=== PATIENT | male | born 1940 | race Caucasian/White ===

== ENCOUNTER 2016-08-19 10:17 | Emergency (ER) | payer MEDICARE, OTHER ==
[2016-08-19 12:06] LABS: Hematocrit 35 % (42-52); Hemoglobin 11.5 g/dl (14.0-18.0); Mean Corpuscular HGB Conc 33 g/dl (31-36); Mean Corpuscular Hemoglobin 29 pg (27-31); Mean Corpuscular Volume 88 fL (80-94); Mean Platelet Volume 8 um3 (7.4-10.4); Red Blood Count 3.92 10^6/ul (4.0-5.4); Red Cell Distribution Width 15 % (10.5-15); White Blood Count 6.6 10^3/ul (3.5-10.8)
[2016-08-19 12:07] LABS: Urine Bilirubin Negative (Negative); Urine Glucose 1+(50 mg/dL) (Negative); Urine Nitrite Negative (Negative)
--- NOTE | 2016-08-19 12:18 | RAD ---
HISTORY: Bilateral lower extremity erythema and swelling COMPARISONS: September 26, 2015 TECHNIQUE: Multiple transverse and longitudinal ultrasound images were obtained of the bilateral lower extremities from the level of the common femoral vein inferiorly through to the infrapopliteal veins using grayscale, color Doppler, and spectral Doppler imaging with and without compression and with augmentation. FINDINGS: VEINS: The venous system of the bilateral lower extremities is compressible throughout its course, with normal flow on color Doppler imaging and normal response to augmentation on spectral Doppler imaging. SOFT TISSUES: Unremarkable. OTHER FINDINGS: None. IMPRESSION: NO RIGHT LOWER EXTREMITY DEEP VEIN THROMBOSIS. NO LEFT LOWER EXTREMITY DEEP VEIN THROMBOSIS
[2016-08-19 12:21] LABS: Albumin 4.1 g/dL (3.2-5.2); BUN/Creatinine Ratio 33.5 (8-20); C Reactive Protein 3.54 mg/L (< 5.00); Calcium 9.4 mg/dL (8.6-10.3); EGFR Non-African American 43.6 (>60); Globulin 3.9 g/dL (2-4); Potassium 5.4 mmol/L (3.5-5.0); Total Bilirubin 0.4 mg/dL (0.2-1.0)
[2016-08-19] MEDS ORDERED: Sodium Polystyrene ORAL.SOL* 15 GM/60 ML BTL PO ONE (12:32)
[2016-08-19] MEDS ORDERED: cefTRIAXone(*) 1 GM in NS 0.9% 50 ML* 50 ML IVPB ONE (13:43)
--- NOTE | 2016-08-19 13:45 | RAD ---
Indication: Shortness of breath. Single frontal view of the chest performed at 1320 hours was reviewed. Comparison is made with previous exam dated May 18, 2016. No mediastinal shift is noted. Heart is of normal size and configuration. Lung lema appear clear. IMPRESSION: NO ACTIVE CARDIOPULMONARY DISEASE IS NOTED.
--- NOTE | 2016-08-19 13:45 | ED ---
Sal Morales Alok, scribed for Tony Rosen MD on 08/19/16 at 1110 . Upper Extremity Pain - HPI Summary HPI Summary: 76 y/o male presents to the ED with c/o LUE pain described as a stinging in his elbow. Pt also notes pain in his right side hip/groin area for the last few days as well as extremity weakness in his lower extremities. 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 Pt states he normally does not ambulate often and instead uses a wheelchair. Pt states no other pertinent PMHx at this time. - History of Current Complaint Chief Complaint: EDExtremityLower Stated Complaint: SWELLING IN BOTH LEGS AND GROIN PAIN Time Seen by Provider: 08/19/16 11:00 Hx Obtained From: Patient Onset/Duration: Started Days Ago, Atraumatic, Still Present Timing: Constant Severity Initially: Moderate Severity Currently: Moderate Pain Location: Arm - Left elbow pain Character: Sharp - Stinging Aggravating Factor(s): Movement Alleviating Factor(s): Nothing Associated Signs & Symptoms: Positive: Weakness - Allergies/Home Medications Allergies/Adverse Reactions: Allergies Allergy/AdvReac Type Severity Reaction Status Date / Time No Known Allergies Allergy Verified 12/12/15 12:43 Home Medications: Home Medications Atenolol TAB* [Tenormin TAB* 50 MG] 50 mg PO DAILY 08/19/16 [History Confirmed 08/19/16] Enalapril TAB* [Vasotec TAB*] 20 mg PO DAILY 08/19/16 [History Confirmed ] Furosemide TAB* [Lasix TAB*] 20 mg PO DAILY 08/19/16 [History Confirmed 08/19/16 ] Magnesium Oxide (mg Supplement [Magnesium Oxide] 250 mg PO BID 08/19/16 [ History Confirmed 08/19/16] PMH/Surg Hx/FS Hx/Imm Hx Endocrine/Hematology History: Reports: Hx Thyroid Disease - hypo Denies: Hx Diabetes Cardiovascular History: Reports: Hx Hypercholesterolemia, Hx Hypotension - LOW BLOOD PRESSURE TODAY, Hx Hypertension, Other Cardiovascular Problems/Disorders - 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 Respiratory History: Reports: Hx Chronic Bronchitis Denies: Hx Chronic Obstructive Pulmonary Disease (COPD) GI History: Reports: Hx Diverticulosis, Hx Gastroesophageal Reflux Disease, Other GI Disorders - liver abscess History: Denies: Hx Dialysis Musculoskeletal History: Reports: Hx Arthritis, Hx Back Problems Sensory History: Reports: Hx Contacts or Glasses, Hx Hearing Aid, Hx Hearing Problem Opthamlomology History: Reports: Hx Contacts or Glasses Neurological History: Reports: 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, 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 Denies: Hx Dementia, Hx Seizures - Surgical History Surgery Procedure, Year, and Place: CERVICAL SURGERY C4-C6, right ear,LIVER ABSCESS, LEFT TESTICLE - Immunization History Date of Tetanus Vaccine: Unk Date of Influenza Vaccine: Unk Infectious Disease History: No Infectious Disease History: Denies: Traveled Outside the [place] in Last 30 Days - Family History Known Family History: Positive: Hypertension, Diabetes Negative: Cardiac Disease - Social History Alcohol Use: Occasionally Hx Substance Use: No Substance Use Type: Reports: None Hx Tobacco Use: Yes - QUIT 60 YRS AGO Smoking Status (MU): Current Some Day Smoker Type: Cigars Amount Used/How Often: OCCASIONAL Review of Systems Negative: Fever Positive: Other - LUE pain All Other Systems Reviewed And Are Negative: Yes Physical Exam - Summary Physical Exam Summary: VITAL SIGNS: Reviewed. GENERAL: Patient is a well developed and nourished male who is lying comfortable in the stretcher. Patient is not in any acute respiratory distress. HEAD AND FACE: No signs of trauma. No ecchymosis, hematomas or skull depressions. No sinus tenderness. EYES: PERRLA, EOMI x 2, No injected conjunctiva, no nystagmus. EARS: Hearing grossly intact. Ear canals and tympanic membranes are within normal limits. MOUTH: Oropharynx within normal limits. NECK: Supple, trachea is midline, no adenopathy, no JVD, no carotid bruit, no c- spine tenderness, neck with full ROM. CHEST: Symmetric, no tenderness at palpation LUNGS: Clear to auscultation bilaterally. No wheezing or crackles. CVS: Regular rate and rhythm, S1 and S2 present, no murmurs or gallops appreciated. ABDOMEN: Soft, non-tender. No signs of distention. No rebound no guarding, and no masses palpated. Bowel sounds are normal. EXTREMITIES: LUE with decrease ROM, B/L LE with positive erythema and mild swelling. NEURO: Alert and oriented x 3. No acute neurological deficits. Speech is normal and follows commands. SKIN: Dry and warm Triage Information Reviewed: Yes Vital Signs On Initial Exam: Initial Vitals Temp Pulse Resp BP Pulse Ox 97.4 F 51 16 127/58 98 08/19/16 10:29 08/19/16 10:29 08/19/16 10:29 08/19/16 10:29 08/19/16 10:29 Vital Signs Reviewed: Yes Diagnostics - Vital Signs Vital Signs Temp Pulse Resp BP Pulse Ox 08/19/16 10:29 97.4 F 51 16 127/58 98 - Laboratory Result Diagrams: 08/19/16 11:40 08/19/16 11:40 Lab Statement: Any lab studies that have been ordered have been reviewed, and results considered in the medical decision making process. - Additional Comments Diagnostic Additional Comments: Venous Doppler Study: IMPRESSION: NO RIGHT LOWER EXTREMITY DEEP VEIN THROMBOSIS. NO LEFT LOWER EXTREMITY DEEP VEIN THROMBOSIS Course/Dx - Course Course Of Treatment: 76 y/o male presents to the ED with c/o LUE pain described as a stinging in his elbow. Pt also notes pain in his right side hip/groin area for the last few days as well as extremity weakness in his lower extremities. 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 Pt states he normally does not ambulate often and instead uses a wheelchair. Pt states no other pertinent PMHx at this time. Assessment/Plan: Blood work showed anemia. Potassium level 5.4 H. BUN 52 H. Creatinine 1.55 H. Creatinine levels show acute on chronic renal failure. Urinalysis shows no UTI. US shows no DVT. Given Kayexalate for high potassium level. Will admit pt with acute on chronic renal failure and anemia. - Diagnoses Differential Diagnosis/HQI/PQRI: Positive: Other - Cellulitis, DVT, B/L LE chroninc edema Provider Diagnoses: GAIT DISORDER, Leg swelling, Unable to ambulate, unable to care forhimself, Hyperkalemia, [id number] renal failure - Physician Notifications Discussed Care Of Patient With: Dr Arroyo (Hospitalist) - agreed to admit pt Discharge - Discharge Plan Condition: Stable Disposition: ADMITTED TO [facility] documentation as recorded by the Sal nugent Alok accurately reflects the service I personally performed and the decisions made by me, Tony Rosen MD.
[2016-08-19 14:09] LABS: Erythrocyte Sed Rate 38 mm/Hr (0-40)
[2016-08-19] MEDS ORDERED: Acetaminophen TAB* 325 MG PO PRN (14:19)
--- NOTE | 2016-08-19 14:23 | CONSULT ---
Subjective Date of Service: 08/19/16 Interval History: The patient has a home health respiratory care practitioner come every Tuesday and . Today a new one came and was concerned about the appearance of his lower legs. The patient sates they have been red like this for over a month. He is a somewhat rambling historian but definitely understands my questions. He has a hx of L arm weakness following anterior cerical spind fusion at [facility] a few years ago. He is treated for hypothyroidism, HTN, HL, lumbar stenosis. FH: mother had CHF, father had DM. SH: Smoke a pipe in the past. No alcohol abuse. He lives alone. SDM is his brother Wilbert Stevenson. ROS: 12-point ROS unremarkable other than above. On examination he is a well-developed, well-nourished man 5 ft 5 in 125 lb, BMI 20.8. He is in good spirits. and looks comfortable. BP 107/51, O2 sat 100%, HR 44, T 97.4. At present the monitor shows NSR at 56/ min. HEENT: normocephalic, nosigns of trauma Neck: No JVD, adenopathy. Heart: regular, no murmur or ub LungsL clear to A&P Skin: warm and dry. Irregular red areas both lower legs, rather symmetric. Not warm Extremities: No calf tenderness. 1+ edema both legs. Neruo: L hand weak, contracted. Legs equal strength. He can raise each leg off the bed. Oriented. Speech clear and fluent. Oriented. No tremor. Objective Active Medications: Ceftriaxone Sodium 1 gm/ (Sodium Chloride) 50 mls @ 100 mls/hr IVPB ED ONCE ONE Stop: 08/19/16 14:12 Result Diagrams: 08/19/16 11:40 08/19/16 11:40 Assessment/Plan - Billing Plan By Medical Problem: 1. Celllulitis and/or dermatitis. Rx ceftriaxone 1 gm IV in ED, then cephalexin 500 mg tid x 10 days. If no benefit would try HC 1% cream bid to both legs. 2. Chronic L arm wekaness due to spinal stenosis, s/p surgery 3. HTN, HL, hypothyroidism, all stable. Fup RPA Session.
[2016-08-19 14:35] VITALS: BP 97/58
[2016-08-19] MEDS ORDERED: Acetaminophen TAB* 325 MG ONE (14:58)
[2016-08-19] MEDS ORDERED: Sodium Polystyrene ORAL.SOL* 15 GM/60 ML BTL ONE (14:58)
[2016-08-19] MEDS ORDERED: cefTRIAXone(*) 1 GM ADVAN/BAG ONE (14:59)
== END 2016-08-19 17:25 | disposition home or self-care (01) ==
LOC: ED 10:17 → MED 12:48 → UNDOADMOB 12:48 → ED 17:25
DX: N17.9 Acute kidney failure, unspecified (principal); N18.9 Chronic kidney disease, unspecified; R26.9 Unspecified abnormalities of gait and mobility; M79.89 Other specified soft tissue disorders; E87.5 Hyperkalemia
CPT/HCPCS: 36415; 71010; 80053; 81003; 83605; 85025; 85610; 85652; 86140; 93970; 99284; A9270-GY; J0696

== ENCOUNTER 2016-12-09 13:30 | Inpatient (IN) | payer MEDICARE, OTHER ==
[2016-12-09] MEDS ORDERED: NS 0.9% 1000 ML* 1,000 ML IV ONE ×2 (14:13→15:36)
[2016-12-09 14:45] LABS: Hematocrit 31 % (42-52); Hemoglobin 9.7 g/dl (14.0-18.0); Mean Corpuscular HGB Conc 32 g/dl (31-36); Mean Corpuscular Hemoglobin 28 pg (27-31); Mean Corpuscular Volume 88 fL (80-94); Mean Platelet Volume 8 um3 (7.4-10.4); Red Cell Distribution Width 15 % (10.5-15); White Blood Count 9.8 10^3/ul (3.5-10.8)
--- NOTE | 2016-12-09 14:51 | RAD ---
INDICATION: Weakness COMPARISON: Chest x-ray August 19, 2016 TECHNIQUE: An AP portable view obtained at 1435 hours is submitted. FINDINGS: Bones/Soft Tissues: There are no acute bony findings. Cardiomediastinal: The cardiomediastinal silhouette is normal. Lungs: Dilation of the apices is mildly limited due to the patient's head. There is apparent increased soft tissue density over the left upper lobe which may be related to the overlying first rib. However, this is asymmetric with respect to the right and initially an apical lordotic view of the chest is recommended to exclude an underlying abnormality. The remaining lung lema are clear.. Pleura: There are no pleural effusions. Other: None IMPRESSION: ASYMMETRY LEFT UPPER LOBE MAY BE RELATED TO THE FIRST RIB BUT AN ADDITIONAL APICAL LORDOTIC VIEW IS RECOMMENDED.
[2016-12-09 14:59] LABS: Ammonia 28 mol/L (16-53)
[2016-12-09 15:00] LABS: Albumin 3.4 g/dL (3.2-5.2); BUN/Creatinine Ratio 17.3 (8-20); C Reactive Protein 77.95 mg/L (< 5.00); EGFR African American 17.9 (>60); EGFR Non-African American 13.9 (>60); Globulin 4.5 g/dL (2-4); Magnesium 3.5 mg/dL (1.9-2.7); Total Bilirubin 0.4 mg/dL (0.2-1.0); Total Protein 7.9 g/dL (6.4-8.9)
[2016-12-09 15:03] LABS: Troponin I 0.01 ng/mL (<0.04)
[2016-12-09 15:04] LABS: B Type Natriuretic Peptide 365 pg/mL
[2016-12-09 15:36] LABS: TSH (Thyroid Stimulating Horm) 1.67 mcIU/mL (0.34-5.60)
[2016-12-09] MEDS ORDERED: Insulin REGULAR(*) 1 UNITS UNIT IV PUSH ONE (15:36)
[2016-12-09] MEDS ORDERED: Sodium Polystyrene ORAL.SOL* 15 GM/60 ML BTL PO ONE (15:36)
[2016-12-09] MEDS ORDERED: Dextrose 50% Syringe 50 ML* 25 GM/50 ML SYRINGE IV PUSH PRN (15:36)
[2016-12-09] MEDS ORDERED: Gabapentin CAP(*) 300 MG PO PRN (15:40)
[2016-12-09] MEDS ORDERED: NS 0.9% 1000 ML* 1,000 ML IV SCH (15:45)
[2016-12-09 16:07] LABS: Urine Bilirubin Negative (Negative); Urine Glucose Negative (Negative); Urine Nitrite Negative (Negative)
--- NOTE | 2016-12-09 17:29 | RAD ---
INDICATION: Acute renal failure. Back pain. Sores on buttocks. COMPARISON: September 26, 2015 CT TECHNIQUE: Multidetector CT images were obtained from the lung bases to the ischial tuberosities. Evaluation of the viscera is limited without IV contrast. Multiplanar reformation. REPORT: Mild bibasilar dependent atelectasis. Negative for pleural effusion. Mild cardiomegaly. Negative for CT abnormality of the unenhanced liver or gallbladder. Negative for biliary dilatation. Moderately atrophic pancreas is without suspicious finding. Atherosclerotic calcification of the splenic artery noted. Unremarkable spleen. Largely decompressed stomach is remarkable for a small volume of hyperdense material most likely related to food stuff or pharmaceuticals. There is also hyperdense material within the colon admixed with the stool. No suspicious CT finding of the upper GI or small bowel. Normal diameter of retrocecal appendix with linear hyperdense material in the lumen which may represent appendicoliths. Negative for periappendiceal inflammatory change. Severe colonic diverticulosis without findings of acute diverticulitis. Negative for ascites or free air. Small fat-containing umbilical hernia without inflammatory change. Small small bowel loop containing direct RIGHT inguinal hernia without inflammatory change or resulting bowel obstruction. Normal adrenal glands. Few small bilateral renal calyceal stones with largest measuring 5 mm at the midpole of the LEFT kidney. Negative for hydronephrosis. Unremarkable nondilated ureters. Partially decompressed catheterized urinary bladder. Enlarged prostate. Unchanged asymmetry of the seminal vesicles with the LEFT larger than the RIGHT. Negative for lymphadenopathy. Atherosclerotic calcification of normal diameter abdominal aorta and iliac arteries. Physiologic distention of the IVC. No retroperitoneal or superficial soft tissue hematoma evident. Lumbar sacral spine degenerative spondylosis and facet joint osteoarthritis. Associated bilateral foraminal stenosis most prominent at L4-L5 and L5-S1 moderate in severity. Dorsal spondylitic ridging results in mild impression on the ventral margin of the thecal sac at L2-L3. No suspicious focal osseous lesions or fractures evident. IMPRESSION: 1. Small small bowel loop containing direct RIGHT inguinal hernia without inflammatory change or resulting bowel obstruction. 2. Severe colonic diverticulosis without findings of acute diverticulitis. 3. Nephrolithiasis without obstructive uropathy. 4. Negative for lymphadenopathy. 5. Atherosclerotic disease without aortoiliac aneurysm. 6. Lumbar sacral spine degenerative spondylosis and facet joint osteoarthritis. Associated bilateral foraminal stenosis most prominent at L4-L5 and L5-S1 moderate in severity. Dorsal spondylitic ridging results in mild impression on the ventral margin of the thecal sac at L2-L3. No suspicious focal osseous lesions or fractures evident.
[2016-12-09 18:22] LABS: BUN/Creatinine Ratio 18.5 (8-20); Calcium 8.2 mg/dL (8.6-10.3); EGFR African American 21.5 (>60); EGFR Non-African American 16.7 (>60); Potassium 5.3 mmol/L (3.5-5.0)
[2016-12-09] MEDS: Atorvastatin* 10 MG TAB PO SCH (20:41)
[2016-12-09] MEDS: Tamsulosin CAP* 0.4 MG PO SCH (20:42)
[2016-12-09] MEDS: Heparin VIAL(*) 5000 UNITS/ML VIAL (FIVE THOUSAND) SUBCUT SCH (20:42)
[2016-12-09] MEDS: Acetaminophen TAB* 325 MG PO PRN (20:42)
--- NOTE | 2016-12-10 01:49 | HP ---
CC: DIONI Prajapati HISTORY AND PHYSICAL: DATE OF ADMISSION: 12/09/16 PRIMARY CARE PROVIDER: DIONI Prajapati ATTENDING PHYSICIAN WHILE IN THE HOSPITAL: Dr. Daria Espinal * (report dictated by David Guidry NP). CHIEF COMPLAINT: 1. Weakness. 2. Not feeling well. 3. Dizziness. HISTORY OF PRESENT ILLNESS: Mr. Stevenson is a 76-year-old male patient who does take ibuprofen twice a day on a daily basis and he also in addition to this is on several blood pressure meds. He has noticed over the last couple days he has had decreased appetite, not eating or drinking. He has just been feeling dizzy, particularly with position change. Says he has been feeling short of breath off and on as well. He denied having any chest pain or any fevers. He says he was very weak. He was not doing his activities of daily living and then it was noted by his family, particularly his brother, Wilbert, that he just was not acting himself. His brother was concerned that he just does not look himself and was not acting himself, so they came in to the ER today. When he came in, was found to have several electrolyte abnormalities, in addition to this found to be in acute renal failure. So, the hospitalist service was asked to evaluate for admission. PAST MEDICAL HISTORY: Significant for: 1. Hypertension. 2. Hyperlipidemia. 3. Hypothyroidism. 4. GERD. 5. Lumbar stenosis. 6. Degenerative disk disease. 7. Liver abscess. 8. Atrial fibrillation. PAST SURGICAL HISTORY: He has had a cervical spine surgery. HOME MEDICATIONS: Include: 1. Tramadol 50 mg p.o. b.i.d. as needed. 2. Vitamin B 1 capsule p.o. daily. 3. Triamcinolone cream 1 application topically b.i.d. 4. Flomax 0.4 mg p.o. at bedtime. 5. Prilosec 20 mg p.o. daily. 6. Fish oil 1000 mg p.o. daily. 7. Zyprexa 5 mg p.o. daily. 8. Naproxen 220 mg p.o. every 12 hours as needed. 9. Magnesium 250 mg p.o. b.i.d. 10. Mevacor 20 mg daily. 11. Loratadine 10 mg p.o. daily. 12. Synthroid 25 mcg daily. 13. Gabapentin 300 mg p.o. b.i.d. as needed. 14. Lasix 20 mg p.o. daily. 15. Folic acid 1 mg p.o. daily. 16. Ferrous sulfate 325 mg p.o. daily. 17. TriCor 145 mg daily. 18. Vasotec 20 mg p.o. daily. 19. Calcium 500 mg p.o. daily. 20. Atenolol 50 mg p.o. daily. 21. Aspirin 81 mg daily. 22. Tylenol 325 mg every 6 hours as needed. ALLERGIES TO MEDICATIONS: Include no known drug allergies. FAMILY HISTORY: His mother had a history of CHF. Father was diabetic. SOCIAL HISTORY: He is a former smoker. Rarely drinks alcohol. Surrogate decision maker is his brother, Wilbert. REVIEW OF SYSTEMS: There is no documented fever. He denied any significant weight change to me. There is no double vision. No ear discharge. He denied having any no rhinorrhea. No sore throat. No thyroid enlargement. Denied having any chest pain. There was no orthopnea. No nocturnal dyspnea. There is no abdominal pain. No nausea. No vomiting. No dysuria. No frequency. No seizure. No loss of consciousness. No pruritus and no skin ulcerations. Review of 14 systems completed, all others negative. PHYSICAL EXAMINATION GENERAL: At this time, Mr. Stevenson is a 76-year-old male patient. He is sitting in the ER stretcher. He does not appear to be in any acute distress. VITAL SIGNS: Blood pressure 91/45 with a pulse of 53, respirations 12, O2 sat 100%, and temperature 98.7. HEENT: Head is atraumatic and normocephalic. Eyes: EOMs are intact. Sclerae were anicteric and not pale. Throat: Oral mucosa did appear to be dry. No oropharyngeal erythema. NECK: Supple. LUNGS: Clear to auscultation bilaterally. No wheezes, rales, or rhonchi. HEART: Sounds S1, S2. Regular rate and rhythm. No murmurs, rubs, or gallops. ABDOMEN: Soft, flat, and nontender. Bowel sounds present. EXTREMITIES: Pulses were 2+ throughout. He is able to move all 4 extremities with 5/5 strength. NEUROLOGIC: He is awake, he is alert, and he is oriented x3. Tongue midline. Microfilm Duplicating Unit Supervisor are equal. No gross focal deficits. SKIN: Intact. LABORATORY DATA AND DIAGNOSTIC STUDIES: Today revealed WBC 9.8, RBC of 3.50, hemoglobin 9.7, hematocrit 31, platelet count of 56. INR 1.23. PTT of 42.7. Sodium 136, potassium 6.0, chloride of 103, bicarb 27, BUN 72, creatinine of 4.16; his baseline appears to be about 1.5. His glucose is 181, lactate 1, calcium 9, magnesium 3.5. Total bili 0.4, AST 23, ALT 15, alk phos 53, ammonia 28. CK-MB 3.4. CK 59. Troponin 0.01. CRP of 77. Albumin of 3.4. TSH pending. He did have a chest x-ray obtained today which was read as asymmetric left upper lobe, may be related to first rib but additional apical lordotic view is recommended. He did have an EKG obtained today which showed a sinus bradycardia rate of 57. No ST elevations. He did have inverted T waves in V1 which he has had in the past and also V3 which has been noted in the past as well. Old medical records were reviewed. ASSESSMENT AND PLAN: Mr. Stevenson is a 76-year-old male patient coming in to the ER today with complaints of weakness, not feeling well, on evaluation found to be in acute renal failure. He will be admitted under inpatient status for: 1. Acute renal failure with associated hyperkalemia: At this point, I will go ahead and place the patient on telemetry. We will give him dextrose with 5 units of IV insulin. I will give him calcium gluconate and in addition to this , I will give him some Kayexalate. Suspect he is in acute renal failure probably from dehydration and the fact that he has been taking NSAIDs. He has also been on ZARIA inhibitor. I stopped these nephrotoxic agents. We will hydrate the patient and place the Dao. Because he has been having back pain, I will get a CT of the abdomen and pelvis to make sure he does not have any obstructive uropathy and evaluate for any hydronephrosis. I will send urine and we will get a FENa and will continue to follow. The weakness may be coming from the magnesium and it has been 3.5, he has been taking a supplement. He just may not be clearing the magnesium in the setting of acute renal failure. Again, we will hydrate and repeat these labs and follow up closely. 2. Hyperlipidemia: Continue medications as prescribed. 3. Hypertension: He is actually hypotensive now, it is probably from dehydration. We will hold his antihypertensives. 4. Hypothyroidism: Continue his Synthroid. 5. Gastroesophageal reflux disease: Continue medications as prescribed. 6. Lumbar stenosis and degenerative disk disease: Continue his current medical regimen; p.r.n. Tylenol has been ordered. 7. Atrial fibrillation: He appears to be in sinus rhythm. We will continue with his aspirin and follow with his primary. 8. History of liver abscess: Not an active issue. 9. DVT prophylaxis: He will be placed on heparin subcu. 10. Code status: He wished to be full code. 11. Fluids, electrolytes, and nutrition: He can have a renal diet. TIME SPENT: Time spent on the admission was approximately 60 minutes; greater than half the time was spent [id number] with the patient obtaining my history and physical, other half the time spent going over the plan of care with the patient and implementing plan of care. I did discuss the plan of care with my attending, Dr. Espinal; she is in agreement. DAVID GUIDRY, ROXANNE [id number]/[facility] #: [id number] [place]
[2016-12-10] MEDS: Levothyroxine TAB* 25 MCG TAB PO SCH (05:31)
[2016-12-10] MEDS: Heparin VIAL(*) 5000 UNITS/ML VIAL (FIVE THOUSAND) SUBCUT SCH ×3 (05:32→21:06)
[2016-12-10] MEDS: traMADol TAB* 50 MG PO PRN (07:30)
[2016-12-10] MEDS: Omeprazole CAP* 20 MG PO SCH (07:31)
[2016-12-10 07:38] LABS: Hematocrit 26 % (42-52); Hemoglobin 8.4 g/dl (14.0-18.0); Mean Corpuscular HGB Conc 32 g/dl (31-36); Mean Corpuscular Hemoglobin 28 pg (27-31); Mean Corpuscular Volume 87 fL (80-94); Mean Platelet Volume 8 um3 (7.4-10.4); Red Blood Count 3.01 10^6/ul (4.0-5.4); Red Cell Distribution Width 14 % (10.5-15); White Blood Count 8.1 10^3/ul (3.5-10.8)
[2016-12-10 07:49] LABS: Calcium 8.2 mg/dL (8.6-10.3); EGFR African American 33.5 (>60); EGFR Non-African American 26.1 (>60); Magnesium 2.5 mg/dL (1.9-2.7); Potassium 5.2 mmol/L (3.5-5.0)
[2016-12-10] MEDS: Folic Acid TAB* 1 MG PO SCH (08:25)
[2016-12-10] MEDS: Ferrous Sulfate TAB* 325 MG PO SCH (08:25)
[2016-12-10] MEDS: OLANzapine TAB* 5 MG PO SCH (08:25)
[2016-12-10] MEDS: CMCS: Fenofibrate(NF) 145 MG TAB PO SCH (08:25)
[2016-12-10] MEDS: Aspirin EC Low Dose* 81 MG TAB.EC PO SCH (08:26)
[2016-12-10] MEDS ORDERED: Sodium Polystyrene ORAL.SOL* 15 GM/60 ML BTL PO ONE (09:28)
--- NOTE | 2016-12-10 09:56 | PN ---
Subjective Date of Service: 12/10/16 Interval History: Pt had not been eating well x 2 days due to nausea. Has chronic RUE contraction and b/l LE's weakness. Usually uses a wheelchair. His back has been bothering and pt had been using Aleeve frequently Objective Active Medications: Acetaminophen (Tylenol Tab*) 650 mg PO Q4H PRN PRN Reason: FEVER/PAIN Aspirin (Aspirin Ec Low Dose*) 81 mg PO DAILY [facility] Last Admin: 12/10/16 08:26 Dose: 81 mg Atorvastatin Calcium (Lipitor*) 5 mg PO BEDTIME [facility] Last Admin: 12/09/16 20:41 Dose: 5 mg Dextrose (D50w Syringe 50 Ml*) 25 gm IV PUSH ONCE PRN PRN Reason: FS < 60 Last Admin: 12/09/16 16:06 Dose: 25 gm Fenofibrate (Tricor(Nf)) 145 mg PO DAILY [facility] PRN Reason: Protocol Last Admin: 12/10/16 08:25 Dose: 145 mg Ferrous Sulfate (Ferrous Sulfate Tab*) 325 mg PO DAILY [facility] Last Admin: 12/10/16 08:25 Dose: 325 mg Folic Acid (Folvite Tab*) 1 mg PO DAILY [facility] Last Admin: 12/10/16 08:25 Dose: 1 mg Gabapentin (Neurontin Cap(*)) 300 mg PO BEDTIME PRN PRN Reason: PAIN Heparin Sodium (Porcine) (Heparin Vial(*)) 5,000 units SUBCUT Q8HR [facility] Last Admin: 12/10/16 05:32 Dose: 5,000 units Sodium Chloride (Ns 0.9% 1000 Ml*) 1,000 mls @ 100 mls/hr IV PER RATE [facility] Levothyroxine Sodium (Synthroid Tab*) 25 mcg PO DAILY@0600 [facility] Last Admin: 12/10/16 05:31 Dose: 25 mcg Olanzapine (Zyprexa Tab*) 5 mg PO DAILY [facility] Last Admin: 12/10/16 08:25 Dose: 5 mg Omeprazole (Prilosec Cap*) 20 mg PO DAILY@0730 [facility] Last Admin: 12/10/16 07:31 Dose: 20 mg Ondansetron HCl (Zofran Inj*) 4 mg IV Q6H PRN PRN Reason: NAUSEA Oxycodone/Acetaminophen (Percocet 5/325 Tab*) 1 tab PO Q4H PRN PRN Reason: PAIN Tamsulosin HCl (Flomax Cap*) 0.4 mg PO BEDTIME [facility] Last Admin: 12/09/16 20:42 Dose: 0.4 mg Tramadol HCl (Ultram*) 50 mg PO BID PRN PRN Reason: PAIN Last Admin: 12/10/16 07:30 Dose: 50 mg Vital Signs 12/09/16 12/09/16 12/09/16 15:45 16:25 19:38 Temperature 97.3 F 96.5 F Pulse Rate 58 59 49 Respiratory 17 16 16 Rate Blood Pressure 99/54 113/51 91/44 (mmHg) O2 Sat by Pulse 100 100 98 Oximetry 12/09/16 12/09/16 12/09/16 20:00 20:34 20:53 Temperature Pulse Rate Respiratory 16 Rate Blood Pressure 95/40 (mmHg) O2 Sat by Pulse 97 Oximetry 12/09/16 12/10/16 12/10/16 23:46 04:01 07:30 Temperature 98.2 F 98.3 F Pulse Rate 64 61 Respiratory 16 16 16 Rate Blood Pressure 102/58 104/57 (mmHg) O2 Sat by Pulse 98 98 Oximetry 12/10/16 12/10/16 12/10/16 07:42 07:51 09:30 Temperature 98.8 F Pulse Rate 53 Respiratory 16 16 Rate Blood Pressure 99/49 (mmHg) O2 Sat by Pulse 95 98 Oximetry Oxygen Devices in Use Now: None Appearance: 76 yo M in nAD, aAOx3 Eyes: No Scleral Icterus, PERRLA Ears/Nose/Mouth/Throat: NL Teeth, Lips, Gums, Mucous Membranes Moist Neck: NL Appearance and Movements; NL JVP, Trachea Midline Respiratory: Symmetrical Chest Expansion and Respiratory Effort, Clear to Auscultation Cardiovascular: NL Sounds; No Murmurs; No JVD, RRR Abdominal: NL Sounds; No Tenderness; No Distention, No Hepatosplenomegaly Lymphatic: No Cervical Adenopathy Extremities: No Edema, No Clubbing, Cyanosis Skin: No Nodules or Sclerosis, - - stage 3 sacral decub at 2 cm in diam Neurological: Alert and Oriented x 3, - - left arm contracted, b/l LE''s at 4+/% Result Diagrams: 12/10/16 07:09 12/10/16 07:09 Assess/Plan/Problems-Billing Assessment: Mr. Stevenson is a 76 yo gentleman who is mostly limited to a wheelchair due to BLE and LUE weakness after cervical spine surgery as well as HTN, HLD, hypothyroidism , GERD and a documented h/o of a fib, but is not anticoagulated (due to h/o falls) who presented with generalized weakness and nausea and was noted to be in acute renal failure, h/o using NSAID's for pain. - Patient Problems (1) LAST (acute kidney injury) Comment: FeNa at 2.5 suggestive of ATN due to NSAIDS. Improving with IVF Dao in place. Pt has h/o problems with U retention in the past Pt has h/o CKD stage 3, creat baseline 1.5 (2) Sacral decubitus ulcer Comment: not infected. Air matress and dressing changes daily ordered (3) Atrial fibrillation Comment: NSR on admission. In regular rate today Anticoagulation was held in the past due to h/o of frequent falls. (4) Hyperkalemia Comment: due to LAST Will tx with another dose of Kayexalate today ACEI held (5) Back pain Comment: chronic, h/o c spine surgery in past will start Percocet, cont Ultram (6) Arm dysfunction Comment: Pt describes 2 separate injuries to L arm. contracted at baseline (7) Weakness of both lower extremities Comment: Patient spends most of his time in a wheelchair at home. He has BLE and LUE weakness which is reportedly a result of prior cervical spine surgery. (8) Hypothyroidism Comment: Continue levothyroxine.TSH 1.6 (9) DVT prophylaxis Comment: Continue SQ Heparin (10) ECG abnormal Comment: neg T waves in V1-V3 appear to be new c/w EKG in 2016. Pt has no h/o CP. Troponin neg. Recommended outpatient stress test once pt's renal failure is resolved Status and Disposition: inpatient, d/c to STR when medically stable
[2016-12-10] MEDS: oxyCODONE/Acetamin 5/325 MG* TAB PO PRN ×3 (10:31→21:57)
[2016-12-10] MEDS: NS 0.9% 1000 ML* 1,000 ML IV SCH (11:23)
[2016-12-10] MEDS: Tamsulosin CAP* 0.4 MG PO SCH (21:04)
[2016-12-10] MEDS: Atorvastatin* 10 MG TAB PO SCH (21:04)
[2016-12-11] MEDS: Heparin VIAL(*) 5000 UNITS/ML VIAL (FIVE THOUSAND) SUBCUT SCH (05:47)
[2016-12-11] MEDS: Levothyroxine TAB* 25 MCG TAB PO SCH (05:47)
[2016-12-11] MEDS: Ondansetron INJ* 2 MG/ML VIAL IV PRN ×3 (07:53→23:46)
[2016-12-11] MEDS: NS 0.9% 1000 ML* 1,000 ML IV SCH ×2 (07:53→18:14)
[2016-12-11] MEDS: Omeprazole CAP* 20 MG PO SCH (07:54)
[2016-12-11] MEDS: Folic Acid TAB* 1 MG PO SCH (08:50)
[2016-12-11] MEDS: OLANzapine TAB* 5 MG PO SCH (08:50)
[2016-12-11] MEDS: Aspirin EC Low Dose* 81 MG TAB.EC PO SCH (08:50)
[2016-12-11] MEDS: Ferrous Sulfate TAB* 325 MG PO SCH (08:50)
[2016-12-11] MEDS: CMCS: Fenofibrate(NF) 145 MG TAB PO SCH (08:50)
--- NOTE | 2016-12-11 09:31 | PN ---
Subjective Date of Service: 12/11/16 Interval History: Pt had one loose green BM yesterday. C/o abd distension and "burping". Later on RN notified of tarry black stool today Objective Active Medications: Acetaminophen (Tylenol Tab*) 650 mg PO Q4H PRN PRN Reason: FEVER/PAIN Aspirin (Aspirin Ec Low Dose*) 81 mg PO DAILY [facility] Last Admin: 12/11/16 08:50 Dose: 81 mg Atorvastatin Calcium (Lipitor*) 5 mg PO BEDTIME [facility] Last Admin: 12/10/16 21:04 Dose: 5 mg Dextrose (D50w Syringe 50 Ml*) 25 gm IV PUSH ONCE PRN PRN Reason: FS < 60 Last Admin: 12/09/16 16:06 Dose: 25 gm Fenofibrate (Tricor(Nf)) 145 mg PO DAILY [facility] PRN Reason: Protocol Last Admin: 12/11/16 08:50 Dose: 145 mg Ferrous Sulfate (Ferrous Sulfate Tab*) 325 mg PO DAILY [facility] Last Admin: 12/11/16 08:50 Dose: 325 mg Folic Acid (Folvite Tab*) 1 mg PO DAILY [facility] Last Admin: 12/11/16 08:50 Dose: 1 mg Gabapentin (Neurontin Cap(*)) 300 mg PO BEDTIME PRN PRN Reason: PAIN Sodium Chloride (Ns 0.9% 1000 Ml*) 1,000 mls @ 100 mls/hr IV PER RATE [facility] Last Admin: 12/11/16 07:53 Dose: 100 mls/hr Levothyroxine Sodium (Synthroid Tab*) 25 mcg PO DAILY@0600 [facility] Last Admin: 12/11/16 05:47 Dose: 25 mcg Olanzapine (Zyprexa Tab*) 5 mg PO DAILY [facility] Last Admin: 12/11/16 08:50 Dose: 5 mg Omeprazole (Prilosec Cap*) 20 mg PO DAILY@0730 [facility] Last Admin: 12/11/16 07:54 Dose: 20 mg Ondansetron HCl (Zofran Inj*) 4 mg IV Q6H PRN PRN Reason: NAUSEA Last Admin: 12/11/16 07:53 Dose: 4 mg Oxycodone/Acetaminophen (Percocet 5/325 Tab*) 1 tab PO Q4H PRN PRN Reason: PAIN Last Admin: 12/10/16 21:57 Dose: 1 tab Tamsulosin HCl (Flomax Cap*) 0.4 mg PO BEDTIME [facility] Last Admin: 12/10/16 21:04 Dose: 0.4 mg Tramadol HCl (Ultram*) 50 mg PO BID PRN PRN Reason: PAIN Last Admin: 12/10/16 07:30 Dose: 50 mg Vital Signs 12/10/16 12/10/16 12/10/16 09:30 10:31 11:09 Temperature 98.7 F Pulse Rate 49 Respiratory 16 16 16 Rate Blood Pressure 90/47 (mmHg) O2 Sat by Pulse 99 Oximetry 12/10/16 12/10/16 12/10/16 12:31 15:18 18:21 Temperature 97.3 F Pulse Rate 57 Respiratory 20 16 16 Rate Blood Pressure 105/54 (mmHg) O2 Sat by Pulse 100 Oximetry 12/10/16 12/10/16 12/10/16 19:43 20:00 21:57 Temperature 98.4 F Pulse Rate 61 Respiratory 16 16 16 Rate Blood Pressure 112/56 (mmHg) O2 Sat by Pulse 98 Oximetry 12/10/16 12/10/16 12/11/16 22:36 23:57 00:06 Temperature 98.5 F Pulse Rate 55 Respiratory 16 16 Rate Blood Pressure 119/59 (mmHg) O2 Sat by Pulse 93 97 Oximetry 12/11/16 12/11/16 03:57 07:35 Temperature 98.5 F 98.6 F Pulse Rate 58 54 Respiratory 16 16 Rate Blood Pressure 132/51 111/56 (mmHg) O2 Sat by Pulse 100 99 Oximetry Oxygen Devices in Use Now: None Appearance: 76 yo M in nAD, AAOx2, poor historian, [place] Eyes: No Scleral Icterus, PERRLA Ears/Nose/Mouth/Throat: NL Teeth, Lips, Gums, Mucous Membranes Moist Neck: NL Appearance and Movements; NL JVP, Trachea Midline Respiratory: Symmetrical Chest Expansion and Respiratory Effort, Clear to Auscultation Cardiovascular: NL Sounds; No Murmurs; No JVD, RRR Abdominal: - - mild LLQ tenderness, no rebound, no guarding, BS+ Lymphatic: No Cervical Adenopathy Extremities: No Edema, No Clubbing, Cyanosis Skin: No Nodules or Sclerosis, - - sacral decub stage 3 at 2-3 cm in diam Neurological: Alert and Oriented x 3, - - contracted left arm and b/l LE's weakness unchanged Result Diagrams: 12/10/16 07:09 12/11/16 09:09 Microbiology and Other Data: Microbiology 12/09/16 15:45 Urine Culture - Final Urine No Growth (<1,000 CFU/mL) Assess/Plan/Problems-Billing Assessment: Mr. Stevenson is a 76 yo gentleman who is mostly limited to a wheelchair due to BLE and LUE weakness after cervical spine surgery as well as HTN, HLD, hypothyroidism , GERD and a documented h/o of a fib, but is not anticoagulated (due to h/o falls) who presented with generalized weakness and nausea and was noted to be in acute renal failure, h/o using NSAID's for pain. - Patient Problems (1) LAST (acute kidney injury) Comment: FeNa at 2.5 suggestive of ATN due to NSAIDS. Improving with IVF. Today's labs pending. Dao in place. Pt has h/o problems with U retention in the past. consider to d/c Dao this PM Pt has h/o CKD stage 3, creat baseline 1.5 (2) Sacral decubitus ulcer Comment: not infected. Air matress and dressing changes daily ordered (3) Atrial fibrillation Comment: NSR on admission. In regular rate today Anticoagulation was held in the past due to h/o of frequent falls. (4) Hyperkalemia Comment: due to LAST labs pending today ACEI held (5) Back pain Comment: chronic, h/o c spine surgery in past will start Percocet, cont Ultram (6) Arm dysfunction Comment: Pt describes 2 separate injuries to L arm. contracted at baseline (7) Weakness of both lower extremities Comment: Patient spends most of his time in a wheelchair at home. He has BLE and LUE weakness which is reportedly a result of prior cervical spine surgery. (8) Hypothyroidism Comment: Continue levothyroxine.TSH 1.6 (9) ECG abnormal Comment: neg T waves in V1-V3 appear to be new c/w EKG in 2016. Pt has no h/o CP. Troponin neg. Recommended outpatient stress test once pt's renal failure is resolved (10) GI bleed Comment: maroon stool just reported by RN. Pt has h/o NSAID use, although by appearance of stool is most likley lower GI bleed will start H&H Q8 Protonix IV Q12H change diet to clears stop DVT prophylaxis (11) DVT prophylaxis Comment: SQ Heparin held on 12/11/16 due to possible GI bleed Status and Disposition: inpatient, d/c to STR when medically stable
[2016-12-11 09:41] LABS: BUN/Creatinine Ratio 16.1 (8-20); Calcium 8.1 mg/dL (8.6-10.3); EGFR African American 53.6 (>60); EGFR Non-African American 41.7 (>60); Potassium 4.4 mmol/L (3.5-5.0)
[2016-12-11] MEDS: Pantoprazole IV* 40 MG IV SCH ×2 (10:30→20:59)
[2016-12-11 15:12] LABS: Hematocrit 25 % (42-52)
[2016-12-11] MEDS: Tamsulosin CAP* 0.4 MG PO SCH (19:54)
[2016-12-11] MEDS: Atorvastatin* 10 MG TAB PO SCH (19:54)
[2016-12-11] MEDS: oxyCODONE/Acetamin 5/325 MG* TAB PO PRN (20:12)
[2016-12-11 23:42] LABS: Hematocrit 26 % (42-52); Hemoglobin 8.4 g/dl (14.0-18.0)
[2016-12-12] MEDS: oxyCODONE/Acetamin 5/325 MG* TAB PO PRN (04:36)
[2016-12-12] MEDS: NS 0.9% 1000 ML* 1,000 ML IV SCH ×2 (05:24→21:58)
[2016-12-12] MEDS: Ondansetron INJ* 2 MG/ML VIAL IV PRN ×2 (05:26→22:07)
[2016-12-12] MEDS: Levothyroxine TAB* 25 MCG TAB PO SCH (05:28)
[2016-12-12 05:35] LABS: Hematocrit 28 % (42-52); Hemoglobin 8.8 g/dl (14.0-18.0); Mean Corpuscular HGB Conc 32 g/dl (31-36); Mean Corpuscular Hemoglobin 28 pg (27-31); Mean Corpuscular Volume 88 fL (80-94); Mean Platelet Volume 8 um3 (7.4-10.4); Red Blood Count 3.14 10^6/ul (4.0-5.4); Red Cell Distribution Width 15 % (10.5-15); White Blood Count 7.7 10^3/ul (3.5-10.8)
[2016-12-12 05:55] LABS: Calcium 8.2 mg/dL (8.6-10.3); EGFR African American 56.9 (>60); EGFR Non-African American 44.2 (>60)
[2016-12-12 08:31] LABS: Hematocrit 27 % (42-52); Hemoglobin 8.6 g/dl (14.0-18.0)
[2016-12-12] MEDS: Folic Acid TAB* 1 MG PO SCH (09:45)
[2016-12-12] MEDS: OLANzapine TAB* 5 MG PO SCH (09:45)
[2016-12-12] MEDS: Ferrous Sulfate TAB* 325 MG PO SCH (09:45)
[2016-12-12] MEDS: CMCS: Fenofibrate(NF) 145 MG TAB PO SCH (09:45)
[2016-12-12] MEDS: Pantoprazole IV* 40 MG IV SCH (09:47)
--- NOTE | 2016-12-12 10:28 | PN ---
Subjective Date of Service: 12/12/16 Interval History: pt c/o lower abd pain. lot's of "gas" but no BM since the maroon stool yesterday. appetite is "picking up" after N/V yesterday Objective Active Medications: Acetaminophen (Tylenol Tab*) 650 mg PO Q4H PRN PRN Reason: FEVER/PAIN Atorvastatin Calcium (Lipitor*) 5 mg PO BEDTIME [facility] Last Admin: 12/11/16 19:54 Dose: 5 mg Dextrose (D50w Syringe 50 Ml*) 25 gm IV PUSH ONCE PRN PRN Reason: FS < 60 Last Admin: 12/09/16 16:06 Dose: 25 gm Famotidine (Pepcid Tab*) 20 mg PO BID [facility] Fenofibrate (Tricor(Nf)) 145 mg PO DAILY [facility] PRN Reason: Protocol Last Admin: 12/12/16 09:45 Dose: 145 mg Ferrous Sulfate (Ferrous Sulfate Tab*) 325 mg PO DAILY [facility] Last Admin: 12/12/16 09:45 Dose: 325 mg Folic Acid (Folvite Tab*) 1 mg PO DAILY [facility] Last Admin: 12/12/16 09:45 Dose: 1 mg Gabapentin (Neurontin Cap(*)) 300 mg PO BEDTIME PRN PRN Reason: PAIN Lactated Ringer's (Lactated Ringers 1000 Ml Bag*) 1,000 mls @ 75 mls/hr IV PER RATE [facility] Levothyroxine Sodium (Synthroid Tab*) 25 mcg PO DAILY@0600 [facility] Last Admin: 12/12/16 05:28 Dose: 25 mcg Olanzapine (Zyprexa Tab*) 5 mg PO DAILY [facility] Last Admin: 12/12/16 09:45 Dose: 5 mg Ondansetron HCl (Zofran Inj*) 4 mg IV Q6H PRN PRN Reason: NAUSEA Last Admin: 12/12/16 05:26 Dose: 4 mg Oxycodone/Acetaminophen (Percocet 5/325 Tab*) 1 tab PO Q4H PRN PRN Reason: PAIN Last Admin: 12/12/16 04:36 Dose: 1 tab Sodium Bicarbonate (Sodium Bicarbonate (Antacid)*) 650 mg PO AC [facility] Tamsulosin HCl (Flomax Cap*) 0.4 mg PO BEDTIME [facility] Last Admin: 12/11/16 19:54 Dose: 0.4 mg Tramadol HCl (Ultram*) 50 mg PO BID PRN PRN Reason: PAIN Last Admin: 12/10/16 07:30 Dose: 50 mg Vital Signs 12/11/16 12/11/16 12/11/16 11:49 15:43 19:18 Temperature 98.5 F 98.3 F 98.3 F Pulse Rate 55 56 61 Respiratory 20 16 18 Rate Blood Pressure 107/56 117/60 108/61 (mmHg) O2 Sat by Pulse 98 98 98 Oximetry 12/11/16 12/11/16 12/11/16 20:00 20:12 22:01 Temperature Pulse Rate Respiratory 18 24 Rate Blood Pressure (mmHg) O2 Sat by Pulse 93 Oximetry 12/11/16 12/11/16 12/12/16 22:12 23:50 03:21 Temperature 98.5 F 98.7 F Pulse Rate 60 67 Respiratory 18 20 20 Rate Blood Pressure 106/55 103/45 (mmHg) O2 Sat by Pulse 97 95 Oximetry 12/12/16 12/12/16 12/12/16 04:36 06:36 07:48 Temperature 98.3 F Pulse Rate 69 Respiratory 18 17 20 Rate Blood Pressure 124/82 (mmHg) O2 Sat by Pulse 96 Oximetry 12/12/16 08:26 Temperature Pulse Rate Respiratory Rate Blood Pressure (mmHg) O2 Sat by Pulse 96 Oximetry Oxygen Devices in Use Now: None Appearance: 76 yo in NAD, aAOx3 Eyes: No Scleral Icterus, PERRLA Ears/Nose/Mouth/Throat: NL Teeth, Lips, Gums, Mucous Membranes Moist Neck: NL Appearance and Movements; NL JVP, Trachea Midline Respiratory: Symmetrical Chest Expansion and Respiratory Effort, Clear to Auscultation Cardiovascular: NL Sounds; No Murmurs; No JVD, RRR Abdominal: - - mild tenderness in b/l LQ's, no rwbound, no guarding, BS+ Lymphatic: No Cervical Adenopathy Extremities: No Edema, No Clubbing, Cyanosis Skin: No Nodules or Sclerosis, - - sacral decub not evaluated today Neurological: Alert and Oriented x 3, - - L UE contracted, b/l LE's weakness unchanged Result Diagrams: 12/12/16 08:21 12/12/16 05:12 Microbiology and Other Data: Microbiology 12/09/16 15:45 Urine Culture - Final Urine No Growth (<1,000 CFU/mL) Assess/Plan/Problems-Billing Assessment: Mr. Stevenson is a 76 yo gentleman who is mostly limited to a wheelchair due to BLE and LUE weakness after cervical spine surgery as well as HTN, HLD, hypothyroidism , GERD and a documented h/o of a fib, but is not anticoagulated (due to h/o falls) who presented with generalized weakness and nausea and was noted to be in acute renal failure, h/o using NSAID's for pain. - Patient Problems (1) Diverticulitis Comment: Clinically pt has diverticulitis: abd pain , lower GI bleed, elevated CRP, severe diverticulosis noted on CT at admission. Will start Zosyn (2) GI bleed Comment: maroon stool on 12/11/16. Pt has h/o NSAID use, although by appearance of stool is most likley lower GI bleed. Hb stable. no recurrence. suspect due to diverticulitis. Due to LAST will stop PPI and start Pepcid. (3) LAST (acute kidney injury) Comment: FeNa at 2.5 suggestive of ATN due to NSAIDS. Improving with IVF. Today's labs indicated metabolic non ion gap acidosis.Will start Na bicarrb with each meal Dao d/c'd on 12/11/16 with post void resiudual approx 100 ml-acceptable. Pt has h/o CKD stage 3, creat baseline 1.5 (4) Sacral decubitus ulcer Comment: not infected. Air matress and dressing changes daily ordered (5) Atrial fibrillation Comment: NSR on admission. In regular rate today Anticoagulation was held in the past due to h/o of frequent falls. (6) Hyperkalemia Comment: due to LAST resolved ACEI held (7) Back pain Comment: chronic, h/o c spine surgery in past cont Percocet,Ultram (8) Arm dysfunction Comment: Pt describes 2 separate injuries to L arm. contracted at baseline (9) Weakness of both lower extremities Comment: Patient spends most of his time in a wheelchair at home. He has BLE and LUE weakness which is reportedly a result of prior cervical spine surgery. (10) Hypothyroidism Comment: Continue levothyroxine.TSH 1.6 (11) ECG abnormal Comment: neg T waves in V1-V3 appear to be new c/w EKG in 2016. Pt has no h/o CP. Troponin neg. Recommended outpatient stress test once pt's renal failure is resolved (12) DVT prophylaxis Comment: SQ Heparin held on 12/11/16 due to possible GI bleed SCD's Status and Disposition: inpatient, d/c to STR when medically stable
[2016-12-12] MEDS: Sodium Bicarbonate (ANTACID)* 650 MG TAB PO SCH ×2 (12:19→16:55)
[2016-12-12] MEDS ORDERED: Zosyn per Pharmacy* NOTE FOLLOW UP SCH (14:00)
[2016-12-12] MEDS: ZOSYN 3.375 GM Q8H per EXTENDED INFUSION IVPB SCH ×2 (17:16)
[2016-12-12] MEDS: Atorvastatin* 10 MG TAB PO SCH (19:56)
[2016-12-12] MEDS: Tamsulosin CAP* 0.4 MG PO SCH (19:56)
[2016-12-12] MEDS ORDERED: Famotidine TAB* 20 MG PO SCH (21:00)
[2016-12-13] MEDS: ZOSYN 3.375 GM Q8H per EXTENDED INFUSION IVPB SCH ×6 (01:29→16:42)
[2016-12-13] MEDS: Acetaminophen TAB* 325 MG PO PRN (02:50)
[2016-12-13] MEDS: Levothyroxine TAB* 25 MCG TAB PO SCH (05:42)
[2016-12-13] MEDS: Ondansetron INJ* 2 MG/ML VIAL IV PRN (05:49)
[2016-12-13] MEDS: traMADol TAB* 50 MG PO PRN (05:49)
[2016-12-13 06:37] LABS: Hematocrit 26 % (42-52); Hemoglobin 8.5 g/dl (14.0-18.0); Mean Corpuscular HGB Conc 32 g/dl (31-36); Mean Corpuscular Hemoglobin 28 pg (27-31); Mean Corpuscular Volume 88 fL (80-94); Mean Platelet Volume 8 um3 (7.4-10.4); Red Blood Count 3.02 10^6/ul (4.0-5.4); Red Cell Distribution Width 15 % (10.5-15); White Blood Count 7.7 10^3/ul (3.5-10.8)
[2016-12-13 06:49] LABS: Calcium 8.1 mg/dL (8.6-10.3); EGFR African American 64.1 (>60); EGFR Non-African American 49.8 (>60)
[2016-12-13 07:05] LABS: Potassium 4.2 mmol/L (3.5-5.0)
--- NOTE | 2016-12-13 07:30 | ED ---
Christian Morales Salem, scribed for Denis Broussard MD on 12/09/16 at 1427 . Complex/Multi-Sys Presentation - HPI Summary HPI Summary: Patient is a 76 y/o M who presents to the ED with general weakness since yesterday. He reports a cough productive for yellow sputum, SOB, general myalgia , lightheadedness, staggering with ambulation, burning of eyes, and sores on buttocks. However, he denies changes in BM or urination, or blood in stool. Pt recently had neck surgery in [place], [place]. He also reports decreased PO intake because of choking (since surgery). Pt states that his nursing home aide did not come yesterday and that he did not have anything to eat secondary to this. PMHx of arthritis, which pt states flares up occasionally. - History Of Current Complaint Chief Complaint: EDGeneral Time Seen by Provider: 12/09/16 14:17 Hx Obtained From: Patient, Family/Driller Multiple Spindle Onset/Duration: Gradual Onset, Lasting Days, Still Present Timing: Constant Severity Currently: Moderate Severity Initially: Moderate Location: Negative Aggravating Factor(s): Nothing. Alleviating Factor(s): Nothing. Associated Signs And Symptoms: Positive: Weakness. Negative: Abdominal Pain - Allergies/Home Medications Allergies/Adverse Reactions: Allergies Allergy/AdvReac Type Severity Reaction Status Date / Time No Known Allergies Allergy Verified 12/12/15 12:43 Home Medications: Home Medications Levothyroxine TAB* [Synthroid TAB*] 25 mcg PO DAILY 12/09/16 [History Confirmed 12/09/16] LoraTADine TAB(NF) [Claritin 10 MG TAB(NF)] 10 mg PO DAILY 12/09/16 [History Confirmed 12/09/16] Naproxen Sodium [Naproxen Sodium 220 mg] 220 mg PO Q12HR PRN 12/09/16 [History Confirmed 12/09/16] Triamcinolone 0.1% CREAM (NF) [Kenalog 0.1% Cream (NF)] 1 applic TOPICAL BID [History Confirmed 12/09/16] Vitamin B Complex CAP* [B Complex CAP*] 1 cap PO DAILY 12/09/16 [History Confirmed 12/09/16] traMADol TAB* [Ultram*] 50 mg PO BID PRN 12/09/16 [History Confirmed 12/09/16] PMH/Surg Hx/FS Hx/Imm Hx Endocrine/Hematology History: Reports: Hx Thyroid Disease - hypo Denies: Hx Diabetes Cardiovascular History: Reports: Hx Hypercholesterolemia, Hx Hypotension - LOW BLOOD PRESSURE TODAY, Hx Hypertension, Other Cardiovascular Problems/Disorders - 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 Respiratory History: Reports: Hx Chronic Bronchitis Denies: Hx Chronic Obstructive Pulmonary Disease (COPD) GI History: Reports: Hx Diverticulosis, Hx Gastroesophageal Reflux Disease, Other GI Disorders - liver abscess History: Denies: Hx Dialysis Musculoskeletal History: Reports: Hx Arthritis, Hx Back Problems Sensory History: Reports: Hx Contacts or Glasses, Hx Hearing Aid, Hx Hearing Problem Opthamlomology History: Reports: Hx Contacts or Glasses Neurological History: Reports: 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, 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 Denies: Hx Dementia, Hx Seizures - Surgical History Surgery Procedure, Year, and Place: CERVICAL SURGERY C4-C6, right ear,LIVER ABSCESS, LEFT TESTICLE - Immunization History Date of Tetanus Vaccine: Unk Date of Influenza Vaccine: Unk Infectious Disease History: No Infectious Disease History: Denies: Traveled Outside the [place] in Last 30 Days - Family History Known Family History: Positive: Hypertension, Diabetes Negative: Cardiac Disease - Social History Alcohol Use: Occasionally Hx Substance Use: No Substance Use Type: Reports: None Hx Tobacco Use: Yes - QUIT 60 YRS AGO Smoking Status (MU): Current Some Day Smoker Type: Cigars Amount Used/How Often: OCCASIONAL Review of Systems Positive: Other - "Burning of eyes" Positive: Shortness Of Breath, Cough Genitourinary: Other - No changes in BM or urination. No blood in stool. Positive: Myalgia, Other - Paralyzed LUE. Staggering with ambulation. Neurological: Other - Lightheadedness. Positive: Weakness All Other Systems Reviewed And Are Negative: Yes Physical Exam Triage Information Reviewed: Yes Vital Signs On Initial Exam: Initial Vitals Temp Pulse Resp BP Pulse Ox 98.3 F 62 20 96/72 96 12/09/16 13:31 12/09/16 13:31 12/09/16 13:31 12/09/16 13:31 12/09/16 13:31 Vital Signs Reviewed: Yes Appearance: Positive: Well-Appearing, No Pain Distress Skin: Positive: Warm, Skin Color Reflects Adequate Perfusion, Dry Head/Face: Positive: Normal Head/Face Inspection Eyes: Positive: EOMI, FRANSISCA ENT: Positive: Other - DMM. Hard of hearing. Neck: Positive: Supple, Nontender Respiratory/Lung Sounds: Positive: Clear to Auscultation, Breath Sounds Present Cardiovascular: Positive: RRR Abdomen Description: Positive: Nontender, Soft Bowel Sounds: Positive: Hypoactive Musculoskeletal: Positive: Other - Generalized weakness. Left arm - decreased strength. Weakness in both legs but able to lift. Neurological: Positive: Normal, Sensory/Motor Intact, Alert, Oriented to Person Place, Time Psychiatric: Positive: Affect/Mood Appropriate Diagnostics - Vital Signs Vital Signs Temp Pulse Resp BP Pulse Ox 12/09/16 13:35 98.7 F 62 20 96/72 96 12/09/16 13:31 98.3 F 62 20 96/ 96 - Laboratory Lab Results: Lab Results 12/09/16 12/09/16 12/09/16 Range/Units 14:25 14:25 14:25 WBC 9.8 (3.5-10.8) 10^3/ul RBC 3.50 L (4.0-5.4) 10^6/ul Hgb 9.7 L (14.0-18.0) g/dl Hct 31 L (42-52) % MCV 88 (80-94) fL MCH 28 (27-31) pg MCHC 32 (31-36) g/dl RDW 15 (10.5-15) % Plt Count 356 (150-450) 10^3/ul MPV 8 (7.4-10.4) um3 Neut % (Auto) 84.0 H (38-83) % Lymph % (Auto) 5.1 L (25-47) % [place] % (Auto) 8.2 (1-9) % Eos % (Auto) 2.1 (0-6) % Baso % (Auto) 0.6 (0-2) % Absolute Neuts (auto) 8.2 H (1.5-7.7) 10^3/ul Absolute Lymphs (auto) 0.5 L (1.0-4.8) 10^3/ul Absolute Monos (auto) 0.8 (0-0.8) 10^3/ul Absolute Eos (auto) 0.2 (0-0.6) 10^3/ul Absolute Basos (auto) 0.1 (0-0.2) 10^3/ul Absolute Nucleated RBC 0 10^3/ul Nucleated RBC % 0 INR (Anticoag Therapy) 1.23 H (0.89-1.11) APTT 42.7 H (26.0-36.3) seconds Sodium (133-145) mmol/L Potassium (3.5-5.0) mmol/L Chloride (101-111) mmol/L Carbon Dioxide (22-32) mmol/L Anion Gap (2-11) mmol/L BUN (6-24) mg/dL Creatinine (0.67-1.17) mg/dL Est GFR ( Amer) (>60) Est GFR (Non-Af Amer) (>60) BUN/Creatinine Ratio (8-20) Glucose (70-100) mg/dL Lactic Acid (0.5-2.0) mmol/L Calcium (8.6-10.3) mg/dL Magnesium (1.9-2.7) mg/dL Total Bilirubin (0.2-1.0) mg/dL AST (13-39) U/L ALT (7-52) U/L Alkaline Phosphatase (34-104) U/L Ammonia 28 (16-53) mol/L Total Creatine Kinase (10-223) U/L CK-MB (CK-2) (0.6-6.3) ng/mL Troponin I (<0.04) ng/mL C-Reactive Protein (< 5.00) mg/L B-Natriuretic Peptide 365 H ( - 100) pg/mL Total Protein (6.4-8.9) g/dL Albumin (3.2-5.2) g/dL Globulin (2-4) g/dL Albumin/Globulin Ratio (1-3) Lipase (11.0-82.0) U/L TSH (0.34-5.60) mcIU/mL 12/09/16 12/09/16 Range/Units 14:25 14:25 WBC (3.5-10.8) 10^3/ul RBC (4.0-5.4) 10^6/ul Hgb (14.0-18.0) g/dl Hct (42-52) % MCV (80-94) fL MCH (27-31) pg MCHC (31-36) g/dl RDW (10.5-15) % Plt Count (150-450) 10^3/ul MPV (7.4-10.4) um3 Neut % (Auto) (38-83) % Lymph % (Auto) (25-47) % [place] % (Auto) (1-9) % Eos % (Auto) (0-6) % Baso % (Auto) (0-2) % Absolute Neuts (auto) (1.5-7.7) 10^3/ul Absolute Lymphs (auto) (1.0-4.8) 10^3/ul Absolute Monos (auto) (0-0.8) 10^3/ul Absolute Eos (auto) (0-0.6) 10^3/ul Absolute Basos (auto) (0-0.2) 10^3/ul Absolute Nucleated RBC 10^3/ul Nucleated RBC % INR (Anticoag Therapy) (0.89-1.11) APTT (26.0-36.3) seconds Sodium 136 (133-145) mmol/L Potassium 6.0 H (3.5-5.0) mmol/L Chloride 103 (101-111) mmol/L Carbon Dioxide 27 (22-32) mmol/L Anion Gap 6 (2-11) mmol/L BUN 72 H (6-24) mg/dL Creatinine 4.16 H (0.67-1.17) mg/dL Est GFR ( Amer) 17.9 (>60) Est GFR (Non-Af Amer) 13.9 (>60) BUN/Creatinine Ratio 17.3 (8-20) Glucose 181 H (70-100) mg/dL Lactic Acid 1.0 (0.5-2.0) mmol/L Calcium 9.0 (8.6-10.3) mg/dL Magnesium 3.5 H (1.9-2.7) mg/dL Total Bilirubin 0.40 (0.2-1.0) mg/dL AST 23 (13-39) U/L ALT 15 (7-52) U/L Alkaline Phosphatase 63 (34-104) U/L Ammonia (16-53) mol/L Total Creatine Kinase 59 (10-223) U/L CK-MB (CK-2) 3.4 (0.6-6.3) ng/mL Troponin I 0.01 (<0.04) ng/mL C-Reactive Protein 77.95 H (< 5.00) mg/L B-Natriuretic Peptide ( - 100) pg/mL Total Protein 7.9 (6.4-8.9) g/dL Albumin 3.4 (3.2-5.2) g/dL Globulin 4.5 H (2-4) g/dL Albumin/Globulin Ratio 0.8 L (1-3) Lipase 26 (11.0-82.0) U/L TSH 1.67 (0.34-5.60) mcIU/mL Result Diagrams: 12/13/16 06:12 12/13/16 06:12 Lab Statement: Any lab studies that have been ordered have been reviewed, and results considered in the medical decision making process. - Radiology CXR Radiology Interpretation Completed By: Radiologist - IMPRESSION: ASYMMETRY LEFT UPPER LOBE MAY BE RELATED TO THE FIRST RIB BUT AN ADDITIONAL APICAL LORDOTIC VIEW IS RECOMMENDED. Re-Evaluation - Re-Evaluation First Eval Re-Evaluation Time: 15:46 Comment: Reviewed labs and imaging results. Complex Multi-Symp Course/Dx Course Of Treatment: NO CRITICAL CARE TIME. ADMIT HOSPITALIST STABLE. - Diagnoses Provider Diagnoses: Renal failure, acute, Hyperkalemia - Physician Notifications Discussed Care Of Patient With: Daria Espinal Time Discussed With Above Provider: 15:00 Instructed by Provider To: Admit As Inpatient Admit/Transition Orders Completed By ED Provider: Yes Discharge - Discharge Plan Condition: Stable Disposition: ADMITTED TO [facility] documentation as recorded by the Christian nugent Salem accurately reflects the service I personally performed and the decisions made by me, Denis Broussard MD.
[2016-12-13] MEDS: Sodium Bicarbonate (ANTACID)* 650 MG TAB PO SCH ×3 (08:01→16:42)
[2016-12-13] MEDS: Famotidine TAB* 20 MG PO SCH (08:05)
[2016-12-13] MEDS: Ferrous Sulfate TAB* 325 MG PO SCH (08:05)
[2016-12-13] MEDS: OLANzapine TAB* 5 MG PO SCH (08:05)
[2016-12-13] MEDS: Folic Acid TAB* 1 MG PO SCH (08:06)
[2016-12-13] MEDS: CMCS: Fenofibrate(NF) 145 MG TAB PO SCH (09:16)
--- NOTE | 2016-12-13 13:16 | PN ---
Subjective Date of Service: 12/13/16 Interval History: C/o abdominal distention, no diarrhea, no bloody stool recurrence. 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 Objective Active Medications: Acetaminophen (Tylenol Tab*) 650 mg PO Q4H PRN PRN Reason: FEVER/PAIN Atorvastatin Calcium (Lipitor*) 5 mg PO BEDTIME [facility] Last Admin: 12/12/16 19:56 Dose: 5 mg Dextrose (D50w Syringe 50 Ml*) 25 gm IV PUSH ONCE PRN PRN Reason: FS < 60 Last Admin: 12/09/16 16:06 Dose: 25 gm Famotidine (Pepcid Tab*) 20 mg PO DAILY [facility] Last Admin: 12/13/16 08:05 Dose: 20 mg Fenofibrate (Tricor(Nf)) 145 mg PO DAILY [facility] PRN Reason: Protocol Last Admin: 12/13/16 09:16 Dose: 145 mg Ferrous Sulfate (Ferrous Sulfate Tab*) 325 mg PO DAILY [facility] Last Admin: 12/13/16 08:05 Dose: 325 mg Folic Acid (Folvite Tab*) 1 mg PO DAILY [facility] Last Admin: 12/13/16 08:06 Dose: 1 mg Gabapentin (Neurontin Cap(*)) 300 mg PO BEDTIME PRN PRN Reason: PAIN Sodium Chloride (Ns 0.9% 1000 Ml*) 1,000 mls @ 75 mls/hr IV PER RATE [facility] Last Admin: 12/12/16 21:58 Dose: 75 mls/hr Piperacillin Sod/Tazobactam (Sod 3.375 gm/ Sodium Chloride) 100 mls @ 25 mls/ hr IVPB Q8H [facility] Last Admin: 12/13/16 09:17 Dose: 25 mls/hr Levothyroxine Sodium (Synthroid Tab*) 25 mcg PO DAILY@0600 [facility] Last Admin: 12/13/16 05:42 Dose: 25 mcg Olanzapine (Zyprexa Tab*) 5 mg PO DAILY [facility] Last Admin: 12/13/16 08:05 Dose: 5 mg Ondansetron HCl (Zofran Inj*) 4 mg IV Q6H PRN PRN Reason: NAUSEA Last Admin: 12/13/16 05:49 Dose: 4 mg Oxycodone/Acetaminophen (Percocet 5/325 Tab*) 1 tab PO Q4H PRN PRN Reason: PAIN Last Admin: 12/12/16 04:36 Dose: 1 tab Pharmacy Consult (Zosyn Per Pharmacy*) 1 note FOLLOW UP .ZOSYN PER PHARMACY [facility] Sodium Bicarbonate (Sodium Bicarbonate (Antacid)*) 650 mg PO AC [facility] Last Admin: 12/13/16 11:30 Dose: 650 mg Tamsulosin HCl (Flomax Cap*) 0.4 mg PO BEDTIME [facility] Last Admin: 12/12/16 19:56 Dose: 0.4 mg Tramadol HCl (Ultram*) 50 mg PO BID PRN PRN Reason: PAIN Last Admin: 12/13/16 05:49 Dose: 50 mg Vital Signs 12/12/16 12/12/16 12/12/16 15:56 19:46 20:10 Temperature 98.7 F 98.4 F Pulse Rate 58 60 Respiratory 18 18 Rate Blood Pressure 108/50 130/67 (mmHg) O2 Sat by Pulse 96 96 96 Oximetry 12/12/16 12/12/16 12/12/16 21:52 22:21 22:32 Temperature 98.5 F 98.5 F Pulse Rate 62 62 Respiratory 16 16 16 Rate Blood Pressure 126/56 126/56 (mmHg) O2 Sat by Pulse 98 98 Oximetry 12/12/16 12/13/16 12/13/16 23:54 03:33 05:49 Temperature 98.3 F 98.3 F Pulse Rate 58 52 Respiratory 18 16 18 Rate Blood Pressure 137/74 146/62 (mmHg) O2 Sat by Pulse 99 100 Oximetry 12/13/16 12/13/16 12/13/16 07:29 07:49 08:00 Temperature 97.5 F Pulse Rate 56 Respiratory 16 16 16 Rate Blood Pressure 150/60 (mmHg) O2 Sat by Pulse 99 Oximetry Oxygen Devices in Use Now: None Appearance: 76 yo M in [place], [place], [place] Eyes: No Scleral Icterus, PERRLA Ears/Nose/Mouth/Throat: NL Teeth, Lips, Gums, Mucous Membranes Moist Neck: NL Appearance and Movements; NL JVP, Trachea Midline Respiratory: Symmetrical Chest Expansion and Respiratory Effort, Clear to Auscultation Cardiovascular: NL Sounds; No Murmurs; No JVD, RRR Abdominal: - - distended, tympanic, mild periumbilical tenderness, no rebound, no guarding, BS+ Lymphatic: No Cervical Adenopathy Extremities: No Edema, No Clubbing, Cyanosis Skin: No Nodules or Sclerosis, - - sacral decub not inspected today Neurological: Alert and Oriented x 3, - - left arm contracted, b/l LE's weakness unchanged Result Diagrams: 12/13/16 06:12 12/13/16 06:12 Additional Lab and Data: Lab Results 12/09/16 12/09/16 12/09/16 Range/Units 14:25 14:25 14:25 WBC 9.8 (3.5-10.8) 10^3/ul RBC 3.50 L (4.0-5.4) 10^6/ul Hgb 9.7 L (14.0-18.0) g/dl Hct 31 L (42-52) % MCV 88 (80-94) fL MCH 28 (27-31) pg MCHC 32 (31-36) g/dl RDW 15 (10.5-15) % Plt Count 356 (150-450) 10^3/ul MPV 8 (7.4-10.4) um3 Neut % (Auto) 84.0 H (38-83) % Lymph % (Auto) 5.1 L (25-47) % [place] % (Auto) 8.2 (1-9) % Eos % (Auto) 2.1 (0-6) % Baso % (Auto) 0.6 (0-2) % Absolute Neuts (auto) 8.2 H (1.5-7.7) 10^3/ul Absolute Lymphs (auto) 0.5 L (1.0-4.8) 10^3/ul Absolute Monos (auto) 0.8 (0-0.8) 10^3/ul Absolute Eos (auto) 0.2 (0-0.6) 10^3/ul Absolute Basos (auto) 0.1 (0-0.2) 10^3/ul Absolute Nucleated RBC 0 10^3/ul Nucleated RBC % 0 INR (Anticoag Therapy) 1.23 H (0.89-1.11) APTT 42.7 H (26.0-36.3) seconds Sodium (133-145) mmol/L Potassium (3.5-5.0) mmol/L Chloride (101-111) mmol/L Carbon Dioxide (22-32) mmol/L Anion Gap (2-11) mmol/L BUN (6-24) mg/dL Creatinine (0.67-1.17) mg/dL Est GFR ( Amer) (>60) Est GFR (Non-Af Amer) (>60) BUN/Creatinine Ratio (8-20) Glucose (70-100) mg/dL Lactic Acid (0.5-2.0) mmol/L Calcium (8.6-10.3) mg/dL Magnesium (1.9-2.7) mg/dL Total Bilirubin (0.2-1.0) mg/dL AST (13-39) U/L ALT (7-52) U/L Alkaline Phosphatase (34-104) U/L Ammonia 28 (16-53) mol/L Total Creatine Kinase (10-223) U/L CK-MB (CK-2) (0.6-6.3) ng/mL Troponin I (<0.04) ng/mL C-Reactive Protein (< 5.00) mg/L B-Natriuretic Peptide 365 H ( - 100) pg/mL Total Protein (6.4-8.9) g/dL Albumin (3.2-5.2) g/dL Globulin (2-4) g/dL Albumin/Globulin Ratio (1-3) Lipase (11.0-82.0) U/L TSH (0.34-5.60) mcIU/mL 12/09/16 12/09/16 Range/Units 14:25 14:25 WBC (3.5-10.8) 10^3/ul RBC (4.0-5.4) 10^6/ul Hgb (14.0-18.0) g/dl Hct (42-52) % MCV (80-94) fL MCH (27-31) pg MCHC (31-36) g/dl RDW (10.5-15) % Plt Count (150-450) 10^3/ul MPV (7.4-10.4) um3 Neut % (Auto) (38-83) % Lymph % (Auto) (25-47) % [place] % (Auto) (1-9) % Eos % (Auto) (0-6) % Baso % (Auto) (0-2) % Absolute Neuts (auto) (1.5-7.7) 10^3/ul Absolute Lymphs (auto) (1.0-4.8) 10^3/ul Absolute Monos (auto) (0-0.8) 10^3/ul Absolute Eos (auto) (0-0.6) 10^3/ul Absolute Basos (auto) (0-0.2) 10^3/ul Absolute Nucleated RBC 10^3/ul Nucleated RBC % INR (Anticoag Therapy) (0.89-1.11) APTT (26.0-36.3) seconds Sodium 136 (133-145) mmol/L Potassium 6.0 H (3.5-5.0) mmol/L Chloride 103 (101-111) mmol/L Carbon Dioxide 27 (22-32) mmol/L Anion Gap 6 (2-11) mmol/L BUN 72 H (6-24) mg/dL Creatinine 4.16 H (0.67-1.17) mg/dL Est GFR ( Amer) 17.9 (>60) Est GFR (Non-Af Amer) 13.9 (>60) BUN/Creatinine Ratio 17.3 (8-20) Glucose 181 H (70-100) mg/dL Lactic Acid 1.0 (0.5-2.0) mmol/L Calcium 9.0 (8.6-10.3) mg/dL Magnesium 3.5 H (1.9-2.7) mg/dL Total Bilirubin 0.40 (0.2-1.0) mg/dL AST 23 (13-39) U/L ALT 15 (7-52) U/L Alkaline Phosphatase 63 (34-104) U/L Ammonia (16-53) mol/L Total Creatine Kinase 59 (10-223) U/L CK-MB (CK-2) 3.4 (0.6-6.3) ng/mL Troponin I 0.01 (<0.04) ng/mL C-Reactive Protein 77.95 H (< 5.00) mg/L B-Natriuretic Peptide ( - 100) pg/mL Total Protein 7.9 (6.4-8.9) g/dL Albumin 3.4 (3.2-5.2) g/dL Globulin 4.5 H (2-4) g/dL Albumin/Globulin Ratio 0.8 L (1-3) Lipase 26 (11.0-82.0) U/L TSH 1.67 (0.34-5.60) mcIU/mL Microbiology and Other Data: Microbiology 12/09/16 15:45 Urine Culture - Final Urine No Growth (<1,000 CFU/mL) Assess/Plan/Problems-Billing Assessment: Mr. Stevenson is a 76 yo gentleman who is mostly limited to a wheelchair due to BLE and LUE weakness after cervical spine surgery as well as HTN, HLD, hypothyroidism , GERD and a documented h/o of a fib, but is not anticoagulated (due to h/o falls) who presented with generalized weakness and nausea and was noted to be in acute renal failure, h/o using NSAID's for pain. - Patient Problems (1) Diverticulitis Comment: Clinically pt has diverticulitis: abd pain , lower GI bleed, elevated CRP, severe diverticulosis noted on CT at admission. cont Zosyn. abd pain improving, no recurrence of blood in stool so far. (2) GI bleed Comment: maroon stool on 12/11/16. Pt has h/o NSAID use, although by appearance of stool is most likely lower GI bleed. Hb stable. no recurrence. suspect due to diverticulitis. cont Pepcid (3) LAST (acute kidney injury) Comment: FeNa at 2.5 suggestive of ATN due to NSAIDS. Improving with IVF. Today's labs indicated metabolic non ion gap acidosis.Will start Na bicarrb with each meal Dao d/c'd on 12/11/16 with post void resiudual approx 100 ml-acceptable. Pt has h/o CKD stage 3, creat baseline 1.5 (4) Sacral decubitus ulcer Comment: not infected. Air matress and dressing changes daily ordered (5) Atrial fibrillation Comment: NSR on admission. In regular rate today Anticoagulation was held in the past due to h/o of frequent falls. (6) Hyperkalemia Comment: due to LAST resolved ACEI held (7) Back pain Comment: chronic, h/o c spine surgery in past cont Percocet,Ultram (8) Arm dysfunction Comment: Pt describes 2 separate injuries to L arm. contracted at baseline (9) Weakness of both lower extremities Comment: Patient spends most of his time in a wheelchair at home. He has BLE and LUE weakness which is reportedly a result of prior cervical spine surgery. (10) Hypothyroidism Comment: Continue levothyroxine.TSH 1.6 (11) ECG abnormal Comment: neg T waves in V1-V3 appear to be new c/w EKG in 2016. Pt has no h/o CP. Troponin neg. Recommended outpatient stress test once pt's renal failure is resolved (12) DVT prophylaxis Comment: SQ Heparin held on 12/11/16 due to possible GI bleed SCD's Status and Disposition: inpatient
[2016-12-13] MEDS: NS 0.9% 1000 ML* 1,000 ML IV SCH (16:04)
[2016-12-13] MEDS: Atorvastatin* 10 MG TAB PO SCH (20:46)
[2016-12-13] MEDS: Tamsulosin CAP* 0.4 MG PO SCH (20:47)
[2016-12-14] MEDS: ZOSYN 3.375 GM Q8H per EXTENDED INFUSION IVPB SCH ×6 (02:33→18:09)
[2016-12-14] MEDS: Levothyroxine TAB* 25 MCG TAB PO SCH (05:19)
[2016-12-14 06:36] LABS: BUN/Creatinine Ratio 12.2 (8-20); Calcium 8.1 mg/dL (8.6-10.3); EGFR African American 79.1 (>60); EGFR Non-African American 61.5 (>60); Potassium 4.2 mmol/L (3.5-5.0)
[2016-12-14 08:32] LABS: Hematocrit 26 % (42-52); Hemoglobin 8.3 g/dl (14.0-18.0); Mean Corpuscular HGB Conc 32 g/dl (31-36); Mean Corpuscular Hemoglobin 28 pg (27-31); Mean Corpuscular Volume 86 fL (80-94); Mean Platelet Volume 8 um3 (7.4-10.4); Red Blood Count 2.99 10^6/ul (4.0-5.4); Red Cell Distribution Width 15 % (10.5-15); White Blood Count 7.9 10^3/ul (3.5-10.8)
[2016-12-14] MEDS: Famotidine TAB* 20 MG PO SCH (10:14)
[2016-12-14] MEDS: CMCS: Fenofibrate(NF) 145 MG TAB PO SCH (10:14)
[2016-12-14] MEDS: OLANzapine TAB* 5 MG PO SCH (10:14)
[2016-12-14] MEDS: Folic Acid TAB* 1 MG PO SCH (10:14)
[2016-12-14] MEDS: Ferrous Sulfate TAB* 325 MG PO SCH (10:15)
[2016-12-14] MEDS: Lactobacillus Acidophilu (GG)* 1 CAP CAP PO SCH (10:15)
[2016-12-14] MEDS: NS 0.9% 1000 ML* 1,000 ML IV SCH (10:22)
[2016-12-14] MEDS: Sodium Bicarbonate (ANTACID)* 650 MG TAB PO SCH ×2 (10:24→12:03)
--- NOTE | 2016-12-14 13:27 | PN ---
Subjective Date of Service: 12/14/16 Interval History: pt feels better. appetite improved, diarrhea resolved, no abd pain Objective Active Medications: Acetaminophen (Tylenol Tab*) 650 mg PO Q4H PRN PRN Reason: FEVER/PAIN Atorvastatin Calcium (Lipitor*) 5 mg PO BEDTIME [facility] Last Admin: 12/13/16 20:46 Dose: 5 mg Dextrose (D50w Syringe 50 Ml*) 25 gm IV PUSH ONCE PRN PRN Reason: FS < 60 Last Admin: 12/09/16 16:06 Dose: 25 gm Famotidine (Pepcid Tab*) 20 mg PO DAILY [facility] Last Admin: 12/14/16 10:14 Dose: 20 mg Fenofibrate (Tricor(Nf)) 145 mg PO DAILY [facility] PRN Reason: Protocol Last Admin: 12/14/16 10:14 Dose: 145 mg Ferrous Sulfate (Ferrous Sulfate Tab*) 325 mg PO DAILY [facility] Last Admin: 12/14/16 10:15 Dose: 325 mg Folic Acid (Folvite Tab*) 1 mg PO DAILY [facility] Last Admin: 12/14/16 10:14 Dose: 1 mg Gabapentin (Neurontin Cap(*)) 300 mg PO BEDTIME PRN PRN Reason: PAIN Sodium Chloride (Ns 0.9% 1000 Ml*) 1,000 mls @ 75 mls/hr IV PER RATE [facility] Last Admin: 12/14/16 10:22 Dose: 75 mls/hr Piperacillin Sod/Tazobactam (Sod 3.375 gm/ Sodium Chloride) 100 mls @ 25 mls/ hr IVPB Q8H [facility] Last Admin: 12/14/16 10:13 Dose: 25 mls/hr Lactobacillus Rhamnosus (Culturelle*) 1 cap PO DAILY [facility] Last Admin: 12/14/16 10:15 Dose: 1 cap Levothyroxine Sodium (Synthroid Tab*) 25 mcg PO DAILY@0600 [facility] Last Admin: 12/14/16 05:19 Dose: 25 mcg Olanzapine (Zyprexa Tab*) 5 mg PO DAILY [facility] Last Admin: 12/14/16 10:14 Dose: 5 mg Ondansetron HCl (Zofran Inj*) 4 mg IV Q6H PRN PRN Reason: NAUSEA Last Admin: 12/13/16 05:49 Dose: 4 mg Oxycodone/Acetaminophen (Percocet 5/325 Tab*) 1 tab PO Q4H PRN PRN Reason: PAIN Last Admin: 12/12/16 04:36 Dose: 1 tab Pharmacy Consult (Zosyn Per Pharmacy*) 1 note FOLLOW UP .ZOSYN PER PHARMACY [facility] Sodium Bicarbonate (Sodium Bicarbonate (Antacid)*) 650 mg PO AC [facility] Last Admin: 12/14/16 12:03 Dose: 650 mg Tamsulosin HCl (Flomax Cap*) 0.4 mg PO BEDTIME [facility] Last Admin: 12/13/16 20:47 Dose: 0.4 mg Tramadol HCl (Ultram*) 50 mg PO BID PRN PRN Reason: PAIN Last Admin: 12/13/16 05:49 Dose: 50 mg Vital Signs 12/13/16 12/13/16 12/13/16 15:47 15:51 20:00 Temperature 99.3 F Pulse Rate 58 Respiratory 16 20 Rate Blood Pressure 107/53 (mmHg) O2 Sat by Pulse 98 Oximetry 12/13/16 12/13/16 12/14/16 20:10 23:56 01:18 Temperature 98.1 F 98.1 F Pulse Rate 59 51 Respiratory 20 16 Rate Blood Pressure 117/53 138/64 (mmHg) O2 Sat by Pulse 99 99 94 Oximetry 12/14/16 07:45 Temperature 98.9 F Pulse Rate 56 Respiratory 16 Rate Blood Pressure 137/57 (mmHg) O2 Sat by Pulse 98 Oximetry Oxygen Devices in Use Now: None Appearance: 76 yo M in nAd, aAOx3, poor historian, [place] Eyes: No Scleral Icterus, PERRLA Ears/Nose/Mouth/Throat: NL Teeth, Lips, Gums, Mucous Membranes Moist Neck: NL Appearance and Movements; NL JVP, Trachea Midline Respiratory: Symmetrical Chest Expansion and Respiratory Effort, Clear to Auscultation Cardiovascular: NL Sounds; No Murmurs; No JVD, RRR Abdominal: NL Sounds; No Tenderness; No Distention Lymphatic: No Cervical Adenopathy Extremities: No Edema, No Clubbing, Cyanosis Skin: No Nodules or Sclerosis, - - stage 3 sacral decub at 2 cm , not infected Neurological: Alert and Oriented x 3, - - left UE contracted, b/l LE's weakness unchanged Result Diagrams: 12/14/16 07:59 12/14/16 05:39 Additional Lab and Data: Lab Results 12/09/16 12/09/16 12/09/16 Range/Units 14:25 14:25 14:25 WBC 9.8 (3.5-10.8) 10^3/ul RBC 3.50 L (4.0-5.4) 10^6/ul Hgb 9.7 L (14.0-18.0) g/dl Hct 31 L (42-52) % MCV 88 (80-94) fL MCH 28 (27-31) pg MCHC 32 (31-36) g/dl RDW 15 (10.5-15) % Plt Count 356 (150-450) 10^3/ul MPV 8 (7.4-10.4) um3 Neut % (Auto) 84.0 H (38-83) % Lymph % (Auto) 5.1 L (25-47) % [place] % (Auto) 8.2 (1-9) % Eos % (Auto) 2.1 (0-6) % Baso % (Auto) 0.6 (0-2) % Absolute Neuts (auto) 8.2 H (1.5-7.7) 10^3/ul Absolute Lymphs (auto) 0.5 L (1.0-4.8) 10^3/ul Absolute Monos (auto) 0.8 (0-0.8) 10^3/ul Absolute Eos (auto) 0.2 (0-0.6) 10^3/ul Absolute Basos (auto) 0.1 (0-0.2) 10^3/ul Absolute Nucleated RBC 0 10^3/ul Nucleated RBC % 0 INR (Anticoag Therapy) 1.23 H (0.89-1.11) APTT 42.7 H (26.0-36.3) seconds Sodium (133-145) mmol/L Potassium (3.5-5.0) mmol/L Chloride (101-111) mmol/L Carbon Dioxide (22-32) mmol/L Anion Gap (2-11) mmol/L BUN (6-24) mg/dL Creatinine (0.67-1.17) mg/dL Est GFR ( Amer) (>60) Est GFR (Non-Af Amer) (>60) BUN/Creatinine Ratio (8-20) Glucose (70-100) mg/dL Lactic Acid (0.5-2.0) mmol/L Calcium (8.6-10.3) mg/dL Magnesium (1.9-2.7) mg/dL Total Bilirubin (0.2-1.0) mg/dL AST (13-39) U/L ALT (7-52) U/L Alkaline Phosphatase (34-104) U/L Ammonia 28 (16-53) mol/L Total Creatine Kinase (10-223) U/L CK-MB (CK-2) (0.6-6.3) ng/mL Troponin I (<0.04) ng/mL C-Reactive Protein (< 5.00) mg/L B-Natriuretic Peptide 365 H ( - 100) pg/mL Total Protein (6.4-8.9) g/dL Albumin (3.2-5.2) g/dL Globulin (2-4) g/dL Albumin/Globulin Ratio (1-3) Lipase (11.0-82.0) U/L TSH (0.34-5.60) mcIU/mL 12/09/16 12/09/16 Range/Units 14:25 14:25 WBC (3.5-10.8) 10^3/ul RBC (4.0-5.4) 10^6/ul Hgb (14.0-18.0) g/dl Hct (42-52) % MCV (80-94) fL MCH (27-31) pg MCHC (31-36) g/dl RDW (10.5-15) % Plt Count (150-450) 10^3/ul MPV (7.4-10.4) um3 Neut % (Auto) (38-83) % Lymph % (Auto) (25-47) % [place] % (Auto) (1-9) % Eos % (Auto) (0-6) % Baso % (Auto) (0-2) % Absolute Neuts (auto) (1.5-7.7) 10^3/ul Absolute Lymphs (auto) (1.0-4.8) 10^3/ul Absolute Monos (auto) (0-0.8) 10^3/ul Absolute Eos (auto) (0-0.6) 10^3/ul Absolute Basos (auto) (0-0.2) 10^3/ul Absolute Nucleated RBC 10^3/ul Nucleated RBC % INR (Anticoag Therapy) (0.89-1.11) APTT (26.0-36.3) seconds Sodium 136 (133-145) mmol/L Potassium 6.0 H (3.5-5.0) mmol/L Chloride 103 (101-111) mmol/L Carbon Dioxide 27 (22-32) mmol/L Anion Gap 6 (2-11) mmol/L BUN 72 H (6-24) mg/dL Creatinine 4.16 H (0.67-1.17) mg/dL Est GFR ( Amer) 17.9 (>60) Est GFR (Non-Af Amer) 13.9 (>60) BUN/Creatinine Ratio 17.3 (8-20) Glucose 181 H (70-100) mg/dL Lactic Acid 1.0 (0.5-2.0) mmol/L Calcium 9.0 (8.6-10.3) mg/dL Magnesium 3.5 H (1.9-2.7) mg/dL Total Bilirubin 0.40 (0.2-1.0) mg/dL AST 23 (13-39) U/L ALT 15 (7-52) U/L Alkaline Phosphatase 63 (34-104) U/L Ammonia (16-53) mol/L Total Creatine Kinase 59 (10-223) U/L CK-MB (CK-2) 3.4 (0.6-6.3) ng/mL Troponin I 0.01 (<0.04) ng/mL C-Reactive Protein 77.95 H (< 5.00) mg/L B-Natriuretic Peptide ( - 100) pg/mL Total Protein 7.9 (6.4-8.9) g/dL Albumin 3.4 (3.2-5.2) g/dL Globulin 4.5 H (2-4) g/dL Albumin/Globulin Ratio 0.8 L (1-3) Lipase 26 (11.0-82.0) U/L TSH 1.67 (0.34-5.60) mcIU/mL Microbiology and Other Data: Microbiology 12/09/16 15:45 Urine Culture - Final Urine No Growth (<1,000 CFU/mL) Assess/Plan/Problems-Billing Assessment: Mr. Stevenson is a 76 yo gentleman who is mostly limited to a wheelchair due to BLE and LUE weakness after cervical spine surgery as well as HTN, HLD, hypothyroidism , GERD and a documented h/o of a fib, but is not anticoagulated (due to h/o falls) who presented with generalized weakness and nausea and was noted to be in acute renal failure, h/o using NSAID's for pain. - Patient Problems (1) Diverticulitis Comment: Clinically pt had diverticulitis noted on 12/12/16: abd pain , lower GI bleed, elevated CRP, severe diverticulosis noted on CT at admission. cont Zosyn. No recurrence of blood in stool so far. (2) GI bleed Comment: maroon stool on 12/11/16. Pt has h/o NSAID use, although by appearance of stool is most likely lower GI bleed. Hb stable. no recurrence. suspect due to diverticulitis. cont Pepcid (3) LAST (acute kidney injury) Comment: FeNa at 2.5 suggestive of ATN due to NSAIDS. resolved. Pt has h/o CKD stage 3, creat baseline 1.5 (4) Sacral decubitus ulcer Comment: not infected. Air matress and dressing changes daily ordered (5) Atrial fibrillation Comment: NSR on admission. In regular rate today Anticoagulation was held in the past due to h/o of frequent falls. (6) Hyperkalemia Comment: due to LAST resolved ACEI held (7) Back pain Comment: chronic, h/o c spine surgery in past cont Percocet,Ultram (8) Arm dysfunction Comment: Pt describes 2 separate injuries to L arm. contracted at baseline (9) Weakness of both lower extremities Comment: Patient spends most of his time in a wheelchair at home. He has BLE and LUE weakness which is reportedly a result of prior cervical spine surgery. (10) Hypothyroidism Comment: Continue levothyroxine.TSH 1.6 (11) ECG abnormal Comment: neg T waves in V1-V3 appear to be new c/w EKG in 2016. Pt has no h/o CP. Troponin neg. Recommended outpatient stress test once pt's renal failure is resolved (12) DVT prophylaxis Comment: SQ Heparin held on 12/11/16 due to possible GI bleed SCD's Status and Disposition: inpatient, ready to d/c home or STR on 12/15/16
[2016-12-14] MEDS: Tamsulosin CAP* 0.4 MG PO SCH (21:26)
[2016-12-14] MEDS: Atorvastatin* 10 MG TAB PO SCH (21:26)
[2016-12-15] MEDS: ZOSYN 3.375 GM Q8H per EXTENDED INFUSION IVPB SCH ×4 (02:18→09:54)
[2016-12-15] MEDS: Levothyroxine TAB* 25 MCG TAB PO SCH (05:30)
[2016-12-15] MEDS: Ferrous Sulfate TAB* 325 MG PO SCH (08:15)
[2016-12-15] MEDS: Famotidine TAB* 20 MG PO SCH (08:15)
[2016-12-15] MEDS: OLANzapine TAB* 5 MG PO SCH (08:15)
[2016-12-15] MEDS: Lactobacillus Acidophilu (GG)* 1 CAP CAP PO SCH (08:15)
[2016-12-15] MEDS: CMCS: Fenofibrate(NF) 145 MG TAB PO SCH (08:15)
[2016-12-15] MEDS: Folic Acid TAB* 1 MG PO SCH (08:15)
--- NOTE | 2016-12-15 12:32 | PN ---
Subjective Date of Service: 12/15/16 Interval History: Pt stated that his appetite has "picked up". denies and pain, or diarrhea. Objective Active Medications: Acetaminophen (Tylenol Tab*) 650 mg PO Q4H PRN PRN Reason: FEVER/PAIN Atorvastatin Calcium (Lipitor*) 5 mg PO BEDTIME [facility] Last Admin: 12/14/16 21:26 Dose: 5 mg Dextrose (D50w Syringe 50 Ml*) 25 gm IV PUSH ONCE PRN PRN Reason: FS < 60 Last Admin: 12/09/16 16:06 Dose: 25 gm Famotidine (Pepcid Tab*) 20 mg PO DAILY [facility] Last Admin: 12/15/16 08:15 Dose: 20 mg Fenofibrate (Tricor(Nf)) 145 mg PO DAILY [facility] PRN Reason: Protocol Last Admin: 12/15/16 08:15 Dose: 145 mg Ferrous Sulfate (Ferrous Sulfate Tab*) 325 mg PO DAILY [facility] Last Admin: 12/15/16 08:15 Dose: 325 mg Folic Acid (Folvite Tab*) 1 mg PO DAILY [facility] Last Admin: 12/15/16 08:15 Dose: 1 mg Gabapentin (Neurontin Cap(*)) 300 mg PO BEDTIME PRN PRN Reason: PAIN Piperacillin Sod/Tazobactam (Sod 3.375 gm/ Sodium Chloride) 100 mls @ 25 mls/ hr IVPB Q8H [facility] Last Admin: 12/15/16 09:54 Dose: 25 mls/hr Lactobacillus Rhamnosus (Culturelle*) 1 cap PO DAILY [facility] Last Admin: 12/15/16 08:15 Dose: 1 cap Levothyroxine Sodium (Synthroid Tab*) 25 mcg PO DAILY@0600 [facility] Last Admin: 12/15/16 05:30 Dose: 25 mcg Olanzapine (Zyprexa Tab*) 5 mg PO DAILY [facility] Last Admin: 12/15/16 08:15 Dose: 5 mg Ondansetron HCl (Zofran Inj*) 4 mg IV Q6H PRN PRN Reason: NAUSEA Last Admin: 12/13/16 05:49 Dose: 4 mg Oxycodone/Acetaminophen (Percocet 5/325 Tab*) 1 tab PO Q4H PRN PRN Reason: PAIN Last Admin: 12/12/16 04:36 Dose: 1 tab Pharmacy Consult (Zosyn Per Pharmacy*) 1 note FOLLOW UP .ZOSYN PER PHARMACY [facility] Tamsulosin HCl (Flomax Cap*) 0.4 mg PO BEDTIME [facility] Last Admin: 12/14/16 21:26 Dose: 0.4 mg Tramadol HCl (Ultram*) 50 mg PO BID PRN PRN Reason: PAIN Last Admin: 12/13/16 05:49 Dose: 50 mg Vital Signs 12/14/16 12/14/16 12/14/16 15:45 20:00 23:39 Temperature 97.7 F 98.2 F Pulse Rate 64 51 Respiratory 20 20 16 Rate Blood Pressure 119/58 145/56 (mmHg) O2 Sat by Pulse 100 98 Oximetry 12/15/16 12/15/16 12/15/16 03:29 07:35 07:36 Temperature 98.5 F 98.1 F Pulse Rate 55 59 Respiratory 16 16 16 Rate Blood Pressure 150/65 146/72 (mmHg) O2 Sat by Pulse 99 97 Oximetry Oxygen Devices in Use Now: None Appearance: 76 yo M in nAD, aAOx3 Eyes: No Scleral Icterus, PERRLA Ears/Nose/Mouth/Throat: NL Teeth, Lips, Gums, Mucous Membranes Moist Neck: NL Appearance and Movements; NL JVP, Trachea Midline Respiratory: Symmetrical Chest Expansion and Respiratory Effort, Clear to Auscultation Cardiovascular: NL Sounds; No Murmurs; No JVD, RRR Abdominal: NL Sounds; No Tenderness; No Distention, No Hepatosplenomegaly Lymphatic: No Cervical Adenopathy Extremities: No Edema, No Clubbing, Cyanosis Skin: No Nodules or Sclerosis, - - sacral decub not evaluated today Neurological: Alert and Oriented x 3, - - left arm contracted, b/l LE's weakness at 4+/5 Result Diagrams: 12/14/16 07:59 12/14/16 05:39 Additional Lab and Data: Lab Results 12/09/16 12/09/16 12/09/16 Range/Units 14:25 14:25 14:25 WBC 9.8 (3.5-10.8) 10^3/ul RBC 3.50 L (4.0-5.4) 10^6/ul Hgb 9.7 L (14.0-18.0) g/dl Hct 31 L (42-52) % MCV 88 (80-94) fL MCH 28 (27-31) pg MCHC 32 (31-36) g/dl RDW 15 (10.5-15) % Plt Count 356 (150-450) 10^3/ul MPV 8 (7.4-10.4) um3 Neut % (Auto) 84.0 H (38-83) % Lymph % (Auto) 5.1 L (25-47) % [place] % (Auto) 8.2 (1-9) % Eos % (Auto) 2.1 (0-6) % Baso % (Auto) 0.6 (0-2) % Absolute Neuts (auto) 8.2 H (1.5-7.7) 10^3/ul Absolute Lymphs (auto) 0.5 L (1.0-4.8) 10^3/ul Absolute Monos (auto) 0.8 (0-0.8) 10^3/ul Absolute Eos (auto) 0.2 (0-0.6) 10^3/ul Absolute Basos (auto) 0.1 (0-0.2) 10^3/ul Absolute Nucleated RBC 0 10^3/ul Nucleated RBC % 0 INR (Anticoag Therapy) 1.23 H (0.89-1.11) APTT 42.7 H (26.0-36.3) seconds Sodium (133-145) mmol/L Potassium (3.5-5.0) mmol/L Chloride (101-111) mmol/L Carbon Dioxide (22-32) mmol/L Anion Gap (2-11) mmol/L BUN (6-24) mg/dL Creatinine (0.67-1.17) mg/dL Est GFR ( Amer) (>60) Est GFR (Non-Af Amer) (>60) BUN/Creatinine Ratio (8-20) Glucose (70-100) mg/dL Lactic Acid (0.5-2.0) mmol/L Calcium (8.6-10.3) mg/dL Magnesium (1.9-2.7) mg/dL Total Bilirubin (0.2-1.0) mg/dL AST (13-39) U/L ALT (7-52) U/L Alkaline Phosphatase (34-104) U/L Ammonia 28 (16-53) mol/L Total Creatine Kinase (10-223) U/L CK-MB (CK-2) (0.6-6.3) ng/mL Troponin I (<0.04) ng/mL C-Reactive Protein (< 5.00) mg/L B-Natriuretic Peptide 365 H ( - 100) pg/mL Total Protein (6.4-8.9) g/dL Albumin (3.2-5.2) g/dL Globulin (2-4) g/dL Albumin/Globulin Ratio (1-3) Lipase (11.0-82.0) U/L TSH (0.34-5.60) mcIU/mL 12/09/16 12/09/16 Range/Units 14:25 14:25 WBC (3.5-10.8) 10^3/ul RBC (4.0-5.4) 10^6/ul Hgb (14.0-18.0) g/dl Hct (42-52) % MCV (80-94) fL MCH (27-31) pg MCHC (31-36) g/dl RDW (10.5-15) % Plt Count (150-450) 10^3/ul MPV (7.4-10.4) um3 Neut % (Auto) (38-83) % Lymph % (Auto) (25-47) % [place] % (Auto) (1-9) % Eos % (Auto) (0-6) % Baso % (Auto) (0-2) % Absolute Neuts (auto) (1.5-7.7) 10^3/ul Absolute Lymphs (auto) (1.0-4.8) 10^3/ul Absolute Monos (auto) (0-0.8) 10^3/ul Absolute Eos (auto) (0-0.6) 10^3/ul Absolute Basos (auto) (0-0.2) 10^3/ul Absolute Nucleated RBC 10^3/ul Nucleated RBC % INR (Anticoag Therapy) (0.89-1.11) APTT (26.0-36.3) seconds Sodium 136 (133-145) mmol/L Potassium 6.0 H (3.5-5.0) mmol/L Chloride 103 (101-111) mmol/L Carbon Dioxide 27 (22-32) mmol/L Anion Gap 6 (2-11) mmol/L BUN 72 H (6-24) mg/dL Creatinine 4.16 H (0.67-1.17) mg/dL Est GFR ( Amer) 17.9 (>60) Est GFR (Non-Af Amer) 13.9 (>60) BUN/Creatinine Ratio 17.3 (8-20) Glucose 181 H (70-100) mg/dL Lactic Acid 1.0 (0.5-2.0) mmol/L Calcium 9.0 (8.6-10.3) mg/dL Magnesium 3.5 H (1.9-2.7) mg/dL Total Bilirubin 0.40 (0.2-1.0) mg/dL AST 23 (13-39) U/L ALT 15 (7-52) U/L Alkaline Phosphatase 63 (34-104) U/L Ammonia (16-53) mol/L Total Creatine Kinase 59 (10-223) U/L CK-MB (CK-2) 3.4 (0.6-6.3) ng/mL Troponin I 0.01 (<0.04) ng/mL C-Reactive Protein 77.95 H (< 5.00) mg/L B-Natriuretic Peptide ( - 100) pg/mL Total Protein 7.9 (6.4-8.9) g/dL Albumin 3.4 (3.2-5.2) g/dL Globulin 4.5 H (2-4) g/dL Albumin/Globulin Ratio 0.8 L (1-3) Lipase 26 (11.0-82.0) U/L TSH 1.67 (0.34-5.60) mcIU/mL Microbiology and Other Data: Microbiology 12/09/16 15:45 Urine Culture - Final Urine No Growth (<1,000 CFU/mL) Assess/Plan/Problems-Billing Assessment: Mr. Stevenson is a 76 yo gentleman who is mostly limited to a wheelchair due to BLE and LUE weakness after cervical spine surgery as well as HTN, HLD, hypothyroidism , GERD and a documented h/o of a fib, but is not anticoagulated (due to h/o falls) who presented with generalized weakness and nausea and was noted to be in acute renal failure, h/o using NSAID's for pain. - Patient Problems (1) Diverticulitis Comment: Clinically pt had diverticulitis noted on 12/12/16: abd pain , lower GI bleed, elevated CRP, severe diverticulosis noted on CT at admission. trated with zosyn , today is day #4. No recurrence of blood in stool . Plan to discharge on Cipro/Flagyl (2) GI bleed Comment: maroon stool on 12/11/16. Pt has h/o NSAID use, although by appearance of stool is most likely lower GI bleed. Hb stable. no recurrence. suspect due to diverticulitis. cont Pepcid (3) LAST (acute kidney injury) Comment: FeNa at 2.5 suggestive of ATN due to NSAIDS. resolved. Pt has h/o CKD stage 3, creat baseline 1.5 (4) Sacral decubitus ulcer Comment: not infected. Air matress and dressing changes daily ordered (5) Atrial fibrillation Comment: NSR on admission. In regular rate today Anticoagulation was held in the past due to h/o of frequent falls. (6) Hyperkalemia Comment: due to LAST resolved ACEI held (7) Back pain Comment: chronic, h/o c spine surgery in past cont Percocet,Ultram (8) Arm dysfunction Comment: Pt describes 2 separate injuries to L arm. contracted at baseline (9) Weakness of both lower extremities Comment: Patient spends most of his time in a wheelchair at home. He has BLE and LUE weakness which is reportedly a result of prior cervical spine surgery. (10) Hypothyroidism Comment: Continue levothyroxine.TSH 1.6 (11) ECG abnormal Comment: neg T waves in V1-V3 appear to be new c/w EKG in 2016. Pt has no h/o CP. Troponin neg. Recommended outpatient stress test once pt's renal failure is resolved (12) DVT prophylaxis Comment: SQ Heparin held on 12/11/16 due to possible GI bleed SCD's Status and Disposition: inpatient, ready to d/c home or STR today. Pt refuses to be placed in STR, has carton forming machine helper for home, but not 03/01. Asked PT/OT to re-eval. If he is able to transfer with no need of help he could probably go home with hired aide and VNS.
[2016-12-15 15:34] VITALS: BP 98/56
--- NOTE | 2016-12-15 17:45 | DS ---
CC: DIONI Prajapati * DISCHARGE SUMMARY: DATE OF ADMISSION: 12/09/16 DATE OF DISCHARGE: 12/15/16 PRIMARY CARE PROVIDER: Delfino Heller. DISCHARGE DIAGNOSES: 1. Generalized weakness due to acute renal failure due to acute tubular necrosis, most likely secondary to nonsteroidal antiinflammatory medications use. 2. Exacerbation of chronic pain. 3. Acute diverticulitis that occurred during the hospital stay. SECONDARY DIAGNOSES: 1. Hypertension. 2. Hyperlipidemia. 3. Hypothyroidism. 4. Gastroesophageal reflux disease. 5. History of lumbar stenosis with subsequent left upper extremity contracted and bilateral lower extremity weakness. Patient is basically wheelchair bound. 6. History of liver abscess in the past. 7. History of chronic atrial fibrillation, not on anticoagulation due to history of falls in the past. 8. Sacral decubitus ulcer that was noted during the hospital stay, stage 2 to 3 , it is 2 cm, not infected. MEDICATIONS AT DISCHARGE: Include: 1. Tylenol 325 mg on a p.r.n. basis. 2. Aspirin 81 mg daily. 3. Calcium 500 mg daily. 4. Cefdinir 300 mg b.i.d. for 4 days total. 5. Tricor 145 mg daily. 6. Ferrous sulfate 325 mg daily. 7. Folic acid 1 mg daily. 8. Gabapentin 300 mg at bedtime. 9. Levothyroxine 25 mcg daily. 10. Claritin 10 mg daily. 11. Mevacor 20 mg at bedtime. 12. Magnesium oxide 250 mg b.i.d. 13. Flagyl 500 mg b.i.d. for 4 days total. 14. Zyprexa 5 mg daily. 15. [place]-3 fatty acid 1000 mg daily. 16. Omeprazole 20 mg daily. 17. Flomax 0.4 mg daily. 18. Triamcinolone 0.1% cream, apply to affected areas of the skin daily. 19. Vitamin B complex 1 capsule daily. 20. Oxycodone/acetaminophen which is Percocet 5/325 mg 1 tablet every 4 hours p.r.n. Patient was prescribed a total of 30 tablets. I-STOP was checked. The last time patient was prescribed a controlled medication was Ultram prescription on 11/12/16, filled for a total of 30 days. 21. Ultram 50 mg p.o. b.i.d. LABORATORY DATA AND STUDIES PERFORMED DURING THE HOSPITAL STAY: Included: On , white blood cell count of 7.9, hemoglobin is 8.3, hematocrit is 26 and platelets of 284. Sodium 133, potassium 4.2, chloride 109, carbon dioxide was 19, BUN 14, creatinine 1.15. Patient's creatinine at admission was 4.16. Urinalysis was grossly unremarkable obtained at admission. Urine cultures were negative. Stool Hemoccult obtained on 12/11/[address] was positive for blood. CT of abdomen and pelvis obtained on 12/09/16, impression "small bowel loop containing direct right inguinal hernia without inflammatory change or resulting bowel obstruction. Severe colonic diverticulosis without findings of acute diverticulitis. Nephrolithiasis without obstructive uropathy. Negative for lymphadenopathy. Atherosclerotic disease without aortoiliac aneurysm. Lumbosacral spine degenerative spondylosis and facet osteoarthritis. Associated bilateral foraminal stenosis most prominent at L4-L5, L5 and S1 in moderate severity. Dorsal spondylotic ridging results in marked suppression of the ventral margin of the thecal sac at L2, L3. No suspicious focal ulcers, lesions or fractures evident." Patient's EKG obtained at admission showed new negative T-waves in V1 through V3. Patient's troponin obtained at admission was 0.01. HOSPITALIZATION COURSE: Jarrod Stevenson is a 76-year-old male who was basically wheelchair bound, but he is able to function at home, who presents to the hospital complaining of generalized weakness. Patient stated that he has been having worsening of his pain, chronic pain of the left upper extremity, it is [place] and bilateral lower extremities as well as back. Due to that he had been taking naproxen at more than prescribed frequency. He developed nausea , occasional vomiting and generalized weakness. When he presented to the emergency room, he was noted to have acute renal failure with creatinine of over 4. His fractional excretion of sodium was above 2, making acute tubular necrosis due to nonsteroidal antiinflammatory medications most likely. Patient was placed on intravenous hydration and his creatinine gradually improved to his baseline by the time of discharge. On day 3 of his hospital stay, patient developed bloody diarrhea with abdominal pain. He also had elevation of C-reactive protein at 77. Clinically, he was diagnosed with acute diverticulitis that occurred on 12/11/16. He was placed on Zosyn. His bloody diarrhea never recurred. His hemoglobin and hematocrit continue to be unchanged. His abdominal pain resolved and gradually patient started eating more. By the time of discharge, his appetite has increased and he was back to his baseline functionally. He is able to transfer from wheelchair to the chair and back without help, which he normally does at home. Patient was encouraged to go to short-term rehabilitation at discharge. He refused to be considered for short-term rehabilitation and refused to be placed there. He stated that he has a nurse that he hired who comes in several times during the daytime to check on him and help him with activities of daily living. He also has meals on wheels. plaque maker arranged for the patient to have visiting nurse association at discharge with physical therapy as well as aids. At discharge, patient is to continue his antibiotics for diverticulitis for another 4 days. He also was given a prescription for 30 tablets of Percocet to use instead of nonsteroidal antiinflammatory medication; it was strongly recommended not to use any nonsteroidals. PHYSICAL EXAMINATION: For physical exam at discharge, please see daily progress notes. Patient is recommended to follow up with his primary care provider in approximately 4 to 7 days. Please note that this is a short summary of patient' s hospitalization. Please refer to further medical records for details. TIME SPENT: Approximately 45 minutes were spent on the patient's discharge. [id number]/[facility] #: [id number] CITLALI
== END 2016-12-15 16:30 | disposition home health service (06) | DRG 682 ==
LOC: ED 13:30 → MEDTELE 15:32 → MED 12-12 21:39
PROVIDERS: ADMIT Hospitalist; ATTEND Internal Medicine
PROC: 0T9B70Z Drainage of Bladder with Drainage Device, Via Natural or Artificial Opening (ICD-10-PCS; principal; 2016-12-09)
PROC: 0TPBX0Z Removal of Drainage Device from Bladder, External Approach (ICD-10-PCS; 2016-12-11)
DX: N17.0 Acute kidney failure with tubular necrosis (principal); K57.33 Diverticulitis of large intestine without perforation or abscess with bleeding; L89.153 Pressure ulcer of sacral region, stage 3; E87.2 Acidosis; L89.152 Pressure ulcer of sacral region, stage 2; E87.5 Hyperkalemia; I48.2 Chronic atrial fibrillation; E03.9 Hypothyroidism, unspecified; E78.00 Pure hypercholesterolemia, unspecified; J42 Unspecified chronic bronchitis; K21.9 Gastro-esophageal reflux disease without esophagitis; H91.90 Unspecified hearing loss, unspecified ear; E78.5 Hyperlipidemia, unspecified; M48.06 Spinal stenosis, lumbar region; T39.395A Adverse effect of other nonsteroidal anti-inflammatory drugs [NSAID], initial encounter; G89.29 Other chronic pain; N20.0 Calculus of kidney; K40.90 Unilateral inguinal hernia, without obstruction or gangrene, not specified as recurrent; I70.8 Atherosclerosis of other arteries; M47.897 Other spondylosis, lumbosacral region; I12.9 Hypertensive chronic kidney disease with stage 1 through stage 4 chronic kidney disease, or unspecified chronic kidney disease; R94.31 Abnormal electrocardiogram [ECG] [EKG]; N18.3 Chronic kidney disease, stage 3 (moderate); M54.9 Dorsalgia, unspecified; R53.1 Weakness; M24.542 Contracture, left hand; Z97.4 Presence of external hearing-aid; Z98.1 Arthrodesis status; Z82.49 Family history of ischemic heart disease and other diseases of the circulatory system; Z86.73 Personal history of transient ischemic attack (TIA), and cerebral infarction without residual deficits; Z99.3 Dependence on wheelchair; Z91.81 History of falling; Z83.3 Family history of diabetes mellitus; Z72.89 Other problems related to lifestyle; Z87.891 Personal history of nicotine dependence; Z79.82 Long term (current) use of aspirin
CPT/HCPCS: 36415; 71010; 74176; 80048; 80053; 81003; 82140; 82272; 82550; 82553; 82570; 83605; 83690; 83735; 83880; 84300; 84443; 84484; 85014; 85018; 85025; 85027; 85610; 85730; 86140; 87086; 93005; 94760; 99406; A9270-GY; J0610; J1644; J2405; J2543

== ENCOUNTER 2017-01-31 13:32 | Emergency (ER) | payer MEDICARE, OTHER ==
[2017-01-31] MEDS ORDERED: NS 0.9% 1000 ML* 1,000 ML IV ONE (17:58)
[2017-01-31 18:23] LABS: Urine Bilirubin Negative (Negative); Urine Glucose Negative (Negative); Urine Nitrite Negative (Negative)
--- NOTE | 2017-01-31 18:39 | ED ---
Sylvie Morales Edward, scribed for Tony Mota MD on 01/31/17 at 1748 . Abdominal Pain/Male - HPI Summary HPI Summary: 76 y/o male presents to ED c/o ABD hernia and pain @ lower mid ABD for the past month that has been getting progressively worse in the past couple of days. Pt reports ABD pain @ the hernia currently rated 7-8/10 that has been going on for the past few weeks. Associated sx: intermittent constipation, sore throat. Denies N/V. PMHx HTN. - History of Current Complaint Chief Complaint: EDAbdPain Stated Complaint: RT SIDE LARGE MASS/GROIN Time Seen by Provider: 01/31/17 17:36 Hx Obtained From: Patient Onset/Duration: Gradual Onset, Lasting Weeks, Still Present Severity Currently: Moderate Pain Intensity: 7 Pain Scale Used: 0-10 Numeric Location: Suprapubic Associated Signs And Symptoms: Positive: Constipation, Other - Lower ABD hernia , sore throat. 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 Respiratory History: Reports: Hx Chronic Bronchitis Denies: Hx Chronic Obstructive Pulmonary Disease (COPD) GI History: Reports: Hx Diverticulosis, Hx Gastroesophageal Reflux Disease, Other GI Disorders - liver abscess History: Denies: Hx Dialysis Musculoskeletal History: Reports: Hx Arthritis, Hx Rheumatoid Arthritis, Hx Back Problems Sensory History: Reports: Hx Contacts or Glasses, Hx Hearing Aid, Hx Hearing Problem Opthamlomology History: Reports: Hx Contacts or Glasses Neurological History: Reports: 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, 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 Denies: Hx Dementia, Hx Seizures - Surgical History Surgery Procedure, Year, and Place: CERVICAL SURGERY C4-C6, right ear,LIVER ABSCESS, LEFT TESTICLE - Immunization History Date of Tetanus Vaccine: Unk Date of Influenza Vaccine: Unk Infectious Disease History: Denies: Traveled Outside the [place] in Last 30 Days - Family History Known Family History: Positive: Hypertension, Diabetes Negative: Cardiac Disease - Social History Alcohol Use: Occasionally Hx Substance Use: No Substance Use Type: Reports: None Hx Tobacco Use: Yes - QUIT 60 YRS AGO Smoking Status (MU): Former Smoker Type: Cigars Amount Used/How Often: OCCASIONAL Review of Systems Constitutional: Negative Eyes: Negative Positive: Sore Throat Cardiovascular: Negative Negative: Chest Pain Respiratory: Negative Positive: Abdominal Pain, Other - Constipation. ABD hernia. Negative: Vomiting , Nausea Genitourinary: Negative Musculoskeletal: Negative Skin: Negative Neurological: Negative Psychological: Normal All Other Systems Reviewed And Are Negative: Yes Physical Exam Triage Information Reviewed: Yes Vital Signs On Initial Exam: Initial Vitals Temp Pulse Resp BP Pulse Ox 99.0 F 96 20 112/82 99 01/31/17 13:35 01/31/17 13:35 01/31/17 13:35 01/31/17 13:35 01/31/17 13:35 Vital Signs Reviewed: Yes Appearance: Positive: Well-Appearing, No Pain Distress Skin: Positive: Skin Color Reflects Adequate Perfusion Head/Face: Positive: Normal Head/Face Inspection Eyes: Positive: EOMI, FRANSISCA ENT: Positive: Pharynx normal. Negative: Trismus, Muffled/hoarse voice Dental: Negative: Cervical Lymphadenopathy Neck: Positive: Supple Respiratory/Lung Sounds: Positive: Clear to Auscultation, Breath Sounds Present Cardiovascular: Positive: RRR. Negative: Murmur Abdomen Description: Positive: Nontender. Negative: Guarding Male Genital Exam: Positive: hernia mass - right inguinal area that is clearly reducible, but right after hand taken away the hernia pops right back out. It is not red, tender. Musculoskeletal: Positive: Strength/ROM Intact Neurological: Positive: Sensory/Motor Intact, Alert, Oriented to Person Place, Time, CN Intact II-III Psychiatric: Positive: Normal Diagnostics - Vital Signs Vital Signs Temp Pulse Resp BP Pulse Ox 01/31/17 15:34 98.5 F 79 20 141/65 100 01/31/17 13:35 99.0 F 96 20 112/82 99 - Laboratory Lab Results: Lab Results 01/31/17 Range/Units 18:09 Urine Color Yellow Urine Appearance Clear Urine pH 8.0 (5-9) Ur Specific [place] 1.008 L (1.010-1.030) Urine Protein Negative (Negative) Urine Ketones Negative (Negative) Urine Blood Negative (Negative) Urine Nitrate Negative (Negative) Urine Bilirubin Negative (Negative) Urine Urobilinogen Negative (Negative) Ur Leukocyte Esterase Negative (Negative) Urine Glucose Negative (Negative) Lab Statement: Any lab studies that have been ordered have been reviewed, and results considered in the medical decision making process. Abdominal Pain Fem Course/Dx - Course Course Of Treatment: 76 yr old male with right inguinal hernia that is not incarcerated by examination. It is reducible but comes back again. CT and labs pending. - Diagnoses Provider Diagnoses: Inguinal hernia - Provider Notifications Discussed Care Of Patient With: Reji Mariscal Time Discussed With Above Provider: 17:56 - He feels patient can likely go home , and that a CT scan would be helpful for them in planning surgery and making sure no obstruction exists. Discharge - Discharge Plan Condition: Good Disposition: OTHER Discharge Disposition Comment: sign out Dr Marr at 1835 with labs, scan dispo pending. The documentation as recorded by the Sylvie nugent Edward accurately reflects the service I personally performed and the decisions made by , Tony Mota MD.
[2017-01-31 19:18] LABS: Hematocrit 33 % (42-52); Hemoglobin 10.5 g/dl (14.0-18.0); Mean Corpuscular HGB Conc 32 g/dl (31-36); Mean Corpuscular Hemoglobin 27 pg (27-31); Mean Corpuscular Volume 83 fL (80-94); Mean Platelet Volume 8 um3 (7.4-10.4); Red Blood Count 3.93 10^6/ul (4.0-5.4); Red Cell Distribution Width 16 % (10.5-15); White Blood Count 6.7 10^3/ul (3.5-10.8)
[2017-01-31 19:34] LABS: ALT 11 U/L (7-52); AST 21 U/L (13-39); Albumin 3.8 g/dL (3.2-5.2); Alkaline Phosphatase 68 U/L (34-104); Anion Gap 6 mmol/L (2-11); BUN/Creatinine Ratio 15.5 (8-20); Blood Urea Nitrogen 13 mg/dL (6-24); C Reactive Protein 15.39 mg/L (< 5.00); CO2 Carbon Dioxide 28 mmol/L (22-32); Calcium 9.4 mg/dL (8.6-10.3); Chloride 98 mmol/L (101-111); EGFR African American 113.7 (>60); EGFR Non-African American 88.4 (>60); Globulin 3.4 g/dL (2-4); Glucose 103 mg/dL (70-100); Lipase < 10 U/L (11.0-82.0); Potassium 3.6 mmol/L (3.5-5.0); Sodium 132 mmol/L (133-145); Total Protein 7.2 g/dL (6.4-8.9)
[2017-01-31] MEDS ORDERED: Iohexol 300* (CONTRAST) 10 ML SDV IV ONE (19:58)
--- NOTE | 2017-01-31 20:59 | RAD ---
INDICATION: Right lower quadrant abdominal pain, hernia. COMPARISON: Comparison is made with a prior CT of the abdomen and pelvis from September 26, 2015 and a prior study from December 09, 2016. TECHNIQUE: A CT scan of the abdomen and pelvis was performed with intravenous and oral contrast following intravenous injection of 69 ml of Omnipaque 300 nonionic contrast. Contiguous axial sections were obtained from the lung bases through the symphysis pubis. Images were reconstructed in the coronal and sagittal planes. FINDINGS: There is mild dependent bilateral lower lobe subsegmental atelectasis. No pleural effusion is present. The liver and spleen are normal in size. There is a small area of decreased attenuation in the anterior portion of the left hepatic lobe most consistent with focal fatty infiltration. No other focal abnormalities are seen. No calcified gallstones are noted. The pancreas appears to be within normal limits. The kidneys and adrenal glands are normal in size. No hydronephrosis is present. There are calculi in the lower pole of the left kidney which were better defined on the prior noncontrast study. The aorta is normal in caliber with moderate calcific plaque present. No significant enlarged retroperitoneal lymph nodes are seen. The stomach, small and large bowel appear nondistended. The appendix is within normal limits. There is a moderate to large amount retained stool present within the colon. There is mild descending and sigmoid diverticulosis without evidence for diverticulitis. There is no evidence for colitis. There is a small right inguinal hernia containing nondistended small bowel which appears unchanged from the prior study. No free intraperitoneal air or fluid is seen. No significant focal osseous abnormality is seen. IMPRESSION: 1. NO EVIDENCE FOR ACUTE FINDING OR CAUSE FOR THE PATIENT'S ABDOMINAL PAIN IS SEEN. 2. RIGHT INGUINAL HERNIA CONTAINING NONDISTENDED SMALL BOWEL, UNCHANGED. 3. MODERATE TO LARGE AMOUNT RETAINED STOOL. 4. NONOBSTRUCTING LEFT RENAL CALCULI.
[2017-01-31 21:20] VITALS: BP 130/74
--- NOTE | 2017-02-01 07:01 | ED ---
Kevin Morales Soohyun, scribed for Esequiel Marr MD on 01/31/17 at 2112 . Progress - Progress Note Progress Note: Signed out at shift change from Dr. Mota. Pt is diagnosed with right inguinal hernia. Pt remains stable throughout ED course, and is discharged with outpatient f/u with Dr. Mariscal (Surgery cosmetic consultant). - Results/Orders Results/Orders: CT Ab/P -- 1. NO EVIDENCE FOR ACUTE FINDING OR CAUSE FOR THE PATIENT'S ABDOMINAL PAIN IS SEEN. 2. RIGHT INGUINAL HERNIA CONTAINING NONDISTENDED SMALL BOWEL, UNCHANGED. 3. MODERATE TO LARGE AMOUNT RETAINED STOOL. 4. NONOBSTRUCTING LEFT RENAL CALCULI. Re-Evaluation - Re-Evaluation First Eval Re-Evaluation Time: 21:09 Comment: MD in room to update pt and family members present at bedside on CT Ab/ P imaging results. Course/Dx - Diagnoses Provider Diagnoses: Right inguinal hernia - Provider Notifications Time Discussed With Above Provider: 17:56 - He feels patient can likely go home , and that a CT scan would be helpful for them in planning surgery and making sure no obstruction exists. The documentation as recorded by the anshuibKevin estrada Soohyun accurately reflects the service I personally performed and the decisions made by me, Esequiel Marr MD.
== END 2017-01-31 21:30 ==
LOC: ED 13:32
DX: K40.90 Unilateral inguinal hernia, without obstruction or gangrene, not specified as recurrent (principal); R10.9 Unspecified abdominal pain; K59.00 Constipation, unspecified; Z87.891 Personal history of nicotine dependence
CPT/HCPCS: 36415; 74177; 80053; 81003; 83605; 83690; 85025; 85610; 86140; 99283; Q9967

== ENCOUNTER 2017-03-19 14:28 | Emergency (ER) | payer MEDICARE, OTHER ==
[2017-03-19] MEDS ORDERED: NS 0.9% 1000 ML* 1,000 ML IV SCH (15:00)
[2017-03-19 15:20] LABS: Hematocrit 30 % (42-52); Hemoglobin 9.6 g/dl (14.0-18.0); Mean Corpuscular HGB Conc 32 g/dl (31-36); Mean Corpuscular Hemoglobin 25 pg (27-31); Mean Corpuscular Volume 80 fL (80-94); Mean Platelet Volume 8 um3 (7.4-10.4); Red Blood Count 3.82 10^6/ul (4.0-5.4); Red Cell Distribution Width 17 % (10.5-15); White Blood Count 12.4 10^3/ul (3.5-10.8)
[2017-03-19] MEDS ORDERED: Albuterol/Ipratropium NEB.SOL* Albuterol 2.5 MG/Ipratropium 0.5 MG 3 ML INH ONE (15:34)
[2017-03-19] MEDS ORDERED: methylPREDNISolone 125 MG* 2 ML VIAL IV ONE (15:34)
[2017-03-19 15:35] LABS: ALT 11 U/L (7-52); AST 17 U/L (13-39); Albumin 3.4 g/dL (3.2-5.2); Alkaline Phosphatase 69 U/L (34-104); Anion Gap 6 mmol/L (2-11); BUN/Creatinine Ratio 20.8 (8-20); Blood Urea Nitrogen 16 mg/dL (6-24); C Reactive Protein 117.04 mg/L (< 5.00); CO2 Carbon Dioxide 32 mmol/L (22-32); Chloride 98 mmol/L (101-111); Creatine Kinase 39 U/L (10-223); EGFR African American 125.3 (>60); EGFR Non-African American 97.5 (>60); Globulin 3.6 g/dL (2-4); Glucose 120 mg/dL (70-100); Lipase < 10 U/L (11.0-82.0); Magnesium 2.6 mg/dL (1.9-2.7); Potassium 4.1 mmol/L (3.5-5.0); Sodium 136 mmol/L (133-145)
[2017-03-19 15:37] LABS: Troponin I 0.02 ng/mL (<0.04)
--- NOTE | 2017-03-19 15:58 | RAD ---
HISTORY: Chest pain, shortness of breath COMPARISONS: December 31, 2016 VIEWS: 2: frontal portable view of the chest at 3:36 PM. Evaluation is somewhat limited by head positioning. FINDINGS: LINES AND TUBES: None. CARDIOMEDIASTINAL SILHOUETTE: The cardiomediastinal silhouette is normal for portable technique. PLEURA: The costophrenic angles are sharp. No pleural abnormalities are noted. LUNG PARENCHYMA: There is hyperinflation. ABDOMEN: The upper abdomen is clear. There is no subphrenic gas. BONES AND SOFT TISSUES: No bone or soft tissue abnormalities are noted. IMPRESSION: COPD. NO ACTIVE CARDIOPULMONARY DISEASE.
[2017-03-19 16:08] LABS: TSH (Thyroid Stimulating Horm) 0.98 mcIU/mL (0.34-5.60)
[2017-03-19] MEDS ORDERED: Iohexol 350* (CONTRAST) 500 ML MDV IV ONE (16:59)
[2017-03-19 17:02] VITALS: BP 132/92
--- NOTE | 2017-03-19 17:33 | RAD ---
HISTORY: Shortness of breath, elevated d-dimer COMPARISONS: None TECHNIQUE: Multiple contiguous axial CT scans of the chest were obtained after the administration of nonionic intravenous contrast, timed to the pulmonary arterial phase of contrast enhancement.. Coronal and sagittal multiplanar reformations are also submitted for review. FINDINGS: NECK AND THYROID: The lower neck and thyroid are unremarkable. CHEST WALL: There is no lower cervical, axillary, or supraclavicular lymphadenopathy by size criteria. HEART AND PERICARDIUM: The heart is unremarkable. AORTA AND PULMONARY VASCULATURE: There is no pulmonary arterial filling defect to suggest pulmonary embolism. There is no linear filling defect within the aorta to suggest aortic dissection. MEDIASTINUM: There is no mediastinal lymphadenopathy by size criteria. SACHA: There is no hilar lymphadenopathy by size criteria. AIRWAY AND ESOPHAGUS: The airway is unremarkable, without endobronchial filling defect. The esophagus is grossly normal. LUNG PARENCHYMA: There is minimal patchy atelectasis of the left lung base. There is calcific granuloma of the left upper lobe. PLEURA: No pleural abnormalities are noted. UPPER ABDOMEN: The upper abdomen is unremarkable. BONES AND SOFT TISSUES: The patient is status post anterior cervical fusion. There is accentuation of the normal thoracic kyphosis. OTHER: None. IMPRESSION: 1. NO PULMONARY ARTERIAL FILLING DEFECT TO SUGGEST PULMONARY EMBOLISM. 2. MINIMAL PATCHY ATELECTASIS OF THE LEFT LUNG BASE.
[2017-03-19 18:24] LABS: Urine Bacteria Absent (Absent); Urine Bilirubin Negative (Negative); Urine Glucose Negative (Negative); Urine Nitrite Negative (Negative)
[2017-03-19] MEDS ORDERED: Azithromycin TAB* 250 MG PO ONE (18:29)
[2017-03-19] MEDS ORDERED: Albuterol HFA INHALER* 8 gm MDI INH ONE (18:31)
--- NOTE | 2017-03-25 12:35 | ED ---
Kerri Morales SooYoung, scribed for Juan Ruth MD on 03/19/17 at 1517 . Respiratory - HPI Summary HPI Summary: A 77 y/o M presents to ED with chest and sinus congestion onset one week. Associated sx: cough, rhinorrhea, subjective fever and mild pedal edema, mild weakness, sore throat. Denies CP, dizziness. He lives alone but has nursing come in all week long. Not eating or drinking much. Denies PMHx: COPD, CHF. Former smoker. Pt had neck surgery three years ago, and his brother states pt has been going downhill since. - History of Current Complaint Chief Complaint: EDChestPainROMI Stated Complaint: SHORT OF BREATH Time Seen by Provider: 03/19/17 14:59 Hx Obtained From: Patient, Family/Insulator Cutter And Former - younger brother Onset/Duration: Gradual Onset, Lasting Weeks - approx 1 week, Still Present Timing: Constant Initial Severity: Mild Current Severity: Mild Pain Intensity: 2 Character: Cough (Productive), Dyspnea at Rest Associated Signs and Symptoms: Fever, SOB, Nasal Congestion - Allergy/Home Medications Allergies/Adverse Reactions: Allergies Allergy/AdvReac Type Severity Reaction Status Date / Time No Known Allergies Allergy Verified 03/19/17 14:38 PMH/Surg Hx/FS Hx/Imm Hx Previously Healthy: No Endocrine/Hematology History: Reports: Hx Thyroid Disease - hypo Denies: Hx Diabetes Cardiovascular History: Reports: Hx Hypercholesterolemia, Hx Hypotension - LOW BLOOD PRESSURE TODAY, Hx Hypertension, Other Cardiovascular Problems/Disorders - 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 Respiratory History: Reports: Hx Chronic Bronchitis Denies: Hx Chronic Obstructive Pulmonary Disease (COPD) GI History: Reports: Hx Diverticulosis, Hx Gastroesophageal Reflux Disease, Other GI Disorders - liver abscess History: Denies: Hx Dialysis Musculoskeletal History: Reports: Hx Arthritis, Hx Rheumatoid Arthritis, Hx Back Problems Denies: Hx Osteoporosis Sensory History: Reports: Hx Contacts or Glasses, Hx Hearing Aid, Hx Hearing Problem Opthamlomology History: Reports: Hx Contacts or Glasses Neurological History: Reports: 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, 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 Denies: Hx Dementia, Hx Seizures - Surgical History Surgery Procedure, Year, and Place: CERVICAL SURGERY C4-C6, right ear,LIVER ABSCESS, LEFT TESTICLE - Immunization History Date of Tetanus Vaccine: Unk Date of Influenza Vaccine: Unk Infectious Disease History: No Infectious Disease History: Denies: Traveled Outside the [place] in Last 30 Days - Family History Known Family History: Positive: Hypertension, Diabetes Negative: Cardiac Disease - Social History Occupation: Retired Lives: Alone Alcohol Use: Occasionally Hx Substance Use: No Substance Use Type: Reports: None Hx Tobacco Use: Yes - QUIT 60 YRS AGO Smoking Status (MU): Former Smoker Type: Cigars Amount Used/How Often: OCCASIONAL Review of Systems Positive: Fever. Negative: Chills Negative: Erythema Positive: Sore Throat, Nasal Discharge, Other - nasal congestion Positive: Other - chest congestion. Negative: Chest Pain Negative: Shortness Of Breath, Cough Negative: Abdominal Pain, Vomiting, Nausea Negative: dysuria, hematuria Positive: Edema. Negative: Myalgia Negative: Rash Neurological: Other - neg: dizziness Positive: Weakness All Other Systems Reviewed And Are Negative: Yes Physical Exam - Summary Physical Exam Summary: Constitutional: Well-developed, Well-nourished, Alert. (-) Distressed Skin: Warm, Dry HENT: Normocephalic; Atraumatic. No tonsilar abscess. Eyes: Conjunctiva normal Neck: Musculoskeletal ROM normal neck. (-) JVD, (-) Stridor, (-) Tracheal deviation Cardio: Rhythm regular, rate normal, Heart sounds normal; Intact distal pulses; The pedal pulses are 2+ and symmetric. Radial pulses are 2+ and symmetric. (-) Murmur Pulmonary/Chest wall: Diminished breath sounds. (-) Wheezes, (-) Rales Abd: Soft, (-) Tenderness, (-) Distension, (-) Guarding, (-) Rebound Musculoskeletal: (-) Edema Lymph: (-) Cervical adenopathy Neuro: Alert, Oriented x3 Psych: Mood and affect Normal Triage Information Reviewed: Yes Vital Signs On Initial Exam: Initial Vitals Temp Pulse Resp BP Pulse Ox 97.8 F 115 20 111/67 96 03/19/17 14:32 03/19/17 14:32 03/19/17 14:32 03/19/17 14:32 03/19/17 14:32 Vital Signs Reviewed: Yes Diagnostics - Vital Signs Vital Signs Temp Pulse Resp BP Pulse Ox 03/19/17 14:32 97.8 F 115 20 111/67 96 - Laboratory Result Diagrams: 03/19/17 15:07 03/19/17 15:07 Lab Statement: Any lab studies that have been ordered have been reviewed, and results considered in the medical decision making process. - Radiology CXR Xray Interpretation: No Acute Changes - IMPRESSION: No active cardiopulmonary dz. ED physician has reviewed this radiology report and agrees Radiology Interpretation Completed By: Radiologist - CT Chest/Thorax CTA CT Interpretation: Positive (See Comments) - Patient Name: DINESH RODRIGUEZ Medical Record#: [id number] Ordering Physician: Juan Ruth MD Acct.#: [id number] : 1940 Age: 77 Sex: M Location: EMERGENCY DEPARTMENT Exam Date: 03/19/17 165 ADM Status: REG ER Order Information: CTA CHEST Accession Number: [id number] CPT: 16442 HISTORY: Shortness of breath, elevated d-dimer COMPARISONS: None TECHNIQUE: Multiple contiguous axial CT scans of the chest were obtained after the administration of nonionic intravenous contrast, timed to the pulmonary arterial phase of contrast enhancement.. Coronal and sagittal multiplanar reformations are also submitted for review. FINDINGS: NECK AND THYROID: The lower neck and thyroid are unremarkable. CHEST WALL: There is no lower cervical, axillary, or supraclavicular lymphadenopathy by size criteria. HEART AND PERICARDIUM: The heart is unremarkable. AORTA AND PULMONARY VASCULATURE: There is no pulmonary arterial filling defect to suggest pulmonary embolism. There is no linear filling defect within the aorta to suggest aortic dissection. MEDIASTINUM: There is no mediastinal lymphadenopathy by size criteria. SACHA: There is no hilar lymphadenopathy by size criteria. AIRWAY AND ESOPHAGUS: The airway is unremarkable, without endobronchial filling defect. The esophagus is grossly normal. LUNG PARENCHYMA: There is minimal patchy atelectasis of the left lung base. There is calcific granuloma of the left upper lobe. PLEURA: No pleural abnormalities are noted. UPPER ABDOMEN: The upper abdomen is unremarkable. BONES AND SOFT TISSUES: The patient is status post anterior cervical fusion. There is accentuation of the normal thoracic kyphosis. OTHER: None. IMPRESSION : 1. NO PULMONARY ARTERIAL FILLING DEFECT TO SUGGEST PULMONARY EMBOLISM. 2. MINIMAL PATCHY ATELECTASIS OF THE LEFT LUNG BASE. ED physician has reviewed this radiology report and agrees. CT Interpretation Completed By: Radiologist - EKG 1519 Cardiac Rate: NL - 89 bpm EKG Rhythm: Sinus Rhythm ST Segment: Normal - no STEMI Re-Evaluation - Re-Evaluation 1 Re-Evaluation Time: 18:20 Change: Improved Comment: Discussing results with pt. Pt states feeling much better. Disposition - Course Course Of Treatment: A 77 y/o M presents to ED with chest and sinus congestion onset one week. Associated sx: cough, rhinorrhea, subjective fever and mild pedal edema, mild weakness, sore throat. Denies CP, dizziness. He lives alone but has nursing come in all week long. Not eating or drinking much. Denies PMHx : COPD, CHF. Former smoker. Pt had neck surgery three years ago, and his brother states pt has been going downhill since. Bloodwork taken. UA results show 2+ blood, 3+ RBCs and amorphous crystals present. EKG is NSR, no STEMI. CXR shows no active cardiopulmonary dz. Pt given fluids, duoneb and solumedrol in ED. Strep test is negative. CTA shows "1. NO PULMONARY ARTERIAL FILLING DEFECT TO SUGGEST PULMONARY EMBOLISM. 2. MINIMAL PATCHY ATELECTASIS OF THE LEFT LUNG BASE.". Pt ambulated with good O2 sats. Will dispo home to f/u with PCP. - Diagnoses Provider Diagnoses: COPD exacerbation Discharge - Discharge Plan Condition: Stable Disposition: HOME Prescriptions: Albuterol/Ipratropium NEB.BILLY* [Duoneb (Albuterol 2.5 MG/Ipratropium 0.5 MG)] 1 neb INH Q4H PRN #60 neb.billy PRN Reason: Cough Azithromycin TAB* [Zithromax TAB (Z-LINDEN) 250 mg #6 tabs] 2 tab PO .TODAY, THEN 1 DAILY #1 linden predniSONE TAB* [Deltasone TAB*] 50 mg PO DAILY #5 tab Patient Education Materials: COPD (Chronic Obstructive Pulmonary Disease) (ED) , Azithromycin (By mouth), Prednisone (By mouth), Ipratropium/Albuterol (By breathing) Referrals: Delfino Duque [Primary Care Provider] - Additional Instructions: Follow up with your primary care provider in 2-3 days. Please return to the ED if you experience new or worsening symptoms. The documentation as recorded by the Kerri nugent SooYoung accurately reflects the service I personally performed and the decisions made by me, Juan Ruth MD.
== END 2017-03-19 19:19 | disposition home or self-care (01) ==
LOC: ED 14:28
DX: J44.1 Chronic obstructive pulmonary disease with (acute) exacerbation (principal); K21.9 Gastro-esophageal reflux disease without esophagitis; K57.90 Diverticulosis of intestine, part unspecified, without perforation or abscess without bleeding; Z87.891 Personal history of nicotine dependence; I50.9 Heart failure, unspecified; E03.9 Hypothyroidism, unspecified; E78.00 Pure hypercholesterolemia, unspecified; I10 Essential (primary) hypertension; Z86.73 Personal history of transient ischemic attack (TIA), and cerebral infarction without residual deficits; M06.9 Rheumatoid arthritis, unspecified
CPT/HCPCS: 36415; 71010; 71275; 80053; 81003; 81015; 82550; 82553; 83605; 83690; 83735; 83880; 84443; 84484; 85025; 85379; 85610; 85730; 86140; 87651; 93005; 94640; 96360; 96374; 96375; 99283; A9270-GY; J2930; Q9967

== ENCOUNTER 2017-04-10 12:28 | Inpatient (IN) | payer MEDICARE, OTHER ==
[2017-04-10] MEDS ORDERED: NS 0.9% 500 ML* 500 ML IV ONE (13:37)
--- NOTE | 2017-04-10 14:18 | RAD ---
HISTORY: Abdominal pain COMPARISONS: CT dated January 31, 2017 VIEWS: Frontal supine and right lateral decubitus views of the abdomen FINDINGS: BOWEL: There is a nonspecific bowel gas pattern, with nondilated small bowel gas noted. There is a large amount of stool within the colon. CALCULI: There are no abnormal calculi. BONES AND SOFT TISSUES: Degenerative changes are noted of the spine OTHER FINDINGS: The lung bases are clear. There is no subphrenic gas. IMPRESSION: NONSPECIFIC BOWEL GAS PATTERN.
[2017-04-10 14:50] LABS: Hematocrit 18 % (42-52); Mean Corpuscular HGB Conc 33 g/dl (31-36); Mean Corpuscular Hemoglobin 27 pg (27-31); Mean Corpuscular Volume 80 fL (80-94); Mean Platelet Volume 8 um3 (7.4-10.4); Red Blood Count 2.27 10^6/ul (4.0-5.4); Red Cell Distribution Width 17 % (10.5-15); White Blood Count 10.8 10^3/ul (3.5-10.8)
[2017-04-10 14:51] LABS: Add Diff/Slide Review? Slide Review Added; Comments Flag Yes
[2017-04-10 15:05] LABS: Albumin 2.5 g/dL (3.2-5.2); BUN/Creatinine Ratio 53.3 (8-20); C Reactive Protein 14.53 mg/L (< 5.00); Calcium 7.5 mg/dL (8.6-10.3); EGFR African American 167.1 (>60); Globulin 2.1 g/dL (2-4); Potassium 3.9 mmol/L (3.5-5.0); Total Bilirubin 0.2 mg/dL (0.2-1.0); Total Protein 4.6 g/dL (6.4-8.9)
[2017-04-10 15:19] LABS: Hypochromasia 2+
[2017-04-10 15:47] LABS: Urine Bilirubin Negative (Negative); Urine Glucose Negative (Negative); Urine Nitrite Negative (Negative)
[2017-04-10] MEDS ORDERED: NS 0.9% 1000 ML* 1,000 ML IV SCH (16:45)
--- NOTE | 2017-04-10 17:51 | RAD ---
HISTORY: Shortness of breath COMPARISONS: March 19, 2017 VIEWS: 1: frontal portable view of the chest at 5:36 PM FINDINGS: LINES AND TUBES: None. CARDIOMEDIASTINAL SILHOUETTE: The cardiomediastinal silhouette is normal for portable technique. PLEURA: The costophrenic angles are sharp. No pleural abnormalities are noted. LUNG PARENCHYMA: There is hyperinflation. ABDOMEN: The upper abdomen is clear. There is no subphrenic gas. BONES AND SOFT TISSUES: There is diffuse osteopenia. IMPRESSION: COPD. NO ACTIVE CARDIOPULMONARY DISEASE.
[2017-04-10] MEDS: Benzocaine/Menthol LOZ* 1 LOZENGE PO PRN (19:53)
[2017-04-10] MEDS: NS 0.9% 1000 ML* 1,000 ML IV SCH (19:53)
[2017-04-10] MEDS: Pantoprazole IV* 40 MG IV SCH (23:22)
[2017-04-10] MEDS: Tamsulosin CAP* 0.4 MG PO SCH (23:22)
[2017-04-10 23:47] LABS: Hematocrit 24 % (42-52); Hemoglobin 8.1 g/dl (14.0-18.0)
--- NOTE | 2017-04-11 00:45 | HP ---
CC: DIONI Prajapati * HISTORY AND PHYSICAL: DATE OF ADMISSION: 04/10/17 AGE: 77 PRIMARY CARE PROVIDER: DIONI Prajapati ATTENDING PHYSICIAN: Daria Espinal DO * (report dictated by Dwayne Coon NP) CHIEF COMPLAINT: Abdominal pain, constipation, and bloody stools after attempting to disimpact himself at home. HISTORY OF PRESENT ILLNESS: Mr. Stevenson is a 77-year-old male with a past medical history significant for hypothyroidism, hyperlipidemia, hypertension, history of a CVA, GERD, liver abscess, diverticulosis, arthritis, and left- sided weakness after a spinal cord injury in addition to chronic AFib and rheumatoid arthritis who presented to the emergency room today with complaints of abdominal cramps, constipation, shortness of breath and feeling faint after trying to digitally disimpact himself and bloody runny stools after the attempted disimpaction. The patient states other than having constipation for approximately a week, he has been feeling pretty well. He denied any fever, chills, chest pain, nausea, or vomiting. He reports some postnasal drip and a poor appetite. He denies any black, dark, or bloody stools prior to this morning. The patient also reported shortness of breath during his episode of feeling faint this morning. The patient denies any difficulty with urination. He has a baseline left-sided weakness from his spinal cord injury. The patient reports postnasal drip, poor appetite, feeling faint earlier today and approximately 1 to 2 weeks of bilateral lower extremity edema. The patient was brought to the emergency room by EMS. While in the emergency room, the patient had labs and was found to have a hemoglobin of 6 and a hematocrit of 18. He was found to have a stool for occult blood that was positive and bright red blood per rectum. While in the emergency room, the patient received normal saline in addition to he had 2 units of packed red blood cells started. Dr. Cano was consulted by the emergency room and said he would see the patient in the morning. The hospitalists were asked to evaluate the patient for admission. PAST MEDICAL HISTORY: 1. Hypothyroidism. 2. Hyperlipidemia. 3. Hypertension. 4. Cerebrovascular accident. 5. GERD. 6. Liver abscess. 7. Diverticulosis. 8. Arthritis. 9. Chronic atrial fibrillation. 10. Rheumatoid arthritis. 11. Left-sided weakness, status post spinal injury. PAST SURGICAL HISTORY: Status post a C4 to C6 plating. MEDICATIONS: Home medications include: 1. Tramadol 50 mg oral 3 times daily as needed for pain. 2. Prednisone 10 mg oral daily. 3. Vitamin B complex 1 capsule oral daily. 4. Triamcinolone 0.1% cream, apply topical twice daily as needed. 5. Flomax 0.4 mg oral daily at bedtime. 6. Omeprazole 20 mg oral daily. 7. Mode-3 1000 mg oral daily. 8. Zyprexa 5 mg oral daily. 9. Magnesium oxide 250 mg oral twice daily. 10. Lovastatin 20 mg oral daily at bedtime. 11. Levothyroxine 25 mcg oral daily. 12. Gabapentin 300 mg oral daily at bedtime. 13. Folic acid 1 mg oral daily. 14. Ferrous sulfate 325 mg oral daily. 15. Fenofibrate 145 mg oral daily. 16. Calcium 500 mg oral daily. 17. Aspirin 81 mg oral daily. 18. Acetaminophen 325 mg oral every 6 hours as needed for fever or pain. 19. Bactroban 2% topical 3 times daily as needed to the affected area. 20. Colace 100 mg 3 times daily as needed. ALLERGIES: No known drug allergies. FAMILY HISTORY: The patient reports that his mother had a history of congestive heart failure and his brother had a history of heart disease. The patient's mother had a history of diabetes mellitus. He denies any family history of cancer. SOCIAL HISTORY: The patient is a former smoker,he reports quitting in 1955, and prior to that has smoked lightly for a few years. The patient occasionally drinks alcohol. He denies recreational drug use. He lives alone, but has an aide that comes in and assists him. The patient's brother, Wilbert, will be his surrogate decision maker in the event that he is unable to make decisions for himself. REVIEW OF SYSTEMS: I performed a 14-point review of systems. All the pertinent positives and negatives are mentioned in the history of present illness. The remaining review of systems are negative. PHYSICAL EXAMINATION GENERAL APPEARANCE: The patient is alert, pleasant, appears to be in no acute distress. VITAL SIGNS: Temperature 98.5, heart rate 97, respiratory rate 23, O2 sat 98% on room air, blood pressure 108/62. HEENT: Normocephalic, atraumatic. Pupils are equal and reactive to light. Extraocular movements are intact. RESPIRATORY: There is no accessory muscle use and the lungs are clear to auscultation bilateral with decreased breath sounds. CARDIAC: Regular rate and rhythm. S1 and S2 present. There are no murmurs, rubs, or gallops heard. ABDOMEN: Soft, nontender, and nondistended. Bowel sounds are present x4. EXTREMITIES: There is 2+ bilateral lower extremity edema. DP and PT pulses are 2+ and symmetric. MUSCULOSKELETAL: There is no clubbing or cyanosis noted. The patient exhibits some weakness in his left side that is his baseline. NEUROLOGICAL: The patient is alert and oriented x4. Cranial nerves II through XII are grossly intact. PSYCHOLOGICAL: The patient is calm and cooperative. SKIN: There are no rashes or abnormalities seen, although the patient was not rolled over in bed to evaluate his bottom. DIAGNOSTIC STUDIES/LABORATORY DATA: Sodium 141, potassium 3.9, chloride 108, CO2 29, BUN 32, creatinine 0.60. CRP 14.53. Stool for occult blood is positive. White blood cell count 10.8, hemoglobin 6.0, hematocrit 18, and platelet count 150. Urinalysis negative. Abdominal x-ray from today. Radiologist's impression: Nonspecific bowel gas pattern. IMPRESSION: Mr. Stevenson is a 77-year-old male with past medical history significant for hypothyroidism, hyperlipidemia, hypertension, cerebrovascular accident, gastroesophageal reflux disease, arthritis, and chronic AFib and left - sided weakness due to a spinal injury, who presented to the emergency room with complaints of abdominal cramping, constipation, shortness of breath, and bloody stools after attempting to digitally disimpact himself today. He will be admitted as an inpatient for GI bleed. ASSESSMENT/PLAN: 1. Gastrointestinal bleed. The patient currently has bright red blood per rectum. I suspect this is a lower GI bleed, possibly a diverticular bleed although injury from the patient's attempt to self-disimpaction is also in the differential. The patient had an elevated BUN and is on aspirin and prednisone therapy. He could also potentially have an upper GI bleed. I will place him on Protonix IV twice daily. He is going to receive 2 units of packed red blood cells tonight. We will trend his H and H every 6 hours. He will have [address] large [address] IVs in place at all times. We will monitor him on telemetry in addition to getting orthostatic vital signs. Dr. Cano with GI will see the patient in consultation. 2. Hypotension. I suspect in this is in the setting of acute blood loss and hypovolemia and will improve after IVFs and blood. 3. Shortness of breath. The patient reports shortness of breath. I suspect this could be secondary to his anemia. He also reports postnasal drip and occasional intermittent cough. We will check a chest x-ray. This will also assist with evaluating if the patient is fluid overloaded vs an infectious process. 4. Hypothyroidism. The patient's last TSH was on 03/19/17 and was 0.98. We will continue him on his home dose of levothyroxine. 5. Hypertension. The patient is not currently on any antihypertensive agents. 6. Rheumatoid arthritis. In the setting of the patient's GI bleed, we are going to hold the patient's prednisone. 7. Benign prostatic hypertrophy. We will continue the patient's home Fosamax. 8. Gastroesophageal reflux disease. We will hold the patient's home omeprazole and keep him on Protonix twice daily. 9. Anemia. The patient appears to have iron deficiency anemia at baseline. Currently, his anemia is the worst it has been, I suspect secondary to acute blood loss anemia in addition to his chronic iron deficiency anemia. For now, we are going to hold the patient's iron. 10. History of cerebrovascular accident. We are going to hold the patient's aspirin in the setting of an acute GI bleed. In addition, for now, I am going to hold the patient's lovastatin, see how he does and restart accordingly once he is taking more p.o. 11. Fluids, electrolytes, and nutrition: The patient will be on a clear liquid diet. He will have normal saline at 75 mL an hour. 12. Code status: Full code. 13. DVT prophylaxis. The patient is a high risk. He will have SCDs as chemical DVT prophylaxis is contraindicated in the setting of a GI bleed. 14. Disposition: Inpatient. TIME SPENT: Time for this admission was approximately 60 minutes, greater than half of that was spent with the patient discussing medications, past medical history, and events leading up to his arrival today, and performing physical examination. Case has been reviewed with the attending, Dr. Espinal, who agrees with the plan of care. Reviewed by DWAYNE COON, [place]-Junaid 04/13/17 1439 [id number]/[facility] #: [id number] CITLALI
[2017-04-11] MEDS ORDERED: Acetaminophen TAB* 325 MG PO PRN (03:41)
[2017-04-11] MEDS: Benzocaine/Menthol LOZ* 1 LOZENGE PO PRN (06:14)
[2017-04-11] MEDS: Levothyroxine TAB* 25 MCG TAB PO SCH (06:14)
[2017-04-11 06:43] LABS: Hematocrit 25 % (42-52); Hemoglobin 8.3 g/dl (14.0-18.0); Mean Corpuscular HGB Conc 34 g/dl (31-36); Mean Corpuscular Hemoglobin 27 pg (27-31); Mean Corpuscular Volume 81 fL (80-94); Mean Platelet Volume 8 um3 (7.4-10.4); Red Blood Count 3.02 10^6/ul (4.0-5.4); Red Cell Distribution Width 17 % (10.5-15); White Blood Count 9.3 10^3/ul (3.5-10.8)
[2017-04-11 06:58] LABS: BUN/Creatinine Ratio 38.3 (8-20); Calcium 7.8 mg/dL (8.6-10.3); EGFR African American 167.1 (>60); Potassium 3.6 mmol/L (3.5-5.0)
[2017-04-11] MEDS: Pantoprazole IV* 40 MG IV SCH ×2 (07:54→21:44)
[2017-04-11] MEDS: OLANzapine TAB* 5 MG PO SCH (07:55)
[2017-04-11] MEDS ORDERED: Influenza VAC *QUAD* 2017-18* 0.5 ML SYRINGE IM ONE (09:00)
[2017-04-11] MEDS ORDERED: guaiFENesin LIQ* 100 MG/5 ML UDC PO PRN (10:21)
--- NOTE | 2017-04-11 10:27 | PN ---
Subjective Date of Service: 04/11/17 Interval History: Pt feels well. At home had aides to help him. Baseline basically wheelchair bound. Noted to be clearing his throat frequently when given meds by RN Objective Active Medications: Acetaminophen (Tylenol Tab*) 650 mg PO Q6H PRN PRN Reason: FEVER/PAIN Last Admin: 04/11/17 06:13 Dose: 650 mg Guaifenesin (Robitussin*) 5 ml PO Q6H PRN PRN Reason: COUGH Sodium Chloride (Ns 0.9% 1000 Ml*) 1,000 mls @ 75 mls/hr IV PER RATE [facility] Last Admin: 04/10/17 19:53 Dose: 75 mls/hr Levothyroxine Sodium (Synthroid Tab*) 25 mcg PO DAILY@0600 [facility] Last Admin: 04/11/17 06:14 Dose: 25 mcg Olanzapine (Zyprexa Tab*) 5 mg PO DAILY [facility] Last Admin: 04/11/17 07:55 Dose: 5 mg Pantoprazole Sodium (Protonix Iv*) 40 mg IV BID [facility] Last Admin: 04/11/17 07:54 Dose: 40 mg Polyethylene Glycol/Electrolytes (Miralax*) 17 gm PO DAILY [facility] Tamsulosin HCl (Flomax Cap*) 0.4 mg PO BEDTIME [facility] Last Admin: 04/10/17 23:22 Dose: 0.4 mg Throat Lozenges (Chloraseptic Angelo*) 1 angelo PO Q6H PRN PRN Reason: SORE THROAT Last Admin: 04/11/17 06:14 Dose: 1 angelo Vital Signs 04/10/17 04/10/17 04/10/17 16:45 16:55 16:58 Temperature Pulse Rate 89 89 97 Respiratory 24 18 24 Rate Blood Pressure 79/53 83/56 70/51 (mmHg) O2 Sat by Pulse 98 79 100 Oximetry 04/10/17 04/10/17 04/10/17 17:00 17:15 17:30 Temperature Pulse Rate 97 84 79 Respiratory 20 15 15 Rate Blood Pressure 81/53 76/51 80/47 (mmHg) O2 Sat by Pulse 98 98 99 Oximetry 04/10/17 04/10/17 04/10/17 17:45 18:00 18:15 Temperature Pulse Rate 79 79 71 Respiratory 18 14 18 Rate Blood Pressure 83/50 73/49 78/43 (mmHg) O2 Sat by Pulse 99 99 98 Oximetry 04/10/17 04/10/17 04/10/17 18:26 18:30 18:41 Temperature 98.7 F Pulse Rate 82 81 78 Respiratory 24 21 16 Rate Blood Pressure 90/47 85/58 80/50 (mmHg) O2 Sat by Pulse 98 90 99 Oximetry 04/10/17 04/10/17 04/10/17 19:05 19:45 21:02 Temperature 97.6 F 97.8 F Pulse Rate 83 97 Respiratory 20 9 18 Rate Blood Pressure 93/53 96/57 (mmHg) O2 Sat by Pulse 100 100 Oximetry 04/10/17 04/10/17 04/11/17 23:04 23:50 01:38 Temperature 98.5 F Pulse Rate 79 Respiratory 18 16 16 Rate Blood Pressure 88/56 (mmHg) O2 Sat by Pulse 100 Oximetry 04/11/17 04/11/17 04/11/17 02:31 03:25 06:24 Temperature Pulse Rate 78 76 Respiratory 18 16 Rate Blood Pressure 107/61 102/55 (mmHg) O2 Sat by Pulse 99 Oximetry 04/11/17 04/11/17 06:29 06:30 Temperature Pulse Rate 91 98 Respiratory Rate Blood Pressure 105/65 100/59 (mmHg) O2 Sat by Pulse Oximetry Oxygen Devices in Use Now: None Appearance: 77 yo M in nAD, aAOx3, very [place] Eyes: No Scleral Icterus, PERRLA Ears/Nose/Mouth/Throat: NL Teeth, Lips, Gums, Mucous Membranes Moist Neck: NL Appearance and Movements; NL JVP, Trachea Midline Respiratory: Symmetrical Chest Expansion and Respiratory Effort, Clear to Auscultation Cardiovascular: NL Sounds; No Murmurs; No JVD, RRR Abdominal: NL Sounds; No Tenderness; No Distention, No Hepatosplenomegaly Lymphatic: No Cervical Adenopathy Extremities: No Edema, No Clubbing, Cyanosis, - - +1 pitting ankle edema b/l Skin: - - erythema ab igne from a heating pack on b/l buttocks and upper thighs posteriorly Neurological: Alert and Oriented x 3, - - left arm contracted.B/l symmetrical leg weakness at 4+/5 Result Diagrams: 04/11/17 12:21 04/11/17 06:35 Assess/Plan/Problems-Billing Assessment: Mr. Stevenson is a 76 yo gentleman who is mostly limited to a wheelchair due to BLE and LUE weakness after cervical spine surgery as well as HTN, HLD, hypothyroidism , GERD and a documented h/o of a fib, but is not anticoagulated (due to h/o falls) , PMR (recently placed on prednisone by Dr. Olivo)who presented with lower GI bleed after he attempted to disimpact himself - Patient Problems (1) GI bleed Comment: maroon stool still present on evaluation today cont flull liquid diet Protoninx IV GI consult reqested (2) Anemia Comment: Hb stabilized after 2 U PRBC transfusion on day of admission due to acute hemorrhage due to GI bleed (3) Arm dysfunction Comment: Pt describes 2 separate injuries to L arm. contracted at baseline (4) Edema Comment: suspect due to venous stasis. Resolved after pt had been in bed since admission. (5) Weakness of both lower extremities Comment: Patient spends most of his time in a wheelchair at home. He has BLE weakness which is reportedly a result of prior cervical spine surgery. (6) Atrial fibrillation Comment: NSR on admission. In regular rate today Anticoagulation was held in the past due to h/o of frequent falls. (7) PMR (polymyalgia rheumatica) Comment: recently placed on Prednisone by Dr. Olivo Stopped at admission due to GI bleed. cont on holding steroids (8) Dysphagia Comment: possible will ask for a swallow eval from speech therapy (9) Hypothyroidism Comment: Continue levothyroxine.TSH 0.9 03/19/17 (10) Hypotension Comment: h/o low normal BP in the past, cont IVF (11) DVT prophylaxis Comment: no anticoagulants due to GI bleed SCD's Status and Disposition: inpatient
[2017-04-11] MEDS ORDERED: traMADol TAB* 50 MG PO PRN (10:28)
[2017-04-11] MEDS: Polyethylene Glycol 3350* 17 GM PACKET PO SCH ×2 (10:30→10:43)
--- NOTE | 2017-04-11 10:45 | CONS ---
CC: DIONI Prajapati* CONSULTATION REPORT: DATE OF CONSULT: 04/11/17. REQUESTING PHYSICIAN: Dr. Espinal. INDICATION: Rectal bleeding. NARRATIVE: Mr. Stevenson is a pleasant 77-year-old gentleman with a history of atrial fibrillation, CVA, partial paralysis secondary to a spinal cord injury, hypothyroidism, hyperlipidemia, hypertension, severe diverticulosis, who was admitted yesterday afternoon after an episode of rectal bleeding. The patient states that he has been feeling fine. He has been constipated over the past few weeks and yesterday tried to digitally disimpact himself. He noted bright red blood after the attempted disimpaction. The patient states that he was having to "dig hard" in order to try and get the stool out. He denies any current rectal pain or abdominal pain. He has not had any bright red blood or black stools prior to the digital disimpaction attempt yesterday. He did have a colonoscopy approximately 10 years ago which revealed severe diverticulosis. No family history of colorectal cancer. PAST MEDICAL HISTORY: Please see the HPI. PAST SURGICAL HISTORY: Spinal cord surgery. MEDICATIONS: Include: 1. Colace. 2. Aspirin. 3. Gabapentin. 4. Levothyroxine. 5. Lovastatin. 6. Zyprexa. 7. Tramadol. 8. Prednisone. 9. Flomax. 10. Omeprazole. ALLERGIES: He has no known drug allergies. FAMILY HISTORY: No GI malignancies in the family. SOCIAL HISTORY: He quit smoking many years ago. Rarely drinks alcohol. REVIEW OF SYSTEMS: Twelve systems were reviewed, other than that mentioned in the HPI were unremarkable. PHYSICAL EXAM: Vital Signs: Temperature is 98.5, blood pressure is 100/59, pulse is 98. General: Debilitated appearing male, lying flat in bed, very hard of hearing. Alert and oriented. HEENT: Mucous membranes are moist without lesions, ulcers, or exudate. Neck: Supple. Trachea is midline. Head is normocephalic and atraumatic. Heart: Irregular rate and rhythm. No murmurs , rubs, or gallops. Lungs: Clear to auscultation. Abdomen: Softly distended. Positive bowel sounds, soft, nontender. Skin: Warm and dry. DIAGNOSTIC STUDIES/LAB DATA: Of note, his hemoglobin initially upon presentation was 6.0. After two units of blood, it is now up to 8.3. His baseline since November of this year appears to be in the mid 8 range. BUN of 23. He has an abdominal x- rays which shows a large amount of stool within the colon. ASSESSMENT AND PLAN: This is a 77-year-old debilitated male with bright red blood per rectum, who attempted a self digital disimpaction and developed bleeding afterwards. I wonder if he could have injured himself during this disimpaction versus another cause of rectal bleeding. He does have severe diverticulosis. This could be an explanation. We had a long discussion regarding what to do next. He states that he feels pretty fine right now. He would like to address his constipation more. We can use MiraLAX for that. We discussed performing a colonoscopy; however, he does have severe diverticulosis. The patient is concerned about being able to tolerate the prep and does not think that he wants one right now. He is going to think about it more. I will come back later on today and discuss things further with him. [id number]/[facility] #: [id number] CITLALI
[2017-04-11] MEDS: NS 0.9% 1000 ML* 1,000 ML IV SCH ×2 (12:13→21:27)
[2017-04-11 12:40] LABS: Hematocrit 23 % (42-52); Hemoglobin 7.8 g/dl (14.0-18.0)
--- NOTE | 2017-04-11 13:06 | ED ---
Sylvie Morales Edward, scribed for Tony Rosen MD on 04/10/17 at 1329 . GI/ HPI - HPI Summary HPI Summary: 77 y/o male BIBA c/o constipation for 2-3 days. It is not alleviated with anything. The pt had a near syncopal episode with SOB when he tried to have a bowel movement earlier today. Denies N/V. Pt also c/o of a pressure pain across the ABD. - History of Current Complaint Chief Complaint: EDGeneral Time Seen by Provider: 04/10/17 13:17 Stated Complaint: ABD PAIN Hx Obtained From: Patient Onset/Duration: Started Days Ago Timing: Constant Pain Intensity: 0 Location of Pain: Diffuse Pain Characteristics: Pressure Associated Signs and Symptoms: Positive: Syncope - Near syncope with SOB, Constipation - Additional Pertinent History Primary Care Physician: LETA - Allergy/Home Medications Allergies/Adverse Reactions: Allergies Allergy/AdvReac Type Severity Reaction Status Date / Time No Known Allergies Allergy Verified 04/10/17 13:20 Home Medications: Home Medications Prednisone [Prednisone] 10 mg PO DAILY 04/10/17 [History Confirmed 04/10/17] PMH/Surg Hx/FS Hx/Imm Hx Previously Healthy: No Endocrine/Hematology History: Reports: Hx Thyroid Disease - hypo Denies: Hx Diabetes Cardiovascular History: Reports: Hx Hypercholesterolemia, Hx Hypotension - LOW BLOOD PRESSURE TODAY, Hx Hypertension, Other Cardiovascular Problems/Disorders - 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 Respiratory History: Reports: Hx Chronic Bronchitis Denies: Hx Chronic Obstructive Pulmonary Disease (COPD) GI History: Reports: Hx Diverticulosis, Hx Gastroesophageal Reflux Disease, Other GI Disorders - liver abscess History: Denies: Hx Dialysis, Hx Renal Disease Musculoskeletal History: Reports: Hx Arthritis, Hx Rheumatoid Arthritis, Hx Back Problems Denies: Hx Osteoporosis Sensory History: Reports: Hx Contacts or Glasses, Hx Hearing Aid, Hx Hearing Problem Opthamlomology History: Reports: Hx Contacts or Glasses Neurological History: Reports: 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, 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 Denies: Hx Dementia, Hx Seizures - Surgical History Surgery Procedure, Year, and Place: CERVICAL SURGERY C4-C6, right ear,LIVER ABSCESS, LEFT TESTICLE - Immunization History Date of Tetanus Vaccine: Unk Date of Influenza Vaccine: Unk Infectious Disease History: No Infectious Disease History: Denies: Traveled Outside the [place] in Last 30 Days - Family History Known Family History: Positive: Hypertension, Diabetes Negative: Cardiac Disease - Social History Alcohol Use: Occasionally Alcohol Amount: socially Hx Substance Use: No Substance Use Type: Reports: None Hx Tobacco Use: Yes - QUIT 60 YRS AGO Smoking Status (MU): Former Smoker Type: Cigars Amount Used/How Often: OCCASIONAL Review of Systems Constitutional: Negative Eyes: Negative ENT: Negative Cardiovascular: Negative Positive: Shortness Of Breath Positive: Abdominal Pain, Other - Constipation. Negative: Vomiting, Nausea Genitourinary: Negative Musculoskeletal: Negative Skin: Negative Positive: Syncope - Near syncope Psychological: Normal All Other Systems Reviewed And Are Negative: Yes Physical Exam - Summary Physical Exam Summary: VITAL SIGNS: Reviewed. GENERAL: Patient is an old, dehydrated male who is lying comfortable in the stretcher. Patient is not in any acute respiratory distress. HEAD AND FACE: No signs of trauma. No ecchymosis, hematomas or skull depressions. No sinus tenderness. EYES: PERRLA, EOMI x 2, No injected conjunctiva, no nystagmus. EARS: Hearing grossly intact. Ear canals and tympanic membranes are within normal limits. MOUTH: Oropharynx within normal limits. NECK: Supple, trachea is midline, no adenopathy, no JVD, no carotid bruit, no c- spine tenderness, neck with full ROM. CHEST: Symmetric, no tenderness at palpation LUNGS: Decreased breath sounds. Clear to auscultation bilaterally. No wheezing or crackles. CVS: Regular rate and rhythm, S1 and S2 present, no murmurs or gallops appreciated. ABDOMEN: Soft, non-tender. No signs of distention. No rebound no guarding, and no masses palpated. Bowel sounds are normal. EXTREMITIES: FROM in all major joints, no edema, no cyanosis or clubbing. NEURO: Alert and oriented x 3. No acute neurological deficits. Speech is normal and follows commands. SKIN: Dry and warm BACK: Kyphosis in the back. RECTAL: Positive for hemorrhoids, hard stool and red blood. Triage Information Reviewed: Yes Vital Signs On Initial Exam: Initial Vitals Temp Pulse Resp BP Pulse Ox 98.5 F 107 16 125/80 100 04/10/17 12:28 04/10/17 12:28 04/10/17 12:28 04/10/17 12:28 04/10/17 12:28 Vital Signs Reviewed: Yes Diagnostics - Vital Signs Vital Signs Temp Pulse Resp BP Pulse Ox 04/10/17 12:28 98.5 F 107 16 125/80 100 - Laboratory Lab Results: Lab Results 04/10/17 04/10/17 04/10/17 Range/Units 14:20 14:30 14:30 WBC 10.8 (3.5-10.8) 10^3/ul RBC 2.27 L (4.0-5.4) 10^6/ul Hgb 6.0 L* (14.0-18.0) g/dl Hct 18 L (42-52) % MCV 80 (80-94) fL MCH 27 (27-31) pg MCHC 33 (31-36) g/dl RDW 17 H (10.5-15) % Plt Count 150 (150-450) 10^3/ul MPV 8 (7.4-10.4) um3 Neut % (Auto) 90.1 H (38-83) % Lymph % (Auto) 3.2 L (25-47) % [place] % (Auto) 5.5 (1-9) % Eos % (Auto) 0.8 (0-6) % Baso % (Auto) 0.4 (0-2) % Absolute Neuts (auto) 9.7 H (1.5-7.7) 10^3/ul Absolute Lymphs (auto) 0.3 L (1.0-4.8) 10^3/ul Absolute Monos (auto) 0.6 (0-0.8) 10^3/ul Absolute Eos (auto) 0.1 (0-0.6) 10^3/ul Absolute Basos (auto) 0 (0-0.2) 10^3/ul Absolute Nucleated RBC 0 10^3/ul Nucleated RBC % 0 Normal RBC Morphology Not Reportable Hypochromasia 2+ INR (Anticoag Therapy) (0.89-1.11) Sodium 141 (133-145) mmol/L Potassium 3.9 (3.5-5.0) mmol/L Chloride 108 (101-111) mmol/L Carbon Dioxide 29 (22-32) mmol/L Anion Gap 4 (2-11) mmol/L BUN 32 H (6-24) mg/dL Creatinine 0.60 L (0.67-1.17) mg/dL Est GFR ( Amer) 167.1 (>60) Est GFR (Non-Af Amer) 130.0 (>60) BUN/Creatinine Ratio 53.3 H (8-20) Glucose 110 H (70-100) mg/dL Calcium 7.5 L (8.6-10.3) mg/dL Total Bilirubin 0.20 (0.2-1.0) mg/dL AST 13 (13-39) U/L ALT 10 (7-52) U/L Alkaline Phosphatase 58 (34-104) U/L C-Reactive Protein 14.53 H (< 5.00) mg/L Total Protein 4.6 L (6.4-8.9) g/dL Albumin 2.5 L (3.2-5.2) g/dL Globulin 2.1 (2-4) g/dL Albumin/Globulin Ratio 1.2 (1-3) Urine Color Urine Appearance Urine pH (5-9) Ur Specific [place] (1.010-1.030) Urine Protein (Negative) Urine Ketones (Negative) Urine Blood (Negative) Urine Nitrate (Negative) Urine Bilirubin (Negative) Urine Urobilinogen (Negative) Ur Leukocyte Esterase (Negative) Urine Glucose (Negative) Blood Type A Positive Antibody Screen Negative Crossmatch See Detail 04/10/17 04/10/17 Range/Units 14:30 15:09 WBC (3.5-10.8) 10^3/ul RBC (4.0-5.4) 10^6/ul Hgb (14.0-18.0) g/dl Hct (42-52) % MCV (80-94) fL MCH (27-31) pg MCHC (31-36) g/dl RDW (10.5-15) % Plt Count (150-450) 10^3/ul MPV (7.4-10.4) um3 Neut % (Auto) (38-83) % Lymph % (Auto) (25-47) % [place] % (Auto) (1-9) % Eos % (Auto) (0-6) % Baso % (Auto) (0-2) % Absolute Neuts (auto) (1.5-7.7) 10^3/ul Absolute Lymphs (auto) (1.0-4.8) 10^3/ul Absolute Monos (auto) (0-0.8) 10^3/ul Absolute Eos (auto) (0-0.6) 10^3/ul Absolute Basos (auto) (0-0.2) 10^3/ul Absolute Nucleated RBC 10^3/ul Nucleated RBC % Normal RBC Morphology Hypochromasia INR (Anticoag Therapy) 1.00 (0.89-1.11) Sodium (133-145) mmol/L Potassium (3.5-5.0) mmol/L Chloride (101-111) mmol/L Carbon Dioxide (22-32) mmol/L Anion Gap (2-11) mmol/L BUN (6-24) mg/dL Creatinine (0.67-1.17) mg/dL Est GFR ( Amer) (>60) Est GFR (Non-Af Amer) (>60) BUN/Creatinine Ratio (8-20) Glucose (70-100) mg/dL Calcium (8.6-10.3) mg/dL Total Bilirubin (0.2-1.0) mg/dL AST (13-39) U/L ALT (7-52) U/L Alkaline Phosphatase (34-104) U/L C-Reactive Protein (< 5.00) mg/L Total Protein (6.4-8.9) g/dL Albumin (3.2-5.2) g/dL Globulin (2-4) g/dL Albumin/Globulin Ratio (1-3) Urine Color Yellow Urine Appearance Clear Urine pH 6.0 (5-9) Ur Specific [place] 1.014 (1.010-1.030) Urine Protein Negative (Negative) Urine Ketones Negative (Negative) Urine Blood Negative (Negative) Urine Nitrate Negative (Negative) Urine Bilirubin Negative (Negative) Urine Urobilinogen Negative (Negative) Ur Leukocyte Esterase Negative (Negative) Urine Glucose Negative (Negative) Blood Type Antibody Screen Crossmatch Result Diagrams: 04/11/17 12:21 04/11/17 06:35 Lab Statement: Any lab studies that have been ordered have been reviewed, and results considered in the medical decision making process. - Radiology ABD XR Xray Interpretation: No Acute Changes - NONSPECIFIC BOWEL GAS PATTERN. Radiology Interpretation Completed By: Radiologist [email or web address] Course/Dx - Course Assessment/Plan: 77 y/o male BIBA c/o constipation for 2-3 days. It is not alleviated with anything. The pt had a near syncopal episode with SOB when he tried to have a bowel movement earlier today. Denies N/V. Pt also c/o of a pressure pain across the ABD. ABD XR NONSPECIFIC BOWEL GAS PATTERN. Spoke with Dr. Cano @ 15:51 who will consult the pt. Test results without significant abnormalities except hemoglobin 6, hematocrit 18. BUN 32, Creatinine 0.6, Glucose 110, Calcium 7.5, possibly secondary to decreased albumin. UA negative. Stool occult blood positive. In the ED course the pt was given iv fluids and transfused with 2 units of packed rbc. At this point I discussed with Dr. Cano who will consult the pt. I discussed the case with Dr. Espinal who accepted the pt for admission. The pt is hemodynamically stable, A&Ox3. - Diagnoses Differential Diagnoses - Male: Constipation, Diverticulitis, Fecal Impaction, Urinary Tract Infection Provider Diagnoses: GI bleed, Constipation Discharge - Discharge Plan Condition: Stable Disposition: ADMITTED TO [facility] documentation as recorded by the Sylvie nugent Edward accurately reflects the service I personally performed and the decisions made by me, Tony Rosen MD.
[2017-04-11] MEDS ORDERED: NS 0.9% 500 ML* 500 ML IV ONE (13:37)
[2017-04-11 18:09] LABS: Hematocrit 26 % (42-52); Hemoglobin 8.5 g/dl (14.0-18.0)
[2017-04-11] MEDS: Gabapentin CAP(*) 300 MG PO SCH (21:44)
[2017-04-11] MEDS: Tamsulosin CAP* 0.4 MG PO SCH (21:45)
[2017-04-12 00:25] LABS: Hematocrit 24 % (42-52)
[2017-04-12] MEDS: NS 0.9% 1000 ML* 1,000 ML IV SCH ×2 (01:40→10:20)
[2017-04-12] MEDS: Levothyroxine TAB* 25 MCG TAB PO SCH (05:52)
[2017-04-12 06:59] LABS: Hematocrit 25 % (42-52); Hemoglobin 8.2 g/dl (14.0-18.0)
[2017-04-12 07:01] LABS: Mean Corpuscular HGB Conc 33 g/dl (31-36); Mean Corpuscular Hemoglobin 27 pg (27-31); Mean Corpuscular Volume 84 fL (80-94); Mean Platelet Volume 8 um3 (7.4-10.4); Red Cell Distribution Width 18 % (10.5-15); White Blood Count 6.8 10^3/ul (3.5-10.8)
[2017-04-12 07:02] LABS: Comments Flag Yes
[2017-04-12 07:08] LABS: BUN/Creatinine Ratio 30.9 (8-20); Calcium 7.4 mg/dL (8.6-10.3); EGFR African American 184.8 (>60); EGFR Non-African American 143.7 (>60); Potassium 3.1 mmol/L (3.5-5.0)
[2017-04-12] MEDS: Polyethylene Glycol 3350* 17 GM PACKET PO SCH (08:45)
[2017-04-12] MEDS: Pantoprazole IV* 40 MG IV SCH ×2 (08:55→21:34)
[2017-04-12] MEDS: OLANzapine TAB* 5 MG PO SCH (08:56)
--- NOTE | 2017-04-12 10:27 | PN ---
Subjective Date of Service: 04/12/17 Interval History: Pt continues to have loose maroon stool. Denies abd pain. SBP's in 80's and 90's -asymptomatic.Started on NS at 12 at night Telem shows PVC's and trigeminy Pt stated that he has lost weight , but cannot quantify it Objective Active Medications: Acetaminophen (Tylenol Tab*) 650 mg PO Q6H PRN PRN Reason: FEVER/PAIN Last Admin: 04/11/17 06:13 Dose: 650 mg Gabapentin (Neurontin Cap(*)) 300 mg PO BEDTIME [facility] Last Admin: 04/11/17 21:44 Dose: 300 mg Guaifenesin (Robitussin*) 5 ml PO Q6H PRN PRN Reason: COUGH Sodium Chloride (Ns 0.9% 1000 Ml*) 1,000 mls @ 125 mls/hr IV PER RATE [facility] Last Admin: 04/12/17 10:20 Dose: 125 mls/hr Magnesium Sulfate/Dextrose (Magnesium Sulfate 1 Gm Iv*) 1 gm in 100 mls @ 200 mls/hr IV ONCE ONE Stop: 04/12/17 11:29 Last Admin: 04/12/17 10:20 Dose: 200 mls/hr Levothyroxine Sodium (Synthroid Tab*) 25 mcg PO DAILY@0600 [facility] Last Admin: 04/12/17 05:52 Dose: 25 mcg Olanzapine (Zyprexa Tab*) 5 mg PO DAILY [facility] Last Admin: 04/12/17 08:56 Dose: 5 mg Pantoprazole Sodium (Protonix Iv*) 40 mg IV BID [facility] Last Admin: 04/12/17 08:55 Dose: 40 mg Polyethylene Glycol/Electrolytes (Miralax*) 17 gm PO DAILY [facility] Last Admin: 04/12/17 08:45 Dose: Not Given Tamsulosin HCl (Flomax Cap*) 0.4 mg PO BEDTIME [facility] Last Admin: 04/11/17 21:45 Dose: 0.4 mg Throat Lozenges (Chloraseptic Angelo*) 1 angelo PO Q6H PRN PRN Reason: SORE THROAT Last Admin: 04/11/17 06:14 Dose: 1 angelo Tramadol HCl (Ultram*) 50 mg PO TID PRN PRN Reason: PAIN Vital Signs 04/11/17 04/11/17 04/11/17 11:39 13:25 15:48 Temperature 98.6 F 98.0 F Pulse Rate 65 65 Respiratory 14 24 Rate Blood Pressure 83/44 80/39 91/50 (mmHg) O2 Sat by Pulse 99 100 Oximetry 04/11/17 04/11/17 04/11/17 19:42 20:00 21:44 Temperature 98.3 F Pulse Rate 63 Respiratory 16 15 18 Rate Blood Pressure 100/53 (mmHg) O2 Sat by Pulse 100 Oximetry 04/11/17 04/11/17 04/12/17 23:36 23:44 03:47 Temperature 98.5 F 98.5 F Pulse Rate 59 68 Respiratory 20 16 16 Rate Blood Pressure 94/51 104/50 (mmHg) O2 Sat by Pulse 99 99 Oximetry 04/12/17 07:45 Temperature Pulse Rate 112 Respiratory 16 Rate Blood Pressure 78/49 (mmHg) O2 Sat by Pulse 95 Oximetry Oxygen Devices in Use Now: None Appearance: 77 yo M in nAD, aAOx3 Eyes: No Scleral Icterus, PERRLA Ears/Nose/Mouth/Throat: NL Teeth, Lips, Gums, Mucous Membranes Moist Neck: NL Appearance and Movements; NL JVP, Trachea Midline Respiratory: Symmetrical Chest Expansion and Respiratory Effort, Clear to Auscultation Cardiovascular: NL Sounds; No Murmurs; No JVD, RRR Abdominal: NL Sounds; No Tenderness; No Distention, No Hepatosplenomegaly Lymphatic: No Cervical Adenopathy Extremities: No Edema, No Clubbing, Cyanosis Skin: No Nodules or Sclerosis, - - scar in the upper chest with surrounding chronic appearing erythema Neurological: Alert and Oriented x 3, - - left arm contracted, b/l LE's at 4+/5 Result Diagrams: 04/12/17 06:44 04/12/17 06:44 Additional Lab and Data: Lab Results 04/10/17 04/10/17 04/10/17 Range/Units 14:20 14:30 14:30 WBC 10.8 (3.5-10.8) 10^3/ul RBC 2.27 L (4.0-5.4) 10^6/ul Hgb 6.0 L* (14.0-18.0) g/dl Hct 18 L (42-52) % MCV 80 (80-94) fL MCH 27 (27-31) pg MCHC 33 (31-36) g/dl RDW 17 H (10.5-15) % Plt Count 150 (150-450) 10^3/ul MPV 8 (7.4-10.4) um3 Neut % (Auto) 90.1 H (38-83) % Lymph % (Auto) 3.2 L (25-47) % [place] % (Auto) 5.5 (1-9) % Eos % (Auto) 0.8 (0-6) % Baso % (Auto) 0.4 (0-2) % Absolute Neuts (auto) 9.7 H (1.5-7.7) 10^3/ul Absolute Lymphs (auto) 0.3 L (1.0-4.8) 10^3/ul Absolute Monos (auto) 0.6 (0-0.8) 10^3/ul Absolute Eos (auto) 0.1 (0-0.6) 10^3/ul Absolute Basos (auto) 0 (0-0.2) 10^3/ul Absolute Nucleated RBC 0 10^3/ul Nucleated RBC % 0 Normal RBC Morphology Not Reportable Hypochromasia 2+ INR (Anticoag Therapy) (0.89-1.11) Sodium 141 (133-145) mmol/L Potassium 3.9 (3.5-5.0) mmol/L Chloride 108 (101-111) mmol/L Carbon Dioxide 29 (22-32) mmol/L Anion Gap 4 (2-11) mmol/L BUN 32 H (6-24) mg/dL Creatinine 0.60 L (0.67-1.17) mg/dL Est GFR ( Amer) 167.1 (>60) Est GFR (Non-Af Amer) 130.0 (>60) BUN/Creatinine Ratio 53.3 H (8-20) Glucose 110 H (70-100) mg/dL Calcium 7.5 L (8.6-10.3) mg/dL Total Bilirubin 0.20 (0.2-1.0) mg/dL AST 13 (13-39) U/L ALT 10 (7-52) U/L Alkaline Phosphatase 58 (34-104) U/L C-Reactive Protein 14.53 H (< 5.00) mg/L Total Protein 4.6 L (6.4-8.9) g/dL Albumin 2.5 L (3.2-5.2) g/dL Globulin 2.1 (2-4) g/dL Albumin/Globulin Ratio 1.2 (1-3) Urine Color Urine Appearance Urine pH (5-9) Ur Specific [place] (1.010-1.030) Urine Protein (Negative) Urine Ketones (Negative) Urine Blood (Negative) Urine Nitrate (Negative) Urine Bilirubin (Negative) Urine Urobilinogen (Negative) Ur Leukocyte Esterase (Negative) Urine Glucose (Negative) Blood Type A Positive Antibody Screen Negative Crossmatch See Detail 04/10/17 04/10/17 Range/Units 14:30 15:09 WBC (3.5-10.8) 10^3/ul RBC (4.0-5.4) 10^6/ul Hgb (14.0-18.0) g/dl Hct (42-52) % MCV (80-94) fL MCH (27-31) pg MCHC (31-36) g/dl RDW (10.5-15) % Plt Count (150-450) 10^3/ul MPV (7.4-10.4) um3 Neut % (Auto) (38-83) % Lymph % (Auto) (25-47) % [place] % (Auto) (1-9) % Eos % (Auto) (0-6) % Baso % (Auto) (0-2) % Absolute Neuts (auto) (1.5-7.7) 10^3/ul Absolute Lymphs (auto) (1.0-4.8) 10^3/ul Absolute Monos (auto) (0-0.8) 10^3/ul Absolute Eos (auto) (0-0.6) 10^3/ul Absolute Basos (auto) (0-0.2) 10^3/ul Absolute Nucleated RBC 10^3/ul Nucleated RBC % Normal RBC Morphology Hypochromasia INR (Anticoag Therapy) 1.00 (0.89-1.11) Sodium (133-145) mmol/L Potassium (3.5-5.0) mmol/L Chloride (101-111) mmol/L Carbon Dioxide (22-32) mmol/L Anion Gap (2-11) mmol/L BUN (6-24) mg/dL Creatinine (0.67-1.17) mg/dL Est GFR ( Amer) (>60) Est GFR (Non-Af Amer) (>60) BUN/Creatinine Ratio (8-20) Glucose (70-100) mg/dL Calcium (8.6-10.3) mg/dL Total Bilirubin (0.2-1.0) mg/dL AST (13-39) U/L ALT (7-52) U/L Alkaline Phosphatase (34-104) U/L C-Reactive Protein (< 5.00) mg/L Total Protein (6.4-8.9) g/dL Albumin (3.2-5.2) g/dL Globulin (2-4) g/dL Albumin/Globulin Ratio (1-3) Urine Color Yellow Urine Appearance Clear Urine pH 6.0 (5-9) Ur Specific [place] 1.014 (1.010-1.030) Urine Protein Negative (Negative) Urine Ketones Negative (Negative) Urine Blood Negative (Negative) Urine Nitrate Negative (Negative) Urine Bilirubin Negative (Negative) Urine Urobilinogen Negative (Negative) Ur Leukocyte Esterase Negative (Negative) Urine Glucose Negative (Negative) Blood Type Antibody Screen Crossmatch Assess/Plan/Problems-Billing Assessment: Mr. Stevenson is a 76 yo gentleman who is mostly limited to a wheelchair due to BLE and LUE weakness after cervical spine surgery as well as HTN, HLD, hypothyroidism , GERD and a documented h/o of a fib, but is not anticoagulated (due to h/o falls) , PMR (recently placed on prednisone by Dr. Olivo)who presented with lower GI bleed after he attempted to disimpact himself - Patient Problems (1) GI bleed Comment: maroon stool still present on evaluation today cont flull liquid diet Protonix IV GI consult appreciated: possible rectal trauma vs diverticular bleed. cont laxatives and conservative medical tx. (2) Anemia Comment: Hb stabilized after 2 U PRBC transfusion on day of admission due to acute hemorrhage due to GI bleed (3) Arm dysfunction Comment: Pt describes 2 separate injuries to L arm. contracted at baseline (4) Edema Comment: suspect due to venous stasis. Resolved after pt had been in bed since admission. (5) Weakness of both lower extremities Comment: Patient spends most of his time in a wheelchair at home. He has BLE weakness which is reportedly a result of prior cervical spine surgery. (6) Atrial fibrillation Comment: NSR on admission. In regular rate today Anticoagulation was held in the past due to h/o of frequent falls in the past. due to ventriculal trigeminy Mg level pending. cont telem (7) PMR (polymyalgia rheumatica) Comment: recently placed on Prednisone by Dr. Olivo Stopped at admission due to GI bleed. cont on holding steroids (8) Dysphagia Comment: mild, OK'ed for [facility] ground (9) Hypothyroidism Comment: Continue levothyroxine.TSH 0.9 03/19/17 (10) Hypotension Comment: h/o low normal BP in the past, cont IVF due to hypoveolemia and manutrition (11) DVT prophylaxis Comment: no anticoagulants due to GI bleed SCD's (12) Malnutrition Comment: pt has decreased body mass, hypotension, debility, hypoalbuminemia. Prealbumin pending. consult nutrition Status and Disposition: inpatient
[2017-04-12] MEDS ORDERED: Magnesium Sulfate 1 GM IV* 1 GM/100 ML BAG IV ONE (11:00)
[2017-04-12] MEDS ORDERED: Potassium Chloride LIQUID* 20 MEQ PACKET PO ONE (11:15)
[2017-04-12] MEDS: Gabapentin CAP(*) 300 MG PO SCH (21:33)
[2017-04-12] MEDS: Tamsulosin CAP* 0.4 MG PO SCH (21:34)
[2017-04-13] MEDS: NS 0.9% 1000 ML* 1,000 ML IV SCH (02:28)
[2017-04-13] MEDS: Levothyroxine TAB* 25 MCG TAB PO SCH (05:41)
[2017-04-13 08:13] LABS: BUN/Creatinine Ratio 26.4 (8-20); EGFR African American 192.9 (>60); Potassium 3.8 mmol/L (3.5-5.0)
[2017-04-13 08:16] LABS: Hematocrit 26 % (42-52); Hemoglobin 8.6 g/dl (14.0-18.0); Mean Corpuscular HGB Conc 33 g/dl (31-36); Mean Corpuscular Hemoglobin 28 pg (27-31); Mean Corpuscular Volume 84 fL (80-94); Mean Platelet Volume 8 um3 (7.4-10.4); Red Cell Distribution Width 18 % (10.5-15); White Blood Count 7.4 10^3/ul (3.5-10.8)
[2017-04-13 08:17] LABS: Comments Flag Yes
[2017-04-13] MEDS ORDERED: Omeprazole CAP* 20 MG PO SCH (09:00)
[2017-04-13] MEDS: Polyethylene Glycol 3350* 17 GM PACKET PO SCH (09:39)
[2017-04-13] MEDS: OLANzapine TAB* 5 MG PO SCH (09:47)
[2017-04-13 12:45] VITALS: BP 99/58
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
== END 2017-04-13 13:30 | disposition home or self-care (01) | DRG 378 ==
LOC: ED 12:28 → MED 16:43
PROVIDERS: ADMIT Hospitalist; ATTEND Internal Medicine
PROC: 30233N1 Transfusion of Nonautologous Red Blood Cells into Peripheral Vein, Percutaneous Approach (ICD-10-PCS; principal; 2017-04-10)
DX: K57.31 Diverticulosis of large intestine without perforation or abscess with bleeding (principal); D62 Acute posthemorrhagic anemia; I95.89 Other hypotension; E46 Unspecified protein-calorie malnutrition; I48.2 Chronic atrial fibrillation; S36.63XA Laceration of rectum, initial encounter; E03.9 Hypothyroidism, unspecified; D50.9 Iron deficiency anemia, unspecified; Z68.1 Body mass index [BMI] 19.9 or less, adult; E86.0 Dehydration; E78.5 Hyperlipidemia, unspecified; X58.XXXA Exposure to other specified factors, initial encounter; Y92.9 Unspecified place or not applicable; I10 Essential (primary) hypertension; K21.9 Gastro-esophageal reflux disease without esophagitis; M35.3 Polymyalgia rheumatica; M06.9 Rheumatoid arthritis, unspecified; G83.89 Other specified paralytic syndromes; E86.1 Hypovolemia; Z86.73 Personal history of transient ischemic attack (TIA), and cerebral infarction without residual deficits; Z79.1 Long term (current) use of non-steroidal anti-inflammatories (NSAID); Z79.82 Long term (current) use of aspirin; Z79.52 Long term (current) use of systemic steroids; Z79.899 Other long term (current) drug therapy; Z82.49 Family history of ischemic heart disease and other diseases of the circulatory system; Z83.3 Family history of diabetes mellitus; Z87.891 Personal history of nicotine dependence; N40.0 Benign prostatic hyperplasia without lower urinary tract symptoms; Z99.3 Dependence on wheelchair; Z91.81 History of falling
CPT/HCPCS: 36415; 71010; 72050; 74020; 80048; 80053; 81003; 82270; 82306; 82652; 83540; 83550; 83735; 83970; 84134; 84402; 84403; 85014; 85018; 85025; 85027; 85610; 85652; 86140; 86850; 86900; 86901; 86922; 90686; A9270-GY; J3475; P9040

== ENCOUNTER → 2017-05-14 11:29 | Emergency (ER) | payer MEDICARE, OTHER ==
[~2017-05-14 11:29] MED LIST: Acetaminophen TAB* 325 MG PO ONE; NS 0.9% 1000 ML* 1,000 ML IV ONE; Tetan/Diph/Pertus SYR(Tdap)* 0.5 ML SYR(BOOSTRIX) use SYR IM ONE
[2017-05-14 12:15] LABS: Hematocrit 27 % (42-52); Hemoglobin 8.8 g/dl (14.0-18.0); Mean Corpuscular HGB Conc 32 g/dl (31-36); Mean Corpuscular Hemoglobin 26 pg (27-31); Mean Corpuscular Volume 81 fL (80-94); Mean Platelet Volume 8 um3 (7.4-10.4); Red Blood Count 3.35 10^6/ul (4.0-5.4); Red Cell Distribution Width 17 % (10.5-15); White Blood Count 7.1 10^3/ul (3.5-10.8)
[2017-05-14 12:25] LABS: Albumin 3.1 g/dL (3.2-5.2); BUN/Creatinine Ratio 22.4 (8-20); Calcium 8.5 mg/dL (8.6-10.3); EGFR African American 127.2 (>60); EGFR Non-African American 98.9 (>60); Globulin 3.2 g/dL (2-4); Potassium 3.8 mmol/L (3.5-5.0); Total Bilirubin 0.3 mg/dL (0.2-1.0); Total Protein 6.3 g/dL (6.4-8.9)
--- NOTE | 2017-05-14 12:57 | RAD ---
indication: Head trauma after a fall from a chair COMPARISON: CT of the brain dated September 26, [address] scan of the brain and c-spine was performed without intravenous contrast enhancement. Contiguous axial sections were obtained from the lung apices through the vertex. BRAIN: The ventricles, cisterns and sulci exhibit involutional changes similar in appearance to the prior CT of the brain. There is mild periventricular and subcortical white matter hypoattenuation similar in appearance to the prior CT the brain. No significant focal abnormality or mass effect is seen. The alexander-white differentiation is adequately maintained. There is no evidence for intracranial hemorrhage. There is mild soft tissue induration and thickening overlying the right of midline superior calvarium. There is no underlying calvarial fracture. The mastoid air cells are appropriately aerated. The visualized paranasal sinuses are clear. C-SPINE: Evaluation of the cervical spine is limited by inadequate positioning in the CT gantry. There is kyphotic deformity of the thoracic spine with straightening of the normal cervical lordosis. The plate and screw fixators spanning C4, C5 and C6 appear to be appropriately aligned. There is no definite acute fracture. Advanced degenerative changes include loss of intervertebral disc height and multilevel uncovertebral hypertrophy. There is no hyperdense material in the cervical canal to indicate hemorrhage. The visualized musculature and soft tissues are normal. There is no gross lymphadenopathy visualized. The visualized portion of the lung apices are clear. IMPRESSION: 1. Right of midline soft tissue swelling overlying the vertex without underlying calvarial fracture or acute intracranial hemorrhage. 2. There is no definite acute fracture or dislocation of the cervical spine.
[2017-05-14 16:49] LABS: Urine Bacteria Absent (Absent); Urine Bilirubin Negative (Negative); Urine Glucose Negative (Negative); Urine Nitrite Negative (Negative)
[2017-05-14 17:06] VITALS: BP 102/55
--- NOTE | 2017-05-14 18:19 | ED ---
Jr Morales Angela scribed for Tony Rosen MD on 05/14/17 at 1144 . Adult Trauma - HPI Summary HPI Summary: This pt is a 77 y/o male presenting to [facility] with head injury s/p fall today. Pt reports he didn't unhook his belt in his wheelchair and fell over. Pt notes head strike. He sustained a head laceration with blood loss. He does not know if he had LOC. Pt denies any current pain. Per nurse's note, pt may have fallen asleep after his fall. Pt lives alone at home with home health aide who comes in to help him. PMHx includes paralyzed left arm. - History of Current Complaint Chief Complaint: EDGeneral Stated Complaint: FALL Time Seen by Provider: 05/14/17 11:30 Hx Obtained From: Patient Mechanism of Injury: Fall Loss of Consciousness: unsure Onset/Duration: Started Hours Ago, Traumatic, Still Present - Additional Pertinent History Primary Care Physician: LETA - Allergy/Home Medications Allergies/Adverse Reactions: Allergies Allergy/AdvReac Type Severity Reaction Status Date / Time No Known Allergies Allergy Verified 04/10/17 13:20 PMH/Surg Hx/FS Hx/Imm Hx Endocrine/Hematology History: Reports: Hx Thyroid Disease - hypo Denies: Hx Diabetes Cardiovascular History: Reports: Hx Hypercholesterolemia, Hx Hypotension - LOW BLOOD PRESSURE TODAY, Hx Hypertension, Other Cardiovascular Problems/Disorders - 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 Respiratory History: Reports: Hx Chronic Bronchitis Denies: Hx Chronic Obstructive Pulmonary Disease (COPD) GI History: Reports: Hx Diverticulosis, Hx Gastroesophageal Reflux Disease, Other GI Disorders - liver abscess History: Denies: Hx Dialysis, Hx Renal Disease Musculoskeletal History: Reports: Hx Arthritis, Hx Rheumatoid Arthritis, Hx Back Problems Denies: Hx Osteoporosis Sensory History: Reports: Hx Contacts or Glasses, Hx Hearing Aid, Hx Hearing Problem Opthamlomology History: Reports: Hx Contacts or Glasses Neurological History: Reports: 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, 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 Denies: Hx Dementia, Hx Seizures - Surgical History Surgery Procedure, Year, and Place: CERVICAL SURGERY C4-C6, right ear,LIVER ABSCESS, LEFT TESTICLE - Immunization History Date of Tetanus Vaccine: Unk Date of Influenza Vaccine: Unk - Family History Known Family History: Positive: Hypertension, Diabetes Negative: Cardiac Disease - Social History Alcohol Use: Occasionally Alcohol Amount: socially Hx Substance Use: No Substance Use Type: Reports: None Hx Tobacco Use: Yes - QUIT 60 YRS AGO Smoking Status (MU): Former Smoker Type: Cigars Amount Used/How Often: OCCASIONAL Review of Systems Negative: Fever, Chills Eyes: Negative ENT: Negative Cardiovascular: Negative Skin: Other - head injury All Other Systems Reviewed And Are Negative: Yes Physical Exam - Summary Physical Exam Summary: VITAL SIGNS: Reviewed. GENERAL: Patient is an elderly and cachectic male who is lying comfortable in the stretcher. Patient is not in any acute respiratory distress. Pt has poor hygiene. HEAD AND FACE: No ecchymosis, hematomas or skull depressions. No sinus tenderness. Pt has a laceration on his head of approximately 2.5 cm. EYES: PERRLA, EOMI x 2, No injected conjunctiva, no nystagmus. EARS: Hearing grossly intact. Ear canals and tympanic membranes are within normal limits. MOUTH: Oropharynx within normal limits. NECK: Supple, trachea is midline, no adenopathy, no JVD, no carotid bruit, no c- spine tenderness, neck with full ROM. CHEST: Symmetric, no tenderness at palpation LUNGS: Clear to auscultation bilaterally. No wheezing or crackles. CVS: Regular rate and rhythm, S1 and S2 present, no murmurs or gallops appreciated. ABDOMEN: Soft, non-tender. No signs of distention. No rebound no guarding, and no masses palpated. Bowel sounds are normal. EXTREMITIES: FROM in all major joints, no cyanosis or clubbing. 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 Bilateral lower extremities have swelling with positive erythema. NEURO: Alert and oriented x 3. No acute neurological deficits. Speech is normal and follows commands. SKIN: Dry and warm Triage Information Reviewed: Yes Vital Signs On Initial Exam: Initial Vitals Temp Pulse Resp BP Pulse Ox 98.1 F 100 18 108/61 100 05/14/17 11:30 05/14/17 11:30 05/14/17 11:30 05/14/17 11:30 05/14/17 11:30 Vital Signs Reviewed: Yes Procedures - Laceration/Wound Repair 1 Location: head Description: Linear Anesthesia: 1.0%, Lido Length, Depth and Shape: Length = 2.5 cm Laceration/Wound Explored: clean Number of Sutures: 8 - Pt tolerated well the procedure Diagnostics - Vital Signs Vital Signs Temp Pulse Resp BP Pulse Ox 05/14/17 17:02 16 102/55 05/14/17 17:00 12 05/14/17 16:00 16 05/14/17 15:00 15 05/14/17 14:00 16 05/14/17 13:00 15 05/14/17 12:14 97/62 05/14/17 12:00 14 05/14/17 11:36 18 05/14/17 11:35 108/61 05/14/17 11:30 98.1 F 100 18 108/61 100 - Laboratory Lab Results: Lab Results 05/14/17 05/14/17 05/14/17 Range/Units 12:01 12:01 12:01 WBC 7.1 (3.5-10.8) 10^3/ul RBC 3.35 L (4.0-5.4) 10^6/ul Hgb 8.8 L (14.0-18.0) g/dl Hct 27 L (42-52) % MCV 81 (80-94) fL MCH 26 L (27-31) pg MCHC 32 (31-36) g/dl RDW 17 H (10.5-15) % Plt Count 330 (150-450) 10^3/ul MPV 8 (7.4-10.4) um3 Neut % (Auto) 82.4 (38-83) % Lymph % (Auto) 5.2 L (25-47) % [place] % (Auto) 7.3 (1-9) % Eos % (Auto) 4.5 (0-6) % Baso % (Auto) 0.6 (0-2) % Absolute Neuts (auto) 5.9 (1.5-7.7) 10^3/ul Absolute Lymphs (auto) 0.4 L (1.0-4.8) 10^3/ul Absolute Monos (auto) 0.5 (0-0.8) 10^3/ul Absolute Eos (auto) 0.3 (0-0.6) 10^3/ul Absolute Basos (auto) 0 (0-0.2) 10^3/ul Absolute Nucleated RBC 0 10^3/ul Nucleated RBC % 0 APTT 36.6 H (26.0-36.3) seconds Carbon Monoxide Screen < 4 (<4.0) % Sodium (133-145) mmol/L Potassium (3.5-5.0) mmol/L Chloride (101-111) mmol/L Carbon Dioxide (22-32) mmol/L Anion Gap (2-11) mmol/L BUN (6-24) mg/dL Creatinine (0.67-1.17) mg/dL Est GFR ( Amer) (>60) Est GFR (Non-Af Amer) (>60) BUN/Creatinine Ratio (8-20) Glucose (70-100) mg/dL Calcium (8.6-10.3) mg/dL Total Bilirubin (0.2-1.0) mg/dL AST (13-39) U/L ALT (7-52) U/L Alkaline Phosphatase (34-104) U/L Total Protein (6.4-8.9) g/dL Albumin (3.2-5.2) g/dL Globulin (2-4) g/dL Albumin/Globulin Ratio (1-3) Urine Color Urine Appearance Urine pH (5-9) Ur Specific [place] (1.010-1.030) Urine Protein (Negative) Urine Ketones (Negative) Urine Blood (Negative) Urine Nitrate (Negative) Urine Bilirubin (Negative) Urine Urobilinogen (Negative) Ur Leukocyte Esterase (Negative) Urine WBC (Auto) (Absent) Urine RBC (Auto) (Absent) Ur Squamous Epith Cells (Absent) Urine Bacteria (Absent) Urine Glucose (Negative) Blood Type Antibody Screen 05/14/17 05/14/17 05/14/17 Range/Units 12:01 12:20 15:15 WBC (3.5-10.8) 10^3/ul RBC (4.0-5.4) 10^6/ul Hgb (14.0-18.0) g/dl Hct (42-52) % MCV (80-94) fL MCH (27-31) pg MCHC (31-36) g/dl RDW (10.5-15) % Plt Count (150-450) 10^3/ul MPV (7.4-10.4) um3 Neut % (Auto) (38-83) % Lymph % (Auto) (25-47) % Rad[place] % (Auto) (1-9) % Eos % (Auto) (0-6) % Baso % (Auto) (0-2) % Absolute Neuts (auto) (1.5-7.7) 10^3/ul Absolute Lymphs (auto) (1.0-4.8) 10^3/ul Absolute Monos (auto) (0-0.8) 10^3/ul Absolute Eos (auto) (0-0.6) 10^3/ul Absolute Basos (auto) (0-0.2) 10^3/ul Absolute Nucleated RBC 10^3/ul Nucleated RBC % APTT (26.0-36.3) seconds Carbon Monoxide Screen (<4.0) % Sodium 140 (133-145) mmol/L Potassium 3.8 (3.5-5.0) mmol/L Chloride 104 (101-111) mmol/L Carbon Dioxide 32 (22-32) mmol/L Anion Gap 4 (2-11) mmol/L BUN 17 (6-24) mg/dL Creatinine 0.76 (0.67-1.17) mg/dL Est GFR ( Amer) 127.2 (>60) Est GFR (Non-Af Amer) 98.9 (>60) BUN/Creatinine Ratio 22.4 H (8-20) Glucose 136 H (70-100) mg/dL Calcium 8.5 L (8.6-10.3) mg/dL Total Bilirubin 0.30 (0.2-1.0) mg/dL AST 22 (13-39) U/L ALT 14 (7-52) U/L Alkaline Phosphatase 72 (34-104) U/L Total Protein 6.3 L (6.4-8.9) g/dL Albumin 3.1 L (3.2-5.2) g/dL Globulin 3.2 (2-4) g/dL Albumin/Globulin Ratio 1.0 (1-3) Urine Color Yellow Urine Appearance Cloudy Urine pH 7.0 (5-9) Ur Specific [place] 1.018 (1.010-1.030) Urine Protein Negative (Negative) Urine Ketones Negative (Negative) Urine Blood 1+ H (Negative) Urine Nitrate Negative (Negative) Urine Bilirubin Negative (Negative) Urine Urobilinogen Negative (Negative) Ur Leukocyte Esterase Trace H (Negative) Urine WBC (Auto) 1+(6-10/hpf) H (Absent) Urine RBC (Auto) 3+(>10/hpf) H (Absent) Ur Squamous Epith Cells Present H (Absent) Urine Bacteria Absent (Absent) Urine Glucose Negative (Negative) Blood Type A Positive Antibody Screen Negative Result Diagrams: 05/14/17 12:01 05/14/17 12:01 Lab Statement: Any lab studies that have been ordered have been reviewed, and results considered in the medical decision making process. - CT Brain CT CT Interpretation: Positive (See Comments) - IMPRESSION: 1. Right of midline soft tissue swelling overlying the vertex without underlying calvarial fracture or acute intracranial hemorrhage. 2. There is no definite acute fracture or dislocation of the cervical spine. ED physician has reviewed this radiology report and agrees. CT Interpretation Completed By: Radiologist Cervical spine CT CT Interpretation: Positive (See Comments) - 1. Right of midline soft tissue swelling overlying the vertex without underlying calvarial fracture or acute intracranial hemorrhage. 2. There is no definite acute fracture or dislocation of the cervical spine. ED physician has reviewed this radiology report and agrees. CT Interpretation Completed By: Radiologist - EKG 1218 Cardiac Rate: NL EKG Rhythm: Sinus Rhythm - 92 bpm Ectopy: PVCs EKG Interpretation: No ST elevation. Mulitple PVCs. EKG Comparison: No Significant Change - Similar to previous EKG done on 12/09/16. Adult Trauma Course/Dx - Course Assessment/Plan: This pt is a 77 y/o male presenting to [facility] with head injury s /p fall today. Pt reports he didn't unhook his belt in his wheelchair and fell over. Pt notes head strike. He sustained a head laceration with blood loss. He does not know if he had LOC. Pt denies any current pain. Per nurse's note, pt may have fallen asleep after his fall. Pt lives alone at home with home health aide who comes in to help him. PMHx includes paralyzed left arm. Test results without any significant abnormalities except for slight anemia. Urinalysis is contaminated. Head CT shows 1. Right of midline soft tissue swelling overlying the vertex without underlying calvarial fracture or acute intracranial hemorrhage. 2. There is no definite acute fracture or dislocation of the cervical spine. Spine CT shows 1. Right of midline soft tissue swelling overlying the vertex without underlying calvarial fracture or acute intracranial hemorrhage. 2. There is no definite acute fracture or dislocation of the cervical spine. On physical exam pt has a 2.5 cm linear laceration on his head. The laceration was repaired and the pt tolerated well the procedure. There is no more bleeding. The pt was given tetanus booster in the ED. Pt will be discharged home with follow up from his PCP. - Diagnoses Differential Diagnosis/HQI/PQRI: Positive: Abrasion(s), Contusion(s), Laceration (s), Sprain, Strain Provider Diagnoses: Laceration of head, Head contusion, Accidental fall Discharge - Discharge Plan Condition: Stable Disposition: HOME Patient Education Materials: Care For Your Stitches (ED), Laceration (ED), Contusion in Adults (ED) Referrals: Delfino Duque [Primary Care Provider] - Additional Instructions: Please follow up with your primary care provider. RETURN TO THE ED FOR ANY WORSENING OR NEW SYMPTOMS. The documentation as recorded by the Jr nugent Angela accurately reflects the service I personally performed and the decisions made by , Tony Rosen MD.
== END | disposition home or self-care (01) ==
LOC: ED 11:29
DX: S01.91XA Laceration without foreign body of unspecified part of head, initial encounter (principal); S09.90XA Unspecified injury of head, initial encounter; W19.XXXA Unspecified fall, initial encounter; Y93.9 Activity, unspecified; Y92.9 Unspecified place or not applicable; Z87.891 Personal history of nicotine dependence; Z86.73 Personal history of transient ischemic attack (TIA), and cerebral infarction without residual deficits
CPT/HCPCS: 12001; 36415; 70450; 72125; 80053; 81003; 81015; 82375; 85025; 85730; 86850; 86900; 86901; 87086; 90471; 90715; 99283; A9270-GY

== ENCOUNTER 2017-12-08 19:21 | Inpatient (IN) | payer MEDICARE, OTHER ==
[2017-12-08] MEDS ORDERED: NS 0.9% 1000 ML* 1,000 ML IV ONE (19:49)
[2017-12-08 20:21] LABS: ABS Basophils 0.1 10^3/ul (0-0.2); ABS Eosinophils 0.1 10^3/ul (0-0.6); ABS Lymphocytes 0.5 10^3/ul (1.0-4.8); ABS Monocytes 0.8 10^3/ul (0-0.8); ABS Neutrophils 14.3 10^3/ul (1.5-7.7); ABS Nucleated RBC 0 10^3/ul; Eosinophil % 0.9 % (0-6); Hematocrit 34 % (42-52); Hemoglobin 10.9 g/dl (14.0-18.0); Lymphocyte % 3.1 % (25-47); Mean Corpuscular HGB Conc 32 g/dl (31-36); Mean Corpuscular Hemoglobin 24 pg (27-31); Mean Corpuscular Volume 75 fL (80-94); Mean Platelet Volume 7.5 um3 (7.4-10.4); Nucleated Red Blood Cells % 0; Platelet Count 280 10^3/ul (150-450); Red Blood Count 4.54 10^6/ul (4.00-5.40); Red Cell Distribution Width 18 % (10.5-15); White Blood Count 15.8 10^3/ul (3.5-10.8)
[2017-12-08 20:26] LABS: INR 1.25 (0.77-1.02)
[2017-12-08] MEDS ORDERED: Iohexol 300* (CONTRAST) 10 ML SDV IV ONE (20:43)
[2017-12-08] MEDS ORDERED: Aspirin 81 mg CHEW TAB* 81 MG TAB.CHEW PO ONE (20:46)
--- NOTE | 2017-12-08 21:02 | RAD ---
Indication: Shortness of breath. Single frontal view of the chest performed at 2037 hours was reviewed. Comparison is made with previous exam dated April 10, 2017. No mediastinal shift is noted. Heart is of normal size and configuration. There is suggestion of left upper lobe pneumonia present.. Hyperinflated lung lema are noted. IMPRESSION: QUESTION OF LEFT UPPER LOBE PNEUMONIA.
[2017-12-08] MEDS ORDERED: cefTRIAXone(*) 1 GM in NS 0.9% 50 ML* 50 ML IVPB ONE (21:07)
[2017-12-08] MEDS ORDERED: Azithromycin IV(*) 500 MG in NS 0.9% 250 ML* 250 ML IVPB ONE (21:07)
--- NOTE | 2017-12-08 21:29 | HP ---
H&P (Free Text) History and Physical: PCP: DIONI Flores Date/Time: 12/08/20172114 CC: L posterior shoulder & LBP HPI: Mr Stevenson is a 77YO male HX CVA, C-spine injury , chronic FIB, RA, HTN, HLD, hypothyroidism who presents after a mechanical fall yesterday occurring due to losing his footing while transferring from wheelchair to chair. He denies head impact or LOC with this fall. He landed on his back and presents today with LBP and L posterior shoulder pain. He was felt to have a pneumonia by ED and give azithromycin & ceftriaxone IV. Subsequently a CT chest/abd/pel was returned positive for large R mainstem pulmonary embolism. He denies chest pain, but does report SOB with any exertion since the fall. He denies F/C, change in cough/sputum, sweats, or other issues. Overall he is a rather poor historian being quite perseverant upon getting a glass of milk. We did discuss anticoagulation options and he opted for rivaroxaban. PMedHx CVA chronic AFIB rheumatoid arthritis HTN HLD, mixed hypothyroidism HX renal failure related to NSAIDs combined with ACEI hepatic abscess surgical C-spine injury w/ sequela L sided weakness GERD BPH Ambulatory Orders Ferrous Sulfate TAB* 325 mg PO BEDTIME 01/17/15 Folic Acid TAB* [Folvite TAB*] 1 mg PO DAILY 01/17/15 Fenofibrate(NF) [Tricor(NF)] 145 mg PO DAILY 09/25/15 Tamsulosin CAP* [Flomax CAP*] 0.4 mg PO BEDTIME 09/26/15 Acetaminophen TAB* [Tylenol TAB*] 325 mg PO Q6HR PRN 12/19/15 Gabapentin CAP(*) [Neurontin 300 CAP(*)] 300 mg PO BEDTIME 12/19/15 Lovastatin(NF) [Mevacor(NF)] 20 mg PO BEDTIME 05/18/16 OLANzapine TAB* [Zyprexa 5 MG TAB*] 5 mg PO BEDTIME 05/18/16 Levothyroxine TAB* [Synthroid 25 MCG TAB*] 25 mcg PO DAILY 12/09/16 Triamcinolone 0.1% CREAM (NF) [Kenalog 0.1% Cream (NF)] 1 applic TOPICAL BID PRN 12/09/16 Vitamin B Complex CAP* [B Complex CAP*] 1 cap PO DAILY 12/09/16 traMADol TAB* [Ultram*] 50 mg PO TID PRN 12/09/16 Omeprazole CAP* [Prilosec CAP* 20 MG] 20 mg PO BID #60 cap. 04/13/17 Docusate CAP* [Colace Cap*] 100 mg PO TID 12/08/17 Furosemide TAB* [Lasix TAB*] 20 mg PO DAILY 12/08/17 LoraTADine TAB(NF) [Claritin 10 MG TAB(NF)] 10 mg PO QAM 12/08/17 Magnesium Oxide [Magnesium] 250 mg PO BID 12/08/17 Allergies No Known Allergies Allergy (Verified 04/10/17 13:20) PSurgHx C-spine surgery w/ subsequent LUE & BLE weakness SocHx: minimal smoking HX, occasional alcohol, no recreational drugs; lives alone, has an aide; FamHx: Mother: CHF, DM2; Brother: CAD ROS: as above, otherwise reviewed and all were negative vitals: Vital Signs Temp 36.6 C 12/08/17 19:27 Pulse 121 12/08/17 19:27 Resp 16 12/08/17 19:27 BP 118/89 12/08/17 19:27 Pulse Ox 88 12/08/17 19:27 Intake & Output 12/07/17 12/08/17 12/08/17 23:59 11:59 23:59 Weight 56.699 kg Constitutional: NAD, normally developed, chronically debilitated elderly white male HEENM: atraumatic; sclera/conjunctiva: anicteric/clear; hearing: clinically mildly decreased; oropharynx: clear, mucosa moist Neck: soft tissue: non-tender; thyroid: normal Pulmonary: clear to auscultation bilaterally, good aeration, no accessory muscle use CV: RR/RR, normal S1S2, no carotid bruit, no jugular venous distention, 2+ B DP/ PT, no edema Abdominal: soft, non-distended, non-tender, no rebound/guarding/rigidity, normoactive bowel sounds, no hepatosplenomegaly or masses, no costovertebral angle tenderness Musculoskeletal: general: severe kyphoscoliosis, extremities intact & non-tender , negative Tiffanie's B Integumental: various small ecchymoses on BLE Psychiatric orientation: AA&O to PPS affect: calm mood: cooperative eye contact: fair content: reliable responses: timely insight: fair Testing: Lab Results 12/08/17 12/08/17 12/08/17 Range/Units 20:13 20:13 20:13 WBC 15.8 H (3.5-10.8) 10^3/ul RBC 4.54 (4.00-5.40) 10^6/ul Hgb 10.9 L (14.0-18.0) g/dl Hct 34 L (42-52) % MCV 75 L (80-94) fL MCH 24 L (27-31) pg MCHC 32 (31-36) g/dl RDW 18 H (10.5-15) % Plt Count 280 (150-450) 10^3/ul MPV 7.5 (7.4-10.4) um3 Neut % (Auto) 90.5 H (38-83) % Lymph % (Auto) 3.1 L (25-47) % Dolores % (Auto) 5.1 (0-7) % Eos % (Auto) 0.9 (0-6) % Baso % (Auto) 0.4 (0-2) % Absolute Neuts (auto) 14.3 H (1.5-7.7) 10^3/ul Absolute Lymphs (auto) 0.5 L (1.0-4.8) 10^3/ul Absolute Monos (auto) 0.8 (0-0.8) 10^3/ul Absolute Eos (auto) 0.1 (0-0.6) 10^3/ul Absolute Basos (auto) 0.1 (0-0.2) 10^3/ul Absolute Nucleated RBC 0 10^3/ul Nucleated RBC % 0 INR (Anticoag Therapy) (0.77-1.02) Patient Temperature ABG pH (7.35-7.45) ABG pH (Temp Correct) ABG pCO2 (35-45) mmHg ABG pCO2 (Temp Corrct ABG pO2 (80-100) mmHg ABG pO2 (Temp Correct ABG HCO3 (19-31) mmol/L ABG O2 Saturation (95-98) % ABG Base Excess (-2.0-2.0) Respiration Rate O2 Delivery Device Ventilator Type Vent Mode FiO2 Inspiratory Time PEEP Pressure Support Pressure Control EPAP IPAP BiPAP Sodium 138 (135-145) mmol/L Potassium 3.9 (3.5-5.0) mmol/L Chloride 101 (101-111) mmol/L Carbon Dioxide 28 (22-32) mmol/L Anion Gap 9 (2-11) mmol/L BUN 27 H (6-24) mg/dL Creatinine 0.74 (0.67-1.17) mg/dL Est GFR ( Amer) 123.5 (>60) Est GFR (Non-Af Amer) 102.0 (>60) BUN/Creatinine Ratio 36.5 H (8-20) Glucose 120 H (70-100) mg/dL Lactic Acid 1.4 (0.5-2.0) mmol/L Calcium 8.8 (8.6-10.3) mg/dL Total Bilirubin 0.40 (0.2-1.0) mg/dL AST 21 (13-39) U/L ALT 11 (7-52) U/L Alkaline Phosphatase 96 (34-104) U/L Total Creatine Kinase 44 (10-223) U/L Troponin I 0.48 H* (<0.04) ng/mL Total Protein 8.3 (6.4-8.9) g/dL Albumin 3.1 L (3.2-5.2) g/dL Globulin 5.2 H (2-4) g/dL Albumin/Globulin Ratio 0.6 L (1-3) Lipase < 10 L (11.0-82.0) U/L Serum Alcohol < 10 (<10) mg/dL 12/08/17 12/08/17 Range/Units 20:14 20:53 WBC (3.5-10.8) 10^3/ul RBC (4.00-5.40) 10^6/ul Hgb (14.0-18.0) g/dl Hct (42-52) % MCV (80-94) fL MCH (27-31) pg MCHC (31-36) g/dl RDW (10.5-15) % Plt Count (150-450) 10^3/ul MPV (7.4-10.4) um3 Neut % (Auto) (38-83) % Lymph % (Auto) (25-47) % Dolores % (Auto) (0-7) % Eos % (Auto) (0-6) % Baso % (Auto) (0-2) % Absolute Neuts (auto) (1.5-7.7) 10^3/ul Absolute Lymphs (auto) (1.0-4.8) 10^3/ul Absolute Monos (auto) (0-0.8) 10^3/ul Absolute Eos (auto) (0-0.6) 10^3/ul Absolute Basos (auto) (0-0.2) 10^3/ul Absolute Nucleated RBC 10^3/ul Nucleated RBC % INR (Anticoag Therapy) 1.25 H (0.77-1.02) Patient Temperature Not Reportable ABG pH 7.49 H (7.35-7.45) ABG pH (Temp Correct) Not Reportable ABG pCO2 42 (35-45) mmHg ABG pCO2 (Temp Corrct Not Reportable ABG pO2 90 (80-100) mmHg ABG pO2 (Temp Correct Not Reportable ABG HCO3 31.1 H (19-31) mmol/L ABG O2 Saturation 99.1 H (95-98) % ABG Base Excess 7.9 H (-2.0-2.0) Respiration Rate Not Reportable O2 Delivery Device 2 n/c Ventilator Type Not Reportable Vent Mode Not Reportable FiO2 Not Reportable Inspiratory Time Not Reportable PEEP Not Reportable Pressure Support Not Reportable Pressure Control Not Reportable EPAP Not Reportable IPAP Not Reportable BiPAP Not Reportable Sodium (135-145) mmol/L Potassium (3.5-5.0) mmol/L Chloride (101-111) mmol/L Carbon Dioxide (22-32) mmol/L Anion Gap (2-11) mmol/L BUN (6-24) mg/dL Creatinine (0.67-1.17) mg/dL Est GFR ( Amer) (>60) Est GFR (Non-Af Amer) (>60) BUN/Creatinine Ratio (8-20) Glucose (70-100) mg/dL Lactic Acid (0.5-2.0) mmol/L Calcium (8.6-10.3) mg/dL Total Bilirubin (0.2-1.0) mg/dL AST (13-39) U/L ALT (7-52) U/L Alkaline Phosphatase (34-104) U/L Total Creatine Kinase (10-223) U/L Troponin I (<0.04) ng/mL Total Protein (6.4-8.9) g/dL Albumin (3.2-5.2) g/dL Globulin (2-4) g/dL Albumin/Globulin Ratio (1-3) Lipase (11.0-82.0) U/L Serum Alcohol (<10) mg/dL ECG, personally reviewed: sinus tachycardia rate 110, no ischemia CXR, personally reviewed: IMPRESSION: QUESTION OF LEFT UPPER LOBE PNEUMONIA. Impression: 77M HX CVA, spinal injury w/ L sided weakness, chronic FIB, RA, HTN , HLD, hypothyroidism DIAGNOSIS & PLAN Primary acute R mainstem pulmonary embolism : risks/benefits of anticoagulation options discussed, agreed to rivaroxaban : rivaroxaban 15mg PO BID x21 days then 20mg daily : supplemental oxygen : US BLE in AM to eval for residual clot burden : supportive care Secondary HX CVA : no acute issues paroxysmal AFIB : currently in sinus tachycardia rheumatoid arthritis : pain control HTN : monitor HLD, mixed : continue lovastatin & lovastatin hypothyroidism : continue levothyroxine spinal injury w/ L sided weakness : continue gabapentin GERD : continue omeprazole BPH : continue tamsulosin Admission Rational: inpatient for SIRS 2nd RUL pneumonia & demand NSTEMI DVTp: SCDs & heparin SQ Code Status: full HCP: brother, Wilbert
--- NOTE | 2017-12-08 21:58 | RAD ---
Indication: Head injury. CT of the brain was performed without IV contrast. The study is limited due to poor patient positioning. Ventricular structures are midline. No midline shift is noted. Significant artifact degrades the images. Central and cortical atrophy is noted. Bony calvaria is unremarkable. IMPRESSION: Limited images of the brain without obvious intracranial mass or hemorrhage although reconstruction artifact severely limits examination.
--- NOTE | 2017-12-08 22:07 | RAD ---
Indication: Neck injury. CT of the cervical spine was obtained in the axial plane. Sagittal and coronal reconstructed images were obtained. Comparison is made with previous exam dated May 14, 2017. The C1 ring is intact. The atlantoaxial joint is otherwise unremarkable. There is fusion of C4, C5 and C6 with anterior plate and screws. Kyphosis deformity is noted at C6-C7. Findings are similar to that identified on May 14, 2017. No definite fractures identified. Spinous processes are unremarkable. Again noted is widening of the C6-C7 interspinous space which demonstrates kyphosis of C6-C7. This is unchanged from previous exam. No definite fracture is identified. IMPRESSION: The study is limited due to kyphosis deformity and limited optimal position within the CT gantry. No fracture is identified. Fusion of C4-C6.
--- NOTE | 2017-12-08 22:15 | RAD ---
Indication: Fall, chest pain, back pain and left flank pain. Contrast: Administered 76.0 ml of OMNIPAQUE 300 mg/ml CT of the chest, abdomen and pelvis was performed. Coronal and sagittal reconstructed images were obtained. Coronal and sagittal reconstructed images were obtained. There is a large filling defect in the right pulmonary artery extending into segmental and lobar arteries of the right lower lobe and right upper lobe and right middle lobe. Additional filling defects are noted in the lingula and left lower lobe lobar arteries of the pulmonary arteries. Findings consistent with pulmonary embolus. The aorta demonstrates no evidence of aortic dissection. No significant mediastinal or hilar adenopathy is noted. Lung leam demonstrate no pleural fluid, nodules or masses. Heart demonstrates no pericardial effusion. Atelectasis is noted in the lung bases. The visualized thoracic spine demonstrates marked kyphosis however no compression fracture is noted. CT of the abdomen and pelvis demonstrates liver to be normal in size. Spleen is normal in size. No focal lesions or intrahepatic duct dilatation is noted. The gallbladder is partially contracted. The pancreas demonstrates no mass or pancreatic duct dilatation although it appears to be atrophic. No adrenal masses are noted. The kidneys demonstrate no hydronephrosis of either kidney. No retroperitoneal lymphadenopathy is noted. No dilated loops of bowel are noted. CT of the pelvis demonstrates atherosclerotic aorta. No retroperitoneal lymphadenopathy is noted. The urinary bladder is unremarkable. Urinary bladder is unremarkable. Fecal stasis is noted. The visualized bony structures are unremarkable. IMPRESSION: There are large pulmonary emboli in the right main pulmonary artery extending into the lobar and segmental arteries of the right upper lobe, right lower lobe and right middle lobe. There is filling defect noted in the left lower lobe and left lingular branch of the left upper lobe pulmonary arteries. These are consistent with large pulmonary emboli. No solid organ injury is noted. Dr. Cortez was notified of the results at 2210 hours
[2017-12-08] MEDS ORDERED: Rivaroxaban TAB(*) 15 MG PO ONE (22:31)
[2017-12-08] MEDS ORDERED: Ondansetron ODT TAB* 4 MG PO PRN (22:47)
[2017-12-08] MEDS ORDERED: Albuterol 2.5 MG/3 ML NEB.SOL* (0.083%) INH PRN (22:47)
[2017-12-08] MEDS: Docusate CAP* 100 MG PO SCH (23:21)
[2017-12-09] MEDS: NS 0.9% 1000 ML* 1,000 ML IV SCH ×2 (01:19→14:59)
[2017-12-09] MEDS: Levothyroxine TAB* 25 MCG TAB PO SCH (06:01)
[2017-12-09 06:41] LABS: ABS Basophils 0.1 10^3/ul (0-0.2); ABS Eosinophils 0.4 10^3/ul (0-0.6); ABS Lymphocytes 0.8 10^3/ul (1.0-4.8); ABS Monocytes 0.7 10^3/ul (0-0.8); ABS Neutrophils 6.7 10^3/ul (1.5-7.7); ABS Nucleated RBC 0 10^3/ul; Eosinophil % 4.1 % (0-6); Hematocrit 28 % (42-52); Hemoglobin 9.2 g/dl (14.0-18.0); Lymphocyte % 9.7 % (25-47); Mean Corpuscular HGB Conc 33 g/dl (31-36); Mean Corpuscular Hemoglobin 25 pg (27-31); Mean Corpuscular Volume 75 fL (80-94); Mean Platelet Volume 7.4 um3 (7.4-10.4); Nucleated Red Blood Cells % 0; Platelet Count 228 10^3/ul (150-450); Red Blood Count 3.77 10^6/ul (4.00-5.40); Red Cell Distribution Width 17 % (10.5-15); White Blood Count 8.7 10^3/ul (3.5-10.8)
[2017-12-09 07:11] LABS: EGFR Non-African American 132.5 (>60)
--- NOTE | 2017-12-09 08:19 | PN ---
Subjective Date of Service: 12/09/17 Interval History: Mr. Stevenson denies any specific complaint today. He denies chest pain and SOB. He has a chronic non-healing wound under his chin which he states has been there for a couple of months after he was accidentally cut shaving. He notes that it is very painful when it is touched. Objective Active Medications: Acetaminophen (Tylenol Tab*) 650 mg PO Q6H PRN Albuterol (Ventolin 2.5 Mg/3 Ml Neb.Jade*) 2.5 mg INH Q2H PRN Atorvastatin Calcium (Lipitor*) 5 mg PO BEDTIME IRENE Docusate Sodium (Colace Cap*) 100 mg PO TID IRENE Fenofibrate (Tricor(Nf)) 145 mg PO DAILY IRENE; Protocol Gabapentin (Neurontin Cap(*)) 300 mg PO BEDTIME IRENE Sodium Chloride (Ns 0.9% 1000 Ml*) 1,000 mls @ 75 mls/hr IV PER RATE IRENE Levothyroxine Sodium (Synthroid Tab*) 25 mcg PO 0600 IRENE Melatonin (Melatonin) 3 mg PO BEDTIME PRN; Protocol Olanzapine (Zyprexa Tab*) 5 mg PO BEDTIME IRENE Omeprazole (Prilosec Cap*) 20 mg PO BID IRENE Ondansetron HCl (Zofran Odt Tab*) 4 mg PO Q6H PRN Oxycodone HCl (Roxycodone Tab*) 2.5 mg PO Q4H PRN Rivaroxaban (Xarelto(*)) 15 mg PO BID IRENE Tamsulosin HCl (Flomax Cap*) 0.4 mg PO BEDTIME IRENE Tramadol HCl (Ultram*) 50 mg PO TID PRN Vital Signs: Temp Pulse Resp BP Pulse Ox 97.9 F 90 16 104/54 100 12/09/17 07:47 12/09/17 07:47 12/09/17 07:47 12/09/17 07:47 12/09/17 07:47 Oxygen Devices in Use Now: Nasal Cannula Appearance: Cachectic male lying in bed in NAD Eyes: No Scleral Icterus Ears/Nose/Mouth/Throat: Mucous Membranes Moist Neck: Trachea Midline Respiratory: Symmetrical Chest Expansion and Respiratory Effort, Clear to Auscultation Cardiovascular: NL Sounds; No Murmurs; No JVD, No Edema Abdominal: NL Sounds; No Tenderness; No Distention Extremities: No Edema Neurological: Alert and Oriented x 3, NL Muscle Strength and Tone Nutrition: Taking PO's Result Diagrams: 12/09/17 06:23 12/09/17 06:23 Assess/Plan/Problems-Billing Assessment: Mr. Stevenson is a 77 M with a PMH of chronically impaired mobility with Cspine and other injuries, hx of GI bleed 04/2017, and afib who was admitted on with a large right sided pulmonary embolism now found to have cor pulmonale and extensive bilateral DVTs. - Patient Problems (1) Pulmonary embolism Comment: - Remains stable on 2L NC. - With cor pulmonale and extensive DVTs. - Switch to lovenox BID for 48-72 hours and then could consider NOAC. - Reviewed case with Dr. Kat, no indication for IVC filter as long as patient can tolerate anticoagulation. - Does have a history of GI bleed in the past. Monitor stool and H/H closely - Question occult malignancy given extensive DVTs. Is fairly immobile but has been this way for some time. (2) Anemia Comment: - Chronic anemia, at baseline. (3) Hypotension Comment: - SBP 90-100s. - Hold furosemide. (4) Skin ulcer Comment: - Chronic non-healing wound, would recommend biopsy if patient able to go off anticoagulation in the future. (5) Malnutrition Comment: - protein calorie malnutrition. - Appreciate nutrition consult (6) Atrial fibrillation Comment: NSR on admission. In regular rate today Anticoagulation was held in the past due to h/o of frequent falls in the past. (7) Arm dysfunction Comment: Pt describes 2 separate injuries to L arm. contracted at baseline (8) Back pain Comment: chronic, h/o c spine surgery in past cont Percocet,Ultram (9) Weakness of both lower extremities Comment: Patient spends most of his time in a wheelchair at home. He has BLE weakness which is reportedly a result of prior cervical spine surgery. (10) GERD (gastroesophageal reflux disease) Comment: - Continue Omeprazole. (11) Hypothyroidism Comment: Continue levothyroxine. (12) DVT prophylaxis Comment: - Lovenox (13) Full code status Comment: Status and Disposition: Inpatient.
[2017-12-09] MEDS ORDERED: Rivaroxaban TAB(*) 15 MG PO SCH (09:00)
[2017-12-09] MEDS: CMCS Fenofibrate(NF) 145 MG TAB PO SCH (09:58)
[2017-12-09] MEDS: Omeprazole CAP* 20 MG PO SCH ×2 (09:58→20:43)
[2017-12-09] MEDS: Docusate CAP* 100 MG PO SCH ×3 (09:58→20:43)
[2017-12-09] MEDS: traMADol TAB* 50 MG PO PRN ×3 (09:59→20:43)
--- NOTE | 2017-12-09 11:06 | ECHO ---
Patient: DINESH RODRIGUEZ [facility] Rec#: [id number] : 1940 Date: 12/09/2017 Age: 77y Height: 165.1 cm / 65.0 in Weight: 40.8 kg / 89.9 lbs Sex: M BSA: 1.4 Room#: [facility] Admit Date#: 12/08/2017 Type: Inpatient Referring: Yarelis Oliver NP Reading: Dirk Siddiqui MD Denture Model Maker: Jennifer Schroeder RN RDCS CC: DIONI Prajapati Transthoracic Echocardiogram Indication: Pulmonary embolism BP: 104/54 HR: 66 Rhythm: NSR Findings History: HTN, HLD, chronic A. fib, CVA, hypothyroidism, surgical C-spine injury with left-sided weakness, kyphosis, RA, GERD, renal failure, hepatic abscess. Technical Comments: The study quality is fair. The study is technically limited due to patient body habitus. The study was technically limited due to the patient's inability to lay in the left lateral decubitus position. Left Ventricle: The left ventricular chamber size is decreased. There is increased basal septal hypertrophy noted without evidence of an increased gradient across the left ventricular outflow tract. c/w a sigmoid septum. Global left ventricular wall motion and contractility are within normal limits. There is normal left ventricular systolic function. The estimated ejection fraction is 60-65%. The assessment of diastolic function is non-diagnostic. Left Atrium: The left atrial chamber size is normal. Right Ventricle: Moderator Band present. The right ventricle is moderately dilated. The right ventricular global systolic function is moderately reduced.moderately to severely reduced with relative preservation of the proximal RV free wall and the apex c/w Bhardwaj's sign. Flattened in systole and diastole consistent with right ventricular pressure and volume overload. Right Atrium: The right atrial cavity size is normal. Aortic Valve: The aortic valve is trileaflet. The aortic valve leaflets are mildly thickened. There is no evidence of aortic regurgitation. There is no evidence of aortic stenosis. Mitral Valve: The mitral valve leaflets are mildly thickened. There is mild mitral valve prolapse. There is mild mitral regurgitation. There is no evidence of mitral stenosis. Tricuspid Valve: The tricuspid valve leaflets are normal. There is mild to moderate tricuspid regurgitation. There is evidence that pulmonary hypertension may be underestimated. There is no tricuspid stenosis. Pulmonic Valve: The pulmonic valve appears normal. There is a trace pulmonic regurgitation. There is no pulmonic stenosis. Pericardium: There is no significant pericardial effusion. Aorta: There is no dilatation of the ascending aorta. The aortic arch is not well visualized. There is no dilation of the aortic root. Pulmonary Artery: The main pulmonary artery is not well visualized. Venous: The inferior vena cava appears normal in size. There is less than 50% respiratory change in the inferior vena cava dimension. Conclusions The study is technically limited due to patient body habitus. The estimated ejection fraction is 60-65%. The assessment of diastolic function is non-diagnostic. The right ventricle is moderately dilated. The right ventricular global systolic function is moderately to severely reduced with relative preservation of the proximal RV free wall and the apex c/w Bhardwaj's sign. The aortic valve leaflets are mildly thickened. There is mild mitral valve prolapse. There is mild mitral regurgitation. There is mild to moderate tricuspid regurgitation. FIndings c/w cor pulmonale, possibly acute in the setting of PE. Compared to 09/2015, the RV dysfunction is new. The MR has decreased from moderate to mild. Measurements Name Value Normal Range RVIDd (AP) 2D 3.2 cm (0.9 - 2.6) RVDdMajor (2D) 4.6 cm (2.2 - 4.4) RAd ISD 4CH 3.9 cm (3.4 - 4.9) RA (A4C)W 2.7 cm (2.9 - 4.6) IVSd (2D) 1 cm (0.6 - 1) LVPWd (2D) 1 cm (0.6 - 1) LVIDd (2D) 3.4 cm (3.6 - 5.4) LVIDs (2D) 2.3 cm - LV FS (2D) 32 % (25 - 45) Aortic Annulus 1.8 cm (1.4 - 2.6) Ao root diameter (2D) 3.1 cm (2.1 - 3.5) Ascending Ao 3.4 cm (2.1 - 3.4) LA dimension (AP) 2D 2.5 cm (2.3 - 3.8) LAd ISD 4CH 3.3 cm (2.9 - 5.3) LA ISD 4CH W 3.1 cm (2.5 - 4.5) Name Value Normal Range LA ESV SP 4CH (A/L) 23 ml - LA ESV SP 2CH (A/L) 19 ml - LA ESV BP (A/L) 21 ml - LA ESV BP (A/L) index 15 ml/m2 - LA ESV SP 4CH (MOD) 19 ml - LA ESV SP 2CH (MOD) 18 ml - Name Value Normal Range MV E-wave Vmax 0.66 m/sec - MV deceleration time 242 msec - MV A-wave Vmax 0.61 m/sec - MV E:A ratio 1.1 ratio - LV septal e' Vmax 0.06 m/sec - LV lateral e' Vmax 0.1 m/sec - LV E:e' septal ratio 11 ratio - LV E:e' lateral ratio 6.6 ratio - Name Value Normal Range AV Vmax 1 m/sec - AV VTI 20.5 cm - AV peak gradient 4.2 mmHg - AV mean gradient 2.4 mmHg - LVOT Vmax 0.9 m/sec - LVOT VTI 17.9 cm - LVOT peak gradient 3.3 mmHg - LVOT mean gradient 1.4 mmHg - Name Value Normal Range TR Vmax 2.4 m/sec - TR peak gradient 23 mmHg - RAP 8 mmHg - RVSP 31 mmHg - IVC diameter 1.6 cm - Name Value Normal Range PV Vmax 0.51 m/sec -
--- NOTE | 2017-12-09 14:35 | RAD ---
INDICATION: Pain and swelling. COMPARISON: CTA chest November 30, 2017; lower extremity duplex examination August 19, 2016 TECHNIQUE: Duplex interrogation of the both lower extremities was performed. FINDINGS: Deep veins: The common femoral, great saphenous, profunda femoris, proximal, mid, and distal deep femoral, popliteal, posterior tibial, and peroneal veins were interrogated. There findings of acute deep venous thrombosis with extensive DVT on the left from the common femoral to the popliteal vein. There is also right-sided deep venous thrombosis which is nonocclusive and extends and distal femoral vein to the popliteal vein. Superficial veins: There are no findings of superficial thrombophlebitis. Popliteal fossa:There is no evidence of a popliteal cyst. Soft tissues:There are no soft tissue abnormalities. IMPRESSION: EXTENSIVE, BILATERAL DEEP VENOUS THROMBOSIS.
[2017-12-09] MEDS: Acetaminophen TAB* 325 MG PO PRN (15:54)
[2017-12-09] MEDS: Gabapentin CAP(*) 300 MG PO SCH (20:41)
[2017-12-09] MEDS: Melatonin 3 MG TAB PO PRN (20:43)
[2017-12-09] MEDS: Tamsulosin CAP* 0.4 MG PO SCH (20:43)
[2017-12-09] MEDS: Enoxaparin(*) 40 MG/0.4 ML SYR SUBCUT SCH (20:43)
[2017-12-09] MEDS: Atorvastatin* 10 MG TAB PO SCH (20:43)
[2017-12-09] MEDS: OLANzapine TAB* 5 MG PO SCH (20:44)
[2017-12-10] MEDS: Levothyroxine TAB* 25 MCG TAB PO SCH (06:00)
[2017-12-10 07:10] LABS: ABS Basophils 0.1 10^3/ul (0-0.2); ABS Eosinophils 0.7 10^3/ul (0-0.6); ABS Lymphocytes 0.7 10^3/ul (1.0-4.8); ABS Monocytes 0.6 10^3/ul (0-0.8); ABS Neutrophils 7.6 10^3/ul (1.5-7.7); ABS Nucleated RBC 0 10^3/ul; Eosinophil % 7.3 % (0-6); Hematocrit 29 % (42-52); Hemoglobin 9.6 g/dl (14.0-18.0); Mean Corpuscular HGB Conc 33 g/dl (31-36); Mean Corpuscular Hemoglobin 25 pg (27-31); Mean Corpuscular Volume 75 fL (80-94); Mean Platelet Volume 7.6 um3 (7.4-10.4); Nucleated Red Blood Cells % 0; Platelet Count 222 10^3/ul (150-450); Red Blood Count 3.88 10^6/ul (4.00-5.40); Red Cell Distribution Width 17 % (10.5-15); White Blood Count 9.7 10^3/ul (3.5-10.8)
--- NOTE | 2017-12-10 08:23 | PN ---
Subjective Date of Service: 12/10/17 Interval History: Mr. Stevenson denies complaint today. He specifically denies chest pain, SOB, nausea, or abdominal pain. He is tolerating oral intake well. Objective Active Medications: Acetaminophen (Tylenol Tab*) 650 mg PO Q6H PRN Albuterol (Ventolin 2.5 Mg/3 Ml Neb.Jade*) 2.5 mg INH Q2H PRN Atorvastatin Calcium (Lipitor*) 5 mg PO BEDTIME IRENE Docusate Sodium (Colace Cap*) 100 mg PO TID IRENE Enoxaparin Sodium (Lovenox(*)) 40 mg SUBCUT Q12H IRENE Fenofibrate (Tricor(Nf)) 145 mg PO DAILY IRENE; Protocol Gabapentin (Neurontin Cap(*)) 300 mg PO BEDTIME IRENE Levothyroxine Sodium (Synthroid Tab*) 25 mcg PO 0600 IRENE Melatonin (Melatonin) 3 mg PO BEDTIME PRN; Protocol Olanzapine (Zyprexa Tab*) 5 mg PO BEDTIME IRENE Omeprazole (Prilosec Cap*) 20 mg PO BID IRENE Ondansetron HCl (Zofran Odt Tab*) 4 mg PO Q6H PRN Oxycodone HCl (Roxycodone Tab*) 2.5 mg PO Q4H PRN Tamsulosin HCl (Flomax Cap*) 0.4 mg PO BEDTIME IRENE Tramadol HCl (Ultram*) 50 mg PO TID PRN Vital Signs: Temp Pulse Resp BP Pulse Ox 97.4 F 81 14 113/71 88 12/10/17 07:30 12/10/17 07:30 12/10/17 12:07 12/10/17 07:30 12/10/17 07:30 Oxygen Devices in Use Now: None Appearance: Male lying in bed in NAD Eyes: No Scleral Icterus Ears/Nose/Mouth/Throat: NL Teeth, Lips, Gums, Mucous Membranes Moist Neck: Trachea Midline Respiratory: Symmetrical Chest Expansion and Respiratory Effort, Clear to Auscultation Cardiovascular: NL Sounds; No Murmurs; No JVD, No Edema Abdominal: NL Sounds; No Tenderness; No Distention Lymphatic: No Cervical Adenopathy Extremities: No Edema Skin: - - Chronic non-healing wound under chin, unchanged Neurological: Alert and Oriented x 3, - - left sided weakness Result Diagrams: 12/10/17 06:42 12/09/17 06:23 Microbiology and Other Data: . Assess/Plan/Problems-Billing Assessment: Mr. Stevenson is a 77 M with a PMH of chronically impaired mobility with Cspine and other injuries, hx of GI bleed 04/2017, and afib who was admitted on with a large right sided pulmonary embolism now found to have cor pulmonale and extensive bilateral DVTs. - Patient Problems (1) Pulmonary embolism Comment: - Now on room air and hemodynamically stable. Despite extensive clot burden, his sPESI score is only 1 giving him an 8.9% risk of . - With cor pulmonale and extensive DVTs. - Continue lovenox BID for 48-72 hours and then could consider NOAC. - Reviewed case with Dr. Kat, no indication for IVC filter as long as patient can tolerate anticoagulation. - Does have a history of GI bleed in the past. Monitor stool and H/H closely - Question occult malignancy given extensive DVTs. Is fairly immobile but has been this way for some time. Has had multiple colonoscopies, most recent with finding of severe diverticulosos. CT chest/abd/pelvis only showed PE on arrival. (2) Anemia Comment: - Chronic anemia, at baseline. (3) Hypotension Comment: - SBP 90-100s. - Hold furosemide. (4) Skin ulcer Comment: - Chronic non-healing wound, would recommend biopsy if patient able to go off anticoagulation in the future. Though could be related to chin rubbing against chest with severe scoliosis. (5) Malnutrition Comment: - Protein calorie malnutrition. - Appreciate nutrition consult (6) Atrial fibrillation Comment: - NSR on admission. In regular rate today - Anticoagulation was held due to h/o of frequent falls in the past. (7) Arm dysfunction Comment: - Pt describes 2 separate injuries to L arm. contracted at baseline (8) Back pain Comment: - Chronic, h/o c spine surgery in past - Cont oxycodone and tramadol. (9) Weakness of both lower extremities Comment: - Patient spends most of his time in a wheelchair at home. He has BLE weakness which is reportedly a result of prior cervical spine surgery. (10) GERD (gastroesophageal reflux disease) Comment: - Continue Omeprazole. (11) Hypothyroidism Comment: - Continue levothyroxine. (12) DVT prophylaxis Comment: - Lovenox (13) Full code status Comment: Status and Disposition: Inpatient. Anticipate discharge to home when medically stable.
[2017-12-10] MEDS: Enoxaparin(*) 40 MG/0.4 ML SYR SUBCUT SCH ×2 (09:18→20:37)
[2017-12-10] MEDS: CMCS Fenofibrate(NF) 145 MG TAB PO SCH (09:19)
[2017-12-10] MEDS: Omeprazole CAP* 20 MG PO SCH ×2 (09:19→20:38)
[2017-12-10] MEDS: Docusate CAP* 100 MG PO SCH ×3 (09:19→20:39)
[2017-12-10] MEDS: oxyCODONE TAB* 5 MG TAB PO PRN ×2 (09:28→15:36)
[2017-12-10] MEDS: traMADol TAB* 50 MG PO PRN ×3 (09:29→20:38)
[2017-12-10] MEDS: Atorvastatin* 10 MG TAB PO SCH (20:37)
[2017-12-10] MEDS: OLANzapine TAB* 5 MG PO SCH (20:38)
[2017-12-10] MEDS: Tamsulosin CAP* 0.4 MG PO SCH (20:38)
[2017-12-10] MEDS: Gabapentin CAP(*) 300 MG PO SCH (20:38)
[2017-12-10] MEDS: Melatonin 3 MG TAB PO PRN (20:38)
[2017-12-11] MEDS: Levothyroxine TAB* 25 MCG TAB PO SCH (06:34)
--- NOTE | 2017-12-11 06:40 | ED ---
Nessa Morales Emily, scribed for Cedric Whiteuel on 12/08/17 at 1951 . Adult Trauma - HPI Summary HPI Summary: This patient is a 77 year old M BIBA to [facility] with a status post fall that occurred yesterday. The patient rates the pain 8/10 in severity. Symptoms aggravated by nothing. Symptoms alleviated by nothing. Patient reports L shoulder pain and left-sided and low back pain. Patient denies neck pain. - History of Current Complaint Chief Complaint: EDRespiratoryDistress Stated Complaint: BACK PAIN Time Seen by Provider: 12/08/17 19:43 Hx Obtained From: Patient Mechanism of Injury: Fall Ambulatory at the Scene: No Onset/Duration: Started Days Ago, Traumatic, Still Present Onset of Pain: Immediate, Post Accident Onset Severity: Severe Current Severity: Severe Pain Intensity: 8 Pain Scale Used: 0-10 Numeric Location: Back, Extremities Aggravating Factor(s): Nothing Alleviating Factor(s): Nothing Associated Signs & Symptoms: Positive: Other: - Positive L shoulder pain and left-sided and low back pain. Negative neck pain. - Additional Pertinent History Primary Care Physician: LETA - Allergy/Home Medications Allergies/Adverse Reactions: Allergies Allergy/AdvReac Type Severity Reaction Status Date / Time No Known Allergies Allergy Verified 04/10/17 13:20 Home Medications: Home Medications Docusate CAP* [Colace Cap*] 100 mg PO TID 12/08/17 [History Confirmed 12/08/17] Furosemide TAB* [Lasix TAB*] 20 mg PO DAILY 12/08/17 [History Confirmed 12/08/17 ] LoraTADine TAB(NF) [Claritin 10 MG TAB(NF)] 10 mg PO QAM 12/08/17 [History Confirmed 12/08/17] Magnesium Oxide [Magnesium] 250 mg PO BID 12/08/17 [History Confirmed 12/08/17] PMH/Surg Hx/FS Hx/Imm Hx Previously Healthy: No Endocrine/Hematology History: Reports: Hx Thyroid Disease - hypo Denies: Hx Diabetes Cardiovascular History: Reports: Hx Hypercholesterolemia, Hx Hypotension - LOW BLOOD PRESSURE TODAY, Hx Hypertension, Other Cardiovascular Problems/Disorders - 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 Respiratory History: Reports: Hx Chronic Bronchitis Denies: Hx Chronic Obstructive Pulmonary Disease (COPD) GI History: Reports: Hx Diverticulosis, Hx Gastroesophageal Reflux Disease, Other GI Disorders - liver abscess History: Denies: Hx Dialysis, Hx Renal Disease Musculoskeletal History: Reports: Hx Arthritis, Hx Rheumatoid Arthritis, Hx Back Problems Denies: Hx Osteoporosis Sensory History: Reports: Hx Contacts or Glasses, Hx Hearing Aid, Hx Hearing Problem Opthamlomology History: Reports: Hx Contacts or Glasses Neurological History: Reports: 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, 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 Denies: Hx Dementia, Hx Seizures - Surgical History Surgery Procedure, Year, and Place: CERVICAL SURGERY C4-C6, right ear,LIVER ABSCESS, LEFT TESTICLE Hx Anesthesia Reactions: No - Immunization History Date of Tetanus Vaccine: Unk Date of Influenza Vaccine: Unk Infectious Disease History: No Infectious Disease History: Denies: Traveled Outside the [place] in Last 30 Days - Family History Known Family History: Positive: Hypertension, Diabetes Negative: Cardiac Disease - Social History Occupation: Retired Lives: Alone Alcohol Use: Occasionally Alcohol Amount: socially Hx Substance Use: No Substance Use Type: Reports: None Hx Tobacco Use: Yes - QUIT 60 YRS AGO Smoking Status (MU): Former Smoker Type: Cigars Amount Used/How Often: OCCASIONAL Review of Systems Negative: Fever Musculoskeletal: Other - Positive L shoulder pain and L sided, low back pain. Negative neck pain All Other Systems Reviewed And Are Negative: Yes Physical Exam - Summary Physical Exam Summary: Appearance: ill appearing, no pain distress Skin: warm, dry, reflects adequate perfusion Head/face: normal Eyes: EOMI, FRANSISCA ENT: normal Neck: supple, non-tender Respiratory: CTA, breath sounds present Cardiovascular: tachycardic, pulses symmetrical Abdomen: non-tender, soft Bowel: present Musculoskeletal: tenderness over left chest/back, tenderness lower back Neuro: A&Ox3, lf hemiperisis. Triage Information Reviewed: Yes Vital Signs On Initial Exam: Initial Vitals Temp Pulse Resp BP Pulse Ox 97.9 F 121 16 118/89 88 12/08/17 19:27 12/08/17 19:27 12/08/17 19:27 12/08/17 19:27 12/08/17 19:27 Vital Signs Reviewed: Yes Diagnostics - Vital Signs Vital Signs Temp Pulse Resp BP Pulse Ox 12/08/17 19:27 97.9 F 121 16 118/89 88 - Laboratory Lab Results: Lab Results 06/28/18 06/28/18 06/28/18 Range/Units 20:13 20:13 20:13 WBC 15.8 H (3.5-10.8) 10^3/ul RBC 4.54 (4.00-5.40) 10^6/ul Hgb 10.9 L (14.0-18.0) g/dl Hct 34 L (42-52) % MCV 75 L (80-94) fL MCH 24 L (27-31) pg MCHC 32 (31-36) g/dl RDW 18 H (10.5-15) % Plt Count 280 (150-450) 10^3/ul MPV 7.5 (7.4-10.4) um3 Neut % (Auto) 90.5 H (38-83) % Lymph % (Auto) 3.1 L (25-47) % Imperial % (Auto) 5.1 (0-7) % Eos % (Auto) 0.9 (0-6) % Baso % (Auto) 0.4 (0-2) % Absolute Neuts (auto) 14.3 H (1.5-7.7) 10^3/ul Absolute Lymphs (auto) 0.5 L (1.0-4.8) 10^3/ul Absolute Monos (auto) 0.8 (0-0.8) 10^3/ul Absolute Eos (auto) 0.1 (0-0.6) 10^3/ul Absolute Basos (auto) 0.1 (0-0.2) 10^3/ul Absolute Nucleated RBC 0 10^3/ul Nucleated RBC % 0 INR (Anticoag Therapy) (0.77-1.02) Patient Temperature ABG pH (7.35-7.45) ABG pH (Temp Correct) ABG pCO2 (35-45) mmHg ABG pCO2 (Temp Corrct ABG pO2 (80-100) mmHg ABG pO2 (Temp Correct ABG HCO3 (19-31) mmol/L ABG O2 Saturation (95-98) % ABG Base Excess (-2.0-2.0) Respiration Rate O2 Delivery Device Ventilator Type Vent Mode FiO2 Inspiratory Time PEEP Pressure Support Pressure Control EPAP IPAP BiPAP Sodium 138 (135-145) mmol/L Potassium 3.9 (3.5-5.0) mmol/L Chloride 101 (101-111) mmol/L Carbon Dioxide 28 (22-32) mmol/L Anion Gap 9 (2-11) mmol/L BUN 27 H (6-24) mg/dL Creatinine 0.74 (0.67-1.17) mg/dL Est GFR ( Amer) 123.5 (>60) Est GFR (Non-Af Amer) 102.0 (>60) BUN/Creatinine Ratio 36.5 H (8-20) Glucose 120 H (70-100) mg/dL Lactic Acid 1.4 (0.5-2.0) mmol/L Calcium 8.8 (8.6-10.3) mg/dL Total Bilirubin 0.40 (0.2-1.0) mg/dL AST 21 (13-39) U/L ALT 11 (7-52) U/L Alkaline Phosphatase 96 (34-104) U/L Total Creatine Kinase 44 (10-223) U/L Troponin I 0.48 H* (<0.04) ng/mL Total Protein 8.3 (6.4-8.9) g/dL Albumin 3.1 L (3.2-5.2) g/dL Globulin 5.2 H (2-4) g/dL Albumin/Globulin Ratio 0.6 L (1-3) Lipase < 10 L (11.0-82.0) U/L Serum Alcohol < 10 (<10) mg/dL 12/08/17 12/08/17 Range/Units 20:14 20:53 WBC (3.5-10.8) 10^3/ul RBC (4.00-5.40) 10^6/ul Hgb (14.0-18.0) g/dl Hct (42-52) % MCV (80-94) fL MCH (27-31) pg MCHC (31-36) g/dl RDW (10.5-15) % Plt Count (150-450) 10^3/ul MPV (7.4-10.4) um3 Neut % (Auto) (38-83) % Lymph % (Auto) (25-47) % Imperial % (Auto) (0-7) % Eos % (Auto) (0-6) % Baso % (Auto) (0-2) % Absolute Neuts (auto) (1.5-7.7) 10^3/ul Absolute Lymphs (auto) (1.0-4.8) 10^3/ul Absolute Monos (auto) (0-0.8) 10^3/ul Absolute Eos (auto) (0-0.6) 10^3/ul Absolute Basos (auto) (0-0.2) 10^3/ul Absolute Nucleated RBC 10^3/ul Nucleated RBC % INR (Anticoag Therapy) 1.25 H (0.77-1.02) Patient Temperature Not Reportable ABG pH 7.49 H (7.35-7.45) ABG pH (Temp Correct) Not Reportable ABG pCO2 42 (35-45) mmHg ABG pCO2 (Temp Corrct Not Reportable ABG pO2 90 (80-100) mmHg ABG pO2 (Temp Correct Not Reportable ABG HCO3 31.1 H (19-31) mmol/L ABG O2 Saturation 99.1 H (95-98) % ABG Base Excess 7.9 H (-2.0-2.0) Respiration Rate Not Reportable O2 Delivery Device 2 n/c Ventilator Type Not Reportable Vent Mode Not Reportable FiO2 Not Reportable Inspiratory Time Not Reportable PEEP Not Reportable Pressure Support Not Reportable Pressure Control Not Reportable EPAP Not Reportable IPAP Not Reportable BiPAP Not Reportable Sodium (135-145) mmol/L Potassium (3.5-5.0) mmol/L Chloride (101-111) mmol/L Carbon Dioxide (22-32) mmol/L Anion Gap (2-11) mmol/L BUN (6-24) mg/dL Creatinine (0.67-1.17) mg/dL Est GFR ( Amer) (>60) Est GFR (Non-Af Amer) (>60) BUN/Creatinine Ratio (8-20) Glucose (70-100) mg/dL Lactic Acid (0.5-2.0) mmol/L Calcium (8.6-10.3) mg/dL Total Bilirubin (0.2-1.0) mg/dL AST (13-39) U/L ALT (7-52) U/L Alkaline Phosphatase (34-104) U/L Total Creatine Kinase (10-223) U/L Troponin I (<0.04) ng/mL Total Protein (6.4-8.9) g/dL Albumin (3.2-5.2) g/dL Globulin (2-4) g/dL Albumin/Globulin Ratio (1-3) Lipase (11.0-82.0) U/L Serum Alcohol (<10) mg/dL Result Diagrams: 12/08/17 20:13 12/08/17 20:13 Lab Statement: Any lab studies that have been ordered have been reviewed, and results considered in the medical decision making process. - Radiology CXR Radiology Interpretation Completed By: Radiologist - CXR reveals, per radiologist, question of left upper lobe pneumonia. ED physician has reviewed this radiology report. - EKG 1952 Cardiac Rate: Tachycardia EKG Rhythm: Sinus Rhythm ST Segment: Normal Ectopy: None EKG Interpretation: No acute changes Adult Trauma Course/Dx - Course Course Of Treatment: This patient is a 77 year old M BIBA to [facility] with a status post fall that occurred yesterday. Patient reports L shoulder pain and left-sided and low back pain. Blood work and UA obtained. In the ED course the patient was given aspiring, contrast, fluids, Rocephin, and Zithromax. CXR reveals, per radiologist, question of left upper lobe pneumonia. CT scans pending. To follow up with Dr. Farah and Dr. Cortez. The patient is agreeable with this plan. - Diagnoses Differential Diagnosis/HQI/PQRI: Positive: Contusion(s), Hematoma(s), Other - sepsis/hypoxia/pneumonia/cva Provider Diagnoses: CVA (cerebral vascular accident), Pneumonia, Hypoxia, Sepsis, Fall, Troponin level elevated, ACS (acute coronary syndrome) - Physician Notifications Discussed Care Of Patient With: Lucian Farah Time Discussed With Above Provider: 21:10 Instructed by Provider To: Other - Consult with Dr. Farah (hospitatlist) at [phone]. He agrees to admit the pt for further evaluation. - Critical Care Time Critical Care Time: 30-74 min Discharge - Sign-Out/Discharge Documenting (check all that apply): Discharge/Admit/Transfer - Admit to [facility] - Discharge Plan Condition: Stable Disposition: ADMITTED TO [facility] Referrals: Session Delfino ROJO [Primary Care Provider] - - Billing Disposition and Condition Condition: STABLE Disposition: Admitted to [facility] The documentation as recorded by the anshuibeNessa Emily accurately reflects the service I personally performed and the decisions made by , Nuno White.
--- NOTE | 2017-12-11 08:54 | PN ---
Subjective Date of Service: 12/11/17 Interval History: Mr. Stevenson reports feeling well today and denies any complaint. He reports working with physical therapy without complaint and walking a few feet with a walker. He denies chest pain or SOB with this activity. Objective Active Medications: Acetaminophen (Tylenol Tab*) 650 mg PO Q6H PRN Albuterol (Ventolin 2.5 Mg/3 Ml Neb.Jade*) 2.5 mg INH Q2H PRN Atorvastatin Calcium (Lipitor*) 5 mg PO BEDTIME IRENE Docusate Sodium (Colace Cap*) 100 mg PO TID IRENE Enoxaparin Sodium (Lovenox(*)) 40 mg SUBCUT Q12H IRENE Fenofibrate (Tricor(Nf)) 145 mg PO DAILY IRENE; Protocol Gabapentin (Neurontin Cap(*)) 300 mg PO BEDTIME IRENE Levothyroxine Sodium (Synthroid Tab*) 25 mcg PO 0600 IRENE Melatonin (Melatonin) 3 mg PO BEDTIME PRN; Protocol Olanzapine (Zyprexa Tab*) 5 mg PO BEDTIME IRENE Omeprazole (Prilosec Cap*) 20 mg PO BID IRENE Ondansetron HCl (Zofran Odt Tab*) 4 mg PO Q6H PRN Oxycodone HCl (Roxycodone Tab*) 5 mg PO Q4H PRN Tamsulosin HCl (Flomax Cap*) 0.4 mg PO BEDTIME IRENE Tramadol HCl (Ultram*) 50 mg PO TID PRN Vital Signs: Temp Pulse Resp BP Pulse Ox 98.6 F 75 18 108/71 96 12/11/17 03:15 12/11/17 03:15 12/11/17 03:15 12/11/17 03:15 12/11/17 03:15 Oxygen Devices in Use Now: None Appearance: Male sitting up in bed in NAD Eyes: No Scleral Icterus Ears/Nose/Mouth/Throat: Mucous Membranes Moist Neck: Trachea Midline Respiratory: Symmetrical Chest Expansion and Respiratory Effort, Clear to Auscultation Cardiovascular: NL Sounds; No Murmurs; No JVD, No Edema Abdominal: NL Sounds; No Tenderness; No Distention Extremities: No Edema Skin: No Rash or Ulcers Neurological: Alert and Oriented x 3, - - Left upper extremity weak and contracted, R UE +5, B LEs +4 Nutrition: Taking PO's Result Diagrams: 12/10/17 06:42 12/09/17 06:23 Additional Lab and Data: . Microbiology and Other Data: . Assess/Plan/Problems-Billing Assessment: Mr. Stevenson is a 77 M with a PMH of chronically impaired mobility with Cspine and other injuries, hx of GI bleed 04/2017, and afib who was admitted on with a large right sided pulmonary embolism now found to have cor pulmonale and extensive bilateral DVTs. - Patient Problems (1) Pulmonary embolism Comment: - Remains hemodynamically stable. Despite extensive clot burden, his sPESI score is only 1 giving him an 8.9% risk of . - With cor pulmonale and extensive DVTs. - Continue lovenox BID and switch to xarelto starting tonight in anticipation of discharge tomorrow. - Reviewed case with Dr. Kat, no indication for IVC filter as long as patient can tolerate anticoagulation. - Does have a history of GI bleed in the past. Monitor stool and H/H closely - Question occult malignancy given extensive DVTs. Is fairly immobile but has been this way for some time. Has had multiple colonoscopies, most recent with finding of severe diverticulosos. CT chest/abd/pelvis only showed PE on arrival. (2) Anemia Comment: - Chronic anemia, at baseline. (3) Hypotension Comment: - SBP 90-100s. - Hold furosemide. (4) Skin ulcer Comment: - Chronic non-healing wound, would recommend biopsy if patient able to go off anticoagulation in the future. Though ulcer could be related to chin rubbing against chest with severe scoliosis. (5) Malnutrition Comment: - Protein calorie malnutrition. - Appreciate nutrition consult (6) Atrial fibrillation Comment: - NSR on admission. In regular rate today - Anticoagulation was held due to h/o of frequent falls in the past. (7) Arm dysfunction Comment: - Pt describes 2 separate injuries to L arm. contracted at baseline (8) Back pain Comment: - Chronic, h/o c spine surgery in past - Cont oxycodone and tramadol. (9) Weakness of both lower extremities Comment: - Appreciate PT eval, patient able to ambulate short distance with walker. At baseline. (10) GERD (gastroesophageal reflux disease) Comment: - Continue Omeprazole. (11) Hypothyroidism Comment: - Continue levothyroxine. (12) DVT prophylaxis Comment: - Lovenox (13) Full code status Comment: Status and Disposition: Inpatient. Anticipate discharge to home when medically stable.
[2017-12-11] MEDS: Omeprazole CAP* 20 MG PO SCH ×2 (09:36→20:12)
[2017-12-11] MEDS: Enoxaparin(*) 40 MG/0.4 ML SYR SUBCUT SCH (09:36)
[2017-12-11] MEDS: CMCS Fenofibrate(NF) 145 MG TAB PO SCH (09:36)
[2017-12-11] MEDS: Docusate CAP* 100 MG PO SCH ×3 (09:36→20:12)
[2017-12-11] MEDS ORDERED: Enoxaparin(*) 40 MG/0.4 ML SYR SUBCUT SCH (09:36)
[2017-12-11] MEDS: traMADol TAB* 50 MG PO PRN (13:57)
[2017-12-11] MEDS: oxyCODONE TAB* 5 MG TAB PO PRN ×2 (13:58→20:14)
[2017-12-11] MEDS: Atorvastatin* 10 MG TAB PO SCH (20:12)
[2017-12-11] MEDS: Tamsulosin CAP* 0.4 MG PO SCH (20:12)
[2017-12-11] MEDS: Acetaminophen TAB* 325 MG PO PRN (20:13)
[2017-12-11] MEDS: Gabapentin CAP(*) 300 MG PO SCH (20:13)
[2017-12-11] MEDS: Rivaroxaban TAB(*) 15 MG PO SCH (20:13)
[2017-12-11] MEDS: OLANzapine TAB* 5 MG PO SCH (20:14)
[2017-12-12] MEDS: Levothyroxine TAB* 25 MCG TAB PO SCH (06:04)
[2017-12-12] MEDS: oxyCODONE TAB* 5 MG TAB PO PRN (06:04)
[2017-12-12] MEDS: CMCS Fenofibrate(NF) 145 MG TAB PO SCH (08:35)
[2017-12-12] MEDS: Docusate CAP* 100 MG PO SCH ×3 (08:35→20:09)
[2017-12-12] MEDS: Omeprazole CAP* 20 MG PO SCH ×2 (08:35→20:08)
[2017-12-12] MEDS: Rivaroxaban TAB(*) 15 MG PO SCH ×2 (08:35→20:08)
--- NOTE | 2017-12-12 10:21 | PN ---
Subjective Date of Service: 12/12/17 Interval History: Mr. Stevenson reports some back pain which is chronic for him but denies other complaint. He denies chest pain, SOB, nausea, or abdominal pain. He is happy with the plan for discharge to home today. Objective Active Medications: Acetaminophen (Tylenol Tab*) 650 mg PO Q6H PRN Albuterol (Ventolin 2.5 Mg/3 Ml Neb.Jade*) 2.5 mg INH Q2H PRN Atorvastatin Calcium (Lipitor*) 5 mg PO BEDTIME IRENE Docusate Sodium (Colace Cap*) 100 mg PO TID IRENE Fenofibrate (Tricor(Nf)) 145 mg PO DAILY IRENE; Protocol Gabapentin (Neurontin Cap(*)) 300 mg PO BEDTIME IRENE Levothyroxine Sodium (Synthroid Tab*) 25 mcg PO 0600 IRENE Melatonin (Melatonin) 3 mg PO BEDTIME PRN; Protocol Olanzapine (Zyprexa Tab*) 5 mg PO BEDTIME IRENE Omeprazole (Prilosec Cap*) 20 mg PO BID IRENE Ondansetron HCl (Zofran Odt Tab*) 4 mg PO Q6H PRN Oxycodone HCl (Roxycodone Tab*) 5 mg PO Q4H PRN Rivaroxaban (Xarelto(*)) 15 mg PO BID IRENE Tamsulosin HCl (Flomax Cap*) 0.4 mg PO BEDTIME IRENE Tramadol HCl (Ultram*) 50 mg PO TID PRN Vital Signs: Temp Pulse Resp BP Pulse Ox 97.7 F 85 12 112/75 100 12/12/17 07:21 12/12/17 07:21 12/12/17 08:28 12/12/17 07:21 12/12/17 07:21 Oxygen Devices in Use Now: None Appearance: Male sitting up in chair in NAD Eyes: No Scleral Icterus Ears/Nose/Mouth/Throat: Mucous Membranes Moist Neck: Trachea Midline Respiratory: Symmetrical Chest Expansion and Respiratory Effort, Clear to Auscultation Cardiovascular: NL Sounds; No Murmurs; No JVD, No Edema Abdominal: NL Sounds; No Tenderness; No Distention Extremities: No Edema Neurological: Alert and Oriented x 3 Nutrition: Taking PO's Result Diagrams: 12/10/17 06:42 12/09/17 06:23 Additional Lab and Data: . Microbiology and Other Data: . Assess/Plan/Problems-Billing Assessment: Mr. Stevenson is a 77 M with a PMH of chronically impaired mobility with Cspine and other injuries, hx of GI bleed 04/2017, and afib who was admitted on with a large right sided pulmonary embolism now found to have cor pulmonale and extensive bilateral DVTs. - Patient Problems (1) Pulmonary embolism Comment: - Asymptomatic. - Remains hemodynamically stable. Despite extensive clot burden, his sPESI score is only 1 giving him an 8.9% risk of . - With cor pulmonale and extensive DVTs. - Continue xarelto. - Does have a history of GI bleed in the past. Monitor stool and H/H closely - Question occult malignancy given extensive DVTs. Is fairly immobile but has been this way for some time. Has had multiple colonoscopies, most recent with finding of severe diverticulosos. CT chest/abd/pelvis only showed PE on arrival. (2) Anemia Comment: - Chronic anemia, at baseline. (3) Hypotension Comment: - SBP 100-120s. - Hold furosemide until follow up with PCP. (4) Skin ulcer Comment: - Chronic non-healing wound, would recommend biopsy if patient able to go off anticoagulation in the future. Though ulcer could be related to chin rubbing against chest with severe scoliosis. (5) Malnutrition Comment: - Protein calorie malnutrition. - Appreciate nutrition consult (6) Atrial fibrillation Comment: - NSR on admission. In regular rate today - Anticoagulation was held due to h/o of frequent falls in the past. (7) Arm dysfunction Comment: - Pt describes 2 separate injuries to L arm. contracted at baseline (8) Back pain Comment: - Chronic, h/o c spine surgery in past - Cont oxycodone and tramadol. (9) Weakness of both lower extremities Comment: - Appreciate PT eval, patient able to ambulate short distance with walker. At baseline. (10) GERD (gastroesophageal reflux disease) Comment: - Continue Omeprazole. (11) Hypothyroidism Comment: - Continue levothyroxine. (12) DVT prophylaxis Comment: - Lovenox (13) Full code status Comment: Status and Disposition: Inpatient. Discharge to home.
--- NOTE | 2017-12-12 11:42 | DS ---
CC: Delfino Bell RPA* DATE OF ADMISSION: 12/08/2017. DATE OF DISCHARGE: 12/12/2017. ATTENDING PHYSICIAN: Dr. Sheri Benson * (dictation provided by Yarelis Oliver NP ). PRIMARY DIAGNOSES: 1. Submassive pulmonary embolism with acute cor pulmonale. 2. Extensive bilateral lower extremity DVT's. SECONDARY DIAGNOSES: 1. History of CVA. 2. Chronic A-fib. 3. Rheumatoid arthritis. 4. Hypertension. 5. Hyperlipidemia. 6. Hypothyroidism. 7. History of renal failure related to NSAID use with ZARIA inhibitors. 8. Hepatic abscess. 9. Cervical spine surgery with left-sided weakness and sequela. 10. GERD. 11. BPH. 12. Kyphosis. MEDICATIONS AT THE TIME OF DISCHARGE: 1. Triamcinolone cream 0.1% topically b.i.d. prn. 2. Loratadine 10 mg p.o. q.a.m. 3. Tylenol 325 mg p.o. q.6 hours prn. 4. Docusate 100 mg p.o. t.i.d. 5. Tramadol 50 mg p.o. t.i.d. prn. 6. Zyprexa 5 mg p.o. at bedtime. 7. Gabapentin 300 mg p.o. at bedtime. 8. Folic acid 1 mg p.o. daily. 9. Ferrous Sulfate 325 mg p.o. at bedtime. 10. Vitamin B complex one cap p.o. daily. 11. Omeprazole 20 mg p.o. b.i.d. 12. Magnesium Oxide 250 mg p.o. b.i.d. 13. Tamsulosin 0.4 mg p.o. at bedtime. 14. Levothyroxine 25 mcg p.o. daily. 15. Lovastatin 20 mg p.o. at bedtime. 16. Fenofibrate 145 mg p.o. daily. 17. Rivaroxaban 15 mg p.o. b.i.d. times 18 days followed by 20 mg p.o. daily indefinitely. HOSPITAL COURSE: Mr. Stevenson is a 77-year-old male with a past medical history of CVA, chronic back pain, rheumatoid arthritis, and left-sided weakness related to the surgical cervical spine injury who presented to the hospital on 12/08/2017 after a fall with concern for left posterior shoulder pain and low back pain. Please see the dictate history and physical from Dr. Lucian Farah for complete details. In brief, the patient was fairly immobile, though able to walk short distances. He generally gets around in a wheelchair. He reported that he fell and landed on his back with complaint of low back pain with left posterior shoulder pain. In the emergency room, he had a CT chest, abdomen, and pelvis due to back and flank pain which showed "large pulmonary emboli in the right main pulmonary artery extending into the lobar and segmental arteries of the right upper lobe, right lower lobe, and right middle lobe; there is a filling defect noted in the left lower lobe and left lingular branch of the left upper lobe pulmonary arteries; these are consistent with large pulmonary emboli." The remainder of his work-up did include a CT of the brain which showed no obvious injury and a cervical spine CT which showed "study is limited due to kyphosis deformity and limited optimal position within the CT gantry; no fracture is identified." The patient's labs were remarkable for a troponin on arrival of 0.48. This ultimately peaked at 0.98. He also had a leukocytosis with a white blood cell count of 15.8. His ABG showed a pH of 7.49, PCO2 42, PO2 90, bicarbonate 31.1. The remainder of his labs were unremarkable. He was satting well on two liters nasal cannula with blood pressure in the 110s. Mr. Stevenson was admitted to the hospital and treated with Heparin intravenously. He went on to have a transthoracic echocardiogram which showed "the right ventricle is moderately dilated, the ejection fraction is 60 to 65 percent, the right ventricular global systolic function is moderately to severely reduced with a relative preservation of the proximal RV free wall and the apex consistent with Bhardwaj's sign, findings consistent with cor pulmonale, and these were new compared to prior echo from September 2015." The patient went on for a venous Doppler study which showed extensive bilateral deep venous thrombosis. Despite the severity of his PE with acute cor pulmonale and extensive DVT's, the patient has done very well. He has remained off oxygen since shortly after admission. He is able to ambulate per his baseline in his room without chest pain or shortness of breath. He has been maintained on a Heparin drip until last evening when he was transitioned over to Xarelto which he will need to continue indefinitely. Mr. Stevenson does have very limited mobility, but it is unclear why at this point , after long-term limited mobility, he would have an unprovoked DVT and PE. Certainly malignancy is a concern. He is up-to-date on his colonoscopy as far as I can tell from the record and from his report. Again, the chest, abdomen, and pelvis CT failed to show any tumor burden. I would recommend that he follow -up closely with his primary care provider regarding continued evaluation for underlying causes of his DVT, PE, and for continued management. The only other item of note during the hospitalization is the patient's blood pressure has been running about 110s to 120s and this is off his Furosemide. I am recommending that he hold Furosemide until he follows up with his primary care physician. DISPOSITION: To home. DIET: Low salt. ACTIVITY: As tolerated. FOLLOW-UP PLANS: Please follow-up with your primary care provider in the next week regarding this acute hospitalization. Approximately 60 minutes were spent in the discharge of this patient, more than half that time was spent with the patient at the bedside reviewing the events leading up to this hospitalization, performing the physical examination, and reviewing the plan of care. ADDENDUM TO DISCHARGE SUMMARY: Mr. Stevenson's nurse, who cares for him at home, noted some concern about continuing to care for him independently. He has been having difficulty obtaining new aides to supplement his care during the day. The patient was ambulated and noted to be independent per Physical Therapy. I also evaluated the patient with his home nurse. The patient was witnessed to be independent with mobility though he is frail and elderly. The patient is adamant that he would not want to go to the [facility] and the nurse is also reluctant to consider that as well and she would like to continue to try to care for him at home. She is requesting home visiting nursing service. We will follow up with the case management staff when they are available after the holiday. YARELIS OLIVER NP [id number]/CPS #: [id number]/CPS #: [id number] CITLALI
[2017-12-12] MEDS: Atorvastatin* 10 MG TAB PO SCH (20:08)
[2017-12-12] MEDS: Gabapentin CAP(*) 300 MG PO SCH (20:09)
[2017-12-12] MEDS: OLANzapine TAB* 5 MG PO SCH (20:09)
[2017-12-12] MEDS: Tamsulosin CAP* 0.4 MG PO SCH (20:10)
[2017-12-13] MEDS: Levothyroxine TAB* 25 MCG TAB PO SCH (06:16)
[2017-12-13] MEDS: CMCS Fenofibrate(NF) 145 MG TAB PO SCH (10:06)
[2017-12-13] MEDS: Rivaroxaban TAB(*) 15 MG PO SCH (10:07)
[2017-12-13] MEDS: Omeprazole CAP* 20 MG PO SCH (10:07)
[2017-12-13] MEDS: Docusate CAP* 100 MG PO SCH ×2 (10:07→13:17)
--- NOTE | 2017-12-13 10:51 | PN ---
Subjective Date of Service: 12/13/17 Interval History: Mr. Stevenson had been planned for discharge yesterday but his nurse came in to pick him in and voiced concern about the fact that he will be alone during the day now. 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 She reports hiring 3 different aides, none of which worked out. Objective Active Medications: Acetaminophen (Tylenol Tab*) 650 mg PO Q6H PRN Albuterol (Ventolin 2.5 Mg/3 Ml Neb.Jade*) 2.5 mg INH Q2H PRN Atorvastatin Calcium (Lipitor*) 5 mg PO BEDTIME IRENE Docusate Sodium (Colace Cap*) 100 mg PO TID IRENE Fenofibrate (Tricor(Nf)) 145 mg PO DAILY IRENE; Protocol Gabapentin (Neurontin Cap(*)) 300 mg PO BEDTIME IRENE Levothyroxine Sodium (Synthroid Tab*) 25 mcg PO 0600 IRENE Melatonin (Melatonin) 3 mg PO BEDTIME PRN; Protocol Olanzapine (Zyprexa Tab*) 5 mg PO BEDTIME IRENE Omeprazole (Prilosec Cap*) 20 mg PO BID IRENE Ondansetron HCl (Zofran Odt Tab*) 4 mg PO Q6H PRN Oxycodone HCl (Roxycodone Tab*) 5 mg PO Q4H PRN Rivaroxaban (Xarelto(*)) 15 mg PO BID IRENE Tamsulosin HCl (Flomax Cap*) 0.4 mg PO BEDTIME IRENE Tramadol HCl (Ultram*) 50 mg PO TID PRN Vital Signs: Temp Pulse Resp BP Pulse Ox 98.9 F 85 17 114/71 100 12/13/17 08:03 12/13/17 08:03 12/13/17 08:03 12/13/17 08:03 12/13/17 08:03 Oxygen Devices in Use Now: None Result Diagrams: 12/10/17 06:42 12/09/17 06:23 Additional Lab and Data: . Microbiology and Other Data: . Assess/Plan/Problems-Billing Assessment: Mr. Stevenson is a 77 M with a PMH of chronically impaired mobility with Cspine and other injuries, hx of GI bleed 04/2017, and afib who was admitted on with a large right sided pulmonary embolism now found to have cor pulmonale and extensive bilateral DVTs. - Patient Problems (1) Pulmonary embolism Comment: - Asymptomatic. - Remains hemodynamically stable. Despite extensive clot burden, his sPESI score is only 1 giving him an 8.9% risk of . - With cor pulmonale and extensive DVTs. - Continue xarelto. - Does have a history of GI bleed in the past. Monitor stool and H/H closely - Question occult malignancy given extensive DVTs. Is fairly immobile but has been this way for some time. Has had multiple colonoscopies, most recent with finding of severe diverticulosos. CT chest/abd/pelvis only showed PE on arrival. (2) Anemia Comment: - Chronic anemia, at baseline. (3) Hypotension Comment: - SBP 100-120s. - Hold furosemide until follow up with PCP. (4) Skin ulcer Comment: - Chronic non-healing wound, would recommend biopsy if patient able to go off anticoagulation in the future. Though ulcer could be related to chin rubbing against chest with severe scoliosis. (5) Malnutrition Comment: - Protein calorie malnutrition. - Appreciate nutrition consult (6) Atrial fibrillation Comment: - NSR on admission. In regular rate today - Anticoagulation was held due to h/o of frequent falls in the past. (7) Arm dysfunction Comment: - Pt describes 2 separate injuries to L arm. contracted at baseline (8) Back pain Comment: - Chronic, h/o c spine surgery in past - Cont oxycodone and tramadol. (9) Weakness of both lower extremities Comment: - Appreciate PT eval, patient able to ambulate short distance with walker. At baseline. (10) GERD (gastroesophageal reflux disease) Comment: - Continue Omeprazole. (11) Hypothyroidism Comment: - Continue levothyroxine. (12) DVT prophylaxis Comment: - Lovenox (13) Full code status Comment: Status and Disposition: Inpatient. Discharge to home. Discussed plan again with patient's nurse, Dimitri , and she is now amenable to taking him home as both she and the patient do not want to consider custodial placement at this time.
[2017-12-13 16:25] VITALS: BP 92/62
[2017-12-13] MEDS: Acetaminophen TAB* 325 MG PO PRN (17:18)
--- NOTE | 2017-12-13 22:09 | DS ---
DISCHARGE SUMMARY: ADDENDUM: Mr. Stevenson's nurse, who cares for him at home, noted some concern about continuing to care for him independently. He has been having difficulty obtaining new aides to supplement his care during the day. The patient was ambulated and noted to be independent per Physical Therapy. I also evaluated the patient with his home nurse. The patient was witnessed to be independent with mobility though he is frail and elderly. The patient is adamant that he would not want to go to the [facility] and the nurse is also reluctant to consider that as well and she would like to continue to try to care for him at home. She is requesting home visiting nursing service. We will follow up with the case management staff when they are available after the holiday. OCTAVIO MOYER NP [id number]/[facility] #: [id number] CITLALI
== END 2017-12-13 20:22 | disposition home health service (06) | DRG 175 ==
LOC: ED 19:21 → MEDTELE 22:44 → MED 12-11 23:04
PROVIDERS: ADMIT Hospitalist; ATTEND Internal Medicine
DX: I26.09 Other pulmonary embolism with acute cor pulmonale (principal); I82.403 Acute embolism and thrombosis of unspecified deep veins of lower extremity, bilateral; E46 Unspecified protein-calorie malnutrition; Z68.1 Body mass index [BMI] 19.9 or less, adult; E03.9 Hypothyroidism, unspecified; E78.00 Pure hypercholesterolemia, unspecified; I10 Essential (primary) hypertension; J42 Unspecified chronic bronchitis; K21.9 Gastro-esophageal reflux disease without esophagitis; K57.90 Diverticulosis of intestine, part unspecified, without perforation or abscess without bleeding; M19.90 Unspecified osteoarthritis, unspecified site; M06.9 Rheumatoid arthritis, unspecified; I48.2 Chronic atrial fibrillation; N40.0 Benign prostatic hyperplasia without lower urinary tract symptoms; M40.209 Unspecified kyphosis, site unspecified; E78.2 Mixed hyperlipidemia; I48.0 Paroxysmal atrial fibrillation; X58.XXXS Exposure to other specified factors, sequela; R09.02 Hypoxemia; D64.9 Anemia, unspecified; I95.9 Hypotension, unspecified; L98.499 Non-pressure chronic ulcer of skin of other sites with unspecified severity; M24.542 Contracture, left hand; G89.29 Other chronic pain; M54.9 Dorsalgia, unspecified; R53.1 Weakness; M41.9 Scoliosis, unspecified; Z79.01 Long term (current) use of anticoagulants; Z98.1 Arthrodesis status; S14.5XXS Injury of cervical sympathetic nerves, sequela; Z87.891 Personal history of nicotine dependence; Z82.49 Family history of ischemic heart disease and other diseases of the circulatory system; Z83.3 Family history of diabetes mellitus; Z72.89 Other problems related to lifestyle; Z99.3 Dependence on wheelchair
CPT/HCPCS: 36415; 70450; 71045; 71260; 72125; 74177; 80048; 80053; 80320; 82550; 82803; 83605; 83690; 84484; 85025; 85610; 87040; 93005; 93306; 93970; 94640; 99281; A9270-GY; G0480; G8978-GP-CL; G8979-GP-CK; G8987-GO-CM; G8988-GO-CJ; J0696; J1650; Q9967

== ENCOUNTER 2018-07-14 17:48 | Inpatient (IN) | payer MEDICARE, OTHER ==
[2018-07-14] MEDS ORDERED: NS 0.9% 1000 ML** 1,000 ML IV.FLUID IV ONE (18:01)
--- NOTE | 2018-07-14 18:01 | ED ---
Neurological HPI - HPI Summary HPI Summary: An 78 y/o male brought in by [facility] presents to [facility] with a chief complaint of weakness on 07/14/18. Per EMS, the patient was going in and out of consciousness and was hypotensive en route. In the ED he reports that he fell "a long time ago". He denies fever, chills, erythema (eyes), sore throat, chest pain, shortness of breath, cough, abdominal pain, vomiting, nausea, dysuria, hematuria , myalgia, edema, rash and dizziness. At triage he rated his pain as a 0/10 in severity. - History of Current Complaint Stated Complaint: WEAKNESS Time Seen by Provider: 07/14/18 17:52 Hx Obtained From: Patient, EMS Onset/Duration: Sudden Onset, Started hours ago, Still Present Onset Severity: Mild Current Severity: Mild Pain Intensity: 0 Pain Scale Used: 0-10 Numeric Character: Other: - in and out of consciousness Syncope Context: Unknown Aggravating: Nothing Alleviating: Nothing Associated Signs and Symptoms: Positive: Loss of Consciousness. Negative: Nausea/Vomiting, Fever, Diarrhea, Chest Pain - Additional Pertinent History Primary Care Physician: LETA - Allergy/Home Medications Allergies/Adverse Reactions: Allergies Allergy/AdvReac Type Severity Reaction Status Date / Time No Known Allergies Allergy Verified 04/10/17 13:20 Home Medications: Home Medications Calcium Carb/Vit D3/Minerals [Calcium 600+D Plus Minerals Tb] 1 tab PO BID 07/14 [History Confirmed 07/14/18] Fenofibrate(NF) [Tricor(NF)] 145 mg PO DAILY 07/14/18 [History Confirmed ] Ferrous Sulfate TAB* 650 mg PO DAILY 07/14/18 [History Confirmed 07/14/18] Gabapentin CAP(*) [Neurontin 300 CAP(*)] 300 mg PO BEDTIME 07/14/18 [History Confirmed 07/14/18] Omeprazole CAP (NF) [Prilosec CAP* 20 MG] 20 mg PO DAILY 07/14/18 [History Confirmed 07/14/18] PMH/Surg Hx/FS Hx/Imm Hx Endocrine/Hematology History: Reports: Hx Thyroid Disease - hypo Denies: Hx Diabetes Cardiovascular History: Reports: Hx Hypercholesterolemia, Hx Hypotension - LOW BLOOD PRESSURE TODAY, Hx Hypertension, Other Cardiovascular Problems/Disorders - 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 Respiratory History: Reports: Hx Chronic Bronchitis Denies: Hx Chronic Obstructive Pulmonary Disease (COPD) GI History: Reports: Hx Diverticulosis, Hx Gastroesophageal Reflux Disease, Other GI Disorders - liver abscess History: Reports: Hx Benign Prostatic Hyperplasia Denies: Hx Dialysis, Hx Renal Disease Comment Only: Other Problems/Disorders - renal failure r/t NSAID+ACEI Musculoskeletal History: Reports: Hx Arthritis, Hx Rheumatoid Arthritis, Hx Back Problems Denies: Hx Osteoporosis Sensory History: Reports: Hx Contacts or Glasses, Hx Hearing Aid, Hx Hearing Problem Opthamlomology History: Reports: Hx Contacts or Glasses Neurological History: Reports: 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, 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 Denies: Hx Dementia, Hx Seizures - Surgical History Surgery Procedure, Year, and Place: CERVICAL SURGERY C4-C6, right ear,LIVER ABSCESS, LEFT TESTICLE Hx Anesthesia Reactions: No - Immunization History Date of Tetanus Vaccine: Unk Date of Influenza Vaccine: Unk - Family History Known Family History: Positive: Hypertension, Diabetes Negative: Cardiac Disease - Social History Alcohol Use: Occasionally Alcohol Amount: socially Hx Substance Use: No Substance Use Type: Reports: None Hx Tobacco Use: Yes - QUIT 60 YRS AGO Smoking Status (MU): Former Smoker Type: Cigars Amount Used/How Often: OCCASIONAL Have You Smoked in the Last Year: Yes Review of Systems Negative: Fever, Chills Negative: Erythema Negative: Sore Throat Negative: Chest Pain Negative: Shortness Of Breath, Cough Negative: Abdominal Pain, Diarrhea, Nausea Negative: dysuria, hematuria Negative: Myalgia, Edema Negative: Rash Neurological: Other - Positive: Per EMS patient was going in and out of consciousness. Positive: Weakness All Other Systems Reviewed And Are Negative: Yes Physical Exam - Summary Physical Exam Summary: Constitutional: Well-developed, Well-nourished, Alert. (-) Distressed Skin: Warm, Dry HENT: Normocephalic; Atraumatic Eyes: Conjunctiva normal Neck: Musculoskeletal ROM normal neck. (-) JVD, (-) Stridor, (-) Tracheal deviation Cardio: Rhythm regular, rate normal, Heart sounds normal; Intact distal pulses; The pedal pulses are 2+ and symmetric. Radial pulses are 2+ and symmetric. (-) Murmur Pulmonary/Chest wall: Effort normal. (-) Respiratory distress, (-) Wheezes, (-) Rales Abd: Soft, (-) epigastric tenderness, (-) Distension, (-) Guarding, (-) Rebound Musculoskeletal: (-) Edema, stage one decubitus ulcers posterior calf, escar overlying sacrum part of his decubitus ulcers. Lymph: (-) Cervical adenopathy Neuro: Alert, Oriented x3 Psych: Mood and affect Normal Triage Information Reviewed: Yes Vital Signs On Initial Exam: Initial Vitals Temp Pulse Resp BP Pulse Ox 99.4 F 105 20 97/65 93 07/14/18 17:57 07/14/18 17:57 07/14/18 17:57 07/14/18 17:57 07/14/18 17:57 Vital Signs Reviewed: Yes Diagnostics - Vital Signs Vital Signs Temp Pulse Resp BP Pulse Ox 07/14/18 17:57 99.4 F 105 20 97/65 93 - Laboratory Result Diagrams: 07/18/18 03:40 07/18/18 03:40 Lab Statement: Any lab studies that have been ordered have been reviewed, and results considered in the medical decision making process. - Radiology CXR Radiology Interpretation Completed By: ED Physician Summary of Radiographic Findings: Multifocal infiltrate. Pending official radiology report. - EKG 18:03 Cardiac Rate: Tachycardia - 106 bpm EKG Rhythm: Sinus Tachycardia Summary of EKG Findings: Sinus tachycardia at 106 bpm. No STEMI. Course/Dx - Course Course Of Treatment: An 78 y/o male brought in by [facility] presents to [facility] with a chief complaint of weakness on 07/14/18. Per EMS, the patient was going in and out of consciousness and was hypotensive en route. The physical exam revealed stage one decubitus ulcers posterior calf, escar overlying sacrum part of his decubitus ulcers. EKG at 18:03 revealed sinus tachycardia at 106 bpm. Lab results obtained. Troponin of 0.07 at 18:37. In the ED course the patient was given Gabapentin PO, Heparin, Xarelto PO and Azithromycin IV. Case discussed with Dr. Benson, who accepted the patient for admission. The patient is agreeable with this plan. - Diagnoses Provider Diagnoses: Multifocal pneumonia, Decubitus ulcer, Severe sepsis - Physician Notifications Discussed Care Of Patient With: Sheri Benson Time Discussed With Above Provider: 20:20 Instructed by Provider To: Admit As Inpatient Discharge - Sign-Out/Discharge Documenting (check all that apply): Patient Departure - admit Patient Received Moderate/Deep Sedation with Procedure: No - Discharge Plan Condition: Improved Disposition: ADMITTED TO [facility] - Billing Disposition and Condition Condition: IMPROVED Disposition: Admitted to [facility] - Attestation Statements Document Initiated by Brittonibe: Yes Documenting Scribe: Roberth Ford Provider For Whom Scribe is Documenting (Include Credential): Juan Ruth MD Scribe Attestation: Roberth Morales, scribed for Juan Ruth MD on 07/21/18 at 1023. Scribe Documentation Reviewed: Yes Provider Attestation: The documentation as recorded by the Roberth nugent accurately reflects the service I personally performed and the decisions made by Juan solis MD Status of Scribe Document: Viewed
[2018-07-14] MEDS ORDERED: Vancomycin(*) 1,250 MG in NS 0.9% 250 ML* 250 ML IVPB ONE (18:02)
[2018-07-14] MEDS ORDERED: cefTRIAXone(*) 1 GM in NS 0.9% 50 ML* 50 ML IVPB ONE (18:02)
[2018-07-14 19:05] LABS: ABS Basophils 0 10^3/ul (0-0.2); ABS Eosinophils 0 10^3/ul (0-0.6); ABS Lymphocytes 0.3 10^3/ul (1.0-4.8); ABS Monocytes 0.3 10^3/ul (0-0.8); ABS Neutrophils 10.8 10^3/ul (1.5-7.7); ABS Nucleated RBC 0 10^3/ul; Eosinophil % 0 %; Hematocrit 32 % (42-52); Hemoglobin 10.5 g/dl (14.0-18.0); Lymphocyte % 2.8 %; Mean Corpuscular HGB Conc 33 g/dl (31-36); Mean Corpuscular Hemoglobin 26 pg (27-31); Mean Corpuscular Volume 80 fL (80-94); Mean Platelet Volume 7.8 fL (7.4-10.4); Nucleated Red Blood Cells % 0; Platelet Count 168 10^3/ul (150-450); Red Blood Count 4.04 10^6/ul (4.00-5.40); Red Cell Distribution Width 18 % (10.5-15); White Blood Count 11.4 10^3/ul (3.5-10.8)
[2018-07-14 19:15] LABS: Activated Partial Thrombo Time 48.2 seconds (26.0-36.3); INR 2.79 (0.77-1.02)
[2018-07-14 19:26] LABS: Albumin 2.7 g/dL (3.2-5.2); Albumin/Globulin Ratio 0.8 (1-3); BUN/Creatinine Ratio 32.4 (8-20); Calcium 7.8 mg/dL (8.6-10.3); EGFR African American 135.8 (>60); EGFR Non-African American 112.2 (>60); Globulin 3.2 g/dL (2-4); Potassium 4.2 mmol/L (3.5-5.0); Total Bilirubin 0.4 mg/dL (0.2-1.0); Total Protein 5.9 g/dL (6.4-8.9)
[2018-07-14 19:31] LABS: Troponin I 0.07 ng/mL (<0.04)
[2018-07-14 19:35] LABS: Urine Appearance Clear; Urine Bacteria Absent (Absent); Urine Bilirubin Negative (Negative); Urine Blood 3+ (Negative); Urine Color Amber; Urine Glucose Negative (Negative); Urine Ketones Negative (Negative); Urine Nitrite Negative (Negative); Urine Protein Negative (Negative); Urine Red Blood Cell 3+(>10/hpf) (Absent); Urine Specific Gravity 1.019 (1.010-1.030); Urine Urobilinogen Negative (Negative); Urine White Blood Cell Trace(0-5/hpf) (Absent)
[2018-07-14] MEDS ORDERED: Azithromycin IV(*) 500 MG in NS 0.9% 250 ML* 250 ML IVPB ONE (20:11)
[2018-07-14 20:14] LABS: C Reactive Protein 156.6 mg/L (<8.01)
[2018-07-14] MEDS ORDERED: Piperacillin/Tazobac ADVAN(*) 3.375 GM in NS 0.9% 100 ML* 100 ML IVPB ONE (20:51)
[2018-07-14] MEDS ORDERED: Al Hydrox/Mg Hydrox/Simet LIQ* 30 ML UDC PO PRN (20:56)
[2018-07-14] MEDS ORDERED: Acetaminophen TAB* 325 MG PO PRN (20:56)
[2018-07-14] MEDS ORDERED: oxyCODONE/Acetamin 5/325 MG* TAB PO PRN (20:56)
[2018-07-14] MEDS ORDERED: traMADol TAB* 50 MG PO PRN (20:59)
[2018-07-14] MEDS ORDERED: Zosyn per Pharmacy* NOTE FOLLOW UP SCH (21:00)
[2018-07-14] MEDS ORDERED: Gabapentin CAP(*) 300 MG PO SCH (21:00)
[2018-07-14] MEDS ORDERED: Gabapentin CAP(*) 300 MG PO ONE (21:27)
[2018-07-14] MEDS ORDERED: Heparin VIAL(*) 5000 UNITS/ML VIAL (FIVE THOUSAND) SUBCUT SCH (22:00)
--- NOTE | 2018-07-14 22:09 | HP ---
ADDENDUM: Please note that the patient's correct medication list that was confirmed with our pharmacy billing adjudicator through the patient's pharmacy at home includes. 1. Gabapentin 300 mg at bedtime. 2. Olanzapine 5 mg b.i.d. 3. Vitamin B complex 1 capsule daily. 4. Ferrous sulfate 650 mg daily. 5. Omeprazole 20 mg daily. 6. Calcium carbonate. 7. Vitamin D 1 tablet b.i.d. 8. Tramadol 50 mg 3 times a day p.r.n. 9. Fenofibrate 145 mg daily. 10. Levothyroxine 25 mcg daily. 11. Folic acid 1 mg daily. 11. Lovastatin 20 mg at bedtime. 12. Tamsulosin 0.4 mg at bedtime. 13. Xarelto 20 mg daily. Due to the patient's different medication list, it appears that the patient is not on any blood pressure medications although he does have a history of hypertension in the past. The patient's current systolic pressures are in the 90s, due to that no blood pressure medications are going to be administered, especially that he is not on them at home. For DVT prophylaxis, the patient had been on Xarelto at home, as was just confirmed with the pharmacy, and that is going to be continued. [id number]/[facility] #: [id number] MTDD
[2018-07-14 22:41] LABS: TSH (Thyroid Stimulating Horm) 0.76 mcIU/mL (0.34-5.60)
[2018-07-14] MEDS: Docusate CAP* 100 MG PO SCH (23:56)
[2018-07-14] MEDS: OLANzapine TAB* 5 MG PO SCH (23:56)
--- NOTE | 2018-07-14 23:56 | HP ---
MEDICATION ADDENDUM NOW INCLUDED ON THIS REPORT CC: Dr. Hayden * HISTORY AND PHYSICAL: DATE OF ADMISSION: 07/14/18 PRIMARY CARE PROVIDER: Dr. Hayden. CHIEF COMPLAINT: Wounds on the back. HISTORY OF PRESENT ILLNESS: Jarrod Stevenson is an 78-year-old male, who is wheelchair- bound due to lumbar stenosis and subsequent development of left upper extremity contraction, bilateral lower extremity weakness as a consequence of trauma in the past, who was brought in by his brother Darrius with , as per family members stating, newly discovered bed wounds. Patient is a convoluted and not an entirely oriented historian. I spoke with the patient's brother Delmar who saw patient last time a week ago. Apparently, patient's privately hired health aide decided to move out of state. Patient's brother is not sure how often the aide was at the patient's place helping patient in the past week. Apparently, there is also a neighbor who helps patient. Patient is wheelchair-bound and he needs help to get up from bed to wheelchair. He states that he is able to feed himself. He appears malnourished with a necrotic area on his sacrum. He also appears septic and likely the source of the sepsis is the necrotic decubitus wound. He is going to be admitted with diagnoses of malnutrition, dehydration, decubitus wounds, and sepsis. PAST MEDICAL HISTORY: 1. History of hypertension. 2. Hyperlipidemia. 3. History of hypothyroidism. 4. Gastroesophageal reflux disease. 5. History of multiple spinal injuries in the past, status post cervical surgery in 2011 and repeated injury of the spine later on, leaving patient basically wheelchair-bound with bilateral lower extremity weakness and contractions on the left upper extremity. 6. History of liver abscess in the past. 7. History of chronic atrial fibrillation. 8. History of sacral decubitus ulcer noted during hospital stay in 2017. 9. History of DVT and PE noted in 2018. MEDICATIONS: Include: 1. Atenolol 50 mg daily. 2. Enalapril 20 mg daily. 3. Lovastatin 20 mg daily. 4. Hydrochlorothiazide 25 mg daily. 5. Calcium with vitamin D 600 mg twice a day. 6. Omeprazole 20 mg daily. 7. Meloxicam 7.5 mg daily. 8. Iron 65 mg 2 tablets daily. 9. Fish oil supplement 1000 mg daily. 10. Vitamin B complex 1 tablet daily. 11. Fenofibrate 134 mg daily. ALLERGIES: No known drug allergies. FAMILY HISTORY: Father with history of "gangrene" who at the age of 67. Mother who at the age of 82 due to "old age." Sister with history of diabetes. SOCIAL HISTORY: Patient quit smoking in the 1950s. There is no history of alcohol or drug use. He is . He lives at home with the help of a hired nurse and his brothers. His brothers, Delmar and Darrius Stevenson, are his healthcare proxies. Delmar's phone number is [phone]. Darrius' phone number is [phone]. REVIEW OF SYSTEMS: Very difficult to obtain from this patient, who is slightly disoriented. Patient is not sure if due to the cold temperatures in the past couple of days he had help at home. He stated that he is unable to get out by himself from bed. He stated that he is able to feed himself and that the food is, "They give it to me." He denies any fevers. It is painful for him to move from one side to the other due to back sores. He is unable to tell me how long they have been there. He denies any chest pain or shortness of breath or fevers. All the remaining 12 systems were reviewed with the patient, who is a very poor historian and were, otherwise, negative. PHYSICAL EXAMINATION GENERAL: Patient is a pleasant 78-year-old male who is of thin, emaciated body habitus. Patient is in no acute distress. He is oriented to his date of . He is able to tell me his age. He thinks it is 2015 and December. He is a rather poor historian with poor recall. VITAL SIGNS: Blood pressure of 102/66, heart rate of 89 and regular, respiratory rate of 20, oxygen saturation 92% on room air, and temperature 99.4. HEENT: Head atraumatic and normocephalic. Eyes: Pupils are equal and reactive to light and accommodation. Oropharynx clear. Mucosa dry. Poor dentition. NECK: Supple. No JVD. No bruits bilaterally. RESPIRATORY: Clear to auscultation bilaterally. CARDIOVASCULAR: Regular rate and rhythm. No murmur. ABDOMEN: Soft and nontender. Bowel sounds present in all 4 quadrants. EXTREMITIES: There is no edema. Pulses are +2 bilaterally. There is no clubbing or cyanosis. SKIN: Patient has multiple decubitus ulcers. He has a blister decubitus on the back of his right calf which is approximately 4 cm in diameter with an area of erythema surrounding it. There is no clear-cut cellulitis noted. Patient also has a necrotic decubitus ulcer with an area of dry gangrene overlying his sacrum of approximately 20 cm in diameter. That does not appear to be draining anything. He also has several decubitus areas of nonblanchable stage 2 decubitus on his left hip, right shoulder, right scapula, and back. NEUROLOGIC EVALUATION: Patient is contracted on the left side and his bilateral lower extremity strength is at 3+/5. His speech is clear. PSYCHIATRIC EVALUATION: Convoluted historian, not oriented to time. Cannot recall what happened in the past few days. LABORATORY DATA: White blood cell count of 11.4, hemoglobin of 10.5, hematocrit of 32, and platelets of 168. Sodium of 132, potassium 4.2, chloride 100, carbon dioxide 28, BUN 22, and creatinine of 0.68. Liver function tests showed bilirubin of 0.4, AST of 43, ALT of 31, alkaline phosphatase of 87. Troponin of 0.07. C-reactive protein of 156. Lactic acid of 1.3. Urinalysis +3 blood, +3 rbc's; otherwise, unremarkable. The urine visually appears to be tea colored, cloudy. Patient's portable chest x-ray shows no acute cardiopulmonary abnormalities. It was read by myself prior to the official radiologist report. Patient's EKG showed sinus tachycardia with a heart rate of 106 beats per minute with no ST changes. ASSESSMENT AND PLAN: 1. Patient is septic, likely from infection from decubiti. Although they do not appear to be draining, patient has necrotic skin on his back. I asked Dr. Flores to see patient in surgical consult in the morning. Dr. Flores stated that Dr. Gonogra will follow up on the consult in the morning from a surgical standpoint. Air mattress was provided for the patient. Patient is to be turned and/or positioned frequently and wound care consult is going to be provided. I spoke with the patient's brother Delmar, who is unsure if patient had help there in the past several days. I suspect that patient could have not had help in the past couple of days. Due to his blood in urine, it is positive that patient has mild rhabdomyolysis and CPK is going to be checked. 2. Patient's INR is 2.79 today. It is possible that he is on anticoagulation, although once again the medication list provided to me does not have anticoagulation on board. I will try to call his brother Darrius and discuss it further. 3. Patient has a history of pulmonary embolism and DVT. Will continue Xarelto 4. Patient appears malnourished. At this point, I do not have a BMI available , but he definitely has temporal muscle wasting, decreased amount of subcutaneous fat that basically does not appear to be present at this point. He also appears markedly dehydrated. I will check patient's prealbumin and ask Nutrition to see patient in consultation. 5. In regards to the patient's code status, I do not believe patient understands when he is asked about resuscitation. I spoke with his brother Delmar , who is one of the healthcare proxies, who is also not sure what to decide. At this point, patient is going to be a full code and the code status needs to be discussed further. 6. Patient has mildly elevated troponin, but no history of chest pain or shortness of breath. I will place patient on weight loss sales consultant bed and recheck troponin in the morning. I suspect he has demand ischemia due to ongoing infection and dehydration. TIME SPENT: Approximately 75 minutes were spent on the discharge of this patient, more than half the time was spent [id number] with the patient during the interview and physical exam. ADDENDUM: Please note that the patient's correct medication list that was confirmed with our pharmacy specialist through the patient's pharmacy at home includes. 1. Gabapentin 300 mg at bedtime. 2. Olanzapine 5 mg b.i.d. 3. Vitamin B complex 1 capsule daily. 4. Ferrous sulfate 650 mg daily. 5. Omeprazole 20 mg daily. 6. Calcium carbonate. 7. Vitamin D 1 tablet b.i.d. 8. Tramadol 50 mg 3 times a day p.r.n. 9. Fenofibrate 145 mg daily. 10. Levothyroxine 25 mcg daily. 11. Folic acid 1 mg daily. 11. Lovastatin 20 mg at bedtime. 12. Tamsulosin 0.4 mg at bedtime. 13. Xarelto 20 mg daily. [id number]/[facility] #: [id number]/[facility] #: [id number] [facility]
[2018-07-14] MEDS: Atorvastatin* 10 MG TAB PO SCH (23:57)
[2018-07-14] MEDS: Tamsulosin CAP* 0.4 MG PO SCH (23:57)
[2018-07-15] MEDS: NS 0.9% 1000 ML** 1,000 ML IV SCH ×2 (00:41→19:22)
[2018-07-15] MEDS: ZOSYN 3.375 GM Q8H per EXTENDED INFUSION IVPB SCH ×6 (04:23→20:01)
[2018-07-15] MEDS: Levothyroxine TAB* 25 MCG TAB PO SCH (06:06)
[2018-07-15 07:00] LABS: ABS Basophils 0 10^3/ul (0-0.2); ABS Eosinophils 0.1 10^3/ul (0-0.6); ABS Lymphocytes 0.3 10^3/ul (1.0-4.8); ABS Monocytes 0.3 10^3/ul (0-0.8); ABS Neutrophils 6.3 10^3/ul (1.5-7.7); ABS Nucleated RBC 0 10^3/ul; Eosinophil % 0.8 %; Hematocrit 30 % (42-52); Hemoglobin 9.9 g/dl (14.0-18.0); Lymphocyte % 3.6 %; Mean Corpuscular HGB Conc 33 g/dl (31-36); Mean Corpuscular Hemoglobin 26 pg (27-31); Mean Corpuscular Volume 79 fL (80-94); Mean Platelet Volume 7.6 fL (7.4-10.4); Nucleated Red Blood Cells % 0; Platelet Count 131 10^3/ul (150-450); Red Blood Count 3.77 10^6/ul (4.00-5.40); Red Cell Distribution Width 18 % (10.5-15); White Blood Count 6.9 10^3/ul (3.5-10.8)
[2018-07-15 07:16] LABS: BUN/Creatinine Ratio 30.2 (8-20); Calcium 7.7 mg/dL (8.6-10.3); EGFR African American 230.4 (>60); EGFR Non-African American 190.4 (>60); Potassium 3.2 mmol/L (3.5-5.0)
[2018-07-15 07:35] LABS: Troponin I 0.07 ng/mL (<0.04)
[2018-07-15] MEDS ORDERED: Rivaroxaban TAB(*) 20 MG TAB PO SCH (09:00)
[2018-07-15] MEDS: Docusate CAP* 100 MG PO SCH ×2 (10:02→20:03)
[2018-07-15] MEDS: Ferrous Sulfate TAB* 325 MG PO SCH (10:02)
[2018-07-15] MEDS: Folic Acid TAB* 1 MG PO SCH (10:02)
[2018-07-15] MEDS: Pantoprazole TAB * 40 MG TAB PO SCH (10:02)
[2018-07-15] MEDS: OLANzapine TAB* 5 MG PO SCH ×2 (10:02→20:03)
--- NOTE | 2018-07-15 10:55 | PN ---
Subjective Date of Service: 07/15/18 Interval History: Patient complains of LT hip pain. Denies sacral pain. States he lives in [place] with family. Admitted yesterday due to newly recognized decubitus ulcers. States he has no appetite. Family History: Unchanged from Admission Social History: Unchanged from Admission Past Medical History: Unchanged from Admission Objective Active Medications: Acetaminophen (Tylenol Tab*) 650 mg PO Q4H PRN PRN Reason: FEVER/PAIN Al Hydrox/Mg Hydrox/Simethicone (Maalox Plus*) 30 ml PO Q6H PRN PRN Reason: INDIGESTION Atorvastatin Calcium (Lipitor*) 5 mg PO BEDTIME [facility] Last Admin: 07/14/18 23:57 Dose: 5 mg Docusate Sodium (Colace Cap*) 100 mg PO BID [facility] Last Admin: 07/15/18 10:02 Dose: 100 mg Ferrous Sulfate (Ferrous Sulfate Tab*) 650 mg PO DAILY [facility] Last Admin: 07/15/18 10:02 Dose: 650 mg Folic Acid (Folvite Tab*) 1 mg PO DAILY [facility] Last Admin: 07/15/18 10:02 Dose: 1 mg Sodium Chloride (Ns 0.9% 1000 Ml) 1,000 mls @ 75 mls/hr IV PER RATE [facility] Last Admin: 07/15/18 00:41 Dose: 75 mls/hr Piperacillin Sod/Tazobactam (Sod 3.375 gm/ Sodium Chloride) 100 mls @ 25 mls/ hr IVPB Q8H [facility] Last Admin: 07/15/18 04:23 Dose: 25 mls/hr Levothyroxine Sodium (Synthroid Tab*) 25 mcg PO DAILY@0600 [facility] Last Admin: 07/15/18 06:06 Dose: 25 mcg Morphine Sulfate (Morphine Inj ((Syringe))*) 1 mg IV Q4H PRN PRN Reason: PAIN - MILD Olanzapine (Zyprexa Tab*) 5 mg PO BID [facility] Last Admin: 07/15/18 10:02 Dose: 5 mg Oxycodone/Acetaminophen (Percocet 5/325 Tab*) 1 tab PO Q4H PRN PRN Reason: Pain Pantoprazole Sodium (Protonix Tab*) 40 mg PO DAILY [facility] Last Admin: 07/15/18 10:02 Dose: 40 mg Pharmacy Consult (Zosyn Per Pharmacy*) 1 note FOLLOW UP .ZOSYN PER PHARMACY [facility] Rivaroxaban (Xarelto(*)) 15 mg PO QPM [facility] Tamsulosin HCl (Flomax Cap*) 0.4 mg PO BEDTIME [facility] Last Admin: 07/14/18 23:57 Dose: 0.4 mg Tramadol HCl (Ultram*) 50 mg PO TID PRN PRN Reason: PAIN Vital Signs - 8 hr 07/15/18 03:28 Pulse Rate 72 Blood Pressure 91/55 (mmHg) Oxygen Devices in Use Now: None Appearance: cachectic, alert Eyes: No Scleral Icterus Ears/Nose/Mouth/Throat: Clear Oropharnyx Neck: No Thyroid Enlargement, Masses Respiratory: Clear to Auscultation, Clear to Percussion Cardiovascular: NL Sounds; No Murmurs; No JVD, RRR Abdominal: NL Sounds; No Tenderness; No Distention, No Hepatosplenomegaly Extremities: No Edema Skin: - - stage 1 area LT hip greater troch, bandage LT upper chest, stage 3 ulcer covering entire sacrum, w/ fecal contamination Neurological: - - oriented to self, place Lines/Tubes/Other Access: Clean, Dry and Intact Peripheral IV Nutrition: Taking PO's Result Diagrams: 07/15/18 06:48 07/15/18 06:48 Additional Lab and Data: Laboratory Tests 07/15/18 06:48 Troponin I 0.07 H* Prealbumin 4 L Assess/Plan/Problems-Billing Assessment: 78 year old man admitted with sepsis due to multiple decubitus ulcers, acquired at home - Patient Problems (1) Sepsis Current Visit: Yes Status: Acute Priority: High Comment: -cultures negative to date, will follow -continue Zosyn -volume status is adequate now -source appears to be sacral decub (2) Anemia Current Visit: No Status: Acute Priority: Medium Code(s): D64.9 - ANEMIA, UNSPECIFIED SNOMED Code(s): 490011563 Comment: - due to chronic disease and malnutrition - will monitor (3) Sacral decubitus ulcer Current Visit: No Status: Acute Priority: High Comment: -current source of sepsis -Air matress and dressing changes daily ordered -wound consult pending (4) Hypokalemia Current Visit: Yes Status: Acute Priority: Medium Code(s): E87.6 - HYPOKALEMIA SNOMED Code(s): 85804071 Comment: -will check Mg -repleted PO -recheck in AM (5) Atrial fibrillation Current Visit: No Status: Chronic Priority: Medium Code(s): I48.91 - UNSPECIFIED ATRIAL FIBRILLATION SNOMED Code(s): 17769275 Comment: - NSR on admission. In regular rate today - Anticoagulation with Xarelto. (6) DVT prophylaxis Current Visit: No Status: Acute Priority: Low Code(s): GRU5925 - SNOMED Code(s): 265464904 Comment: - on xarelto Status and Disposition: Will need SNF-rehab or correction placement once acute treatment complete
[2018-07-15 11:43] LABS: Magnesium 1.8 mg/dL (1.9-2.7)
[2018-07-15] MEDS: Potassium Chlor TAB* 10 MEQ TAB.ER PO SCH ×2 (12:43→20:03)
[2018-07-15] MEDS: Rivaroxaban TAB(*) 15 MG PO SCH (19:20)
[2018-07-15] MEDS: Dakins Solution 0.25% (1/2 STR.)* 473 ML BTL TOPICAL SCH (19:21)
[2018-07-15] MEDS: Tamsulosin CAP* 0.4 MG PO SCH (20:03)
[2018-07-15] MEDS: Atorvastatin* 10 MG TAB PO SCH (20:04)
[2018-07-16] MEDS ORDERED: NS 0.9% 250 ML* 250 ML IV ONE (00:04)
[2018-07-16] MEDS: ZOSYN 3.375 GM Q8H per EXTENDED INFUSION IVPB SCH ×6 (05:01→20:10)
[2018-07-16] MEDS: Levothyroxine TAB* 25 MCG TAB PO SCH (05:02)
[2018-07-16] MEDS: NS 0.9% 1000 ML** 1,000 ML IV SCH ×2 (06:06→17:19)
[2018-07-16 06:40] LABS: ABS Basophils 0 10^3/ul (0-0.2); ABS Eosinophils 0.1 10^3/ul (0-0.6); ABS Lymphocytes 0.4 10^3/ul (1.0-4.8); ABS Monocytes 0.2 10^3/ul (0-0.8); ABS Neutrophils 5.9 10^3/ul (1.5-7.7); ABS Nucleated RBC 0 10^3/ul; Eosinophil % 1.7 %; Hematocrit 28 % (42-52); Hemoglobin 9.1 g/dl (14.0-18.0); Mean Corpuscular HGB Conc 33 g/dl (31-36); Mean Corpuscular Hemoglobin 26 pg (27-31); Mean Corpuscular Volume 78 fL (80-94); Nucleated Red Blood Cells % 0; Platelet Count 132 10^3/ul (150-450); Red Blood Count 3.57 10^6/ul (4.00-5.40); Red Cell Distribution Width 18 % (10.5-15); White Blood Count 6.6 10^3/ul (3.5-10.8)
[2018-07-16 06:58] LABS: BUN/Creatinine Ratio 22.5 (8-20); Calcium 7.9 mg/dL (8.6-10.3); EGFR African American 250.4 (>60); Potassium 3.5 mmol/L (3.5-5.0)
[2018-07-16] MEDS: Pantoprazole TAB * 40 MG TAB PO SCH (08:52)
[2018-07-16] MEDS: Potassium Chlor TAB* 10 MEQ TAB.ER PO SCH ×2 (08:52→20:13)
[2018-07-16] MEDS: Folic Acid TAB* 1 MG PO SCH (08:52)
[2018-07-16] MEDS: OLANzapine TAB* 5 MG PO SCH ×2 (08:52→20:12)
[2018-07-16] MEDS: Ferrous Sulfate TAB* 325 MG PO SCH (08:52)
[2018-07-16] MEDS: Docusate CAP* 100 MG PO SCH ×2 (08:52→20:12)
[2018-07-16] MEDS: Dakins Solution 0.25% (1/2 STR.)* 473 ML BTL TOPICAL SCH (11:04)
--- NOTE | 2018-07-16 11:18 | PN ---
Subjective Date of Service: 07/16/18 Interval History: Patient has no new complaints. He does have pain in buttocks/sacral area. At home he was able to get OOB to wheelchair. Ate some breakfast, has some appetite. Family History: Unchanged from Admission Social History: Unchanged from Admission Past Medical History: Unchanged from Admission Objective Active Medications: Acetaminophen (Tylenol Tab*) 650 mg PO Q4H PRN PRN Reason: FEVER/PAIN Last Admin: 07/15/18 20:04 Dose: 650 mg Al Hydrox/Mg Hydrox/Simethicone (Maalox Plus*) 30 ml PO Q6H PRN PRN Reason: INDIGESTION Atorvastatin Calcium (Lipitor*) 5 mg PO BEDTIME [facility] Last Admin: 07/15/18 20:04 Dose: 5 mg Docusate Sodium (Colace Cap*) 100 mg PO BID [facility] Last Admin: 07/16/18 08:52 Dose: 100 mg Ferrous Sulfate (Ferrous Sulfate Tab*) 650 mg PO DAILY [facility] Last Admin: 07/16/18 08:52 Dose: 650 mg Folic Acid (Folvite Tab*) 1 mg PO DAILY [facility] Last Admin: 07/16/18 08:52 Dose: 1 mg Sodium Chloride (Ns 0.9% 1000 Ml) 1,000 mls @ 75 mls/hr IV PER RATE [facility] Last Admin: 07/16/18 06:06 Dose: 75 mls/hr Piperacillin Sod/Tazobactam (Sod 3.375 gm/ Sodium Chloride) 100 mls @ 25 mls/ hr IVPB Q8H [facility] Last Admin: 07/16/18 11:07 Dose: 25 mls/hr Levothyroxine Sodium (Synthroid Tab*) 25 mcg PO DAILY@0600 [facility] Last Admin: 07/16/18 05:02 Dose: 25 mcg Morphine Sulfate (Morphine Inj ((Syringe))*) 1 mg IV Q4H PRN PRN Reason: PAIN - MILD Olanzapine (Zyprexa Tab*) 5 mg PO BID [facility] Last Admin: 07/16/18 08:52 Dose: 5 mg Oxycodone/Acetaminophen (Percocet 5/325 Tab*) 1 tab PO Q4H PRN PRN Reason: Pain Pantoprazole Sodium (Protonix Tab*) 40 mg PO DAILY [facility] Last Admin: 07/16/18 08:52 Dose: 40 mg Pharmacy Consult (Zosyn Per Pharmacy*) 1 note FOLLOW UP .ZOSYN PER PHARMACY [facility] Potassium Chloride (Klor Con Er Tab*) 10 meq PO BID [facility] Last Admin: 07/16/18 08:52 Dose: 10 meq Rivaroxaban (Xarelto(*)) 15 mg PO QPM [facility] Last Admin: 07/15/18 19:20 Dose: 15 mg Sodium Hypochlorite (Dakins Solution Half Stre) 1 applic TOPICAL DAILY [facility] Last Admin: 07/16/18 11:04 Dose: 1 applic Tamsulosin HCl (Flomax Cap*) 0.4 mg PO BEDTIME [facility] Last Admin: 07/15/18 20:03 Dose: 0.4 mg Tramadol HCl (Ultram*) 50 mg PO TID PRN PRN Reason: PAIN Vital Signs - 8 hr 07/16/18 07/16/18 07:27 08:00 Temperature 36.8 C Pulse Rate 63 Respiratory 20 20 Rate Blood Pressure 100/53 (mmHg) O2 Sat by Pulse 97 97 Oximetry Oxygen Devices in Use Now: None Appearance: cachectic, alert Eyes: No Scleral Icterus Ears/Nose/Mouth/Throat: Clear Oropharnyx Neck: Trachea Midline Respiratory: Symmetrical Chest Expansion and Respiratory Effort, - - rales LT base, otherwise clesar Cardiovascular: NL Sounds; No Murmurs; No JVD Abdominal: NL Sounds; No Tenderness; No Distention, No Hepatosplenomegaly Skin: - - bandages on upper back, sacrum, RT calf not taken down. No heel ulcers - Nutrition: Malnutrition Diagnosis/Plan Malnutrition Assessment by Registered Dietitian: Malnutrition Assessment Clinical Characteristics Severe,Environmental Malnutrition Assessment: < or = 50% of est needs x >or= 1 mo Criteria severe body fat loss as evidenced by moderate to severe temporal and clavicular wasting on observation severe muscle mass wasting as evidenced by moderate to severe temporal and clavicular wasting on observation Malnutrition Assessment: regular diet with mech ground texture to ease Interventions chewing Ensure Enlive (nadege preferred by pt) at BLD: 350 kcal, 20 g pro Encouraged pt to drink the Ensure; will follow acceptance/tolerance Malnutrition Assessment: Goals 1. Pt will tolerate least restrictive diet texture without evidence of difficulty chewing/ aspiration 2. Intake at meals will be at least 50% of meals to start; pt will accept at least 50% of oral nutrition supplements 3. Intake will be adequate to promote wt gain, replete protein stores, and promote wound healing Result Diagrams: 07/16/18 06:19 07/16/18 06:19 Microbiology and Other Data: Microbiology 07/14/18 19:24 Urine Urine Culture - Final No Growth (<1,000 CFU/mL) 07/14/18 18:37 Blood Venous Blood MRSA/MSSA (PCR) - Final Mrsa Negative S.aureus Positive 07/14/18 18:53 Blood Venous Aerobic Blood Culture - Preliminary 07/14/18 18:53 Blood Venous Anaerobic Blood Culture - Preliminary No Growth Day 1 No Growth Day 1 07/14/18 18:37 Blood Venous Aerobic Blood Culture - Preliminary 07/14/18 18:37 Blood Venous Anaerobic Blood Culture - Preliminary No Growth Day 1 Assess/Plan/Problems-Billing Assessment: 78 year old man admitted with sepsis due to multiple decubitus ulcers, acquired at home - Patient Problems (1) Sepsis Current Visit: Yes Status: Acute Priority: High Comment: -now has proved bloodstream MSSA -continue Zosyn -volume status is adequate now -source appears to be sacral decub (2) Anemia Current Visit: No Status: Acute Priority: Medium Code(s): D64.9 - ANEMIA, UNSPECIFIED SNOMED Code(s): 370712196 Comment: - slowly worsening - due to chronic disease and malnutrition - will assess for iron/B12 def (3) Sacral decubitus ulcer Current Visit: No Status: Acute Priority: High Comment: -current source of sepsis -Air matress and dressing changes daily ordered -wound consult pending (4) Hypokalemia Current Visit: Yes Status: Acute Priority: Medium Code(s): E87.6 - HYPOKALEMIA SNOMED Code(s): 88117238 Comment: -repleted PO, now doing well (5) Atrial fibrillation Current Visit: No Status: Chronic Priority: Medium Code(s): I48.91 - UNSPECIFIED ATRIAL FIBRILLATION SNOMED Code(s): 63537399 Comment: - NSR on admission. In regular rate today - Anticoagulation with Xarelto. (6) DVT prophylaxis Current Visit: No Status: Acute Priority: Low Code(s): ZCO7563 - SNOMED Code(s): 037328357 Comment: - on xarelto (7) Malnutrition Current Visit: No Status: Acute Code(s): E46 - UNSPECIFIED PROTEIN-CALORIE MALNUTRITION SNOMED Code(s): 72730778 Comment: - Protein calorie malnutrition. - severe, starting Ensure Status and Disposition: Will need SNF-rehab or assisted placement once acute treatment complete
[2018-07-16] MEDS: Rivaroxaban TAB(*) 15 MG PO SCH (17:20)
--- NOTE | 2018-07-16 18:39 | CONS ---
CC: Delfino Bell RPA-J[facility] * SURGICAL CONSULTATION REPORT: DATE OF CONSULT: 07/15/18 DATE OF DICTATION: 07/16/18 HISTORY OF PRESENT ILLNESS: I was contacted by the hospitalist service to evaluate Mr. Stevenson, an 78-year-old gentleman, who lives on his own with help of nursing, who presented to the emergency room with complaints of wound at his sacrum and his left calf on 07/14/18. The patient was admitted to the hospitalist service, and I evaluated him on 07/15/18. The patient again lives alone. His brother lives nearby and checks up on him. The patient also has a nurse that shows up regularly and checks out his wounds. The patient has been nonambulatory for about a year now. He does like to watch TV, but that is pretty much all he does. He denies any pain, any complaints. He does not eat much, but states that he can cook, although I am not clear on how he does this without walking stating that he cooks his own spaghetti. I was contacted to evaluate his sacral ulcer and also lower extremity ulcerations. PAST MEDICAL HISTORY: Reviewed. PHYSICAL EXAM: The patient is 5 feet 5 inches, 88 pounds, has a body mass index is 14.7. He is cachectic, but answers questions appropriately. His head , ears, eyes, nose, and throat are within normal limits. His abdomen is scaphoid and nontender. His back side reveals a 4 x 4 cm eschar with minimal surrounding erythema and nonfluctuance; minimally tender on deep palpation. There is periwound edema. The patient does stool himself and wears a undergarment. Extremities revealed stage I to II ulcerations at the heel and lower calf. These are not open with no erythema, no fluctuance. IMPRESSION: Elderly gentleman with severe malnutrition with BMI of 14.7 and unstageable sacral ulcer that shows no evidence of purulence as well as a stage I to II ulcerations in the lower extremities. RECOMMENDATIONS: My recommendation at this time is DuoDERM to the lower extremity sites along with heel protectors. Regarding the sacral ulcer, we will continue to follow this. Recommended Dakin's solutions for now. We probably will convert this over to a Santyl dressing in the future. The patient should get frequent turning. He may require some debridement, but I do believe this would be of no benefit given the patient's malnutrition at this point. If it does become purulent, then he will have this unroofed, but in the meantime, frequent turning and wound care will be the plan with followup with me. Patient can follow up with wound center upon discharge. [id number]/[facility] #: [id number] JENIFERD
[2018-07-16] MEDS: Tamsulosin CAP* 0.4 MG PO SCH (20:12)
[2018-07-16] MEDS: Atorvastatin* 10 MG TAB PO SCH (20:12)
[2018-07-17] MEDS: ZOSYN 3.375 GM Q8H per EXTENDED INFUSION IVPB SCH ×6 (04:27→21:38)
[2018-07-17 06:41] LABS: ABS Basophils 0 10^3/ul (0-0.2); ABS Eosinophils 0.2 10^3/ul (0-0.6); ABS Lymphocytes 0.5 10^3/ul (1.0-4.8); ABS Monocytes 0.2 10^3/ul (0-0.8); ABS Neutrophils 6.9 10^3/ul (1.5-7.7); ABS Nucleated RBC 0 10^3/ul; Corrected Retic Count 0.2 % (0.5-1.5); Eosinophil % 2.6 %; Hematocrit 28 % (42-52); Hematocrit for Retic CNT 28 % (42-52); Immature Retic Fraction 0.44; Lymphocyte % 6.8 %; Mean Corpuscular HGB Conc 33 g/dl (31-36); Mean Corpuscular Hemoglobin 26 pg (27-31); Mean Corpuscular Volume 79 fL (80-94); Mean Platelet Volume 8.1 fL (7.4-10.4); Nucleated Red Blood Cells % 0; Platelet Count 148 10^3/ul (150-450); RBC Retic Count 3.48 10^6/ul (4.6-6.2); Red Blood Count 3.48 10^6/ul (4.00-5.40); Red Cell Distribution Width 18 % (10.5-15); White Blood Count 7.9 10^3/ul (3.5-10.8)
[2018-07-17] MEDS: Levothyroxine TAB* 25 MCG TAB PO SCH (06:44)
[2018-07-17 07:01] LABS: % Iron Saturation 13 % (15-55); Iron 20 ug/dL (50-212); Total Iron Binding Capacity 150 mcg/dL (250-450); Transferrin 107 mg/dL (203-362)
[2018-07-17 07:21] LABS: Ferritin 1017.8 ng/mL (24-336)
[2018-07-17] MEDS: Ferrous Sulfate TAB* 325 MG PO SCH (08:56)
[2018-07-17] MEDS: OLANzapine TAB* 5 MG PO SCH ×2 (08:56→21:41)
[2018-07-17] MEDS: Potassium Chlor TAB* 10 MEQ TAB.ER PO SCH ×2 (08:56→21:41)
[2018-07-17] MEDS: Pantoprazole TAB * 40 MG TAB PO SCH (08:56)
[2018-07-17] MEDS: Docusate CAP* 100 MG PO SCH ×2 (08:56→21:41)
[2018-07-17] MEDS: Folic Acid TAB* 1 MG PO SCH (08:56)
[2018-07-17] MEDS: NS 0.9% 1000 ML** 1,000 ML IV SCH ×2 (13:02→21:38)
--- NOTE | 2018-07-17 13:14 | PN ---
Subjective Date of Service: 07/17/18 Interval History: Patient has been coughing more, and more tachypneic today. Had swallow eval, advised thin liquids are OK. No fever, hypoxia. Dr. Gongora saw patient yesterday re wounds. He made wound care advice, but orders are not clear per nursing. Family History: Unchanged from Admission Social History: Unchanged from Admission Past Medical History: Unchanged from Admission Objective Active Medications: Acetaminophen (Tylenol Tab*) 650 mg PO Q4H PRN PRN Reason: FEVER/PAIN Last Admin: 07/15/18 20:04 Dose: 650 mg Al Hydrox/Mg Hydrox/Simethicone (Maalox Plus*) 30 ml PO Q6H PRN PRN Reason: INDIGESTION Atorvastatin Calcium (Lipitor*) 5 mg PO BEDTIME [facility] Last Admin: 07/16/18 20:12 Dose: 5 mg Docusate Sodium (Colace Cap*) 100 mg PO BID [facility] Last Admin: 07/17/18 08:56 Dose: 100 mg Ferrous Sulfate (Ferrous Sulfate Tab*) 650 mg PO DAILY [facility] Last Admin: 07/17/18 08:56 Dose: 650 mg Folic Acid (Folvite Tab*) 1 mg PO DAILY [facility] Last Admin: 07/17/18 08:56 Dose: 1 mg Sodium Chloride (Ns 0.9% 1000 Ml) 1,000 mls @ 75 mls/hr IV PER RATE [facility] Last Admin: 07/17/18 13:02 Dose: 75 mls/hr Piperacillin Sod/Tazobactam (Sod 3.375 gm/ Sodium Chloride) 100 mls @ 25 mls/ hr IVPB Q8H [facility] Last Admin: 07/17/18 13:01 Dose: 25 mls/hr Levothyroxine Sodium (Synthroid Tab*) 25 mcg PO DAILY@0600 [facility] Last Admin: 07/17/18 06:44 Dose: 25 mcg Morphine Sulfate (Morphine Inj ((Syringe))*) 1 mg IV Q4H PRN PRN Reason: PAIN - MILD Olanzapine (Zyprexa Tab*) 5 mg PO BID [facility] Last Admin: 07/17/18 08:56 Dose: 5 mg Oxycodone/Acetaminophen (Percocet 5/325 Tab*) 1 tab PO Q4H PRN PRN Reason: Pain Pantoprazole Sodium (Protonix Tab*) 40 mg PO DAILY [facility] Last Admin: 07/17/18 08:56 Dose: 40 mg Potassium Chloride (Klor Con Er Tab*) 10 meq PO BID [facility] Last Admin: 07/17/18 08:56 Dose: 10 meq Rivaroxaban (Xarelto(*)) 15 mg PO QPM [facility] Last Admin: 07/16/18 17:20 Dose: 15 mg Sodium Hypochlorite (Dakins Solution Half Stre) 1 applic TOPICAL DAILY [facility] Last Admin: 07/16/18 11:04 Dose: 1 applic Tamsulosin HCl (Flomax Cap*) 0.4 mg PO BEDTIME [facility] Last Admin: 07/16/18 20:12 Dose: 0.4 mg Tramadol HCl (Ultram*) 50 mg PO TID PRN PRN Reason: PAIN Vital Signs - 8 hr 07/17/18 07/17/18 07:43 09:12 Temperature 36.4 C Pulse Rate 70 Respiratory 28 20 Rate Blood Pressure 125/72 (mmHg) O2 Sat by Pulse 97 97 Oximetry Oxygen Devices in Use Now: None Appearance: alert, no distress Eyes: No Scleral Icterus Ears/Nose/Mouth/Throat: Clear Oropharnyx Neck: No Thyroid Enlargement, Masses Respiratory: - - fine rales bilat L>R Cardiovascular: NL Sounds; No Murmurs; No JVD Abdominal: NL Sounds; No Tenderness; No Distention Skin: - - bandages RT calf, sacrum, LT upper back not taken down Neurological: - - alert, cooperative Lines/Tubes/Other Access: Clean, Dry and Intact Peripheral IV - Nutrition: Malnutrition Diagnosis/Plan Malnutrition Assessment by Registered Dietitian: Malnutrition Assessment Clinical Characteristics Severe,Environmental Malnutrition Assessment: < or = 50% of est needs x >or= 1 mo Criteria severe body fat loss as evidenced by moderate to severe temporal and clavicular wasting on observation severe muscle mass wasting as evidenced by moderate to severe temporal and clavicular wasting on observation Malnutrition Assessment: regular diet with mech ground texture to ease Interventions chewing Ensure Enlive (nadege preferred by pt) at BLD: 350 kcal, 20 g pro Encouraged pt to drink the Ensure; will follow acceptance/tolerance Malnutrition Assessment: Goals 1. Pt will tolerate least restrictive diet texture without evidence of difficulty chewing/ aspiration 2. Intake at meals will be at least 50% of meals to start; pt will accept at least 50% of oral nutrition supplements 3. Intake will be adequate to promote wt gain, replete protein stores, and promote wound healing Result Diagrams: 07/17/18 06:19 07/16/18 06:19 Additional Lab and Data: Laboratory Tests 07/17/18 07/17/18 06:19 06:19 Retic Count, Calc 0.4 L Corrected Retic Count 0.2 L Retic Production Index 0.10 Iron 20 L TIBC 150 L % Saturation 13 L Unsat Iron Binding < 135 Transferrin 107 L Ferritin 1017.8 H Vitamin B12 527 Microbiology and Other Data: Microbiology 07/14/18 19:24 Urine Urine Culture - Final No Growth (<1,000 CFU/mL) 07/14/18 18:53 Blood Venous Anaerobic Blood Culture - Final Peptoniphilus Asaccharolyticus 07/14/18 18:37 Blood Venous Blood MRSA/MSSA (PCR) - Final Mrsa Negative S.aureus Positive 07/14/18 18:53 Blood Venous Aerobic Blood Culture - Preliminary 07/14/18 18:53 Blood Venous No Growth Day 3 07/14/18 18:37 Blood Venous Aerobic Blood Culture - Preliminary 07/14/18 18:37 Blood Venous Anaerobic Blood Culture - Preliminary Staphylococcus Aureus Assess/Plan/Problems-Billing Assessment: 78 year old man admitted with sepsis due to multiple decubitus ulcers, acquired at home - Patient Problems (1) Sepsis Current Visit: Yes Status: Acute Priority: High Comment: -now has proved bloodstream MSSA -continue Zosyn -volume status is adequate now, IVF stopped -source appears to be sacral decub (2) Anemia Current Visit: No Status: Chronic Priority: Medium Code(s): D64.9 - ANEMIA , UNSPECIFIED SNOMED Code(s): 004189612 Comment: - reviewed iron/retic studies - due to chronic disease and malnutrition (3) Sacral decubitus ulcer Current Visit: No Status: Acute Priority: High Comment: -current source of sepsis -wound consult from Dr. Gongora appreciated -Asked HEART NURSE Bessy to clarify orders for RN (4) Hypokalemia Current Visit: Yes Status: Acute Priority: Medium Code(s): E87.6 - HYPOKALEMIA SNOMED Code(s): 06896035 Comment: -repleted PO, now doing well (5) Atrial fibrillation Current Visit: No Status: Chronic Priority: Medium Code(s): I48.91 - UNSPECIFIED ATRIAL FIBRILLATION SNOMED Code(s): 74609475 Comment: - NSR on admission. In regular rate today - Anticoagulation with Xarelto. (6) DVT prophylaxis Current Visit: No Status: Acute Priority: Low Code(s): EJC3847 - SNOMED Code(s): 302064232 Comment: - on xarelto (7) Malnutrition Current Visit: No Status: Chronic Priority: High Code(s): E46 - UNSPECIFIED PROTEIN-CALORIE MALNUTRITION SNOMED Code(s): 38159018 Comment: - Protein calorie malnutrition. - severe, starting Ensure (8) Tachypnea Current Visit: Yes Status: Acute Priority: Medium Code(s): R06.82 - TACHYPNEA, NOT ELSEWHERE CLASSIFIED SNOMED Code(s): 940336465 Comment: -may have aspirated a bit, will check CXR if feverish or hypoxic -may be volume overloaded, IVF stopped Status and Disposition: Will need SNF-rehab or shelter placement once acute treatment complete
[2018-07-17] MEDS: Dakins Solution 0.25% (1/2 STR.)* 473 ML BTL TOPICAL SCH (17:59)
[2018-07-17] MEDS: Rivaroxaban TAB(*) 15 MG PO SCH (17:59)
[2018-07-17] MEDS: Tamsulosin CAP* 0.4 MG PO SCH (21:41)
[2018-07-17] MEDS: Atorvastatin* 10 MG TAB PO SCH (21:41)
[2018-07-18] MEDS: Morphine INJ* 2 MG/ML 1 ML SYRINGE (TWO MG - NEW SYRINGE VERSION) IV PRN (00:55)
--- NOTE | 2018-07-18 00:55 | PN ---
Progress Note - Progress Note Date of Service: 07/18/18 Note: Paged for tacypnea, patient also has been febrile. Will order portable CXR and evaluate - suspect multifocal pneumonia appears to be due to pneumonia. Patients now on oxygen and RR are at 24.
[2018-07-18 03:49] LABS: ABS Basophils 0.1 10^3/ul (0-0.2); ABS Eosinophils 0.3 10^3/ul (0-0.6); ABS Lymphocytes 0.7 10^3/ul (1.0-4.8); ABS Monocytes 0.3 10^3/ul (0-0.8); ABS Neutrophils 8.2 10^3/ul (1.5-7.7); ABS Nucleated RBC 0 10^3/ul; Eosinophil % 2.9 %; Hematocrit 28 % (42-52); Hemoglobin 9.1 g/dl (14.0-18.0); Lymphocyte % 7.5 %; Mean Corpuscular HGB Conc 33 g/dl (31-36); Mean Corpuscular Hemoglobin 26 pg (27-31); Mean Corpuscular Volume 78 fL (80-94); Mean Platelet Volume 7.6 fL (7.4-10.4); Nucleated Red Blood Cells % 0; Platelet Count 189 10^3/ul (150-450); Red Blood Count 3.54 10^6/ul (4.00-5.40); Red Cell Distribution Width 18 % (10.5-15); White Blood Count 9.5 10^3/ul (3.5-10.8)
[2018-07-18] MEDS: ZOSYN 3.375 GM Q8H per EXTENDED INFUSION IVPB SCH ×6 (03:51→20:27)
[2018-07-18 04:04] LABS: BUN/Creatinine Ratio 20.9 (8-20); EGFR African American 230.4 (>60); EGFR Non-African American 190.4 (>60); Potassium 3.8 mmol/L (3.5-5.0)
[2018-07-18] MEDS: Levothyroxine TAB* 25 MCG TAB PO SCH (05:52)
[2018-07-18] MEDS: OLANzapine TAB* 5 MG PO SCH ×2 (09:59→20:25)
[2018-07-18] MEDS: Folic Acid TAB* 1 MG PO SCH (09:59)
[2018-07-18] MEDS: Potassium Chlor TAB* 10 MEQ TAB.ER PO SCH ×2 (10:00→20:25)
[2018-07-18] MEDS: Docusate CAP* 100 MG PO SCH ×2 (10:00→20:25)
[2018-07-18] MEDS: Pantoprazole TAB * 40 MG TAB PO SCH (10:00)
[2018-07-18] MEDS: Ferrous Sulfate TAB* 325 MG PO SCH (10:00)
[2018-07-18] MEDS: Dakins Solution 0.25% (1/2 STR.)* 473 ML BTL TOPICAL SCH (10:00)
--- NOTE | 2018-07-18 15:05 | PN ---
Subjective Date of Service: 07/18/18 Interval History: Patient had fever, tachy last night, had CXR completed. No complaints today, though vaguely says his urination is not right He stood/pivoted to chair today w/ PT, only tolerated 10 min in chair. Family History: Unchanged from Admission Social History: Unchanged from Admission Past Medical History: Unchanged from Admission Objective Active Medications: Acetaminophen (Tylenol Tab*) 650 mg PO Q4H PRN PRN Reason: FEVER/PAIN Last Admin: 07/15/18 20:04 Dose: 650 mg Al Hydrox/Mg Hydrox/Simethicone (Maalox Plus*) 30 ml PO Q6H PRN PRN Reason: INDIGESTION Atorvastatin Calcium (Lipitor*) 5 mg PO BEDTIME [facility] Last Admin: 07/17/18 21:41 Dose: 5 mg Docusate Sodium (Colace Cap*) 100 mg PO BID [facility] [place] Last Admin: 07/18/18 10:00 Dose: Not Given Ferrous Sulfate (Ferrous Sulfate Tab*) 650 mg PO DAILY [facility] [place] Last Admin: 07/18/18 10:00 Dose: 650 mg Folic Acid (Folvite Tab*) 1 mg PO DAILY [facility] [place] Last Admin: 07/18/18 09:59 Dose: 1 mg Piperacillin Sod/Tazobactam (Sod 3.375 gm/ Sodium Chloride) 100 mls @ 25 mls/ hr IVPB Q8H [facility] [place] Last Admin: 07/18/18 11:59 Dose: 25 mls/hr Levothyroxine Sodium (Synthroid Tab*) 25 mcg PO DAILY@0600 [facility] [place] Last Admin: 07/18/18 05:52 Dose: 25 mcg Morphine Sulfate (Morphine Inj ((Syringe))*) 1 mg IV Q4H PRN PRN Reason: PAIN - MILD Last Admin: 07/18/18 00:55 Dose: 1 mg Olanzapine (Zyprexa Tab*) 5 mg PO BID [facility] [place] Last Admin: 07/18/18 09:59 Dose: 5 mg Oxycodone/Acetaminophen (Percocet 5/325 Tab*) 1 tab PO Q4H PRN PRN Reason: Pain Last Admin: 07/18/18 14:01 Dose: 1 tab Pantoprazole Sodium (Protonix Tab*) 40 mg PO DAILY [facility] [place] Last Admin: 07/18/18 10:00 Dose: 40 mg Pharmacy Consult (Zosyn Per Pharmacy*) 1 note FOLLOW UP .ZOSYN PER PHARMACY [facility] [place] Potassium Chloride (Klor Con Er Tab*) 10 meq PO BID [facility] Last Admin: 07/18/18 10:00 Dose: 10 meq Rivaroxaban (Xarelto(*)) 15 mg PO QPM [facility] Last Admin: 07/17/18 17:59 Dose: 15 mg Sodium Hypochlorite (Dakins Solution Half Stre) 1 applic TOPICAL DAILY [facility] Last Admin: 07/18/18 10:00 Dose: 1 applic Tamsulosin HCl (Flomax Cap*) 0.4 mg PO BEDTIME [facility] [place] Last Admin: 07/17/18 21:41 Dose: 0.4 mg Tramadol HCl (Ultram*) 50 mg PO TID PRN PRN Reason: PAIN Vital Signs - 8 hr 07/18/18 07/18/18 07/18/18 07:28 08:00 11:43 Temperature 37.0 C 37.2 C Pulse Rate 65 76 Respiratory 22 22 22 Rate Blood Pressure 94/55 116/65 (mmHg) O2 Sat by Pulse 100 100 100 Oximetry Oxygen Devices in Use Now: Nasal Cannula Appearance: cachectic, alert Eyes: No Scleral Icterus Ears/Nose/Mouth/Throat: Clear Oropharnyx Neck: NL Appearance and Movements; NL JVP Respiratory: Symmetrical Chest Expansion and Respiratory Effort Cardiovascular: NL Sounds; No Murmurs; No JVD, RRR Abdominal: NL Sounds; No Tenderness; No Distention, No Hepatosplenomegaly Neurological: Alert and Oriented x 3 Lines/Tubes/Other Access: Clean, Dry and Intact Peripheral IV Nutrition: Taking PO's - Nutrition: Malnutrition Diagnosis/Plan Malnutrition Assessment by Registered Dietitian: Malnutrition Assessment Clinical Characteristics Severe,Environmental Malnutrition Assessment: < or = 50% of est needs x >or= 1 mo Criteria severe body fat loss as evidenced by moderate to severe temporal and clavicular wasting on observation severe muscle mass wasting as evidenced by moderate to severe temporal and clavicular wasting on observation Malnutrition Assessment: regular diet with mech ground texture to ease Interventions chewing Ensure Enlive (nadege preferred by pt) at BLD: 350 kcal, 20 g pro Encouraged pt to drink the Ensure; will follow acceptance/tolerance Malnutrition Assessment: Goals 1. Pt will tolerate least restrictive diet texture without evidence of difficulty chewing/ aspiration 2. Intake at meals will be at least 50% of meals to start; pt will accept at least 50% of oral nutrition supplements 3. Intake will be adequate to promote wt gain, replete protein stores, and promote wound healing Result Diagrams: 07/18/18 03:40 07/18/18 03:40 Microbiology and Other Data: Microbiology 07/14/18 19:24 Urine Urine Culture - Final No Growth (<1,000 CFU/mL) 07/14/18 18:53 Blood Venous Anaerobic Blood Culture - Final Peptoniphilus Asaccharolyticus 07/14/18 18:37 Blood Venous Blood MRSA/MSSA (PCR) - Final Mrsa Negative S.aureus Positive 07/14/18 18:53 Blood Venous Aerobic Blood Culture - Preliminary 07/14/18 18:53 Blood Venous No Growth Day 3 07/14/18 18:37 Blood Venous Aerobic Blood Culture - Preliminary 07/14/18 18:37 Blood Venous Anaerobic Blood Culture - Preliminary Staphylococcus Aureus Diagnostic Imaging: CXR: new RML infiltrate Assess/Plan/Problems-Billing Assessment: 78 year old man admitted with sepsis due to multiple decubitus ulcers, acquired at home - Patient Problems (1) Sepsis Current Visit: Yes Status: Acute Priority: High Comment: -now has proved bloodstream MSSA -continue Zosyn -source appears to be sacral decub (2) Anemia Current Visit: No Status: Chronic Priority: Medium Code(s): D64.9 - ANEMIA , UNSPECIFIED SNOMED Code(s): 299317361 Comment: - reviewed iron/retic studies - due to chronic disease and malnutrition (3) Sacral decubitus ulcer Current Visit: No Status: Acute Priority: High Comment: -current source of sepsis -wound consult from Dr. Gongora appreciated -plan is nutrition, turn and position, call back surgery if purulent (4) Hypokalemia Current Visit: Yes Status: Acute Priority: Medium Code(s): E87.6 - HYPOKALEMIA SNOMED Code(s): 43585319 Comment: -repleted PO, now doing well (5) Atrial fibrillation Current Visit: No Status: Chronic Priority: Medium Code(s): I48.91 - UNSPECIFIED ATRIAL FIBRILLATION SNOMED Code(s): 37651091 Comment: - NSR on admission. In regular rate today - Anticoagulation with Xarelto. (6) DVT prophylaxis Current Visit: No Status: Acute Priority: Low Code(s): FPM8568 - SNOMED Code(s): 194801321 Comment: - on xarelto (7) Malnutrition Current Visit: No Status: Chronic Priority: High Code(s): E46 - UNSPECIFIED PROTEIN-CALORIE MALNUTRITION SNOMED Code(s): 01569695 Comment: - rechecking prealbumin in AM - Protein calorie malnutrition. - severe, on Ensure (8) Tachypnea Current Visit: Yes Status: Acute Priority: Medium Code(s): R06.82 - TACHYPNEA, NOT ELSEWHERE CLASSIFIED SNOMED Code(s): 181081824 Comment: -CXR shows likely aspiration pneumonitis. - Discussed with Dr. Shah, he advised continue Zosyn, monitor for now Status and Disposition: Will need SNF-rehab or terminal carman placement once acute treatment complete
[2018-07-18] MEDS: Rivaroxaban TAB(*) 15 MG PO SCH (17:57)
[2018-07-18] MEDS: Tamsulosin CAP* 0.4 MG PO SCH (20:25)
[2018-07-18] MEDS: Atorvastatin* 10 MG TAB PO SCH (20:25)
[2018-07-19] MEDS: ZOSYN 3.375 GM Q8H per EXTENDED INFUSION IVPB SCH ×6 (04:02→20:18)
[2018-07-19] MEDS: Morphine INJ* 2 MG/ML 1 ML SYRINGE (TWO MG - NEW SYRINGE VERSION) IV PRN ×3 (06:06→17:00)
[2018-07-19] MEDS: Levothyroxine TAB* 25 MCG TAB PO SCH (06:06)
[2018-07-19] MEDS: Docusate CAP* 100 MG PO SCH ×2 (10:08→21:17)
[2018-07-19] MEDS: Potassium Chlor TAB* 10 MEQ TAB.ER PO SCH ×2 (10:10→21:16)
[2018-07-19] MEDS: Ferrous Sulfate TAB* 325 MG PO SCH (10:10)
[2018-07-19] MEDS: Folic Acid TAB* 1 MG PO SCH (10:10)
[2018-07-19] MEDS: Pantoprazole TAB * 40 MG TAB PO SCH (10:10)
[2018-07-19] MEDS: OLANzapine TAB* 5 MG PO SCH ×2 (10:11→21:16)
[2018-07-19] MEDS: Dakins Solution 0.25% (1/2 STR.)* 473 ML BTL TOPICAL SCH (10:18)
--- NOTE | 2018-07-19 13:43 | CONSULT ---
Consult Consult: WOUND CONSULT NOTE Date of Service: 07/19/18 History: Interval History: Patient seen and examined at bedside. Denies fever, chills, or complaints. Mr. 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 Mr. Stevenson presented to the hospital with several pressure injuries. He was seen in consultation by Dr. Gongora with general surgery. Past Medical/Family/Social History: Family History: Unchanged from Admission Social History: Unchanged from Admission Past Medical History: Unchanged from Admission Objective: Active Medications: Influenza Virus Vaccine (Fluarix *Quad* *) 0.5 ml IM .ONCE ONE Stop: 07/20/18 09:01 Tramadol HCl (Ultram*) 50 mg PO TID PRN Reason: PAIN Acetaminophen (Tylenol Tab*) 650 mg PO Q4H PRN Reason: FEVER/PAIN Al Hydrox/Mg Hydrox/Simethicone (Maalox Plus*) 30 ml PO Q6H PRN Reason: INDIGESTION Atorvastatin Calcium (Lipitor*) 5 mg PO BEDTIME [facility] Docusate Sodium (Colace Cap*) 100 mg PO BID [facility] Ferrous Sulfate (Ferrous Sulfate Tab*) 650 mg PO DAILY [facility] Folic Acid (Folvite Tab*) 1 mg PO DAILY [facility] Levothyroxine Sodium (Synthroid Tab*) 25 mcg PO DAILY@0600 [facility] Morphine Sulfate (Morphine Inj ((Syringe))*) 1 mg IV Q4H PRN Reason: PAIN - MILD Olanzapine (Zyprexa Tab*) 5 mg PO BID [facility] Oxycodone/Acetaminophen (Percocet 5/325 Tab*) 1 tab PO Q4H PRN Reason: Pain Pantoprazole Sodium (Protonix Tab*) 40 mg PO DAILY [facility] Pharmacy Consult (Zosyn Per Pharmacy*) 1 note FOLLOW UP .ZOSYN PER PHARMACY [facility] Piperacillin Sod/Tazobactam (Sod 3.375 gm/ Sodium Chloride) 100 mls @ 25 mls/ hr IVPB Q8H [facility] Potassium Chloride (Klor Con Er Tab*) 10 meq PO BID [facility] Rivaroxaban (Xarelto(*)) 15 mg PO QPM [facility] Sodium Hypochlorite (Dakins Solution Half Stre) 1 applic TOPICAL DAILY [facility] Tamsulosin HCl (Flomax Cap*) 0.4 mg PO BEDTIME [facility] Vital Signs: 07/19/18 07:28 Temperature 98.8 F Temperature Oral Source Pulse Rate 74 Respiratory 20 Rate Blood Pressure 111/65 (mmHg) Blood Pressure 75 Mean O2 Sat by Pulse 97 Oximetry Patient on Room No Air Exam: General: NAD, frail appearing elderly male sitting up in bed. Neuro: Alert and Oriented to Person and Place Skin: Left lateral hip: Deep tissue injury with blister (this blister opened once the hydrocolloid was removed). 3 cm x 5 cm. Sacral pressure injury, unstageable; 9 cm x 10.5 cm x 0.1cm. There is nectrotic tissue to the center of the wound and a pink wound base in the outer wound. Deep tissue injury to left lower back; 5 cm x 2.5 cm. Pressure injuries not measured or photographed due to Hydrocolloid dressing being in place: R posterior lower leg with DTI and intact blister; L shoulder stage II measures; L scapula stage II; Data: Labs: 07/14/18 07/18/18 07/18/18 18:37 03:40 03:40 WBC 9.5 Hgb 9.1 L Hct 28 L Plt Count 189 Sodium 137 Potassium 3.8 Chloride 107 Carbon Dioxide 25 BUN 9 Creatinine 0.43 L Glucose 100 Albumin 2.7 L Prealbumin 07/19/18 06:30 WBC Hgb Hct Plt Count Sodium Potassium Chloride Carbon Dioxide BUN Creatinine Glucose Albumin Prealbumin 5 L Assessment/Plan: 1. Unstageable pressure injury to sacrum. This was present on admission. Continue Dankin's dressing changes daily (Moisten 4x4s with Dankin's solution, fludd gauze and place over necrotic ulcer/tissue. Cover with ABD pad. NO TAPE to skin). Frequent T+P. 2. Deep tissue injuries and pressure ulcers. Apply Hydrocolloid to the right posterior lower leg, left shoulder, and left scapula; change every 3 days. May apply Optifoam to left lateral hip if draining, if the wound is not draining, may apply Hydrocolloid. 3. Severe Malnutrition. Suspected to be secondary to environmental issues. According to his nutrition assessment he has severe body fat loss as evidenced by moderate to severe temporal and clavicular wasting on observation. His pre- albumin is 4. Dietitian consult, input appreciated. Continue Ensure Enlive. VTE PPX: Diet: Regular, mechanical soft Code Status: Full Code Disposition: Inpatient. Disposition per primary medicine team Time Spent: 30 minutes was spent with the patient, assessing wounds and providing wound care. Attending: Dr. Nicky Harris MD
--- NOTE | 2018-07-19 16:10 | PN ---
Subjective Date of Service: 07/19/18 Interval History: Pt c/o back pain. Seen with a female friend/neighbour. Family History: Unchanged from Admission Social History: Unchanged from Admission Past Medical History: Unchanged from Admission Objective Active Medications: Acetaminophen (Tylenol Tab*) 650 mg PO Q4H PRN PRN Reason: FEVER/PAIN Last Admin: 07/15/18 20:04 Dose: 650 mg Al Hydrox/Mg Hydrox/Simethicone (Maalox Plus*) 30 ml PO Q6H PRN PRN Reason: INDIGESTION Atorvastatin Calcium (Lipitor*) 5 mg PO BEDTIME [facility] Last Admin: 07/18/18 20:25 Dose: 5 mg Docusate Sodium (Colace Cap*) 100 mg PO BID [facility] Last Admin: 07/19/18 10:08 Dose: Not Given Ferrous Sulfate (Ferrous Sulfate Tab*) 650 mg PO DAILY [facility] Last Admin: 07/19/18 10:10 Dose: 650 mg Folic Acid (Folvite Tab*) 1 mg PO DAILY [facility] Last Admin: 07/19/18 10:10 Dose: 1 mg Piperacillin Sod/Tazobactam (Sod 3.375 gm/ Sodium Chloride) 100 mls @ 25 mls/ hr IVPB Q8H [facility] Last Admin: 07/19/18 12:18 Dose: 25 mls/hr Levothyroxine Sodium (Synthroid Tab*) 25 mcg PO DAILY@0600 [facility] Last Admin: 07/19/18 06:06 Dose: 25 mcg Morphine Sulfate (Morphine Inj ((Syringe))*) 1 mg IV Q4H PRN PRN Reason: PAIN - MILD Last Admin: 07/19/18 10:11 Dose: 1 mg Olanzapine (Zyprexa Tab*) 5 mg PO BID [facility] Last Admin: 07/19/18 10:11 Dose: 5 mg Oxycodone/Acetaminophen (Percocet 5/325 Tab*) 1 tab PO Q4H PRN PRN Reason: Pain Last Admin: 07/18/18 14:01 Dose: 1 tab Pantoprazole Sodium (Protonix Tab*) 40 mg PO DAILY [facility] Last Admin: 07/19/18 10:10 Dose: 40 mg Pharmacy Consult (Zosyn Per Pharmacy*) 1 note FOLLOW UP .ZOSYN PER PHARMACY [facility] Potassium Chloride (Klor Con Er Tab*) 10 meq PO BID [facility] Last Admin: 07/19/18 10:10 Dose: 10 meq Rivaroxaban (Xarelto(*)) 15 mg PO QPM [facility] Last Admin: 07/18/18 17:57 Dose: 15 mg Sodium Hypochlorite (Dakins Solution Half Stre) 1 applic TOPICAL DAILY [facility] Last Admin: 07/19/18 10:18 Dose: 1 applic Tamsulosin HCl (Flomax Cap*) 0.4 mg PO BEDTIME [facility] Last Admin: 07/18/18 20:25 Dose: 0.4 mg Tramadol HCl (Ultram*) 50 mg PO TID PRN PRN Reason: PAIN Vital Signs - 8 hr 07/19/18 07/19/18 07/19/18 09:53 10:00 10:11 Temperature Pulse Rate Respiratory 20 20 20 Rate Blood Pressure (mmHg) O2 Sat by Pulse 97 Oximetry 07/19/18 07/19/18 07/19/18 11:15 11:53 14:01 Temperature 98.1 F Pulse Rate 83 86 Respiratory 16 20 18 Rate Blood Pressure 92/53 94/52 (mmHg) O2 Sat by Pulse 99 98 Oximetry Oxygen Devices in Use Now: Nasal Cannula Appearance: 78 yo M in nAD, aAOx2, [place] Eyes: No Scleral Icterus, PERRLA Ears/Nose/Mouth/Throat: NL Teeth, Lips, Gums, Mucous Membranes Moist Neck: NL Appearance and Movements; NL JVP, Trachea Midline Respiratory: Symmetrical Chest Expansion and Respiratory Effort, Clear to Auscultation Cardiovascular: NL Sounds; No Murmurs; No JVD, RRR Abdominal: NL Sounds; No Tenderness; No Distention, No Hepatosplenomegaly Lymphatic: No Cervical Adenopathy Extremities: No Edema, No Clubbing, Cyanosis Skin: - - sacral decub at 10 cm with necrotic center, unstageable, decubitus on left hip and left shoulder Neurological: - - b/l LE's weakness at 4+/5, left arm contracted - Nutrition: Malnutrition Diagnosis/Plan Malnutrition Assessment by Registered Dietitian: Malnutrition Assessment Clinical Characteristics Severe,Environmental Malnutrition Assessment: < or = 50% of est needs x >or= 1 mo Criteria severe body fat loss as evidenced by moderate to severe temporal and clavicular wasting on observation severe muscle mass wasting as evidenced by moderate to severe temporal and clavicular wasting on observation Malnutrition Assessment: regular diet with mech ground texture to ease Interventions chewing Ensure Enlive (nadege preferred by pt) at BLD: 350 kcal, 20 g pro Encouraged pt to drink the Ensure; will follow acceptance/tolerance Malnutrition Assessment: Goals 1. Pt will tolerate least restrictive diet texture without evidence of difficulty chewing/ aspiration 2. Intake at meals will be at least 50% of meals to start; pt will accept at least 50% of oral nutrition supplements 3. Intake will be adequate to promote wt gain, replete protein stores, and promote wound healing Result Diagrams: 07/18/18 03:40 07/18/18 03:40 Additional Lab and Data: Laboratory Tests 07/17/18 07/17/18 06:19 06:19 Retic Count, Calc 0.4 L Corrected Retic Count 0.2 L Retic Production Index 0.10 Iron 20 L TIBC 150 L % Saturation 13 L Unsat Iron Binding < 135 Transferrin 107 L Ferritin 1017.8 H Vitamin B12 527 Microbiology and Other Data: Microbiology 07/14/18 19:24 Urine Urine Culture - Final No Growth (<1,000 CFU/mL) 07/14/18 18:53 Blood Venous Anaerobic Blood Culture - Final Peptoniphilus Asaccharolyticus 07/14/18 18:37 Blood Venous Blood MRSA/MSSA (PCR) - Final Mrsa Negative S.aureus Positive 07/14/18 18:53 Blood Venous Aerobic Blood Culture - Preliminary 07/14/18 18:53 Blood Venous No Growth Day 3 07/14/18 18:37 Blood Venous Aerobic Blood Culture - Preliminary 07/14/18 18:37 Blood Venous Anaerobic Blood Culture - Preliminary Staphylococcus Aureus Diagnostic Imaging: CXR: new RML infiltrate Assess/Plan/Problems-Billing Assessment: 78 year old man admitted with sepsis due to multiple decubitus ulcers, acquired at home - Patient Problems (1) Aspiration pneumonia Comment: CXR showed RML infiltrate-likely pneumonia was present at admission, but too dehydrated to shows on CXR initially Cont Zosyn Swallow eval completed (2) Sepsis Comment: -now has proved bloodstream MSSA -continue Zosyn -source appears to be sacral decub -curbsided ID, will get repeat cx, if neg can be treated with PO antibiotics, no need for GABBIE. (3) Dysphagia Comment: mild, OK'ed for mech ground (4) Hypotension Comment: suspect secondary to manutrition (5) Pulmonary embolism Comment: With cor pulmonale and extensive DVTs in 12/28 Continue xarelto. (6) Sacral decubitus ulcer Current Visit: No Comment: -current source of sepsis -wound consult from Dr. Gongora appreciated -plan is nutrition, turn and position, call back surgery if purulent (7) Weakness of both lower extremities Comment: - Appreciate PT eval, patient able to ambulate short distance with walker at baseline 2 weeks ago. Usually uses a wheelchair at home though. chronic left arm contracted due to complications of C. spine surgery. (8) Hypothyroidism Comment: - Continue levothyroxine. TSH 0.7 at admission (9) Malnutrition Comment: - prealbumin at 4 - Protein calorie malnutrition. - severe, on Ensure (10) Anemia Comment: - reviewed iron/retic studies - due to chronic disease and malnutrition (11) DVT prophylaxis Comment: - on xarelto Status and Disposition: Will need SNF-rehab or rn long term care placement once acute treatment complete
[2018-07-19] MEDS: Rivaroxaban TAB(*) 15 MG PO SCH (17:00)
[2018-07-19] MEDS: Tamsulosin CAP* 0.4 MG PO SCH (21:16)
[2018-07-19] MEDS: Atorvastatin* 10 MG TAB PO SCH (21:16)
[2018-07-20] MEDS: ZOSYN 3.375 GM Q8H per EXTENDED INFUSION IVPB SCH ×4 (04:07→12:13)
[2018-07-20] MEDS: Levothyroxine TAB* 25 MCG TAB PO SCH (05:56)
[2018-07-20] MEDS: Docusate CAP* 100 MG PO SCH (09:14)
[2018-07-20] MEDS: Folic Acid TAB* 1 MG PO SCH (09:26)
[2018-07-20] MEDS: Potassium Chlor TAB* 10 MEQ TAB.ER PO SCH (09:26)
[2018-07-20] MEDS: Pantoprazole TAB * 40 MG TAB PO SCH (09:26)
[2018-07-20] MEDS: Dakins Solution 0.25% (1/2 STR.)* 473 ML BTL TOPICAL SCH (09:26)
[2018-07-20] MEDS: Ferrous Sulfate TAB* 325 MG PO SCH (09:26)
[2018-07-20] MEDS: Morphine INJ* 2 MG/ML 1 ML SYRINGE (TWO MG - NEW SYRINGE VERSION) IV PRN (09:26)
[2018-07-20] MEDS: OLANzapine TAB* 5 MG PO SCH (09:26)
--- NOTE | 2018-07-20 13:55 | DS ---
CC: DIONI Prajapati; [facility] * DISCHARGE SUMMARY: DATE OF ADMISSION: 07/14/18 DATE OF DISCHARGE: 07/20/18 PRIMARY CARE PROVIDER: ALIA Prajapati DISCHARGE DIAGNOSES: 1. Sepsis likely due to a combination of possible infection of sacral decubitus ulcer as well as aspiration pneumonia. 2. Dysphagia. 3. Malnutrition. 4. Dehydration. SECONDARY DIAGNOSES: 1. History of hypertension. 2. Hyperlipidemia. 3. History of hypothyroidism. 4. Gastroesophageal reflux disease. 5. Multiple spinal injuries in the past, status post cervical surgery in 2011 and repeated surgery on spine later leaving the patient basically wheelchair bound with bilateral lower extremity weakness and contraction of left upper extremity. Although just prior to the patient's admission, apparently he occasionally would be able to walk from the wheelchair to the bathroom and back holding onto coulter without any other support. 6. History of liver abscess in the past. 7. History of chronic atrial fibrillation. 8. History of sacral decubitus ulcer noted during hospital stay in 2017 and another one noted during current hospital stay. 9. History of deep venous thrombosis and pulmonary embolism in 2018. CURRENT MEDICATIONS AT DISCHARGE: Include: 1. Calcium with vitamin D 1 tablet b.i.d. 2. TriCor 135 mg daily. 3. Ferrous sulfate 650 mg daily. 4. Folic acid 1 mg daily. 5. Gabapentin 300 mg at bedtime. 6. Synthroid 25 mcg daily. 7. Mevacor 20 mg at bedtime. 8. Prilosec 20 mg daily. 9. Flomax 0.4 mg at bedtime. 10. Ultram 50 mg on a p.r.n. basis. 11. Vitamin B complex 1 capsule daily. 12. Dakin's solution 0.25% one application topically to the sacral ulcer as mentioned below. 13. Colace 100 mg b.i.d. p.r.n. 14. Xarelto 15 mg q.p.m. 15. Bactrim DS 1 tablet p.o. b.i.d. for a total of 5 days total, then stop. LABORATORY DATA AND STUDIES PERFORMED DURING THE HOSPITAL STAY: Included: On 07/18/18, sodium of 137, potassium 3.8, chloride 107, carbon dioxide 25, BUN 9, creatinine 0.43. Prealbumin level of 5. The patient's troponins were at 0.07 x2. On 07/18/18, white blood cell count of 9.5, hemoglobin of 9.1, hematocrit of 28, MCV of 78, and platelets of 189. The patient's iron studies showed iron level of 20, TIBC of 150, percent iron saturation of 13, transferrin of 107, ferritin of 1017. C-reactive protein was 156 at admission. The patient's most recent portable chest x-ray obtained on 07/18/18, impression : "Right middle lobe consolidation." Microbiology tests: Blood cultures obtained on 07/14/18 showed multiple bacteria including MSSA, corynebacterium, and peptoniphilus. Urine cultures showed no growth and repeat blood cultures obtained on 07/19/18 are no growth to date. HOSPITALIZATION COURSE: Jarrod Stevenson is an 78-year-old male with history of problems with mobility, but apparently for the past year and half, he had been actually doing pretty well, ambulating from time to time holding onto things, but usually using a wheelchair at home. The patient also had a nurse hired privately to help the patient who as per the patient's primary care provider notes in January 2018 noted caring for the patient to be more and more challenging. Apparently, the patient had been requiring more help. The patient also has history of hospitalization in 2018 with diagnosis of DVT and PE and placement of Xarelto. The patient presented to the hospital on 07/14/18, brought in from home with sepsis. At that point, the only source of sepsis that was identified was large sacral decubitus ulcer that as per family members was not present a week prior. The patient's nurse apparently at this time decided to move to another state and the patient was left alone for unspecified amount of time. There was also a very nice female neighbor who had been attentive and checking on the patient on a daily basis. The patient was not able to tell me how long he was bedridden , but he was unable to get out of bed and help himself when he presented to the ED. He was admitted, underwent physical therapy evaluation, and noted to be not strong enough to bear weight on his feet. He also underwent speech evaluation and swallow evaluation and noted to have dysphagia and okayed for mechanical soft diet with lots of gravy. The patient was also evaluated by lead sustainability specialist and was placed on treatment with Dakin's solution with very good results. The large sacral ulcer was basically unstageable due to an area of necrotic skin overlying the central area of the 10 cm in diameter ulcer. The patient also has multiple small areas on his left shoulder, left hip, and left scapular region that are stage I to II decubiti that are to be covered with DuoDERM. The patient has had low systolic blood pressures throughout his hospital stay likely due to malnutrition. His prealbumin level was 4. He responded very well to diet encouragement during his hospital stay. There was a question if the patient had been using olanzapine in the past. Apparently, according to the patient's primary care provider's notes, it was discontinued some time last year. Not knowing that at admission, the patient was restarted on Zyprexa. That is going to be stopped at discharge since apparently the patient had not been taking it at home. In regards to the patient's hypothyroidism, the patient's TSH was 0.76 during his hospital stay and it appears that the patient is on a good thyroid supplementation at this point. The patient had troponin of 0.07 and it was unchanged throughout his hospital stay. Likely due to demand ischemia and dehydration. Please note that the patient's blood cultures were positive for multiple bacteria including MSSA, corynebacterium, and peptoniphilus. Although the corynebacterium and peptoniphilus may be related to a contamination, MSSA likely was not. For his MSSA bacteremia, the patient was treated with antibiotics throughout his hospital stay. I curb-sided the Infectious Disease specialist who recommended repeated blood cultures to be performed. That was done on 07/19/18 and by the time of discharge, the patient's blood cultures still were reported as negative. Due to that, the patient is okay to be stopped with IV antibiotics which had been administered to the patient now for a week and to be continued on Bactrim for another 5 days. The patient was noted to be mildly hypoxemic in the middle of his hospital stay. It likely was related to fluid depletion and due to that he was noted to have new right middle lobe pneumonia. I suspect that pneumonia was present at admission and is due to aspiration, but was not visualized on the initial chest x-ray at admission due to the patient's dehydration. The patient was treated with antibiotics for his aspiration pneumonia as well as swallow evaluation was performed on admission as above. He did very well and he was not hypoxemic by the time of discharge. PHYSICAL EXAM AT THE TIME OF DISCHARGE: Blood pressure of 127/82, heart rate of 69 and regular, respiratory rate 18, oxygen saturation 99% on room air, temperature of 97.9. General: The patient is a very pleasant 78-year-old male , who appears of thin body habitus with a BMI of 15. The patient is in no acute distress. He is alert and oriented x2. Very hard of hearing. HEENT: Head: Atraumatic, normocephalic. Eyes: Pupils are equal, reactive to light and accommodation. Oropharynx is clear. Mucosa moist. Neck: Supple. No JVD. No bruits bilaterally. Cardiovascular: Regular rate and rhythm. No murmur. Respiratory: Rhonchi at right lower lobe, otherwise clear. Abdomen: Soft, nontender. Bowel sounds are present in all 4 quadrants. Extremities: There is no edema. Pulses are +2 bilaterally. No clubbing or cyanosis. On evaluation of the skin, the patient has approximately 10 cm stageable sacral decubitus as well as central area covered with what appears to be slightly necrotic skin. There is no apparent infection evident. The patient also has several small spots of approximately 4 cm in diameter overlying the left shoulder, left scapula and left hip, those are stage I to II decubiti. On neuro evaluation, speech is clear. Cranial nerves II through XII grossly intact. The patient is hard of hearing. His left arm is contracted. Bilateral lower extremities strength 4+/5. Please note that this is a short summary of the patient's hospitalization. Please refer to further medical records for details. TIME SPENT: Approximately 45 minutes was spent on the patient's discharge. [id number]/[facility] #: [id number] [facility] HEALTH PARTNERSJulio César
[2018-07-20 14:46] VITALS: BP 113/60
== END 2018-07-20 15:15 | DRG 871 ==
LOC: ED 17:48 → MED 20:56
PROVIDERS: ADMIT Internal Medicine; ATTEND Internal Medicine
DX: A41.01 Sepsis due to Methicillin susceptible Staphylococcus aureus (principal); J69.0 Pneumonitis due to inhalation of food and vomit; E43 Unspecified severe protein-calorie malnutrition; I96 Gangrene, not elsewhere classified; M62.82 Rhabdomyolysis; I24.8 Other forms of acute ischemic heart disease; R64 Cachexia; Z68.1 Body mass index [BMI] 19.9 or less, adult; L89.150 Pressure ulcer of sacral region, unstageable; L89.222 Pressure ulcer of left hip, stage 2; L89.112 Pressure ulcer of right upper back, stage 2; I95.89 Other hypotension; L89.891 Pressure ulcer of other site, stage 1; I48.2 Chronic atrial fibrillation; E86.0 Dehydration; R13.10 Dysphagia, unspecified; D63.8 Anemia in other chronic diseases classified elsewhere; E78.5 Hyperlipidemia, unspecified; E03.9 Hypothyroidism, unspecified; K21.9 Gastro-esophageal reflux disease without esophagitis; L08.9 Local infection of the skin and subcutaneous tissue, unspecified; E87.6 Hypokalemia; R09.02 Hypoxemia; M48.061 Spinal stenosis, lumbar region without neurogenic claudication; M62.432 Contracture of muscle, left forearm; R74.8 Abnormal levels of other serum enzymes; Z99.3 Dependence on wheelchair; Z86.718 Personal history of other venous thrombosis and embolism; Z86.711 Personal history of pulmonary embolism; Z79.899 Other long term (current) drug therapy; Z83.3 Family history of diabetes mellitus; Z87.891 Personal history of nicotine dependence; Z79.01 Long term (current) use of anticoagulants
CPT/HCPCS: 36415; 71045; 80048; 80053; 81003; 81015; 82550; 82607; 82728; 83540; 83550; 83605; 83735; 84134; 84443; 84484; 85025; 85045; 85610; 85730; 86140; 87040; 87070; 87076; 87077; 87086; 87150; 87186; 87205; 93005; 99284; A9270-GY; G8978-GP-CM; G8979-GP-CK; G8987-GO-CM; G8988-GO-CJ; J0696; J2270; J2543; J3370

== ENCOUNTER 2018-08-01 18:26 | Inpatient (IN) | payer OTHER ==
[2018-08-01] MEDS ORDERED: NS 0.9% 1000 ML** 1,000 ML IV ONE ×2 (18:49→21:45)
[2018-08-01] MEDS ORDERED: Levofloxacin 750 MG IVPREMIX(* 750 MG/150 ML BAG IVPB ONE (18:49)
--- NOTE | 2018-08-01 19:03 | ED ---
Complex/Multi-Sys Presentation - HPI Summary HPI Summary: This pt is an 78 y/o male presenting to [facility] via EMS for concerns of pneumonia. According to EMS the pt's brother called for worsening pneumonia. EMS states the brother was asking the prison to bring in the pt today. Per EMS, pt did not want to come in to the hospital. Denies SOB, fever, low saturations, per nurse's note. Pt has a cough and recently diagnosed with bronchitis. Today is day 1 of azithromycin. PMHx includes afib, hypothyroidism, sacral decubitus ulcer. - History Of Current Complaint Chief Complaint: EDRespiratoryDistress Time Seen by Provider: 08/01/18 18:37 Hx Obtained From: Patient Onset/Duration: Lasting Days, Still Present Severity Currently: Mild Location: Negative Aggravating Factor(s): nothing Alleviating Factor(s): nothing Associated Signs And Symptoms: Positive: Cough. Negative: SOB, Fever - Allergies/Home Medications Allergies/Adverse Reactions: Allergies Allergy/AdvReac Type Severity Reaction Status Date / Time No Known Allergies Allergy Verified 04/10/17 13:20 PMH/Surg Hx/FS Hx/Imm Hx Endocrine/Hematology History: Reports: Hx Thyroid Disease - hypo Denies: Hx Diabetes Cardiovascular History: Reports: Hx Atrial Fibrillation, Hx Hypercholesterolemia , Hx Hypotension - LOW BLOOD PRESSURE TODAY, Hx Hypertension, Other Cardiovascular Problems/Disorders - 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 Respiratory History: Reports: Hx Chronic Bronchitis Denies: Hx Chronic Obstructive Pulmonary Disease (COPD) GI History: Reports: Hx Diverticulosis, Hx Gastroesophageal Reflux Disease, Other GI Disorders - liver abscess History: Reports: Hx Benign Prostatic Hyperplasia Denies: Hx Dialysis, Hx Renal Disease Comment Only: Other Problems/Disorders - renal failure r/t NSAID+ACEI Musculoskeletal History: Reports: Hx Arthritis, Hx Rheumatoid Arthritis, Hx Back Problems Denies: Hx Osteoporosis Sensory History: Reports: Hx Contacts or Glasses, Hx Hearing Aid, Hx Hearing Problem Opthamlomology History: Reports: Hx Contacts or Glasses Neurological History: Reports: 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, 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 Denies: Hx Dementia, Hx Seizures - Surgical History Surgery Procedure, Year, and Place: CERVICAL SURGERY C4-C6, right ear,LIVER ABSCESS, LEFT TESTICLE Hx Anesthesia Reactions: No - Immunization History Date of Tetanus Vaccine: Unk Date of Influenza Vaccine: Unk Infectious Disease History: Yes Infectious Disease History: Denies: Traveled Outside the [place] in Last 30 Days - Family History Known Family History: Positive: Hypertension, Diabetes Negative: Cardiac Disease - Social History Alcohol Use: Occasionally Alcohol Amount: socially Hx Substance Use: No Substance Use Type: Reports: None Hx Tobacco Use: Yes - QUIT 60 YRS AGO Smoking Status (MU): Former Smoker Type: Cigars Amount Used/How Often: OCCASIONAL Have You Smoked in the Last Year: Yes Review of Systems Negative: Fever Eyes: Negative Positive: Cough. Negative: Shortness Of Breath Musculoskeletal: Negative All Other Systems Reviewed And Are Negative: Yes Physical Exam - Summary Physical Exam Summary: Appearance: The patient is well-nourished in no acute distress and in no acute pain. Skin: The skin is warm and dry and skin color reflects adequate perfusion. HEENT: The head is normocephalic and atraumatic. The pupils are equal and reactive. The conjunctivae are clear and without drainage. Nares are patent and without drainage. Mouth reveals moist mucous membranes and the throat is without erythema and exudate. The external ears are intact. The ear canals are patent and without drainage. The tympanic membranes are intact. Neck: the neck is supple with full range of motion and non-tender. There are no carotid bruits. There is no neck vein distension. Respiratory: Chest is non-tender. Lungs are clear to auscultation and breath sounds are symmetrical and equal. Cardiovascular: Heart is regular rate and rhythm. There is no murmur or rub auscultated. There is no peripheral edema and pulses are symmetrical and equal. Abdomen: The abdomen is soft and non-tender. There are normal bowel sounds heard in all four quadrants and there is no organomegaly palpated. Musculoskeletal: There is no back tenderness noted. Extremities are non-tender with full range of motion. There is good capillary refill. There is no peripheral edema or calf tenderness elicited. Neurological: Patient is alert and oriented to person, place and time. The patient has symmetrical motor strength in all four extremities. Cranial nerves are grossly intact. Deep tendon reflexes are symmetrical and equal in all four extremities. Psychiatric: The patient has an appropriate affect and does not exhibit any anxiety or depression. Triage Information Reviewed: Yes Vital Signs On Initial Exam: Initial Vitals Temp Pulse Resp BP Pulse Ox 98.8 F 105 17 103/80 86 08/01/18 18:37 08/01/18 18:37 08/01/18 18:37 08/01/18 18:37 08/01/18 18:37 Vital Signs Reviewed: Yes - [place] Coma Scale Best Eye Response: 4 - Spontaneous Best Motor Response: 6 - Obeys Commands Best Verbal Response: 5 - Oriented Coma Scale Total: 15 Diagnostics - Vital Signs Vital Signs Temp Pulse Resp BP Pulse Ox 08/01/18 18:37 98.8 F 105 17 103/80 86 - Laboratory Result Diagrams: 08/01/18 19:16 08/01/18 19:16 Lab Statement: Any lab studies that have been ordered have been reviewed, and results considered in the medical decision making process. - Radiology chest XR Radiology Interpretation Completed By: ED Physician Summary of Radiographic Findings: chronic scarring, possible RLL infiltrate. - EKG 18:53 Cardiac Rate: Tachycardia - at 101 bpm EKG Rhythm: Sinus Tachycardia Summary of EKG Findings: Baseline artifact. Complex Multi-Symp Course/Dx Course Of Treatment: Mr. Stevenson presented to the ED by EMS with of low pulse ox in the 80s and tachycardia in the 100-110 range. He can't really give a history and it's unclear exactly why the ambulance was called. He has been recently treated for upper respiratory tract infection and started on antibiotics I believe one day ago. His workup here revealed likely a pneumonia and respiratory insufficiency. Technically he met septic criteria and he was given IV fluids as well as antibiotics. - Diagnoses Provider Diagnoses: Sepsis, Pneumonia - Physician Notifications Discussed Care Of Patient With: Cal Oates - hospitalist Time Discussed With Above Provider: 20:53 Instructed by Provider To: Admit As Inpatient - Critical Care Time Critical Care Time: 30-74 min Discharge - Sign-Out/Discharge Documenting (check all that apply): Patient Departure - Admit to [facility] Patient Received Moderate/Deep Sedation with Procedure: No - Discharge Plan Condition: Stable Disposition: ADMITTED TO [facility] Referrals: Delfino Duque [Primary Care Provider] - - Billing Disposition and Condition Condition: STABLE Disposition: Admitted to [facility] - Attestation Statements Document Initiated by Scribe: Yes Documenting Scribe: Zakia Norris Provider For Whom Scribe is Documenting (Include Credential): Sohan Barragan MD Scribe Attestation: Zakia Morales, scribed for Sohan Barragan MD on 08/01/18 at 2145. Scribe Documentation Reviewed: Yes Provider Attestation: The documentation as recorded by the [email or web address], Zakia Norris accurately reflects the service I personally performed and the decisions made by me, Sohan Barragan MD Status of Scribe Document: Viewed
[2018-08-01 19:23] LABS: ABS Basophils 0 10^3/ul (0-0.2); ABS Eosinophils 0 10^3/ul (0-0.6); ABS Lymphocytes 0.4 10^3/ul (1.0-4.8); ABS Monocytes 1.1 10^3/ul (0-0.8); ABS Neutrophils 16.5 10^3/ul (1.5-7.7); ABS Nucleated RBC 0 10^3/ul; Eosinophil % 0 %; Hematocrit 42 % (42-52); Hemoglobin 13.5 g/dl (14.0-18.0); Mean Corpuscular HGB Conc 32 g/dl (31-36); Mean Corpuscular Hemoglobin 26 pg (27-31); Mean Corpuscular Volume 79 fL (80-94); Mean Platelet Volume 7.3 fL (7.4-10.4); Nucleated Red Blood Cells % 0.1; Platelet Count 494 10^3/ul (150-450); Red Blood Count 5.27 10^6/ul (4.00-5.40); Red Cell Distribution Width 18 % (10.5-15)
[2018-08-01 19:30] LABS: INR 1.4 (0.77-1.02)
[2018-08-01 19:41] LABS: Albumin 3.5 g/dL (3.2-5.2); Albumin/Globulin Ratio 0.7 (1-3); BUN/Creatinine Ratio 82.9 (8-20); C Reactive Protein 353.08 mg/L (<8.01); Calcium 10.1 mg/dL (8.6-10.3); EGFR African American 131.3 (>60); EGFR Non-African American 108.5 (>60); Globulin 4.8 g/dL (2-4); Potassium 3.4 mmol/L (3.5-5.0); Total Protein 8.3 g/dL (6.4-8.9)
[2018-08-01 19:45] LABS: Troponin I 0.07 ng/mL (<0.04)
[2018-08-01 20:55] LABS: Influenza A Molecular NEGATIVE (Negative); Influenza B Molecular NEGATIVE (Negative)
[2018-08-01] MEDS ORDERED: Potassium Chlor TAB* 10 MEQ TAB.ER PO ONE (22:29)
[2018-08-01] MEDS ORDERED: NS 0.45% KCl 20 Meq 1000 ML* 1,000 ML IV SCH (23:00)
--- NOTE | 2018-08-01 23:52 | ADMNOTE ---
Subjective Date of Service: 08/01/18 Interval History: HISTORY AND PHYSICAL PCP: Catracho WHEATLEY CC: weakness HPI: Patient is 78 year old man [place] [facility] [place] for sepsis, decubitus ulcer, pneumonia. He has been at [facility] for 3 weeks. He was brought back to ER today due to hypoxia, cough. He was apparently started on IV antibiotics for pneumonia in SNF 1 day ago. Patient not talking. He indicated pain in LT thigh and buttocks. Wound on sacrum is bleeding. Family History: Findings - father of gangrene age 67, mother natural causes, sister has diabetes Social History: Findings - quit smoking years ago, no alcohol or drugs, lived with family until 1 month ago, , no kids Past Medical History: Findings - hypertension, hyperlipidemia, GERD, DVT/PE in 2018, paroxysmal a-fib, spinal trauma 2011, wheelchair bound, h/o liver abscess ; PSH cervical and lumbar surgery Review of Systems - Measurements Intake and Output: Intake and Output Last 24 Hours 07/30/18 07/31/18 08/01/18 08/02/18 06:59 06:59 06:59 06:59 Intake Total 1000 Balance 1000 Weight 45.359 kg Intake: IV Fluids 1000 - Review of Systems General Comments: patient not speaking, cannot participate in ROS Objective Active Medications: Home meds: See medication reconciliation sheet Vital Signs - 8 hr 08/01/18 08/01/18 08/01/18 18:37 18:43 18:44 Temperature 37.1 C Pulse Rate 105 116 107 Respiratory 17 Rate Blood Pressure 103/80 103/80 (mmHg) O2 Sat by Pulse 86 83 88 Oximetry 08/01/18 08/01/18 08/01/18 19:00 19:14 19:44 Temperature Pulse Rate 104 106 Respiratory Rate Blood Pressure 107/80 97/60 (mmHg) O2 Sat by Pulse 94 93 Oximetry 08/01/18 08/01/18 08/01/18 20:00 20:04 20:14 Temperature Pulse Rate 117 109 Respiratory 30 32 Rate Blood Pressure 107/84 (mmHg) O2 Sat by Pulse 86 92 92 Oximetry 08/01/18 08/01/18 08/01/18 20:44 21:00 21:14 Temperature Pulse Rate 103 102 99 Respiratory 22 29 29 Rate Blood Pressure 118/85 129/85 (mmHg) O2 Sat by Pulse 90 91 95 Oximetry 08/01/18 08/01/18 08/01/18 21:45 22:00 22:14 Temperature Pulse Rate 105 103 106 Respiratory 26 21 23 Rate Blood Pressure 103/75 123/80 (mmHg) O2 Sat by Pulse 96 98 97 Oximetry 08/01/18 08/01/18 08/01/18 22:45 23:00 23:47 Temperature 36.9 C Pulse Rate 103 106 105 Respiratory 20 22 24 Rate Blood Pressure 132/95 130/89 (mmHg) O2 Sat by Pulse 83 96 97 Oximetry Oxygen Devices in Use Now: Nasal Cannula Appearance: cachectic Eyes: No Scleral Icterus Ears/Nose/Mouth/Throat: - - dry mouth Neck: NL Appearance and Movements; NL JVP Respiratory: Clear to Percussion, - - diffuse ronchi, diminished throughout Cardiovascular: NL Sounds; No Murmurs; No JVD Abdominal: NL Sounds; No Tenderness; No Distention Skin: - - small ulcer on LT hip and upper back, large stage 4 ulcer over entire sacrum, oozing blood Neurological: - - mouths words, follows commands Lines/Tubes/Other Access: Clean, Dry and Intact Peripheral IV Nutrition: Taking PO's Result Diagrams: 08/02/18 06:26 08/02/18 01:26 Additional Lab and Data: Laboratory Tests 08/01/18 08/01/18 08/01/18 19:16 19:16 19:16 Lactic Acid 2.0 Calcium 10.1 Troponin I 0.07 H* C-Reactive Protein 353.08 H B-Natriuretic Peptide 266 H Albumin 3.5 Globulin 4.8 H Influenza A (Rapid) Influenza B (Rapid) 08/01/18 20:43 Lactic Acid Calcium Troponin I C-Reactive Protein B-Natriuretic Peptide Albumin Globulin Influenza A (Rapid) Negative Influenza B (Rapid) Negative Microbiology and Other Data: Microbiology 08/01/18 20:25 Influenza Types A,B Antigen - Final Nasal Specimen received for Influenza A/B Molecular testing Diagnostic Imaging: CXR: diffuse interstitial marking and scarring, no clear infiltrates EKG Data: sinus tachycardia Assess/Plan/Problems-Billing Assessment: 78 year old man w/ pneumonia, hypoxia, and severe sacral decubitus. - Patient Problems (1) Pneumonia Current Visit: Yes Status: Acute Priority: High Code(s): J18.9 - PNEUMONIA , UNSPECIFIED ORGANISM SNOMED Code(s): 487669826 Comment: -Will be admitted to hospital due to hypoxia and pneumonia. -Oxygen supplemented -Levaquin initiated in ER will be continued (2) Sacral decubitus ulcer Current Visit: No Status: Acute Priority: High Comment: -may be second source of infection -wound consult in process -plan is nutrition, turn and position (3) Failure to thrive in adult Current Visit: Yes Status: Acute Priority: High Comment: -Patient appears to be losing ground despite rehab stay -will need marshall discussion of DNR, hospice, with family when they are available (4) DVT prophylaxis Current Visit: No Status: Acute Priority: Low Code(s): PWG5168 - SNOMED Code(s): 335011898 Comment: - on xarelto Status and Disposition: inpatient, will return to SNF when stable
[2018-08-02] MEDS: NS 0.9% w/ 20 Meq KCL 1000 ML* 1,000 ML IV SCH ×3 (00:55→22:15)
[2018-08-02 01:43] LABS: Hematocrit 38 % (42-52); Hemoglobin 12.1 g/dl (14.0-18.0); Mean Corpuscular HGB Conc 32 g/dl (31-36); Mean Corpuscular Hemoglobin 25 pg (27-31); Mean Corpuscular Volume 79 fL (80-94); Mean Platelet Volume 7.3 fL (7.4-10.4); Platelet Count 485 10^3/ul (150-450); Red Cell Distribution Width 18 % (10.5-15); White Blood Count 17.8 10^3/ul (3.5-10.8)
[2018-08-02 01:50] LABS: Activated Partial Thrombo Time 39.9 seconds (26.0-36.3); INR 1.61 (0.77-1.02)
[2018-08-02 01:58] LABS: EGFR African American 173.4 (>60); EGFR Non-African American 143.3 (>60)
[2018-08-02 02:06] LABS: ABS Basophils 0.2 10^3/ul (0-0.2); ABS Eosinophils 0 10^3/ul (0-0.6); ABS Lymphocytes 0.4 10^3/ul (1.0-4.8); ABS Neutrophils 16.2 10^3/ul (1.5-7.7); ABS Nucleated RBC 0 10^3/ul; Eosinophil % 0 %; Lymphocyte % 2.1 %; Nucleated Red Blood Cells % 0
[2018-08-02 06:48] LABS: Hematocrit 36 % (42-52); Hemoglobin 11.7 g/dl (14.0-18.0); Mean Corpuscular HGB Conc 32 g/dl (31-36); Mean Corpuscular Hemoglobin 25 pg (27-31); Mean Corpuscular Volume 78 fL (80-94); Mean Platelet Volume 7.4 fL (7.4-10.4); Platelet Count 462 10^3/ul (150-450); Red Blood Count 4.66 10^6/ul (4.00-5.40); Red Cell Distribution Width 18 % (10.5-15); White Blood Count 17.2 10^3/ul (3.5-10.8)
[2018-08-02 07:04] LABS: BUN/Creatinine Ratio 81.6 (8-20); C Reactive Protein 295.61 mg/L (<8.01); Calcium 9.4 mg/dL (8.6-10.3); EGFR African American 198.2 (>60); EGFR Non-African American 163.8 (>60); Potassium 3.4 mmol/L (3.5-5.0)
[2018-08-02 07:32] LABS: ABS Basophils 0 10^3/ul (0-0.2); ABS Eosinophils 0 10^3/ul (0-0.6); ABS Lymphocytes 0.3 10^3/ul (1.0-4.8); ABS Monocytes 0.8 10^3/ul (0-0.8); ABS Neutrophils 16.1 10^3/ul (1.5-7.7); ABS Nucleated RBC 0 10^3/ul; Eosinophil % 0 %; Lymphocyte % 1.7 %; Nucleated Red Blood Cells % 0
[2018-08-02] MEDS: Levothyroxine TAB* 25 MCG TAB PO SCH (08:48)
[2018-08-02] MEDS ORDERED: Heparin VIAL(*) 5000 UNITS/ML VIAL (FIVE THOUSAND) SUBCUT SCH (09:00)
--- NOTE | 2018-08-02 12:39 | CONSULT ---
Consult Consult: WOUND CONSULT NOTE Date of Service: 08/02/2018 History: Interval History: Mr. 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 He was previously admitted from -07/20/18 with multiple wounds. Mr. Stevenson presented to the hospital with several pressure injuries from [facility]. He was sent to the emergency room with concern for hypoxia and cough and was found to have PNA. Patient seen and examined at bedside. Denies fever, chills. He shakes his head yes when asked if he was pain in his buttocks. Past Medical/Family/Social History: Family History: Unchanged from Admission Social History: Unchanged from Admission Past Medical History: Unchanged from Admission Objective: Active Medications: Levofloxacin/Dextrose (Levaquin 500 Mg Ivpremix(*)) 500 mg in 100 mls @ 100 mls /hr IVPB Q24H [facility] Morphine Sulfate (Morphine Oral Concentrate*) 5 mg SL Q30M PRN Reason: PAIN Levothyroxine Sodium (Synthroid Tab*) 25 mcg PO DAILY [facility] Potassium Chloride/Sodium Chloride (Ns 0.9% W/ 20 Meq Kcl 1000 Ml*) 1,000 mls @ 100 mls/hr IV PER RATE [facility] Rivaroxaban (Xarelto(*)) 15 mg PO QPM [facility] Vital Signs: 08/02/18 11:00 Temperature 97.9 F Temperature Temporal Artery Source Scan Pulse Rate 103 Respiratory 36 Rate Blood Pressure 109/76 (mmHg) Blood Pressure 83 Mean O2 Sat by Pulse 100 Oximetry Patient on Room No Air Exam: General: NAD, frail elderly male, laying in bed Neuro: Alert and Oriented to Person Skin: Right Heel Deep tissue injury - 0.5 cm x 0.5 cm Stage 2 Pressure Injury to lateral sacrum - 2 cm x1.5 cm x0.1 cm with yellow adherent slough to wound base Stage 4 pressure injury to sacrum - 7 cm x 6 cm x 0.2 cm with bone appreciable at the upper edge. There is mild erythema to the surround skin and some macerated skin Stage 2 pressure injury to left shoulder - 1.5 cm x 3.2 cm x 0.1 cm with dark base Left hip wound - 2 cm x 2 cm x 0.1 cm with adherent yellow eschar; surrounding skin intact. Data: Labs: 08/01/18 08/02/18 08/02/18 19:16 06:26 06:26 WBC 17.2 H Hgb 11.7 L Hct 36 L Plt Count 462 H Sodium 140 Potassium 3.4 L Chloride 104 Carbon Dioxide 25 BUN 40 H Creatinine 0.49 L Glucose 95 C-Reactive Protein 353.08 H 295.61 H Total Protein 8.3 Albumin 3.5 Assessment/Plan: Mr. 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 He was previously admitted from -07/20/18 with multiple wounds. Mr. Stevenson presented to the hospital with several pressure injuries from [facility]. He was sent to the emergency room with concern for hypoxia and cough and was found to have PNA. 1. Deep Tissue Injury to right heel. Keep the heels elevated off the bed. No dressing required 2. Stage 2 Pressure Injury to lateral sacrum - Suggest including it in the wet to dry dressings 3. Stage 4 pressure injury to sacrum - Suggest wet to dry dressings changed 1- 2x daily and as needed for stool incontinence. Frequent turning and repositioning. Avoid tape to skin. 4. Left hip pressure injury, unstageable - Cover with hydrocolloid and change every 3days 5. Stage 2 pressure injury to left shoulder - Suggest hydrocolloid to be changed every 3 days 6. Severe Malnutrition. Suspected to be secondary to environmental issues. According to his nutrition assessment he has severe body fat loss as evidenced by moderate to severe temporal and clavicular wasting on observation. His pre- albumin was 4 on previous admission earlier this month. Dietitian consult, input appreciated. Continue Ensure Enlive. VTE PPX: Lovenox Diet: Regular diet with nectar thick liquids by straw and pureed solids Code Status: Full Code Status Disposition: Inpatient. Disposition per primary medicine team. Time Spent: A total of 20 minutes was spent with the patient assessing, measuring, and photographing wounds. Attending: Dr. Nicky Harris MD
[2018-08-02] MEDS: Morphine ORAL CONCENTRATE* 5 MG/0.25 ML ORAL.SYRIN SL PRN ×2 (13:50→22:35)
[2018-08-02] MEDS ORDERED: Rivaroxaban TAB(*) 15 MG PO SCH (18:00)
--- NOTE | 2018-08-02 18:18 | PN ---
Subjective Date of Service: 08/02/18 Interval History: No c/o. Family History: Findings - father of gangrene age 67, mother natural causes, sister has diabetes Social History: Findings - quit smoking years ago, no alcohol or drugs, lived with family until 1 month ago, , no kids Past Medical History: Findings - hypertension, hyperlipidemia, GERD, DVT/PE in 2018, paroxysmal a-fib, spinal trauma 2011, wheelchair bound, h/o liver abscess ; PSH cervical and lumbar surgery Objective Active Medications: Levofloxacin/Dextrose (Levaquin 500 Mg Ivpremix(*)) 500 mg in 100 mls @ 100 mls /hr IVPB Q24H [facility] Potassium Chloride/Sodium Chloride (Ns 0.9% W/ 20 Meq Kcl 1000 Ml*) 1,000 mls @ 100 mls/hr IV PER RATE [facility] Last Admin: 08/02/18 11:53 Dose: 100 mls/hr Levothyroxine Sodium (Synthroid Tab*) 25 mcg PO DAILY [facility] Last Admin: 08/02/18 08:48 Dose: 25 mcg Morphine Sulfate (Morphine Oral Concentrate*) 5 mg SL Q30M PRN PRN Reason: PAIN Last Admin: 08/02/18 13:50 Dose: 5 mg Rivaroxaban (Xarelto(*)) 15 mg PO QPM [facility] Vital Signs - 8 hr 08/02/18 08/02/18 08/02/18 11:00 11:10 13:50 Temperature 97.9 F Pulse Rate 103 Respiratory 36 28 26 Rate Blood Pressure 109/76 (mmHg) O2 Sat by Pulse 100 Oximetry 08/02/18 14:53 Temperature Pulse Rate 91 Respiratory Rate Blood Pressure 102/67 (mmHg) O2 Sat by Pulse 100 Oximetry Oxygen Devices in Use Now: Simple Face Mask Appearance: Alert, sitting up in bed. Neutral affect. Looks comfortable. Neck: NL Appearance and Movements; NL JVP, No Thyroid Enlargement, Masses Respiratory: Symmetrical Chest Expansion and Respiratory Effort, Clear to Auscultation, Clear to Percussion Cardiovascular: NL Sounds; No Murmurs; No JVD, RRR, No Edema, - Extremities: No Edema, No Clubbing, Cyanosis, - Skin: No Rash or Ulcers, No Nodules or Sclerosis, - Neurological: NL Sensation, - - Answers slowly, follows simple commands. No tremor. Result Diagrams: 08/02/18 06:26 08/02/18 06:26 Additional Lab and Data: Laboratory Tests 08/01/18 08/01/18 08/01/18 19:16 19:16 19:16 Lactic Acid 2.0 Calcium 10.1 Troponin I 0.07 H* C-Reactive Protein 353.08 H B-Natriuretic Peptide 266 H Albumin 3.5 Globulin 4.8 H Influenza A (Rapid) Influenza B (Rapid) 08/01/18 20:43 Lactic Acid Calcium Troponin I C-Reactive Protein B-Natriuretic Peptide Albumin Globulin Influenza A (Rapid) Negative Influenza B (Rapid) Negative Microbiology and Other Data: Microbiology 08/01/18 20:25 Influenza Types A,B Antigen - Final Nasal Specimen received for Influenza A/B Molecular testing Diagnostic Imaging: CXR: diffuse interstitial marking and scarring, no clear infiltrates EKG Data: sinus tachycardia Assess/Plan/Problems-Billing Assessment: 78 year old man w/ pneumonia, hypoxia, and severe sacral decubitus. - Patient Problems (1) Pneumonia Current Visit: Yes Status: Acute Priority: High Code(s): J18.9 - PNEUMONIA , UNSPECIFIED ORGANISM SNOMED Code(s): 485949539 Comment: -Will be admitted to hospital due to hypoxia and pneumonia. -Oxygen supplemented -Levaquin initiated in ER will be continued Not clear what infiltrate on CXR if any is new, but leukocytosis is new. (2) Sacral decubitus ulcer Current Visit: No Status: Acute Priority: High Comment: -may be the major source of infection for this admission -wound consult appreciated. -plan is nutrition, turn and position, continue levofloxacin. (3) Atrial fibrillation Current Visit: No Status: Chronic Priority: Medium Code(s): I48.91 - UNSPECIFIED ATRIAL FIBRILLATION SNOMED Code(s): 36581714 Comment: - NSR on admission. In regular rate today - Anticoagulation with Xarelto. (4) Altered mental status Current Visit: No Status: Acute Code(s): R41.82 - ALTERED MENTAL STATUS, UNSPECIFIED SNOMED Code(s): 135132188 Comment: TSH wnl 07/14/18. Palliatvie care consult requested. Status and Disposition: inpatient, will return to SNF when stable
[2018-08-02] MEDS: Levofloxacin 500 MG IVPREMIX(* 500 MG/100 ML BAG IVPB SCH (22:16)
[2018-08-02] MEDS ORDERED: Digoxin IV* 0.5 MG/2 ML AMP (0.25 MG/ML) IV SLOW PU ONE (23:28)
[2018-08-02] MEDS ORDERED: NS 0.9% 500 ML* 500 ML IV ONE (23:45)
[2018-08-03] MEDS: Morphine ORAL CONCENTRATE* 5 MG/0.25 ML ORAL.SYRIN SL PRN ×3 (00:34→20:47)
[2018-08-03] MEDS ORDERED: NS 0.9% 500 ML* 500 ML IV ONE (01:26)
--- NOTE | 2018-08-03 01:33 | PN ---
Progress Note - Progress Note Date of Service: 08/03/18 Note: I was called at about 2300 for increase in HR to ~150 and low BP with a systolic in the 70's. He has a h/o afib and now is in afib. He is not on any rate controlling agents at baseline. Initially 500ml bolus NS and digoxin 0.25mg IV x1 given. At 0050 paged again that the patient's HR remains in the 130 -150's. He also received a dose of IV morphine during that time period. On assessment the patient is awake, alert and able to answer simple questions with nods/shakes and gestures. He c/o pain in the R shoulder. He denies any SOB. HR is tachycardic and irregular, he has no LE edema. Lungs are clear (pt gives poor effort). Will give NS 500mg IV now, repeat CBC, BMP, Mg now. Will replete electrolytes as needed. I believe the hypotension is secondary to inadequate cardiac filling due to his rapid afib. Continue current antibiotic regimen as his CRP is starting to trend down, his WBC count remains elevated but is down slightly. Also of concern is the patient's elevated BUN in comparison to his creatinine. I question possible upper GI bleed-repeat CBC pending.
[2018-08-03 01:53] LABS: ABS Basophils 0 10^3/ul (0-0.2); ABS Eosinophils 0 10^3/ul (0-0.6); ABS Lymphocytes 0.2 10^3/ul (1.0-4.8); ABS Monocytes 0.6 10^3/ul (0-0.8); ABS Neutrophils 15.7 10^3/ul (1.5-7.7); ABS Nucleated RBC 0 10^3/ul; Eosinophil % 0 %; Hematocrit 31 % (42-52); Hemoglobin 9.8 g/dl (14.0-18.0); Lymphocyte % 1.1 %; Mean Corpuscular HGB Conc 32 g/dl (31-36); Mean Corpuscular Hemoglobin 25 pg (27-31); Mean Corpuscular Volume 80 fL (80-94); Nucleated Red Blood Cells % 0; Platelet Count 371 10^3/ul (150-450); Red Blood Count 3.92 10^6/ul (4.00-5.40); Red Cell Distribution Width 18 % (10.5-15); White Blood Count 16.5 10^3/ul (3.5-10.8)
[2018-08-03] MEDS ORDERED: KCL 20 MEQ/100 ML IVPREMIX* 20 MEQ/100 ML BAG IV SCH (02:00)
[2018-08-03 02:10] LABS: BUN/Creatinine Ratio 54.5 (8-20); Calcium 8.5 mg/dL (8.6-10.3); EGFR African American 312.7 (>60); EGFR Non-African American 258.4 (>60); Magnesium 1.5 mg/dL (1.9-2.7); Potassium 3.3 mmol/L (3.5-5.0)
[2018-08-03] MEDS: Lactated Ringers 1000 ML Bag* 1,000 ML IV SCH ×2 (02:45→16:36)
[2018-08-03] MEDS ORDERED: Magnesium Sulfate 2 GM IV* 2 GM/50 ML BAG IVPB ONE (02:58)
[2018-08-03] MEDS ORDERED: Magnesium Sulfate 2 GM IV* 2 GM/50 ML BAG ONE (03:07)
[2018-08-03] MEDS: KCL 20 MEQ/100 ML IVPREMIX* 20 MEQ/100 ML BAG IV SCH ×2 (04:25→07:27)
[2018-08-03] MEDS: Levothyroxine TAB* 25 MCG TAB PO SCH ×2 (07:27→07:30)
[2018-08-03 08:16] LABS: Hematocrit 31 % (42-52); Hemoglobin 9.8 g/dl (14.0-18.0)
--- NOTE | 2018-08-03 09:33 | PN ---
Subjective Date of Service: 08/03/18 Interval History: Patient indicated when asked that his Left shoulder hurt, but did not want any pain medication. No other c/o. Family History: Findings - father of gangrene age 67, mother natural causes, sister has diabetes Social History: Findings - quit smoking years ago, no alcohol or drugs, lived with family until 1 month ago, , no kids Past Medical History: Findings - hypertension, hyperlipidemia, GERD, DVT/PE in 2018, paroxysmal a-fib, spinal trauma 2011, wheelchair bound, h/o liver abscess ; PSH cervical and lumbar surgery Objective Active Medications: Levofloxacin/Dextrose (Levaquin 500 Mg Ivpremix(*)) 500 mg in 100 mls @ 100 mls /hr IVPB Q24H [facility] Last Admin: 08/02/18 22:16 Dose: 100 mls/hr Lactated Ringer's (Lactated Ringers 1000 Ml Bag*) 1,000 mls @ 100 mls/hr IV PER RATE [facility] Last Admin: 08/03/18 02:45 Dose: 100 mls/hr Levothyroxine Sodium (Synthroid Tab*) 25 mcg PO DAILY [facility] Last Admin: 08/03/18 07:30 Dose: Not Given Morphine Sulfate (Morphine Oral Concentrate*) 5 mg SL Q30M PRN PRN Reason: PAIN Last Admin: 08/03/18 05:58 Dose: 5 mg Vital Signs - 8 hr 08/03/18 08/03/18 08/03/18 02:30 03:38 04:20 Temperature 98.2 F Pulse Rate 124 Respiratory 35 16 30 Rate Blood Pressure 114/53 (mmHg) O2 Sat by Pulse 95 Oximetry 08/03/18 08/03/18 05:58 08:09 Temperature 98.4 F Pulse Rate 101 Respiratory 30 Rate Blood Pressure 80/51 (mmHg) O2 Sat by Pulse 91 Oximetry Oxygen Devices in Use Now: Simple Face Mask, OxyMask Appearance: Alert, partly up in bed. Passive. Looks comfortable. Eyes: No Scleral Icterus Respiratory: Symmetrical Chest Expansion and Respiratory Effort, Clear to Auscultation, Clear to Percussion Cardiovascular: NL Sounds; No Murmurs; No JVD, RRR, No Edema, - Extremities: No Edema, No Clubbing, Cyanosis, - Result Diagrams: 08/03/18 08:03 08/03/18 01:42 Additional Lab and Data: Laboratory Tests 08/01/18 08/01/18 08/01/18 19:16 19:16 19:16 Lactic Acid 2.0 Calcium 10.1 Troponin I 0.07 H* C-Reactive Protein 353.08 H B-Natriuretic Peptide 266 H Albumin 3.5 Globulin 4.8 H Influenza A (Rapid) Influenza B (Rapid) 08/01/18 20:43 Lactic Acid Calcium Troponin I C-Reactive Protein B-Natriuretic Peptide Albumin Globulin Influenza A (Rapid) Negative Influenza B (Rapid) Negative Microbiology and Other Data: Microbiology 08/01/18 20:25 Influenza Types A,B Antigen - Final Nasal Specimen received for Influenza A/B Molecular testing Diagnostic Imaging: CXR: diffuse interstitial marking and scarring, no clear infiltrates EKG Data: sinus tachycardia Assess/Plan/Problems-Billing Assessment: 78 year old man w/ pneumonia, hypoxia, and severe sacral decubitus. - Patient Problems (1) Pneumonia Current Visit: Yes Status: Acute Priority: High Code(s): J18.9 - PNEUMONIA , UNSPECIFIED ORGANISM SNOMED Code(s): 087834199 Comment: -Will be admitted to hospital due to hypoxia and pneumonia. -Oxygen supplemented -Levaquin initiated in ER will be continued Not clear what infiltrate on CXR if any is new, but leukocytosis is new. (2) Sacral decubitus ulcer Current Visit: No Status: Acute Priority: High Comment: -may be the major source of infection for this admission -wound consult appreciated. -plan is nutrition, turn and position, continue levofloxacin. (3) Atrial fibrillation Current Visit: No Status: Chronic Priority: Medium Code(s): I48.91 - UNSPECIFIED ATRIAL FIBRILLATION SNOMED Code(s): 53285427 Comment: - NSR on admission. In regular rate today - Anticoagulation with Xarelto. (4) Altered mental status Current Visit: No Status: Acute Code(s): R41.82 - ALTERED MENTAL STATUS, UNSPECIFIED SNOMED Code(s): 001616911 Comment: TSH wnl 07/14/18. Palliatvie care consult requested. Status and Disposition: inpatient, will return to SNF when stable
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
[2018-08-03] MEDS ORDERED: LORazepam TAB(*) 0.5 MG SL PRN (14:11)
[2018-08-03] MEDS ORDERED: Atropine 1% (ORAL/SL)* 15 ML BTL SL PRN (14:12)
[2018-08-03] MEDS: Levofloxacin 500 MG IVPREMIX(* 500 MG/100 ML BAG IVPB SCH (20:49)
[2018-08-04] MEDS: Lactated Ringers 1000 ML Bag* 1,000 ML IV SCH (04:29)
[2018-08-04] MEDS: Levothyroxine TAB* 25 MCG TAB PO SCH (07:58)
[2018-08-04] MEDS: Morphine ORAL CONCENTRATE* 5 MG/0.25 ML ORAL.SYRIN SL PRN ×2 (08:04→08:14)
[2018-08-04 11:58] VITALS: BP 117/72
--- NOTE | 2018-08-04 12:12 | TRS ---
CC: Delfino Bell RPA * DATE OF ADMISSION: 08/01/2018. DATE OF TRANSFER: 08/04/2018. HISTORY OF PRESENT ILLNESS: This 78-year-old man was admitted on 08/01/2018 with a main complaint of weakness. He had been at [facility] for about three weeks. He had hypoxia and cough as well. He was given intravenous antibiotics at the nursing facility the day before admission. The patient was pretty noncommunicative and could not given a significant history. He did indicate he had pain in the left thigh and buttocks. He was thought to have pneumonia. He was started on Levofloxacin in the emergency room and this was continued. He had a wound consult documenting his multiple wounds. They could have contributed to his condition as well. He was noted to eat very poorly. He did not communicate well. I do not think he was interested in eating. He had a Speech Therapy evaluation for swallowing. It was felt that he would tolerate nectar-thick liquids and pureed foods; however, he did not seem to care for any type of food. He did receive some intravenous fluids. I had a lengthy discussion with both his brothers, Darrius and Delmar. They recognize that his condition is poor and that his life expectancy is very short. They have agreed to [place] emergency [facility]. He is being returned to [facility] to be with hospice care. FINAL DIAGNOSES: 1. Pneumonia. 2. Sacral decubitus ulcers. 3. Atrial fibrillation. 4. Altered mental status. 5. Malnutrition. DISCHARGE MEDICATIONS: 1. Atropine 1% two drops sublingual every 2 hours prn. 2. Lorazepam 0.5 mg sublingual every 3 hours prn. 3. Morphine oral concentrate 2.5 mg sublingual every 30 minutes prn. 4. Levothyroxine 25 mcg daily. 5. Levofloxacin 500 mg daily at 5:00 p.m. The patient has been fairly consistently refusing all p.o. medications and if this continues, I would simply discontinue the p.o. medications. DISPOSITION ON DISCHARGE: Discharge to [facility]. CONDITION ON DISCHARGE: Guarded. [id number]/[facility] #: [id number] MTDD
== END 2018-08-04 14:20 | DRG 592 ==
LOC: ED 18:26 → MED 22:22
PROVIDERS: ADMIT Internal Medicine; ATTEND Internal Medicine
DX: L89.154 Pressure ulcer of sacral region, stage 4 (principal); J18.9 Pneumonia, unspecified organism; E43 Unspecified severe protein-calorie malnutrition; R64 Cachexia; Z68.1 Body mass index [BMI] 19.9 or less, adult; L89.122 Pressure ulcer of left upper back, stage 2; L89.220 Pressure ulcer of left hip, unstageable; L89.619 Pressure ulcer of right heel, unspecified stage; I95.9 Hypotension, unspecified; I48.0 Paroxysmal atrial fibrillation; E03.9 Hypothyroidism, unspecified; K21.9 Gastro-esophageal reflux disease without esophagitis; I10 Essential (primary) hypertension; E78.5 Hyperlipidemia, unspecified; Z99.3 Dependence on wheelchair; R09.02 Hypoxemia; M48.061 Spinal stenosis, lumbar region without neurogenic claudication; R62.7 Adult failure to thrive; M62.40 Contracture of muscle, unspecified site; R41.82 Altered mental status, unspecified; Z66 Do not resuscitate; Z83.3 Family history of diabetes mellitus; Z87.891 Personal history of nicotine dependence; Z86.718 Personal history of other venous thrombosis and embolism; Z86.711 Personal history of pulmonary embolism
CPT/HCPCS: 36415; 71045; 80048; 80053; 82272; 82565; 83605; 83735; 83880; 84484; 84520; 85014; 85018; 85025; 85610; 85730; 86140; 87040; 93005; 99283; A9270-GY; J1160; J1644; J1956; J3475; J3480